=== PATIENT | female | born 1955 | race Caucasian/White ===

== ENCOUNTER 2022-02-18 07:16 | Emergency (ER) | payer MEDICARE, SELFPAY ==
--- NOTE | ~2022-02-18 | CT_ITS ---
EXAMINATION: CT ABDOMEN AND PELVIS WITHOUT CONTRAST CLINICAL INFORMATION: Left flank pain COMPARISON: CT abdomen pelvis without contrast 06/13/2013 TECHNIQUE: Multidetector volumetric imaging was performed from the superior aspect of the liver through the pubic symphysis. Sagittal and coronal reformatted images were obtained on the technologist's workstation. This CT examination was performed using dose optimization techniques as appropriate, variously including the following: *Automated exposure control *Adjustment of mA and/or kV according to patient size (this includes techniques or standardized protocols for targeted exams where dose is matched to indication/reason for exam; i.e. extremities or head) *Use of iterative reconstruction technique DLP: 298 i mGy-cm FINDINGS: LUNG BASES: The visualized lung bases are unremarkable. Small hiatal hernia. LIVER, GALLBLADDER, AND BILIARY TREE: The liver is enlarged in size, normal shape, contour and attenuation. No focal hepatic lesion or biliary ductal dilatation is present. The gallbladder is unremarkable with no evidence of radiopaque gallstones, gallbladder wall thickening, or obvious pericholecystic inflammatory changes. PANCREAS: Unremarkable. SPLEEN: Unremarkable. ADRENAL GLANDS: Unremarkable. KIDNEYS AND URETERS: The kidneys are normal in size, shape, and attenuation. There are bilateral radiopaque renal calculi. Largest radiopaque calculi mid pole right kidney measures 1 cm and and lower pole right kidney measures 1 cm. No focal caliectasis hydronephrosis seen. There is a 1.1 cm hypodensity in the upper pole cortex likely simple cysts. There are punctate 3 mm radiopaque calculi seen in the mid and lower pole left kidney without caliectasis or hydronephrosis. There are two 3 mm radiopaque calculi in right distal ureter without hydroureter. They are best visualized on axial image 53/3 BLADDER: Unremarkable. GASTROINTESTINAL TRACT: The small and large bowel are unremarkable. The appendix is unremarkable. ABDOMINAL WALL: No significant hernia is appreciated. LYMPH NODES: Normal. VASCULAR: There is atherosclerotic calcification of abdominal aorta without aneurysmal dilatation. PELVIC VISCERA: The uterus is anteverted and appears unremarkable. No adnexal mass or free fluid seen. OSSEOUS STRUCTURES: Unremarkable. CT/CT abdomen pelvis wo IV con IMPRESSION: Bilateral nephrolithiasis with the largest stones in mid and lower pole right kidney. Two small 3 mm radiopaque calculi right distal ureter, nonobstructive. Small hiatal hernia. Fleischner guidelines were followed.
[2022-02-18 07:29] VITALS: BP 175/98; PULSE 108; RESP 16; TEMP 36; O2SAT 97; BMI 20.5
--- NOTE | 2022-02-18 08:21 | ED.ABDPAIN ---
HPI - Abdominal Pain General Chief Complaint: Abdominal Pain Stated Complaint: kidney stone, Time Seen by Provider: 02/18/22 07:59 Source: patient and family Mode of arrival: ambulatory Limitations: no limitations History of Present Illness HPI narrative: 66-year-old postmenopausal female with a past medical history of prior kidney stones, historically managed at [facility], presents to the emergency department today with left flank pain and hematuria. She states she woke in the middle of the night with severe left back pain that radiated into her left abdomen and noted blood in her urine. She states the pain is constant and sharp, 6/10. She denies any recent illness or sick contacts. She endorses the feeling of her heart racing at this time. She states she has been able to take p.o. fluids without issue. She has had a history of kidney stones in the past, with last kidney stone in April requiring hospitalization and treatment for urosepsis per patient. She denies taking any medications at home for treatment of her pain. She denies any chest pain, shortness of breath, abdominal pain, diarrhea, constipation, fever, chills, nausea, or vomiting at this time. MD elicited complaint: flank pain Pertinent past history: kidney stones Onset (ago): hour(s) Pain Consistency: constant Location: L flank Severity: moderate Pain scale (0-10): 6 Quality: sharp Radiation: LLQ Migration to: no migration Exacerbating factors: nothing Relieving factors: nothing Associated symptoms: denies other symptoms Related Data Previous Rx's Medication Instructions Recorded cefuroxime axetil 500 mg tablet 500 mg PO BID 5 days #10 tabs 02/18/22 ondansetron 4 mg disintegrating 4 mg PO Q8H 3 days #9 tabs 02/18/22 tablet oxycodone 5 mg capsule 5 mg PO Q6H PRN pain 3 days #10 02/18/22 caps tamsulosin 0.4 mg capsule 0.4 mg PO DAILY 7 days #7 caps 02/18/22 Allergies Allergy/AdvReac Type Severity Reaction Status Date / Time promethazine [From Phenergan] Allergy Mild DEEP SLEEP Unverified 12/10/19 16:16 Review of Systems Review of Systems Yes all other systems are reviewed and are negative Constitutional: Reports no additional constitutional complaints, Denies chills, Denies fever(s), Denies headache(s) and Denies night sweats Eyes: Reports no additional eye complaints and Denies change in vision Reports system reviewed and no additional complaints, except as documented and Denies headache(s) Cardiovascular: Reports no additional cardiovascular complaints, Denies chest pain, Denies Epigastric Pain, Reports rapid heart rate, Denies lightheadedness, Reports palpitations and Denies dyspnea Respiratory: Reports no additional respiratory complaints, Denies pain on inspiration and Denies dyspnea Gastrointestinal: Reports no additional gastrointestinal complaints, Denies abdominal pain, Denies melena, Denies hematochezia, Denies constipation, Denies diarrhea, Denies nausea and Denies vomiting Genitourinary: Reports no additional female genitourinary complaints, Denies difficulty voiding, Reports flank pain and Reports other (hematuria) Musculoskeletal: Reports no additional musculoskeletal complaints and Denies back pain Skin/Breast: Reports system reviewed and no additional complaints, except as docu, Denies lesions, Denies rash and Denies sores Reports system reviewed and no additional complaints, except as documented, Denies behavioral changes and Denies headache(s) Psychiatric: Reports no additional psychiatric complaints and Denies behavioral changes Endocrine: Reports no additional endocrine complaints, Denies polyphagia, Denies polydipsia, Denies polyuria and Reports palpitations Hematologic/Lymphatic: Reports no additional hematologic/lymphatic complaints [facility] Past Medical History Attestation statement: The following information was validated with the patient. Source: old records reviewed and obtained from family Social History Social History Advance Directives: Yes Advance Directives Information Provided: Yes Advance Directives on File: No Physical Exam ED Vital Signs: Vital Signs - 24 hr 02/18/22 07:29 Temperature 96.8 F Pulse Rate 108 H Respiratory Rate 16 Blood Pressure 175/98 H Pulse Oximetry 97 Oxygen Delivery Method Room Air BMI result Body Mass Index 20.5 Const General: cooperative, alert and awake Nutritional Appearance: average body habitus Orientation/consciousness: patient oriented x3 Limitations: no limitations HENMT Head: Yes normal to inspection, Yes normocephalic and Yes atraumatic Ears: hearing grossly normal bilaterally and external ears normal General nose exam: Normal external nose present Face and sinus: Yes normal facial exam Mouth: Normal oral and palatal mucosa present Eyes General: appearance normal, both eyes and all related structures Alignment and Position: alignment normal Periorbital: periorbital findings normal Eyelids: Yes eyelids normal Conjunctivae: conjunctivae normal Sclerae: sclerae normal Pupils: Equal, round and reactive pupils present EOM: EOMs intact bilaterally Neck Neck: Yes normal visual inspection and Yes full ROM Chest Chest palpation & inspection: normal inspection of the chest Resp Effort & Inspection: normal respiratory effort and able to speak in complete sentences Auscultation: clear to auscultation bilaterally Cardio Rate: tachycardic Rhythm: regular rhythm Peripheral pulses: Peripheral pulses 2+ throughout GI Inspection: Yes normal to inspection and No distended Palpation (GI): Soft to palpation, not firm, Tenderness to palpation present (GI) (mid left quadrant), no guarding and not rigid Auscultation: normal bowel sounds General: Yes CVA tenderness on the left Back/Spine/Pelvis Back: CVA tenderness, No erythema, No ecchymosis and No Blount-Negrete sign present Cervical Spine: cervical ROM normal Thoracic/Lumbar Spine: thoraco-lumbar ROM normal Skin General skin exam: no rashes or lesions noted Neuro General: patient oriented x3, gait normal and moves all extremities Cranial nerves: Yes Equal, round and reactive pupils present and Yes Bilaterally intact EOM present Cognition (Neuro): normal cognition Gait exam (Neuro): Normal gait present Motor exam (neuro): 5/5 motor strength present throughout Sensory Exam: Normal double simultaneous stimulation for sensation Extrem General: Yes normal to inspection, Yes full ROM and Yes capillary refill normal Psych Appearance: grossly normal Mental Status: mental status grossly normal Speech and movement: Normal speech and movement present Affect: normal affect Attitude: cooperative Thought process: Normal thought process present Thought content: Normal thought content present Insight: Good insight present (Psych) Judgement: Good judgement present (Psych) Course Course Course Narrative: 0800: Physical exam consistent with left CVA tenderness. 0815: CT abdomen pelvis without IV contrast ordered. Lab work ordered: CBC, CMP, lipase, LFTs, UA. Plan to provide IV Toradol for pain and 500 mL NS for hydration. 0900: CT scan results showing bilateral nephrolithiasis with no hydronephrosis. 3 mm stone noted in mid/lower pole of left kidney, two 3 mm stones noted in right ureter. With no leukocytosis noted on blood work. Pending UA results. Results discussed with patient. Patient states she is concerned that she will not be able to pass the stones as she has not been able to pass large stones in the past. As patient shows no sign of active infection or hydronephrosis, plan would be to manage patient discomfort with IV analgesics, begin tamsulosin to allow the ureters to relax and pass stones and give IV fluids pending urinalysis results. 1100: Urinalysis positive for blood, increased WBC, leukocyte esterase. Results consistent with acute cystitis and cefuroxime 500 mg initiated in ED. Medications Administered Discontinued Medications Generic Name Dose Route Start Last Admin Trade Name Freq PRN Reason Stop Dose Admin Cefuroxime Axetil 500 mg 02/18/22 10:47 02/18/22 11:53 Cefuroxime Axetil 500 Mg Tablet PO 02/18/22 10:48 500 mg ONCE ONE Administration Hydromorphone HCl 0.5 mg 02/18/22 09:52 02/18/22 09:59 Hydromorphone Hcl 0.5 Mg/0.5 Ml Syringe IVPUSH 02/18/22 09:53 0.5 mg ONCE ONE Administration Protocol Sodium Chloride 250 mls @ 999 mls/hr 02/18/22 08:15 02/18/22 09:51 Ns IV 02/18/22 08:30 Not Given .Q16M RENE Sodium Chloride 1,000 mls @ 999 mls/hr 02/18/22 09:45 02/18/22 12:55 Ns IV 02/18/22 10:45 Infused .Q1H1M RENE Infusion Ketorolac Tromethamine 15 mg 02/18/22 08:15 02/18/22 09:05 Ketorolac Tromethamine 15 Mg/Ml Vial IVPUSH 02/18/22 08:16 15 mg ONCE ONE Administration Ondansetron HCl 4 mg 02/18/22 09:04 02/18/22 09:14 Ondansetron Hcl 4 Mg/2 Ml Vial IVPUSH 02/18/22 09:05 4 mg ONCE ONE Administration Oxycodone HCl 5 mg 02/18/22 11:09 02/18/22 11:53 Oxycodone Hcl Immed Release 5 Mg Tablet PO 02/18/22 11:10 5 mg ONCE ONE Administration Tamsulosin HCl 0.4 mg 02/18/22 09:35 02/18/22 09:59 Tamsulosin Hcl 0.4 Mg Capsule PO 02/18/22 09:36 0.4 mg ONCE ONE Administration MDM - Abdominal Pain MDM Narrative Medical decision making narrative: 66-year-old postmenopausal small female presenting to the emergency department with left flank pain and hematuria x several hours. Medicated with 15 mg IV Toradol with moderate affect and Zofran given for complaints of nausea. 1 L NS bolus given with. CT abdomen pelvis remarkable for bilateral nephrolithiasis with two nonobstructive 3 mm calculi noted in right distal ureter and one 3 mm calculi seen in the mid and lower pole of left kidney without hydronephrosis. Tamsulosin initiated. Blood work unremarkable. UA with WBC 6-10, 1+ leukocyte esterase, and hematuria consistent with acute cystitis. Cefuroxime 500 mg initiated in ED. low suspicion for pyelonephritis, hydronephrosis, cholecystitis, or pancreatitis based on diagnostics. Plan to discharge patient with cefuroxime b.i.d., Zofran p.r.n., oxycodone Q 6 p.r.n., and tamsulosin once daily. Extensive education provided regarding diagnostics, physical exam, plan for medication management, recommendation to follow up with Urology, and for discharge. Recommended to increase p.o. fluid intake at home and continue to monitor symptoms. Educated to return to emergency department with fever, chills, increased nausea, active vomiting, increased pain, increased hematuria, and any other symptoms that concern you. Recommended to follow-up with her urologist at [facility] tomorrow for further treatment and management and her PCP. Differential Diagnosis Differential diagnosis: Likely calculus of kidney (bilateral) Medical Records Attestation: I reviewed the patient's medical records. Lab Data Attestation: I reviewed the patient's lab results. Result diagrams: 02/18/22 09:01 02/18/22 09:01 Labs: Lab Results 02/18/22 02/18/22 02/18/22 Range/Units 09:01 09:01 09:01 WBC 8.3 (4.8-10.8) X10*3/uL RBC 4.97 (4.20-5.50) X10*6/uL Hgb 15.6 (12.0-16.0) g/dl Hct 47.1 H (37.0-47.0) % MCV 94.8 (80.0-98.0) fL MCH 31.4 (27.0-33.0) pg MCHC 33.1 (31.0-35.0) g/dl RDW 12.4 (11.0-16.0) % Plt Count 383 (160-400) X10*3/uL MPV 9.3 L (9.4-12.3) fL Immature Gran % (Auto) 0.2 (0.0-0.4) % Neut % (Auto) 70.9 (45-73) % Lymph % (Auto) 21.0 (20-40) % [place]ickman % (Auto) 6.5 (2-11) % Eos % (Auto) 0.8 (0-4) % Baso % (Auto) 0.6 (0-2) % Lymph # (Auto) 1.8 (1.2-4.9) X10*3/uL [place]ickman # (Auto) 0.5 (0.1-1.2) X10*3/uL Eos # (Auto) 0.1 (0.0-0.4) X10*3/uL Baso # (Auto) 0.1 (0.0-0.2) X10*3/uL Abs Immat Gran (auto) 0.02 (0.00-0.03) X10*3/uL Absolute Neuts (auto) 5.9 (2.0-8.3) x10*3/uL Absolute Nucleated RBC 0.000 (0.0-0.012) X10*3/uL Nucleated RBC % (auto) 0.0 (0.0-0.2) /100WBC Sodium 141 (135-145) mmol/L Potassium 4.3 (3.3-5.1) mmol/L Chloride 102 (96-108) mmol/L Carbon Dioxide 26 (22-29) mmol/L Anion Gap 17 (12-20) BUN 12 (9-16) mg/dL Creatinine 0.83 (0.5-1.4) mg/dL Estim Creat Clear Calc 54.4 Estimated GFR > 60 Random Glucose 217 H (60-115) mg/dL Calcium 10.1 (8.4-10.2) mg/dL Total Bilirubin 0.5 0.5 (0.0-1.0) mg/dL Direct Bilirubin 0.2 (0.0-0.5) mg/dL AST 19 18 (5-31) U/L ALT 16 16 (0-31) U/L Alkaline Phosphatase 69 68 (39-117) U/L Total Protein 8.1 H 7.8 (6.5-8.0) g/dL Albumin 4.6 4.6 (3.5-5.0) g/dL Lipase 12 (8-78) U/L Urine Color Urine Appearance Urine pH (5.0-9.0) Ur Specific [place] (1.005-1.025) Urine Protein (Neg-Trace) mg/dL Urine Glucose (UA) (Negative) mg/dL Urine Ketones (Negative) mg/dL Urine Blood (Negative) Urine Nitrite (Negative) Ur Leukocyte Esterase (Negative) Urine RBC (0-2) /HPF Urine WBC (0-5) /HPF Ur Squamous Epith Cells (0-2) /HPF Urine Bacteria (None Seen) Hyaline Casts (0-2) /LPF 02/18/22 Range/Units 10:04 WBC (4.8-10.8) X10*3/uL RBC (4.20-5.50) X10*6/uL Hgb (12.0-16.0) g/dl Hct (37.0-47.0) % MCV (80.0-98.0) fL MCH (27.0-33.0) pg MCHC (31.0-35.0) g/dl RDW (11.0-16.0) % Plt Count (160-400) X10*3/uL MPV (9.4-12.3) fL Immature Gran % (Auto) (0.0-0.4) % Neut % (Auto) (45-73) % Lymph % (Auto) (20-40) % Hickman % (Auto) (2-11) % Eos % (Auto) (0-4) % Baso % (Auto) (0-2) % Lymph # (Auto) (1.2-4.9) X10*3/uL Hickman # (Auto) (0.1-1.2) X10*3/uL Eos # (Auto) (0.0-0.4) X10*3/uL Baso # (Auto) (0.0-0.2) X10*3/uL Abs Immat Gran (auto) (0.00-0.03) X10*3/uL Absolute Neuts (auto) (2.0-8.3) x10*3/uL Absolute Nucleated RBC (0.0-0.012) X10*3/uL Nucleated RBC % (auto) (0.0-0.2) /100WBC Sodium (135-145) mmol/L Potassium (3.3-5.1) mmol/L Chloride (96-108) mmol/L Carbon Dioxide (22-29) mmol/L Anion Gap (12-20) BUN (9-16) mg/dL Creatinine (0.5-1.4) mg/dL Estim Creat Clear Calc Estimated GFR Random Glucose (60-115) mg/dL Calcium (8.4-10.2) mg/dL Total Bilirubin (0.0-1.0) mg/dL Direct Bilirubin (0.0-0.5) mg/dL AST (5-31) U/L ALT (0-31) U/L Alkaline Phosphatase (39-117) U/L Total Protein (6.5-8.0) g/dL Albumin (3.5-5.0) g/dL Lipase (8-78) U/L Urine Color Yellow Urine Appearance Clear Urine pH 6.0 (5.0-9.0) Ur Specific [place] 1.020 (1.005-1.025) Urine Protein 100 (2+) H (Neg-Trace) mg/dL Urine Glucose (UA) 500 H (Negative) mg/dL Urine Ketones 15 (Negative) mg/dL Urine Blood Large (3+) H (Negative) Urine Nitrite Negative (Negative) Ur Leukocyte Esterase Small (1+) H (Negative) Urine RBC >20 H (0-2) /HPF Urine WBC 6-10 H (0-5) /HPF Ur Squamous Epith Cells 0-2 (0-2) /HPF Urine Bacteria None Seen (None Seen) Hyaline Casts 0-2 (0-2) /LPF Imaging Data CT scan - abdomen: My impression: Bilateral nephrolithiasis with no signs of hydronephrosis Radiologist's impression: EXAMINATION: CT ABDOMEN AND PELVIS WITHOUT CONTRAST? CLINICAL INFORMATION: Left flank pain? COMPARISON: CT abdomen pelvis without contrast 06/13/2013 TECHNIQUE: Multidetector volumetric imaging was performed from the superior aspect of the liver through the pubic symphysis. Sagittal and coronal reformatted images were obtained on the technologist's workstation.? This CT examination was performed using dose optimization techniques as appropriate, variously including the following: *Automated exposure control *Adjustment of mA and/or kV according to patient size (this includes techniques or standardized protocols for targeted exams where dose is matched to indication/reason for exam; i.e. extremities or head) *Use of iterative reconstruction technique DLP: 298 i mGy-cm FINDINGS: LUNG BASES: The visualized lung bases are unremarkable. Small hiatal hernia. LIVER, GALLBLADDER, AND BILIARY TREE: The liver is enlarged in size, normal shape, contour and attenuation. No focal hepatic lesion or biliary ductal dilatation is present. The gallbladder is unremarkable with no evidence of radiopaque gallstones, gallbladder wall thickening, or obvious pericholecystic inflammatory changes.? PANCREAS: Unremarkable.? SPLEEN: Unremarkable.? ADRENAL GLANDS: Unremarkable.? KIDNEYS AND URETERS: The kidneys are normal in size, shape, and attenuation. There are bilateral radiopaque renal calculi. Largest radiopaque calculi mid pole right kidney measures 1 cm and and lower pole right kidney measures 1 cm. No focal caliectasis hydronephrosis seen. There is a 1.1 cm hypodensity in the upper pole cortex likely simple cysts. There are punctate 3 mm radiopaque calculi seen in the mid and lower pole left kidney without caliectasis or hydronephrosis. There are two 3 mm radiopaque calculi in right distal ureter without hydroureter. They are best visualized on axial image 53/3 BLADDER: Unremarkable.? GASTROINTESTINAL TRACT: The small and large bowel are unremarkable. The appendix is unremarkable.? ABDOMINAL WALL: No significant hernia is appreciated.? LYMPH NODES: Normal. VASCULAR: There is atherosclerotic calcification of abdominal aorta without aneurysmal dilatation. PELVIC VISCERA: The uterus is anteverted and appears unremarkable. No adnexal mass or free fluid seen.? OSSEOUS STRUCTURES: Unremarkable.? CT/CT abdomen pelvis wo IV con IMPRESSION: Bilateral nephrolithiasis with the largest stones in mid and lower pole right kidney. ? Two small 3 mm radiopaque calculi right distal ureter, nonobstructive. ? Small hiatal hernia. ? Fleischner guidelines were followed. Dictated By: Sánchez Antoine MD Signed By: <Electronically signed by Sánchez Antoine MD in OV> 02/18/22916 DD/ 4 TD/TT:? House Decorator: [facility] [place] Plan Discharge Clinical Impression: Calculus of kidney, Bilateral nephrolithiasis Patient Disposition: Home, Self-Care Instructions: Kidney Stones (ED), How to Strain Your Urine (ED) Additional Instructions: For prescriptions were given to you today. Three have been transmitted to your pharmacy. One is a paper copy to present to your pharmacy. You can take OTC tylenol and motin for additional pain control based on package dosing instructions. Please return to emergency department with fever, chills, increased nausea, active vomiting, increased pain, increased blood in your urine, and any other symptoms that concern you. Recommended to follow-up with your urologist at [facility] tomorrow for further treatment and management. Prescriptions: New cefuroxime axetil 500 mg tablet 500 mg PO BID 5 Days Qty: 10 0RF ondansetron 4 mg tablet,disintegrating 4 mg PO Q8H 3 Days Qty: 9 0RF tamsulosin 0.4 mg capsule 0.4 mg PO DAILY 7 Days Qty: 7 0RF oxycodone 5 mg capsule 5 mg PO Q6H PRN (Reason: pain) 3 Days Qty: 10 0RF Rx Instructions: Partial Fill upon patient request. Referrals: [facility] Family Medicine [Provider Group] [facility] [Provider Group] [facility] [Provider Group] Print Language: Pashto
[2022-02-18] MEDS: Ketorolac Tromethamine 15 MG/ML VIAL IVPUSH (09:05)
[2022-02-18 09:08] LABS: MANUAL DIFF FLAG NO
[2022-02-18 09:10] LABS: Basophils Absolute Auto 0.1 X10*3/uL (0.0-0.2); Basophils Percent Auto 0.6 % (0-2); Eosinophils Absolute Auto 0.1 X10*3/uL (0.0-0.4); Eosinophils Percent Auto 0.8 % (0-4); Hematocrit 47.1 % (37.0-47.0); Hemoglobin 15.6 g/dl (12.0-16.0); Imm Gran Abs Auto 0.02 X10*3/uL (0.00-0.03); Imm Gran Pct Auto 0.2 % (0.0-0.4); Lymphocytes Absolute Auto 1.8 X10*3/uL (1.2-4.9); Mean Corpuscular HGB Conc 33.1 g/dl (31.0-35.0); Mean Corpuscular Hemoglobin 31.4 pg (27.0-33.0); Mean Corpuscular Volume 94.8 fL (80.0-98.0); Mean Platelet Volume 9.3 fL (9.4-12.3); Monocytes Absolute Auto 0.5 X10*3/uL (0.1-1.2); Monocytes Percent Auto 6.5 % (2-11); Neutrophils Absolute Auto 5.9 x10*3/uL (2.0-8.3); Neutrophils Percent Auto 70.9 % (45-73); Platelet Count 383 X10*3/uL (160-400); Red Blood Count 4.97 X10*6/uL (4.20-5.50); Red Cell Distribution Width 12.4 % (11.0-16.0); White Blood Count 8.3 X10*3/uL (4.8-10.8)
[2022-02-18] MEDS: ondansetron HCL 4 MG/2 ML VIAL IVPUSH (09:14)
[2022-02-18 09:25] LABS: Alanine Aminotransferase 16 U/L (0-31); Albumin Level 4.6 g/dL (3.5-5.0); Alkaline Phosphatase 69 U/L (39-117); Anion Gap 17 (12-20); Aspartate Amino Transferase 19 U/L (5-31); Bilirubin Total 0.5 mg/dL (0.0-1.0); Blood Urea Nitrogen 12 mg/dL (9-16); Calcium 10.1 mg/dL (8.4-10.2); Carbon Dioxide 26 mmol/L (22-29); Chloride 102 mmol/L (96-108); Creatinine Clr Calc Pharmacy 54.4; Estimated Glomerular Filt Rate > 60; Glucose Random 217 mg/dL (60-115); Lipase 12 U/L (8-78); Potassium 4.3 mmol/L (3.3-5.1); Sodium 141 mmol/L (135-145); Total Protein 8.1 g/dL (6.5-8.0)
[2022-02-18 09:26] LABS: Alanine Aminotransferase 16 U/L (0-31); Albumin Level 4.6 g/dL (3.5-5.0); Alkaline Phosphatase 68 U/L (39-117); Aspartate Amino Transferase 18 U/L (5-31); Bilirubin Direct 0.2 mg/dL (0.0-0.5); Bilirubin Total 0.5 mg/dL (0.0-1.0); Total Protein 7.8 g/dL (6.5-8.0)
[2022-02-18] MEDS: 0.9 % Sodium Chloride 1,000 ML 999 ML IV (09:58)
[2022-02-18] MEDS: HYDROmorphone HCl 0.5 MG/0.5 ML SYRINGE IVPUSH (09:59)
[2022-02-18] MEDS: Tamsulosin HCL 0.4 MG CAPSULE PO (09:59)
[2022-02-18 10:10] LABS: Appearance Urine Clear; Color Urine Yellow; Glucose Urine UA 500 mg/dL (Negative); Leukocyte Esterase Urine Small (1+) (Negative); Nitrite Urine Negative (Negative); UMIC TRIGGER UACC YES; Urine Blood Large (3+) (Negative); Urine Ketones 15 mg/dL (Negative); Urine Protein 100 (2+) mg/dL (Neg-Trace)
[2022-02-18 10:15] LABS: Bacteria Urine None Seen (None Seen); Hyaline Casts Urine 0-2 /LPF (0-2); RBC Urine >20 /HPF (0-2); Squamous Epithelial Cell Urine 0-2 /HPF (0-2); UACC Culture Trigger YES
--- NOTE | 2022-02-18 10:30 | PC.NURSE ---
patient a/ox4 . jamalrla . heart rate regular at 80 beats per minute . breathing even and unlabored . skin pink warm and dry . abdomen soft not tender . positive bowel sounds .patient reports 10 out of 10 pain in left flank . has history of kidney stones . IV placed in right A.C . labs have been drawn and sent . patient medicated with toridal and fluids started . patient aware of plan of care .
[2022-02-18] MEDS: oxyCODONE HCl Immed Release 5 MG TABLET PO (11:53)
[2022-02-18 13:17] VITALS: BP 159/86; PULSE 75; RESP 18; TEMP 36.9; O2SAT 99
--- NOTE | 2022-02-18 13:22 | PC.NURSE ---
patient a/ox4 . VSS . went over discharge instructions as ordered by provider . patient to follow up with nephrology and primary care . patient to return if symptoms worsen .patient has no questions at this time .
== END 2022-02-18 13:24 | disposition home or self-care (01) ==
PROVIDERS: Nurse Practitioner Family; Emergency Provider Emergency Medicine
DX: N20.0 Calculus of kidney (principal); R10.9 Unspecified abdominal pain; Z79.899 Other long term (current) drug therapy
CPT/HCPCS: 36415; 74176; 80053; 80076; 81001; 82248; 83690; 85025; 87086; 96361; 96374; 96375; 99284; J1170; J1885; J2405

== ENCOUNTER 2022-10-02 16:27 | Inpatient (IN) | payer MEDICARE, SELFPAY ==
--- NOTE | ~2022-10-02 | CT_ITS ---
EXAMINATION: CT HEAD WITHOUT CONTRAST (STROKE PROTOCOL) CLINICAL INFORMATION: Stroke protocol. Vision loss and weakness on left side COMPARISON: None available. TECHNIQUE: Contiguous axial imaging was performed from the skull base to vertex without intravenous administration of contrast. This CT examination was performed using dose optimization techniques as appropriate, variously including the following: *Automated exposure control *Adjustment of mA and/or kV according to patient size (this includes techniques or standardized protocols for targeted exams where dose is matched to indication/reason for exam; i.e. extremities or head) *Use of iterative reconstruction technique DLP: 640 mGy-cm FINDINGS: There is no acute intra-axial, extra-axial bleed, masses or midline shift. There is no acute infarction in evolution. There is no edema. There is diffuse periventrical hypodensities in both cerebral hemispheres without mass effect. The borja to white matter difference is maintained normal. The lateral ventricles are symmetrical in size and configuration but slightly prominent. Bone windows reveal no calvarial abnormality. There is no scalp soft tissue abnormality. Mild mucoperiosteal thickening right maxillary sinus is noted. CT/CT head for stroke IMPRESSION: 1. No acute intracranial process seen. 2. Age-related cerebral volume loss with chronic small vessel ischemic changes in both cerebral hemispheres. This critical result was discussed with Dr. Victor M Freeman at 4.45 hours on 10/02/22. It was ascertained that the content and urgency of the report was understood at the time of direct communication.
--- NOTE | ~2022-10-02 | XR_ITS ---
EXAMINATION: XR CHEST CLINICAL INFORMATION: Cough COMPARISON: Chest x-ray on 04/09/2007 TECHNIQUE: Frontal view of the chest was obtained. FINDINGS: The cardiac silhouette is normal. There is mild diffuse bronchial wall thickening. There are no areas of consolidation. There are no pleural effusions or pneumothoraces. The bones and soft tissues are unremarkable for the patient's age. XR/XR chest 1V IMPRESSION: Bronchial wall thickening may be infectious and/or inflammatory in etiology.
--- NOTE | ~2022-10-02 | CT_ITS ---
EXAMINATION: CT ANGIOGRAM HEAD CT ANGIOGRAM NECK CLINICAL INFORMATION: Reason for Exam L sided weakness and visual changes COMPARISON: Same day noncontrast head CT TECHNIQUE: Initial noncontrast l tacker imaging of the head and neck was performed. Comparison is made with noncontrast head CT from earlier today. Test bolus sequences followed by intravenous administration 70 mL of Omnipaque 350. Helical imaging was performed in the axial plane from the aortic arch to the skull vertex. Delayed postcontrast imaging of the head was also performed. The data was processed at the industrial technologist's workstation for generation of MIP sequences. Angled MIPs and volume rendered reformatted images were also generated at an offline 3D workstation. Stenoses are assessed in accordance with NASCET criteria unless otherwise indicated. DLP: 1412.12 mGy-cm This CT examination was performed using dose optimization techniques as appropriate, variously including the following: *Automated exposure control. *Adjustment of mA and/or kV according to patient size (this includes techniques or standardized protocols for targeted exams where dose is matched to indication/reason for exam; i.e. extremities or head). *Use of iterative reconstruction technique. FINDINGS: CT Head: There is no evidence of acute intracranial hemorrhage or edematous territorial infarction. Scattered hypoattenuation in the periventricular and deep white matter are consistent with moderate microangiopathy. Blount-white matter differentiation is preserved. The ventricles are normal in size and configuration. No evidence for obstructive hydrocephalus. No abnormal mass effect or midline shift. No extra-axial fluid collections. No pathologic intra-axial enhancement or regional oligemia. No acute soft tissue or osseous abnormalities. Mild right maxillary sinus mucosal thickening. Right mastoid opacification. Degenerative changes of the right greater than left temporomandibular joints. CT Neck: The thyroid gland and remaining cervical soft tissues are within normal limits. No significant abnormalities of the cervical spine. CT Upper Chest: The visualized lung apices and upper mediastinum are within normal limits. Neck CTA: Aortic Arch: Normal contour and caliber. Classic 3 vessel branching pattern of the aortic arch. Great Vessel Origins: No significant stenosis of the branch origins. Right Common Carotid Artery: No focal stenosis or occlusion. Cervical Right Internal Carotid Artery: Normal opacification without focal stenosis or occlusion. Left Common Carotid Artery: No focal stenosis or occlusion. Cervical Left Internal Carotid Artery: Normal opacification without focal stenosis or occlusion. Cervical Right Vertebral Artery: No focal stenosis or occlusion. Cervical Left Vertebral Artery: No focal stenosis or occlusion. Brain CTA: Intracranial Internal Carotid Arteries: Calcific atherosclerotic disease of the intracranial internal carotid arteries without occlusion or flow-limiting stenosis. Right Anterior Cerebral Artery: Normal A1 segment. Normal opacification of the distal SALTY segments. Left Anterior Cerebral Artery: Normal A1 segment. Normal opacification of the distal SALTY segments. Anterior Communicating Artery: Normal. Right Middle Cerebral Artery: Normal M1 segment of the MCA without focal stenosis or occlusion. Normal arborization of the distal segments. Left Middle Cerebral Artery: Mild to moderate focal stenosis of the distal M1/proximal M2 segment. Normal arborization of the distal segments. Right Vertebral Artery: Normal V4 segment. Left Vertebral Artery: Normal V4 segment. Basilar Artery: Normal without focal stenosis or occlusion. Normal appearance of the proximal superior cerebellar arteries. Right Posterior Cerebral Artery: Normal P1 segment. Normal opacification of the distal SITE SUPERINTENDENT segments. Left Posterior Cerebral Artery: Normal P1 origin. Mild to moderate focal stenosis of the distal left P1 segment. Normal opacification of the distal SITE SUPERINTENDENT segments. Normal opacification of the superior sagittal, straight, transverse, and sigmoid sinuses. CT/CT angio head neck stroke IMPRESSION: No arterial high grade stenosis or large vessel occlusion in the head or neck. Above impression was communicated to Dr Lemons on 10/02/2022 5:02 PM
--- NOTE | ~2022-10-02 | MR_ITS ---
EXAMINATION: MR BRAIN WITHOUT CONTRAST CLINICAL INFORMATION: Evaluate for stroke. Vision loss and weakness on left side. COMPARISON: CT dated 10/02/2022. TECHNIQUE: Multiplanar, multisequence imaging of the brain was performed without contrast. Limited study with motion artifacts. FINDINGS: There is a small linear 2 mm focus of mildly bright signal on diffusion weighted imaging in the region of the right facial colliculus in the dorsal aspect of the upper frida. No mass effect or midline shift is seen. Moderate chronic white matter microangiopathic changes noted with diffuse parenchymal volume loss and ex vacuo dilatation of the ventricles. There is a chronic lacunar infarct in the left thalamus. No extra-axial fluid collections are seen. The cerebellum is normal. The gradient refocused acquisition is normal. The craniovertebral junction, marrow signal, and remaining midline structures are normal. The major intracranial flow voids at the level of the [place] are preserved. The dural venous sinus flow voids are maintained. Mild ethmoid and maxillary sinus mucosal thickening noted. There is a mild amount of fluid in the dependent left mastoid air cells. Significant right mastoid effusion noted. The nasopharyngeal soft tissues are unremarkable. MR/MR head/brain wo con IMPRESSION: Limited study with motion artifacts. Small focus of diffusion signal abnormality perceived in the right facial colliculus along the dorsal aspect of the upper frida which may represent an acute infarct or artifact; correlate with patient symptomatology. Generalized parenchymal volume loss and moderate chronic white matter microangiopathy. Bilateral mastoid effusions, more significant on the right side of indeterminate etiology.
--- NOTE | 2022-10-02 16:28 | ECG_ITS ---
Test Reason : weakness Blood Pressure : / mmHG Vent. Rate : 098 BPM Atrial Rate : 098 BPM P-R Int : 124 ms QRS Dur : 088 ms QT Int : 336 ms P-R-T Axes : 022 015 049 degrees QTc Int : 428 ms Normal sinus rhythm Nonspecific ST abnormality Abnormal ECG When compared with ECG of 28-FEB-2012 13:24, Vent. rate has increased BY 32 BPM Criteria for Septal infarct are no longer Present Referred By: Joe Singh Electronically Signed By:NICOLÁS YI MD
--- NOTE | 2022-10-02 16:32 | ED.NEUROSD ---
HPI - Neuro Symptoms/Deficit General Chief Complaint: Stroke Stated Complaint: ?Stroke Time Seen by Provider: 10/02/22 16:30 Source: patient and family Mode of arrival: ambulatory Limitations: no limitations History of Present Illness HPI Narrative: 66-year-old female with left-sided vision fixation with no darnell-neglect and weakness on left side she states she had a stroke 2 years ago there is no records of her being here before for stroke she was here for kidney stone in the past. Patient is very anxious she required us to remove her from the car then ambulated without assistance. Patient denies chest pain cough fever nausea vomiting diarrhea no trauma or falls. She states she was on her phone when symptoms started the states that she is on a foam 247 and has taken overdose when you using her cell phone too much. Patient states she is not always on her phone her symptoms are isolated just to her left eye which she states her left eye is blurry. She states she has never had this problem the past denies any fevers chills she did have a cold she also did take some Delsym and Tylenol for this cold. Onset (ago): minute(s) Related Data Previous Rx's Medication Instructions Recorded cefuroxime axetil 500 mg tablet 500 mg PO BID 5 days #10 tabs 02/18/22 ondansetron 4 mg disintegrating 4 mg PO Q8H 3 days #9 tabs 02/18/22 tablet oxycodone 5 mg capsule 5 mg PO Q6H PRN pain 3 days #10 02/18/22 caps tamsulosin 0.4 mg capsule 0.4 mg PO DAILY 7 days #7 caps 02/18/22 Allergies Allergy/AdvReac Type Severity Reaction Status Date / Time promethazine [From Phenergan] Allergy Mild DEEP SLEEP Unverified 12/10/19 16:16 Review of Systems Review of Systems: Review of systems: General: Patient denies any fever chills recent illness or falls Musculoskeletal: Denies back pain or body aches or other injuries HEENT: denies headache, runny nose, ear pain Respiratory: denies shortness of breath, cough Cardiovascular: no chest pain or palpitations : denies dysuria, frequency Abdomen: no nausea vomiting denies abdominal pain Extremities: no swelling, no pain Skin: no diaphoresis Yes all other systems are reviewed and are negative [facility] Social History Social History Advance Directives: No Advance Directives Information Provided: No Physical Exam Vital Signs: Vital Signs: Last Vital Signs Temp 99 F 10/02/22 16:51 Pulse 97 10/02/22 17:13 Resp 18 10/02/22 17:13 BP 155/96 H 10/02/22 17:13 Pulse Ox 97 10/02/22 17:13 O2 Del Method Room Air 10/02/22 17:13 BMI result Body Mass Index 20.6 Neurological exam: CN II- XII tested. Patient is alert and oriented to person place and time. Patient has no dysphagia or dysarthia, denies good vision in all four vision lord no nystagmus on exam, good strength to upper and lower extremities with normal reflexes to brachioradialis, wrist, patella and achilles. Negative romberg, good finger to nose and heel to stout. General: Well-appearing well-nourished in no signs of distress HEENT: Normocephalic atraumatic Neck: No signs of JVD, no masses no tenderness or lymphadenopathy Cardiovascular: Regular rate and rhythm Respiratory: Clear to auscultation bilaterally Abdomen: Soft nontender no masses Extremities: Normal pedal pulses no signs of edema Skin: Dry warm no rashes Back: No tenderness full ROM Medications Administered Discontinued Medications Generic Name Dose Route Start Last Admin Trade Name Freq PRN Reason Stop Dose Admin Iohexol 100 ml 10/02/22 16:47 10/02/22 16:47 Iohexol 350 Mg/Ml 100 Ml Infus..Btl IV 10/02/22 16:48 70 ml ONCE ONE Administration Medical Decision Making Medical Decision Making [facility] Narrative: Patient here with left-sided weakness and change in case to left side patient states she has history of strokes which was not seen here patient immediately sent for CTA gradients of patient replete stroke for x-ray and discuss possible MRI. Differential Diagnosis Differential Diagnoses: The differential diagnosis associated with the presentation includes CV anxiety electrolyte abnormality weakness or other neurological disorder Admission/Observation Consideration of admission/observation: Escalation of care including admission/observation considered Consult Healthcare Provider Management of the patient was discussed with: Hospitalist and Visual Specialist I spoke with Dr. Antoine about the non contrast CT head and CTA head and neck. I spoke with Dr. Wright about the admission as well. Lab Data MDM Lab Attestation statement: I reviewed the patient's lab results. UTI noted treated with rocephin. 10/02/22 16:37 10/02/22 16:37 Labs: Lab Results 10/02/22 10/02/22 10/02/22 Range/Units 16:37 16:37 16:37 WBC 6.3 (4.8-10.8) X10*3/uL RBC 4.61 (4.20-5.50) X10*6/uL Hgb 14.2 (12.0-16.0) g/dl Hct 43.2 (37.0-47.0) % MCV 93.7 (80.0-98.0) fL MCH 30.8 (27.0-33.0) pg MCHC 32.9 (31.0-35.0) g/dl RDW 12.8 (11.0-16.0) % Plt Count 289 (160-400) X10*3/uL MPV 9.4 (9.4-12.3) fL Immature Gran % (Auto) 0.2 (0.0-0.4) % Neut % (Auto) 47.2 (45-73) % Lymph % (Auto) 32.8 (20-40) % Braxton % (Auto) 17.1 H (2-11) % Eos % (Auto) 1.6 (0-4) % Baso % (Auto) 1.1 (0-2) % Lymph # (Auto) 2.1 (1.2-4.9) X10*3/uL [place] # (Auto) 1.1 (0.1-1.2) X10*3/uL Eos # (Auto) 0.1 (0.0-0.4) X10*3/uL Baso # (Auto) 0.1 (0.0-0.2) X10*3/uL Abs Immat Gran (auto) 0.01 (0.00-0.03) X10*3/uL Absolute Neuts (auto) 3.0 (2.0-8.3) x10*3/uL Absolute Nucleated RBC 0.000 (0.0-0.012) X10*3/uL Nucleated RBC % (auto) 0.0 (0.0-0.2) /100WBC PT 9.8 L (10.0-13.1) SEC Whole Blood PT (11.1-13.5) sec INR 0.9 (0.9-1.1) Whole Blood INR (0.9-1.1) APTT 28.4 (26.0-36.4) SEC Sodium 139 (135-145) mmol/L Potassium 3.9 (3.3-5.1) mmol/L Chloride 104 (96-108) mmol/L Carbon Dioxide 21 L (22-29) mmol/L Anion Gap 18 (12-20) BUN 19 H (9-16) mg/dL Creatinine 0.89 (0.5-1.4) mg/dL Estim Creat Clear Calc 50.7 Estimated GFR > 60 POC Glucose (60-115) mg/dL Random Glucose 275 H (60-115) mg/dL Calcium 9.8 (8.4-10.2) mg/dL Magnesium 1.6 (1.6-2.6) mg/dL Total Creatine Kinase 21 L (26-140) U/L Troponin I High Sens (<3.5-17.0) ng/L Urine Color Urine Appearance Urine pH (5.0-9.0) Ur Specific [place] (1.005-1.025) Urine Protein (Neg-Trace) mg/dL Urine Glucose (UA) (Negative) mg/dL Urine Ketones (Negative) mg/dL Urine Blood (Negative) Urine Nitrite (Negative) Ur Leukocyte Esterase (Negative) Urine RBC (0-2) /HPF Urine WBC (0-5) /HPF Ur Squamous Epith Cells (0-2) /HPF Urine Bacteria (None Seen) Hyaline Casts (0-2) /LPF 10/02/22 10/02/22 10/02/22 Range/Units 16:37 16:59 17:03 WBC (4.8-10.8) X10*3/uL RBC (4.20-5.50) X10*6/uL Hgb (12.0-16.0) g/dl Hct (37.0-47.0) % MCV (80.0-98.0) fL MCH (27.0-33.0) pg MCHC (31.0-35.0) g/dl RDW (11.0-16.0) % Plt Count (160-400) X10*3/uL MPV (9.4-12.3) fL Immature Gran % (Auto) (0.0-0.4) % Neut % (Auto) (45-73) % Lymph % (Auto) (20-40) % [place] % (Auto) (2-11) % Eos % (Auto) (0-4) % Baso % (Auto) (0-2) % Lymph # (Auto) (1.2-4.9) X10*3/uL [place] # (Auto) (0.1-1.2) X10*3/uL Eos # (Auto) (0.0-0.4) X10*3/uL Baso # (Auto) (0.0-0.2) X10*3/uL Abs Immat Gran (auto) (0.00-0.03) X10*3/uL Absolute Neuts (auto) (2.0-8.3) x10*3/uL Absolute Nucleated RBC (0.0-0.012) X10*3/uL Nucleated RBC % (auto) (0.0-0.2) /100WBC PT (10.0-13.1) SEC Whole Blood PT 12.3 (11.1-13.5) sec INR (0.9-1.1) Whole Blood INR 1.0 (0.9-1.1) APTT (26.0-36.4) SEC Sodium (135-145) mmol/L Potassium (3.3-5.1) mmol/L Chloride (96-108) mmol/L Carbon Dioxide (22-29) mmol/L Anion Gap (12-20) BUN (9-16) mg/dL Creatinine (0.5-1.4) mg/dL Estim Creat Clear Calc Estimated GFR POC Glucose 234 H (60-115) mg/dL Random Glucose (60-115) mg/dL Calcium (8.4-10.2) mg/dL Magnesium (1.6-2.6) mg/dL Total Creatine Kinase (26-140) U/L Troponin I High Sens 4.2 (<3.5-17.0) ng/L Urine Color Urine Appearance Urine pH (5.0-9.0) Ur Specific [place] (1.005-1.025) Urine Protein (Neg-Trace) mg/dL Urine Glucose (UA) (Negative) mg/dL Urine Ketones (Negative) mg/dL Urine Blood (Negative) Urine Nitrite (Negative) Ur Leukocyte Esterase (Negative) Urine RBC (0-2) /HPF Urine WBC (0-5) /HPF Ur Squamous Epith Cells (0-2) /HPF Urine Bacteria (None Seen) Hyaline Casts (0-2) /LPF 10/02/22 Range/Units 17:29 WBC (4.8-10.8) X10*3/uL RBC (4.20-5.50) X10*6/uL Hgb (12.0-16.0) g/dl Hct (37.0-47.0) % MCV (80.0-98.0) fL MCH (27.0-33.0) pg MCHC (31.0-35.0) g/dl RDW (11.0-16.0) % Plt Count (160-400) X10*3/uL MPV (9.4-12.3) fL Immature Gran % (Auto) (0.0-0.4) % Neut % (Auto) (45-73) % Lymph % (Auto) (20-40) % [place] % (Auto) (2-11) % Eos % (Auto) (0-4) % Baso % (Auto) (0-2) % Lymph # (Auto) (1.2-4.9) X10*3/uL [place] # (Auto) (0.1-1.2) X10*3/uL Eos # (Auto) (0.0-0.4) X10*3/uL Baso # (Auto) (0.0-0.2) X10*3/uL Abs Immat Gran (auto) (0.00-0.03) X10*3/uL Absolute Neuts (auto) (2.0-8.3) x10*3/uL Absolute Nucleated RBC (0.0-0.012) X10*3/uL Nucleated RBC % (auto) (0.0-0.2) /100WBC PT (10.0-13.1) SEC Whole Blood PT (11.1-13.5) sec INR (0.9-1.1) Whole Blood INR (0.9-1.1) APTT (26.0-36.4) SEC Sodium (135-145) mmol/L Potassium (3.3-5.1) mmol/L Chloride (96-108) mmol/L Carbon Dioxide (22-29) mmol/L Anion Gap (12-20) BUN (9-16) mg/dL Creatinine (0.5-1.4) mg/dL Estim Creat Clear Calc Estimated GFR POC Glucose (60-115) mg/dL Random Glucose (60-115) mg/dL Calcium (8.4-10.2) mg/dL Magnesium (1.6-2.6) mg/dL Total Creatine Kinase (26-140) U/L Troponin I High Sens (<3.5-17.0) ng/L Urine Color Yellow Urine Appearance Clear Urine pH 5.5 (5.0-9.0) Ur Specific [place] >= 1.030 H (1.005-1.025) Urine Protein 30 (1+) H (Neg-Trace) mg/dL Urine Glucose (UA) 500 H (Negative) mg/dL Urine Ketones Negative (Negative) mg/dL Urine Blood Negative (Negative) Urine Nitrite Positive H (Negative) Ur Leukocyte Esterase Small (1+) H (Negative) Urine RBC 0-2 (0-2) /HPF Urine WBC >50 H (0-5) /HPF Ur Squamous Epith Cells 0-2 (0-2) /HPF Urine Bacteria 4+ (None Seen) Hyaline Casts 0-2 (0-2) /LPF Independent Interpretation I performed an independent interpretation of an: EKG, Rhythm Strip, Plain X-Ray and CT Scan Radiology Impression Discussion of test interpretation with radiology: I have reviewed the radiologist's reading. Independent Historian Clinical information obtained from an independent historian. History obtained from or confirmed by: Spouse External Record Review External record reviewed: Inpatient record Core Measures AMI core measures followed: Yes NIH Stroke Scale Internal: Initial- Upon Arrival Time: 16:38 Level of Consciousness: Alert Level of Consciousness Questions: Answers both questions correctly Level of Consciousness Commands: Performs both tasks correctly Best Gaze: Normal Visual: No visual loss Facial Palsy: Normal Motor Arm (Right): No drift Motor Arm (Left): No drift Motor Leg (Right): No drift Motor Leg (Left): No drift Limb Ataxia: Absent Sensory: Normal Best Language: No aphasia Dysarthia: Normal Extinction and Inattention: No abnormality Score: 0 Critical Care Time Critical Care Time Critical Care Time: Yes Total Critical Care Time: 60 Attestation: CAme in for blurry vision sent to CT spoke with radiology and spoke with hospitalist and family multiple times. Discharge Plan Discharge Clinical Impression: Cerebrovascular accident, Change in vision, Acute UTI Patient Disposition: Admitted As Inpatient Prescriptions: No Action cefuroxime axetil 500 mg tablet 500 mg PO BID 5 Days Qty: 10 0RF ondansetron 4 mg tablet,disintegrating 4 mg PO Q8H 3 Days Qty: 9 0RF tamsulosin 0.4 mg capsule 0.4 mg PO DAILY 7 Days Qty: 7 0RF oxycodone 5 mg capsule 5 mg PO Q6H PRN (Reason: pain) 3 Days Qty: 10 0RF Rx Instructions: Partial Fill upon patient request.
[2022-10-02 16:43] LABS: Basophils Absolute Auto 0.1 X10*3/uL (0.0-0.2); Basophils Percent Auto 1.1 % (0-2); Eosinophils Absolute Auto 0.1 X10*3/uL (0.0-0.4); Eosinophils Percent Auto 1.6 % (0-4); Hematocrit 43.2 % (37.0-47.0); Hemoglobin 14.2 g/dl (12.0-16.0); Imm Gran Abs Auto 0.01 X10*3/uL (0.00-0.03); Imm Gran Pct Auto 0.2 % (0.0-0.4); Lymphocytes Absolute Auto 2.1 X10*3/uL (1.2-4.9); Lymphocytes Percent Auto 32.8 % (20-40); MANUAL DIFF FLAG NO; Mean Corpuscular HGB Conc 32.9 g/dl (31.0-35.0); Mean Corpuscular Hemoglobin 30.8 pg (27.0-33.0); Mean Corpuscular Volume 93.7 fL (80.0-98.0); Mean Platelet Volume 9.4 fL (9.4-12.3); Monocytes Absolute Auto 1.1 X10*3/uL (0.1-1.2); Monocytes Percent Auto 17.1 % (2-11); Neutrophils Percent Auto 47.2 % (45-73); Platelet Count 289 X10*3/uL (160-400); Red Blood Count 4.61 X10*6/uL (4.20-5.50); Red Cell Distribution Width 12.8 % (11.0-16.0); White Blood Count 6.3 X10*3/uL (4.8-10.8)
[2022-10-02] MEDS: iohexoL 350 MG/ML 100 ML INFUS..BTL IV (16:47)
[2022-10-02 16:50] LABS: INTERNATIONAL NORM RATIO 0.9 (0.9-1.1); Prothrombin Time 9.8 SEC (10.0-13.1)
[2022-10-02 16:51] VITALS: BP 169/94; PULSE 99; RESP 18; TEMP 37.2; O2SAT 97; BMI 20.6
[2022-10-02 16:52] LABS: Partial Thromboplastin Time 28.4 SEC (26.0-36.4)
[2022-10-02 17:00] LABS: Anion Gap 18 (12-20); Blood Urea Nitrogen 19 mg/dL (9-16); Calcium 9.8 mg/dL (8.4-10.2); Carbon Dioxide 21 mmol/L (22-29); Chloride 104 mmol/L (96-108); Creatinine Clr Calc Pharmacy 50.7; Estimated Glomerular Filt Rate > 60; Glucose Random 275 mg/dL (60-115); Magnesium 1.6 mg/dL (1.6-2.6); Potassium 3.9 mmol/L (3.3-5.1); Sodium 139 mmol/L (135-145)
[2022-10-02 17:08] LABS: Troponin-I High Sensitivity 4.2 ng/L (<3.5-17.0)
[2022-10-02 17:13] VITALS: BP 155/96; PULSE 97; RESP 18; O2SAT 97
[2022-10-02 17:13] LABS: Glucose, Whole Blood 234 mg/dL (60-115)
[2022-10-02 17:24] LABS: Stroke Lab Use COMPLETE
[2022-10-02 17:36] LABS: Prothrombin Time Whole Bld POC 12.3 sec (11.1-13.5)
[2022-10-02 17:44] LABS: Appearance Urine Clear; Color Urine Yellow; Glucose Urine UA 500 mg/dL (Negative); Leukocyte Esterase Urine Small (1+) (Negative); Nitrite Urine Positive (Negative); PH 5.5 (5.0-9.0); Specific Gravity - Urine >= 1.030 (1.005-1.025); UMIC TRIGGER UACC YES; Urine Blood Negative (Negative); Urine Ketones Negative (Negative); Urine Protein 30 (1+) mg/dL (Neg-Trace)
[2022-10-02 17:47] LABS: Bacteria Urine 4+ (None Seen); Hyaline Casts Urine 0-2 /LPF (0-2); RBC Urine 0-2 /HPF (0-2); Squamous Epithelial Cell Urine 0-2 /HPF (0-2); UACC Culture Trigger YES; WBC Urine >50 /HPF (0-5)
--- NOTE | 2022-10-02 18:45 | PHA.MEDREC ---
Pharmacy Consult ? Medication Reconciliation Pharmacy has completed the medication reconciliation. Spoke to patient to confirm meds.
[2022-10-02] MEDS: Aspirin 81 MG TAB.CHEW 324 MG PO (18:51)
--- NOTE | 2022-10-02 19:55 | ED.NEUROSD ---
HPI - Neuro Symptoms/Deficit General Chief Complaint: Stroke Stated Complaint: ?Stroke Time Seen by Provider: 10/02/22 16:30 Source: patient and family Mode of arrival: ambulatory Limitations: no limitations History of Present Illness HPI Narrative: not seen by me Related Data Home Medications Medication Instructions Recorded Confirmed acetaminophen 325 mg tablet 650 mg PO Q6H PRN Pain 10/02/22 10/02/22 (Tylenol) insulin NPH isoph U-100 human 100 10 unit subcut BID 10/02/22 10/02/22 unit/mL (3 mL) subcutaneous pen (Novolin N FlexPen) metformin 1,000 mg tablet 1,000 mg PO BID 10/02/22 10/02/22 Previous Rx's Medication Instructions Recorded aspirin 81 mg tablet,delayed 81 mg PO DAILY #30 tabs 10/05/22 release atorvastatin 40 mg tablet (Lipitor) 40 mg PO BEDTIME #30 tabs 10/05/22 cefuroxime axetil 250 mg tablet 250 mg PO BID #4 tabs 10/05/22 nicotine 21 mg/24 hr daily 21 mg transdermal DAILY #30 ea 10/05/22 transdermal patch Allergies Allergy/AdvReac Type Severity Reaction Status Date / Time promethazine [From Phenergan] Allergy Mild DEEP SLEEP Unverified 12/10/19 16:16 [facility] Social History Social History Household Members: Spouse Housing: House Do you presently have visiting nurse or other home services: No Patient Tobacco Use Status: Current everyday Tobacco user Tobacco use type: Cigarette Cigarettes Per Day: 8 service: No Physical Exam Vital Signs: Vital Signs: Last Vital Signs Temp 97.6 F 10/05/22 11:33 Pulse 79 10/05/22 11:33 Resp 20 10/05/22 11:33 BP 145/88 H 10/05/22 11:33 Pulse Ox 95 10/05/22 11:33 O2 Del Method Room Air 10/05/22 11:33 BMI result Body Mass Index 20.6 Medications Administered Discontinued Medications Generic Name Dose Route Start Last Admin Trade Name Freq PRN Reason Stop Dose Admin Acetaminophen 650 mg 10/02/22 20:05 10/03/22 10:26 Acetaminophen 325 Mg Tablet PO 650 mg Q6H PRN Administration Pain, Mild (Pain Scale 1-3) Aspirin 324 mg 10/02/22 18:09 10/02/22 18:51 Aspirin 81 Mg Tab.Chew PO 10/02/22 18:10 324 mg ONCE ONE Administration Aspirin 81 mg 10/02/22 20:10 10/05/22 08:05 Aspirin Enteric Coated 81 Mg Tablet.Dr PO 81 mg DAILY RENE Administration Atorvastatin Calcium 80 mg 10/02/22 21:00 10/04/22 20:31 Atorvastatin Calcium 80 Mg Tablet PO 80 mg BEDTIME RENE Administration Diphenhydramine HCl 25 mg 10/02/22 19:47 10/02/22 20:07 Diphenhydramine Hcl 50 Mg/Ml Vial IVPUSH 10/02/22 19:48 25 mg ONCE ONE Administration Enoxaparin Sodium 40 mg 10/04/22 16:30 10/04/22 16:23 Enoxaparin Sodium 40 Mg/0.4 Ml Syringe SUBCUT 40 mg Q24H RENE Administration Ceftriaxone Sodium 1 gm/ 50 mls @ 100 mls/hr 10/02/22 17:59 10/02/22 20:50 Sodium Chloride IV 10/02/22 18:28 Infused ONCE ONE Infusion Ceftriaxone Sodium 1 gm/ 50 mls @ 100 mls/hr 10/03/22 20:00 10/04/22 21:17 Sodium Chloride IV Infused Q24H RENE Infusion Azithromycin 500 mg/ Sodium 250 mls @ 125 mls/hr 10/03/22 01:30 10/03/22 05:32 Chloride IV 10/03/22 03:29 Infused ONCE ONE Infusion Azithromycin 500 mg/ Sodium 250 mls @ 125 mls/hr 10/03/22 22:00 10/04/22 00:38 Chloride IV Infused Q24H RENE Infusion Insulin Glargine 8 unit 10/03/22 21:00 10/05/22 08:07 Insulin Glargine,Hum.Rec.Anlog 100 Unit/Ml 10 Ml Vial SUBCUT 8 unit BID RENE Administration Insulin Human Lispro 0 unit 10/02/22 21:00 10/05/22 11:50 Insulin Lispro 100 Unit/Ml 3 Ml Vial SUBCUT 8 unit QIDACHS RENE Administration Protocol Iohexol 100 ml 10/02/22 16:47 10/02/22 16:47 Iohexol 350 Mg/Ml 100 Ml Infus..Btl IV 07/11/23 16:48 70 ml ONCE ONE Administration Ketorolac Tromethamine 15 mg 10/02/22 19:47 10/02/22 20:00 Ketorolac Tromethamine 15 Mg/Ml Vial IVPUSH 10/02/22 19:48 15 mg ONCE ONE Administration Ketorolac Tromethamine 15 mg 10/03/22 18:35 10/05/22 08:06 Ketorolac Tromethamine 15 Mg/Ml Vial IVPUSH 15 mg Q6H PRN Administration Pain, Severe (Pain Scale 7-10) Lorazepam 1 mg 10/02/22 19:47 10/02/22 20:02 Lorazepam 2 Mg/Ml Vial IVPUSH 10/02/22 19:48 1 mg ONCE ONE Administration Lorazepam 1 mg 10/03/22 13:31 10/03/22 13:37 Lorazepam 2 Mg/Ml Vial IVPUSH 10/03/22 13:32 1 mg ONCE ONE Administration Lorazepam 1 mg 10/03/22 18:35 10/04/22 20:31 Lorazepam 1 Mg Tablet PO 1 mg Q6H PRN Administration Anxiety Metoclopramide HCl 10 mg 10/02/22 19:47 10/02/22 20:09 Metoclopramide Hcl 10 Mg/2 Ml Vial IVPUSH 10/02/22 19:48 10 mg ONCE ONE Administration Morphine Sulfate 4 mg 10/03/22 04:00 10/03/22 04:09 Morphine Sulfate 4 Mg/Ml Cartridge IVPUSH 10/03/22 04:01 4 mg ONCE ONE Administration Protocol Morphine Sulfate 4 mg 10/03/22 21:18 10/03/22 21:40 Morphine Sulfate 4 Mg/Ml Cartridge IVPUSH 10/03/22 21:19 4 mg ONCE ONE Administration Protocol Nicotine 21 mg 10/03/22 16:00 10/05/22 08:06 Nicotine 21 Mg Patch.Td24 TRANSDERMA 21 mg DAILY RENE Administration Oxycodone HCl 5 mg 10/03/22 10:19 10/05/22 13:24 Oxycodone Hcl Immed Release 5 Mg Tablet PO 5 mg Q4H PRN Administration Pain, Severe (Pain Scale 7-10) Medical Decision Making Lab Data 10/03/22 06:21 10/03/22 06:21 Labs: Lab Results 07/11/23 07/11/23 07/11/23 Range/Units 16:37 16:59 17:03 WBC 6.3 (4.8-10.8) X10*3/uL RBC 4.61 (4.20-5.50) X10*6/uL Hgb 14.2 (12.0-16.0) g/dl Hct 43.2 (37.0-47.0) % MCV 93.7 (80.0-98.0) fL MCH 30.8 (27.0-33.0) pg MCHC 32.9 (31.0-35.0) g/dl RDW 12.8 (11.0-16.0) % Plt Count 289 (160-400) X10*3/uL MPV 9.4 (9.4-12.3) fL Immature Gran % (Auto) 0.2 (0.0-0.4) % Neut % (Auto) 47.2 (45-73) % Lymph % (Auto) 32.8 (20-40) % [place] % (Auto) 17.1 H (2-11) % Eos % (Auto) 1.6 (0-4) % Baso % (Auto) 1.1 (0-2) % Lymph # (Auto) 2.1 (1.2-4.9) X10*3/uL [place] # (Auto) 1.1 (0.1-1.2) X10*3/uL Eos # (Auto) 0.1 (0.0-0.4) X10*3/uL Baso # (Auto) 0.1 (0.0-0.2) X10*3/uL Abs Immat Gran (auto) 0.01 (0.00-0.03) X10*3/uL Absolute Neuts (auto) 3.0 (2.0-8.3) x10*3/uL Absolute Nucleated RBC 0.000 (0.0-0.012) X10*3/uL Nucleated RBC % (auto) 0.0 (0.0-0.2) /100WBC PT 9.8 L (10.0-13.1) SEC Whole Blood PT 12.3 (11.1-13.5) sec INR 0.9 (0.9-1.1) Whole Blood INR 1.0 (0.9-1.1) APTT 28.4 (26.0-36.4) SEC Sodium 139 (135-145) mmol/L Potassium 3.9 (3.3-5.1) mmol/L Chloride 104 (96-108) mmol/L Carbon Dioxide 21 L (22-29) mmol/L Anion Gap 18 (12-20) BUN 19 H (9-16) mg/dL Creatinine 0.89 (0.5-1.4) mg/dL Estim Creat Clear Calc 50.7 Estimated GFR > 60 POC Glucose 234 H (60-115) mg/dL Random Glucose 275 H (60-115) mg/dL Calcium 9.8 (8.4-10.2) mg/dL Magnesium 1.6 (1.6-2.6) mg/dL Total Creatine Kinase 21 L (26-140) U/L Troponin I High Sens 4.2 (<3.5-17.0) ng/L Urine Color Urine Appearance Urine pH (5.0-9.0) Ur Specific [place] (1.005-1.025) Urine Protein (Neg-Trace) mg/dL Urine Glucose (UA) (Negative) mg/dL Urine Ketones (Negative) mg/dL Urine Blood (Negative) Urine Nitrite (Negative) Ur Leukocyte Esterase (Negative) Urine RBC (0-2) /HPF Urine WBC (0-5) /HPF Ur Squamous Epith Cells (0-2) /HPF Urine Bacteria (None Seen) Hyaline Casts (0-2) /LPF 10/02/22 Range/Units 17:29 WBC (4.8-10.8) X10*3/uL RBC (4.20-5.50) X10*6/uL Hgb (12.0-16.0) g/dl Hct (37.0-47.0) % MCV (80.0-98.0) fL MCH (27.0-33.0) pg MCHC (31.0-35.0) g/dl RDW (11.0-16.0) % Plt Count (160-400) X10*3/uL MPV (9.4-12.3) fL Immature Gran % (Auto) (0.0-0.4) % Neut % (Auto) (45-73) % Lymph % (Auto) (20-40) % [place] % (Auto) (2-11) % Eos % (Auto) (0-4) % Baso % (Auto) (0-2) % Lymph # (Auto) (1.2-4.9) X10*3/uL [place] # (Auto) (0.1-1.2) X10*3/uL Eos # (Auto) (0.0-0.4) X10*3/uL Baso # (Auto) (0.0-0.2) X10*3/uL Abs Immat Gran (auto) (0.00-0.03) X10*3/uL Absolute Neuts (auto) (2.0-8.3) x10*3/uL Absolute Nucleated RBC (0.0-0.012) X10*3/uL Nucleated RBC % (auto) (0.0-0.2) /100WBC PT (10.0-13.1) SEC Whole Blood PT (11.1-13.5) sec INR (0.9-1.1) Whole Blood INR (0.9-1.1) APTT (26.0-36.4) SEC Sodium (135-145) mmol/L Potassium (3.3-5.1) mmol/L Chloride (96-108) mmol/L Carbon Dioxide (22-29) mmol/L Anion Gap (12-20) BUN (9-16) mg/dL Creatinine (0.5-1.4) mg/dL Estim Creat Clear Calc Estimated GFR POC Glucose (60-115) mg/dL Random Glucose (60-115) mg/dL Calcium (8.4-10.2) mg/dL Magnesium (1.6-2.6) mg/dL Total Creatine Kinase (26-140) U/L Troponin I High Sens (<3.5-17.0) ng/L Urine Color Yellow Urine Appearance Clear Urine pH 5.5 (5.0-9.0) Ur Specific [place] >= 1.030 H (1.005-1.025) Urine Protein 30 (1+) H (Neg-Trace) mg/dL Urine Glucose (UA) 500 H (Negative) mg/dL Urine Ketones Negative (Negative) mg/dL Urine Blood Negative (Negative) Urine Nitrite Positive H (Negative) Ur Leukocyte Esterase Small (1+) H (Negative) Urine RBC 0-2 (0-2) /HPF Urine WBC >50 H (0-5) /HPF Ur Squamous Epith Cells 0-2 (0-2) /HPF Urine Bacteria 4+ (None Seen) Hyaline Casts 0-2 (0-2) /LPF Discharge Plan Discharge Clinical Impression: Cerebrovascular accident, Change in vision, Acute UTI Patient Disposition: Admitted As Inpatient Interventions: Admission Worksheet (ED) Last Done: 10/03/22 01:41 Discharge Date/Time: 10/03/22 01:51
[2022-10-02] MEDS: Ketorolac Tromethamine 15 MG/ML VIAL IVPUSH (20:00)
[2022-10-02] MEDS: LORazepam 2 MG/ML VIAL 1 MG IVPUSH (20:02)
[2022-10-02] MEDS: diphenhydrAMINE HCL 50 MG/ML VIAL 25 MG IVPUSH (20:07)
[2022-10-02] MEDS: Metoclopramide HCl 10 MG/2 ML VIAL IVPUSH (20:09)
--- NOTE | 2022-10-02 20:09 | P.HPHOSP_ITS ---
History of Present Illness Date of Service: 10/02/22 Chief Complaint: Vision problems 66-year-old female past medical history of CVA with right-sided residual weakness, diabetes presents the hospital with complaints of vision issues. at bedside also help with history. Patient states that around 15:00 tod ay she started experiencing vision problems, her vision became blurry, very distracting, felt that her IV was deviating. Her noted that her left eye was deviating to the far left corner. Patient is very anxious and worried. And states that she recently had a cold that started on Saturday with runny nose, sneezing, cough, no sputum production, patient also felt feverish but did not check her temperature, has not had any chest pain, no abdominal pain, no increased weakness numbness or tingling. Has had increased urinary frequency, but denies any dysuria or urgency. all other ROS negative Vitals on arrival are slightly hypertensive but otherwise stable Labs otherwise unremarkable except for sugar of 275 and a UA that is positive for leukocyte Estrace and WBC as well as bacteria. Head CT and head and neck CT angiogram have negative results for any acute abnormality Review of Systems Review of Systems: Yes all other systems are reviewed and are negative [facility] Social History Advance Directives: No Advance Directives Information Provided: No Meds Allergies Allergy/AdvReac Type Severity Reaction Status Date / Time promethazine [From Phenergan] Allergy Mild DEEP SLEEP Unverified 12/10/19 16:16 Home Medications Medication Instructions Recorded Confirmed Last Taken Type acetaminophen 325 mg tablet 650 mg PO Q6H PRN Pain 10/02/22 10/02/22 Unknown History (Tylenol) insulin NPH isoph U-100 human 100 10 unit subcut BID 10/02/22 10/02/22 10/02/22 09:00 History unit/mL (3 mL) subcutaneous pen (Novolin N FlexPen) metformin 1,000 mg tablet 1,000 mg PO BID 10/02/22 10/02/22 10/02/22 09:00 Hi story Physical Exam Vital Signs and Narrative: Vital Signs: Last Vital Signs Temp 99 F 10/02/22 16:51 Pulse 97 10/02/22 17:13 Resp 18 10/02/22 17:13 BP 155/96 H 10/02/22 17:13 Pulse Ox 97 10/02/22 17:13 O2 Del Method Room Air 10/02/22 17:13 BMI result Body Mass Index 20.6 Const: General: cooperative and no acute distress Eyes: Other: Pupils symmetric, round and reactive to light. unable to assess accomodation as left eye deviates out when pt triues to focus on finger. when she focuses on me using left eye, right eye is down and out concerning for cranial nerve 3 lesion Visual Fernandez: abnormal by confrontation EOM: EOM abnormal Resp: Effort & Inspection: normal respiratory effort Auscultation: clear to auscultation bilaterally Cardio: Rate: regular rate Rhythm: regular rhythm GI: Palpation (GI): Soft to palpation Auscultation: normal bowel sounds Skin: General skin exam: no rashes or lesions noted Neuro: Other: Exotropia of both eyes , unable to conduct appropriate ey exam, as vision changes causing pt to be more anxious Right upper and lower strength 4/5,left 5/5 Cognition (Neuro): normal cognition Extrem: General: Yes normal to inspection and Yes no pedal edema Results Labs 10/02/22 16:37 10/02/22 16:37 Labs: Laboratory Results - last 24 hr 10/02/22 10/02/22 10/02/22 16:37 16:37 16:37 MCV 93.7 MCH 30.8 MCHC 32.9 RDW 12.8 Plt Count 289 MPV 9.4 Immature Gran % (Auto) 0.2 Neut % (Auto) 47.2 Lymph % (Auto) 32.8 [place] % (Auto) 17.1 H Eos % (Auto) 1.6 Baso % (Auto) 1.1 Lymph # (Auto) 2.1 [place] # (Auto) 1.1 Eos # (Auto) 0.1 Baso # (Auto) 0.1 Abs Immat Gran (auto) 0.01 Absolute Neuts (auto) 3.0 Absolute Nucleated RBC 0.000 Nucleated RBC % (auto) 0.0 PT 9.8 L Whole Blood PT INR 0.9 Whole Blood INR APTT 28.4 Anion Gap 18 Estim Creat Clear Calc 50.7 Estimated GFR > 60 POC Glucose Random Glucose 275 H Calcium 9.8 Magnesium 1.6 Total Creatine Kinase 21 L Troponin I High Sens Urine Color Urine Appearance Urine pH Ur Specific [place] Urine Protein Urine Glucose (UA) Urine Ketones Urine Blood Urine Nitrite Ur Leukocyte Esterase Urine RBC Urine WBC Ur Squamous Epith Cells Urine Bacteria Hyaline Casts 10/02/22 10/02/22 10/02/22 16:37 16:59 17:03 MCV MCH MCHC RDW Plt Count MPV Immature Gran % (Auto) Neut % (Auto) Lymph % (Auto) [place] % (Auto) Eos % (Auto) Baso % (Auto) Lymph # (Auto) [place] # (Auto) Eos # (Auto) Baso # (Auto) Abs Immat Gran (auto) Absolute Neuts (auto) Absolute Nucleated RBC Nucleated RBC % (auto) PT Whole Blood PT 12.3 INR Whole Blood INR 1.0 APTT Anion Gap Estim Creat Clear Calc Estimated GFR POC Glucose 234 H Random Glucose Calcium Magnesium Total Creatine Kinase Troponin I High Sens 4.2 Urine Color Urine Appearance Urine pH Ur Specific [place] Urine Protein Urine Glucose (UA) Urine Ketones Urine Blood Urine Nitrite Ur Leukocyte Esterase Urine RBC Urine WBC Ur Squamous Epith Cells Urine Bacteria Hyaline Casts 10/02/22 17:29 MCV MCH MCHC RDW Plt Count MPV Immature Gran % (Auto) Neut % (Auto) Lymph % (Auto) [place] % (Auto) Eos % (Auto) Baso % (Auto) Lymph # (Auto) [place] # (Auto) Eos # (Auto) Baso # (Auto) Abs Immat Gran (auto) Absolute Neuts (auto) Absolute Nucleated RBC Nucleated RBC % (auto) PT Whole Blood PT INR Whole Blood INR APTT Anion Gap Estim Creat Clear Calc Estimated GFR POC Glucose Random Glucose Calcium Magnesium Total Creatine Kinase Troponin I High Sens Urine Color Yellow Urine Appearance Clear Urine pH 5.5 Ur Specific [place] >= 1.030 H Urine Protein 30 (1+) H Urine Glucose (UA) 500 H Urine Ketones Negative Urine Blood Negative Urine Nitrite Positive H Ur Leukocyte Esterase Small (1+) H Urine RBC 0-2 Urine WBC >50 H Ur Squamous Epith Cells 0-2 Urine Bacteria 4+ Hyaline Casts 0-2 Imaging Radiologist's Impressions: Impressions Head CT 10/02/22 16:34 IMPRESSION: 1. No acute intracranial process seen. 2. Age-related cerebral volume loss with chronic small vessel ischemic changes in both cerebral hemispheres. This critical result was discussed with Dr. Victor M Freeman at 4.45 hours on 10/02/22. It was ascertained that the content and urgency of the report was understood at the time of direct communication. Head/Neck CTA 10/02/22 16:51 IMPRESSION: No arterial high grade stenosis or large vessel occlusion in the head or neck. Above impression was communicated to Dr Lemons on 10/02/2022 5:02 PM Assessment and Plan (1) Change in vision: Status: Acute (2) Acute UTI: Status: Acute Plan 66-year-old female past medical history of CVA, diabetes, nephrolithiasis pre sents the hospital with complaints of vision change # change in vision # Acute CVA - has evidence of CN3 lesion - will obtain MRI - ASA, statin, lipid battery - eye cover - neurology consulted # Acute UTI - symptomatic - will tx with IV abx - follow cultures # DM - LDSSI, hold metformin, continue home insulin DVT ppx: lovenox Given need for further evaluation and management of acute CVA pt will require min 2 night inpatient hospital stay for further management and monitoring Time Spent With Patient Time: Total time managing care of this patient today ____ minutes. Quality Stroke Does the patient have a stroke diagnosis?: No VTE Prior VTE?: No VTE Risk Level:: Medical - moderate - high VTE Device Contraindication: Treatment Not Indicated VTE Drug Contraindication: N/A - Med Ordered
[2022-10-02] MEDS: cefTRIAXone sodium 1 GM in 0.9 % Sodium Chloride 50 ML IV (20:20)
[2022-10-02 20:36] LABS: Lactic Acid 0.9 mmol/L (0.5-2.0)
[2022-10-02 21:32] VITALS: BP 140/67; RESP 16; O2SAT 95
[2022-10-02 22:15] LABS: Glucose, Whole Blood 227 mg/dL (60-115)
[2022-10-02 23:54] VITALS: BP 136/77; PULSE 83; RESP 18; TEMP 36.3; O2SAT 95
[2022-10-02 23:59] LABS: Glucose, Whole Blood 325 mg/dL (60-115)
[2022-10-02] MEDS: Insulin Lispro 100 UNIT/ML 3 ML VIAL SUBCUT (23:59)
[2022-10-03] VITALS (9 sets, daily range): BP systolic 137–174; BP diastolic 67–97; PULSE 77–104; RESP 16–20; TEMP 36.2–36.9; O2SAT 95–98
[2022-10-03 02:06] LABS: COVID-19 Test Negative (Negative); IDNOW Serial# 6674DD1D
[2022-10-03] MEDS: Azithromycin 500 MG in 0.9 % Sodium Chloride 250 ML 125 MG IV ×2 (02:49→21:31)
[2022-10-03] MEDS: Morphine Sulfate 4 MG/ML CARTRIDGE IVPUSH ×2 (04:09→21:40)
[2022-10-03 06:33] LABS: MANUAL DIFF FLAG NO
[2022-10-03 06:36] LABS: Basophils Absolute Auto 0.1 X10*3/uL (0.0-0.2); Basophils Percent Auto 0.9 % (0-2); Eosinophils Absolute Auto 0.1 X10*3/uL (0.0-0.4); Eosinophils Percent Auto 1.7 % (0-4); Hematocrit 43.1 % (37.0-47.0); Hemoglobin 14.1 g/dl (12.0-16.0); Imm Gran Abs Auto 0.03 X10*3/uL (0.00-0.03); Imm Gran Pct Auto 0.4 % (0.0-0.4); Lymphocytes Absolute Auto 2.6 X10*3/uL (1.2-4.9); Lymphocytes Percent Auto 32.7 % (20-40); Mean Corpuscular HGB Conc 32.7 g/dl (31.0-35.0); Mean Corpuscular Hemoglobin 31.1 pg (27.0-33.0); Mean Corpuscular Volume 95.1 fL (80.0-98.0); Mean Platelet Volume 9.6 fL (9.4-12.3); Monocytes Absolute Auto 1.1 X10*3/uL (0.1-1.2); Monocytes Percent Auto 13.5 % (2-11); Neutrophils Percent Auto 50.8 % (45-73); Platelet Count 253 X10*3/uL (160-400); Red Blood Count 4.53 X10*6/uL (4.20-5.50); Red Cell Distribution Width 12.8 % (11.0-16.0); White Blood Count 7.9 X10*3/uL (4.8-10.8)
[2022-10-03 06:56] LABS: Anion Gap 16 (12-20); Blood Urea Nitrogen 19 mg/dL (9-16); Calcium 9.1 mg/dL (8.4-10.2); Carbon Dioxide 23 mmol/L (22-29); Chloride 108 mmol/L (96-108); Creatinine Clr Calc Pharmacy 60.2; Estimated Glomerular Filt Rate > 60; Glucose Random 105 mg/dL (60-115); Potassium 4.1 mmol/L (3.3-5.1); Sodium 143 mmol/L (135-145)
[2022-10-03 06:57] LABS: Cholesterol 155 mg/dL; HDL Cholesterol 54 mg/dL; LDL Cholesterol Calculated 88 mg/dl; Triglycerides 66 mg/dL
--- NOTE | 2022-10-03 07:00 | CA_ITS ---
Transthoracic Echocardiogram Patient (Last, First, Middle): Diana Morrison, Gender: Female Date of : 1955 Age: 66 Procedure Date: 10/03/2022 Procedure Type: Transthoracic [place] [facility] [place]: 160.02 cm Weight: 52.62 kg BSA: 1.53 m2 Heart Rate: bpm BP: 133 / 76 mmHg [employer] Supervisor: BETZY Referring MD: Patrick Julien MD [employer] Sales Counter Manager: True Selby MD Symptoms: stroke Study Quality: Good ECG Rhythm: Sinus Conclusions: - 1. Low normal LV systolic function with LVEF of 50-55% with mild LVH with grade 1 diastolic dysfunction 2. Normal cardiac valvular Dopplers 3. Normal RV systolic pressure 4. No pericardial effusion Findings Left Ventricle Normal left ventricular cavity size. There is mildly increased left ventricular wall thickness. The left ventricular systolic function is low normal. The visually estimated ejection fraction is between 50-55%. Spectral Doppler is indicative of an impaired relaxation filling pattern. E/E prime ratio is <8, consistent with normal filling pressures. Right Ventricle Normal right ventricular cavity size and systolic function. Atria Both atria are normal in size. Interatrial shunt cannot be excluded. Aortic Valve Normal aortic valve structure and function. There is no aortic valve stenosis. There is no aortic valve regurgitation. Mitral Valve Normal mitral valve structure and function. There is trace mitral valve regurgitation. There is no mitral valve stenosis. Pulmonic Valve The pulmonic valve is likely normal. There is trace pulmonic valve regurgitation. Tricuspid Valve Normal tricuspid valve structure. There is trace tricuspid valve regurgitation. The right ventricular systolic pressure is normal. The right ventricular systolic pressure is 22 mmHg. Normal right atrial pressure. There is no evidence of pulmonary hypertension. Great Vessels All visible segments of the aorta are normal in size. The pulmonary artery was not well visualized. Venous The inferior vena cava is normal in size and collapses greater than 50% with inspiration. Pericardium/Pleural There is no evidence of pericardial effusion. Prior Study Comparison No prior study available for comparison. Measurements 2D Linear Measurements IVSd: 1.30 0.6-0.9/0.6-1.0 cm LVIDd: 3.80 3.9-5.3/4.2-5.9 cm LVIDd Index: 2.48 2.4-3.2/2.2-3.1 cm/m2 LVIDs: 2.60 2.0-3.6 cm LVPWd: 1.30 0.7-1.1 cm Ao Root: 3.30 2.1-3.5 cm LA Diam: 3.30 2.7-3.8/3.0-4.0 cm LAIDs Index: 2.16 1.5-2.3 cm/m2 LV Mass: 215.56 67-162/88-224 g LV Mass Index: 140.89 43-95/49-115 g/m2 LVOT Diam: 2.20 3.0+(-)1.3 cm 2D Systolic Function EF 4C: 55.70 >55% EF 2C: 51.50 >55% EF BiP: 51.50 >55% Mitral Valve MV Pk E: 0.66 MV PK A: 1.10 MV Decel Time: 158.00 E/A: 0.60 E'Lateral: 4.35 E'Medial: 3.70 E/E' Med: 17.70 E/E' Lat: 15.10 PHT: 46.00 MVA PHT: 4.78 Decel Blaine: 4.15 Aortic Valve AoV Pk Eron: 1.12 AoV Mn Eron: 0.75 AoV VTI: 0.27 AoV Pk Grad: 5.00 Aov Mn Grad: 3.00 TAD Cont.VTI: 2.52 LVOT LVOT Pk Eron: 0.78 LVOT Mn Eron: 0.57 LVOT VTI: 0.18 LVOT Pk Grad: 2.00 LVOT Mn Grad: 1.00 LVOT Diam: 2.20 LVOT Area: 3.80 Diastolic Function MV Pk E: 0.66 MV Pk A: 1.10 E/A: 0.60 E'Medial: 3.70 E/E' Med: 17.70 E' Laterial: 4.35 E/E' Lat: 15.10 Right Ventricle TAPSE (mm): 17.00 TVS' Eron: 11.00 Tricuspid Valve TR Pk Eron: 2.16 TR Pk Grad: 19.00 RA Press: 3.00 RVSP: 22.00 Great Vessels Aorta Ao Root-2D: 3.30 2.0-3.7 cm Ao Asc: 3.10 2.1-3.4 cm Pulmonary Valve PV Pk Eron: 0.78 Peak PV Grad: 2.00 Updated in Other Vendor System with Status of Final True Selby MD electronically signed on 10/04/2022 3:47:49 PM with status of Final
[2022-10-03 07:45] LABS: Glucose, Whole Blood 135 mg/dL (60-115)
--- NOTE | 2022-10-03 09:41 | MHC.CM.PN ---
IMM 10/03. Pt admitted with dx acute CVA. Pt lives at home with her , is independent/self-care, no services/DME. D/C plan pending further evaluation but may need STR vs home with VNA. Pts will transport. Pt states she has a HCP, does not have a copy, and declined to create a new one at this time. PCP: JEN Morales
--- NOTE | 2022-10-03 10:14 | P.CNNE_ITS ---
History of Present Illness Data of Consult Service Date: 10/03/22 Primary Care Provider: Unknown Physician HPI Reason for consult: Double vision 66 years old woman with uncontrolled hypertension and diabetes came to hospital after new onset of blurred vision, and double vision. there was no associated eye pain or headache except that this morning she was having mild ache on left side of head. There was no recent cold or flu-like illness or head trauma. There was no change in her speech or language or any numbness or paralysis. Review of Systems Review of Systems: No significant headache or cold or flu-like illness PMFSH Social History Social History Household Members: Spouse Housing: House Do you presently have visiting nurse or other home services: No Patient Tobacco Use Status: Current everyday Tobacco user Tobacco use type: Cigarette Cigarettes Per Day: 8 service: No Meds Allergies Allergy/AdvReac Type Severity Reaction Status Date / Time promethazine [From Phenergan] Allergy Mild DEEP SLEEP Unverified 12/10/19 16:16 Active Medications: Current Medications Acetaminophen (Acetaminophen 325 Mg Tablet) 650 mg PO Q6H PRN PRN Reason: Pain, Mild (Pain Scale 1-3) Aspirin (Aspirin Enteric Coated 81 Mg Tablet.) 81 mg PO DAILY [facility] Last Admin: 10/02/22 23:51 Dose: Not Given Atorvastatin Calcium (Atorvastatin Calcium 80 Mg Tablet) 80 mg PO BEDTIME [facility] Last Admin: 10/02/22 23:51 Dose: Not Given Dextrose (Dextrose 50 % 25 Gm/50 Ml Syringe) 25 gm IVPUSH Q15M PRN; Protocol PRN Reason: per Hypoglycemia Standing Ord. Docusate Sodium (Docusate Sodium 100 Mg Capsule) 100 mg PO DAILY PRN PRN Reason: Constipation Glucose (Glucose Gel 15 Gm Gel..Gram.) 15 gm PO Q15M PRN; Protocol PRN Reason: per Hypoglycemia Standing Ord. Ceftriaxone Sodium 1 gm/ (Sodium Chloride) 50 mls @ 100 mls/hr IV Q24H [facility] Azithromycin 500 mg/ Sodium (Chloride) 250 mls @ 125 mls/hr IV Q24H [facility] Insulin Human Lispro (Insulin Lispro 100 Unit/Ml 3 Ml Vial) 0 unit SUBCUT QIDACHS [facility]; Protocol Last Admin: 10/03/22 08:29 Dose: Not Given Ondansetron HCl (Ondansetron Hcl 4 Mg/2 Ml Vial) 4 mg IVPUSH Q8H PRN PRN Reason: Nausea and Vomiting Home Medications Medication Instructions Recorded Confirmed Last Taken Type acetaminophen 325 mg tablet 650 mg PO Q6H PRN Pain 10/02/22 10/02/22 Unknown History (Tylenol) insulin NPH isoph U-100 human 100 10 unit subcut BID 10/02/22 10/02/22 10/02/22 09:00 History unit/mL (3 mL) subcutaneous pen (Novolin N FlexPen) metformin 1,000 mg tablet 1,000 mg PO BID 10/02/22 10/02/22 10/02/22 09:00 History Physical Exam Vital Signs: Vital Signs: Last Vital Signs Temp 98.0 F 10/03/22 07:17 Pulse 86 10/03/22 07:17 Resp 20 10/03/22 07:17 BP 158/81 H 10/03/22 07:17 Pulse Ox 97 10/03/22 07:17 O2 Del Method Room Air 10/03/22 07:17 BMI result Body Mass Index 20.6 Neuro: Other: she is alert and awake with normal spontaneity of speech fluency comprehension and affect. She was in mild distress related to visual changes. Pupils were about 3 mm round reactive to light. Right eye was slightly deviated to the right and down. With left gaze deviation it was not crossing midline. There was mild left beating nystagmus with left gaze deviation seen and left eye. Face was symmetrical. Tongue was midline. There was no obvious focal arm or leg weakness. Deep tendon reflexes were absent. Plantars were flat. Speech was normal. Results Labs 10/03/22 06:21 10/03/22 06:21 Labs: Short CBC 10/02/22 10/03/22 Range/Units 16:37 06:21 WBC 6.3 7.9 (4.8-10.8) X10*3/uL Hgb 14.2 14.1 (12.0-16.0) g/dl Hct 43.2 43.1 (37.0-47.0) % Plt Count 289 253 (160-400) X10*3/uL BMP 10/02/22 10/03/22 16:37 06:21 Sodium 139 143 Potassium 3.9 4.1 Chloride 104 108 Carbon Dioxide 21 L 23 BUN 19 H 19 H Creatinine 0.89 0.75 Calcium 9.8 9.1 D Cardiac Enzymes 10/02/22 Range/Units 16:37 Total Creatine Kinase 21 L (26-140) U/L Urine 10/02/22 Range/Units 17:29 Urine Color Yellow Urine Appearance Clear Urine pH 5.5 (5.0-9.0) Ur Specific [place] >= 1.030 H (1.005-1.025) Urine Protein 30 (1+) H (Neg-Trace) mg/dL Urine Glucose (UA) 500 H (Negative) mg/dL Head CT revealed moderate chronic microvascular ischemic changes. CTA of brain and neck did not reveal any significant large vessel lesion. Assessment and Plan (1) Diplopia: Status: Acute 66 years old woman with new onset of diplopia and associated blurred vision and dizziness. 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 It could also be a brainstem infarct but lack of typical brainstem symptoms was suggesting cranial neuropathy. MRI brain without contrast can help to differentiate. In the meantime, I recommend patching 1 eye daily, alternating every day with each eye, to avoid double vision. Patient usually get better in weeks to few months time, Illness a different etiology is found. Neuromuscular disorder can be a consideration but overall history was not typical of that. Also her examination did not suggest cerebral aneurysm, And it was not found on CTA either Time Spent With Patient Time: Total time managing care of this patient today ____ minutes. Procedures Date of Service Date of Service: 10/03/22
--- NOTE | 2022-10-03 10:21 | P.PNIM_ITS ---
Subjective Subjective Date of Service: 10/03/22 Interval History: f/u CVA, blur and double vision persists Physical Exam Vital Signs: Vital Signs: Last Vital Signs Temp 98.0 F 10/03/22 07:17 Pulse 86 10/03/22 07:17 Resp 20 10/03/22 07:17 BP 158/81 H 10/03/22 07:17 Pulse Ox 97 10/03/22 07:17 O2 Del Method Room Air 10/03/22 07:17 BMI result Body Mass Index 20.6 Const: Other: General: AO X 3, no acute distress Resp: CTA bilateral CVS: S1,S2,RRR GI: +BS, NT, no distention Skin: No rash Neuro: motor grossly intact Psych: appropriate affect Objective Data Active Medications Acetaminophen (Acetaminophen 325 Mg Tablet) 650 mg PO Q6H PRN PRN Reason: Pain, Mild (Pain Scale 1-3) Aspirin (Aspirin Enteric Coated 81 Mg Tablet.) 81 mg PO DAILY [facility] Last Admin: 10/02/22 23:51 Dose: Not Given Documented By: OMAYRA Non-Admin Reason: Unable to do swallow screen Atorvastatin Calcium (Atorvastatin Calcium 80 Mg Tablet) 80 mg PO BEDTIME [facility] Last Admin: 10/02/22 23:51 Dose: Not Given Documented By: OMAYRA Non-Meka Reason: Unable to do swallow screen Dextrose (Dextrose 50 % 25 Gm/50 Ml Syringe) 25 gm IVPUSH Q15M PRN; Protocol PRN Reason: per Hypoglycemia Standing Ord. Docusate Sodium (Docusate Sodium 100 Mg Capsule) 100 mg PO DAILY PRN PRN Reason: Constipation Glucose (Glucose Gel 15 Gm Gel..Gram.) 15 gm PO Q15M PRN; Protocol PRN Reason: per Hypoglycemia Standing Ord. Ceftriaxone Sodium 1 gm/ (Sodium Chloride) 50 mls @ 100 mls/hr IV Q24H [facility] Azithromycin 500 mg/ Sodium (Chloride) 250 mls @ 125 mls/hr IV Q24H [facility] Insulin Human Lispro (Insulin Lispro 100 Unit/Ml 3 Ml Vial) 0 unit SUBCUT QIDACHS [facility]; Protocol Last Admin: 10/03/22 08:29 Dose: Not Given Documented By: CHERYL Non-Admin Reason: No Insulin Coverage Non-Formulary Medication (Insulin Nph Isoph U-100 Human [Novolin N Flexpen]) 10 unit SUBCUT BID [facility] Ondansetron HCl (Ondansetron Hcl 4 Mg/2 Ml Vial) 4 mg IVPUSH Q8H PRN PRN Reason: Nausea and Vomiting Oxycodone HCl (Oxycodone Hcl Immed Release 5 Mg Tablet) 5 mg PO Q4H PRN PRN Reason: Pain, Severe (Pain Scale 7-10) Labs 10/03/22 06:21 10/03/22 06:21 Labs: Laboratory Results - last 24 hr 10/02/22 10/02/22 10/02/22 16:37 16:37 16:37 MCV 93.7 MCH 30.8 MCHC 32.9 RDW 12.8 Plt Count 289 MPV 9.4 Immature Gran % (Auto) 0.2 Neut % (Auto) 47.2 Lymph % (Auto) 32.8 Martin % (Auto) 17.1 H Eos % (Auto) 1.6 Baso % (Auto) 1.1 Lymph # (Auto) 2.1 Martin # (Auto) 1.1 Eos # (Auto) 0.1 Baso # (Auto) 0.1 Abs Immat Gran (auto) 0.01 Absolute Neuts (auto) 3.0 Absolute Nucleated RBC 0.000 Nucleated RBC % (auto) 0.0 PT 9.8 L Whole Blood PT INR 0.9 Whole Blood INR APTT 28.4 Anion Gap 18 Estim Creat Clear Calc 50.7 Estimated GFR > 60 POC Glucose Random Glucose 275 H Lactic Acid Calcium 9.8 Magnesium 1.6 Total Creatine Kinase 21 L Troponin I High Sens Triglycerides Cholesterol LDL Cholesterol, Calc HDL Cholesterol Urine Color Urine Appearance Urine pH Ur Specific [place] Urine Protein Urine Glucose (UA) Urine Ketones Urine Blood Urine Nitrite Ur Leukocyte Esterase Urine RBC Urine WBC Ur Squamous Epith Cells Urine Bacteria Hyaline Casts COVID-19 ([facility]) COVID-19 Clin Com 10/02/22 10/02/22 10/02/22 16:37 16:59 17:03 MCV MCH MCHC RDW Plt Count MPV Immature Gran % (Auto) Neut % (Auto) Lymph % (Auto) Martin % (Auto) Eos % (Auto) Baso % (Auto) Lymph # (Auto) Martin # (Auto) Eos # (Auto) Baso # (Auto) Abs Immat Gran (auto) Absolute Neuts (auto) Absolute Nucleated RBC Nucleated RBC % (auto) PT Whole Blood PT 12.3 INR Whole Blood INR 1.0 APTT Anion Gap Estim Creat Clear Calc Estimated GFR POC Glucose 234 H Random Glucose Lactic Acid Calcium Magnesium Total Creatine Kinase Troponin I High Sens 4.2 Triglycerides Cholesterol LDL Cholesterol, Calc HDL Cholesterol Urine Color Urine Appearance Urine pH Ur Specific [place] Urine Protein Urine Glucose (UA) Urine Ketones Urine Blood Urine Nitrite Ur Leukocyte Esterase Urine RBC Urine WBC Ur Squamous Epith Cells Urine Bacteria Hyaline Casts COVID-19 ([facility]) COVID-19 Clin Com 10/02/22 10/02/22 10/02/22 17:29 20:15 22:12 MCV MCH MCHC RDW Plt Count MPV Immature Gran % (Auto) Neut % (Auto) Lymph % (Auto) Martin % (Auto) Eos % (Auto) Baso % (Auto) Lymph # (Auto) Martin # (Auto) Eos # (Auto) Baso # (Auto) Abs Immat Gran (auto) Absolute Neuts (auto) Absolute Nucleated RBC Nucleated RBC % (auto) PT Whole Blood PT INR Whole Blood INR APTT Anion Gap Estim Creat Clear Calc Estimated GFR POC Glucose 227 H Random Glucose Lactic Acid 0.9 Calcium Magnesium Total Creatine Kinase Troponin I High Sens Triglycerides Cholesterol LDL Cholesterol, Calc HDL Cholesterol Urine Color Yellow Urine Appearance Clear Urine pH 5.5 Ur Specific [place] >= 1.030 H Urine Protein 30 (1+) H Urine Glucose (UA) 500 H Urine Ketones Negative Urine Blood Negative Urine Nitrite Positive H Ur Leukocyte Esterase Small (1+) H Urine RBC 0-2 Urine WBC >50 H Ur Squamous Epith Cells 0-2 Urine Bacteria 4+ Hyaline Casts 0-2 COVID-19 ([facility]) COVID-19 Clin Com 10/02/22 10/03/22 10/03/22 23:48 01:43 06:21 MCV 95.1 MCH 31.1 MCHC 32.7 RDW 12.8 Plt Count 253 MPV 9.6 Immature Gran % (Auto) 0.4 Neut % (Auto) 50.8 Lymph % (Auto) 32.7 Martin % (Auto) 13.5 H Eos % (Auto) 1.7 Baso % (Auto) 0.9 Lymph # (Auto) 2.6 Martin # (Auto) 1.1 Eos # (Auto) 0.1 Baso # (Auto) 0.1 Abs Immat Gran (auto) 0.03 Absolute Neuts (auto) 4.0 Absolute Nucleated RBC 0.000 Nucleated RBC % (auto) 0.0 PT Whole Blood PT INR Whole Blood INR APTT Anion Gap Estim Creat Clear Calc Estimated GFR POC Glucose 325 H Random Glucose Lactic Acid Calcium Magnesium Total Creatine Kinase Troponin I High Sens Triglycerides Cholesterol LDL Cholesterol, Calc HDL Cholesterol Urine Color Urine Appearance Urine pH Ur Specific [place] Urine Protein Urine Glucose (UA) Urine Ketones Urine Blood Urine Nitrite Ur Leukocyte Esterase Urine RBC Urine WBC Ur Squamous Epith Cells Urine Bacteria Hyaline Casts COVID-19 ([facility]) Negative COVID-19 Clin Com See Note 10/03/22 10/03/22 10/03/22 06:21 06:21 07:20 MCV MCH MCHC RDW Plt Count MPV Immature Gran % (Auto) Neut % (Auto) Lymph % (Auto) Martin % (Auto) Eos % (Auto) Baso % (Auto) Lymph # (Auto) Martin # (Auto) Eos # (Auto) Baso # (Auto) Abs Immat Gran (auto) Absolute Neuts (auto) Absolute Nucleated RBC Nucleated RBC % (auto) PT Whole Blood PT INR Whole Blood INR APTT Anion Gap 16 Estim Creat Clear Calc 60.2 Estimated GFR > 60 POC Glucose 135 H Random Glucose 105 Lactic Acid Calcium 9.1 D Magnesium Total Creatine Kinase Troponin I High Sens Triglycerides 66 Cholesterol 155 LDL Cholesterol, Calc 88 HDL Cholesterol 54 Urine Color Urine Appearance Urine pH Ur Specific [place] Urine Protein Urine Glucose (UA) Urine Ketones Urine Blood Urine Nitrite Ur Leukocyte Esterase Urine RBC Urine WBC Ur Squamous Epith Cells Urine Bacteria Hyaline Casts COVID-19 ([facility]) COVID-19 Clin Com Assessment and Plan (1) Diplopia: Status: Acute (2) Acute CVA (cerebrovascular accident): Status: Acute Plan 66-year-old female past medical history of CVA, diabetes, nephrolithiasis presents the hospital with complaints of vision change # change in vision, double vision. CTH and CTA negative. MRI is pending. -Medical management with ASA, Lipitor, BP control, get echo, Neuro seeing. PT/T # Acute UTI--Ceftriaxone 10/02 # DM - LDSSI, hold metformin, continue home insulin DVT ppx: lovenox Need for inpt: acute CVA, work up Time Spent With Patient Time: Total time managing care of this patient today ____ minutes. Quality Stroke Does the patient have a stroke diagnosis?: No VTE Prior VTE?: No VTE Risk Level:: Medical - moderate - high VTE Device Contraindication: Treatment Not Indicated VTE Drug Contraindication: N/A - Med Ordered
[2022-10-03] MEDS: Aspirin Enteric Coated 81 MG TABLET.DR PO (10:23)
[2022-10-03] MEDS: Acetaminophen 325 MG TABLET 650 MG PO (10:26)
[2022-10-03] MEDS: oxyCODONE HCl Immed Release 5 MG TABLET PO ×2 (10:27→19:34)
[2022-10-03 11:38] LABS: Glucose, Whole Blood 257 mg/dL (60-115)
[2022-10-03] MEDS: Insulin Lispro 100 UNIT/ML 3 ML VIAL SUBCUT ×3 (11:54→21:39)
[2022-10-03] MEDS: LORazepam 2 MG/ML VIAL 1 MG IVPUSH (13:37)
[2022-10-03 14:22] LABS: Amphetamine Screen Urine Not Detected (Not Detect); Barbiturates, Urine Not Detected (Not Detect); Benzodiazepines Screen Urine Not Detected (Not Detect); Cannabinoid Screen Urine Not Detected (Not Detect); Cocaine Screen Urine Not Detected (Not Detect); Fentanyl, urine Not Detected (Not Detect); Opiate Screen Urine POSITIVE (Not Detect); Phencyclidine Screen Urine Not Detected (Not Detect)
[2022-10-03] MEDS: Nicotine 21 MG PATCH.TD24 TRANSDERMA (15:55)
[2022-10-03 16:28] LABS: Glucose, Whole Blood 221 mg/dL (60-115)
[2022-10-03] MEDS: cefTRIAXone sodium 1 GM in 0.9 % Sodium Chloride 50 ML IV (19:48)
[2022-10-03 20:54] LABS: Glucose, Whole Blood 221 mg/dL (60-115)
[2022-10-03] MEDS: Insulin Glargine,Hum.rec.anlog 100 UNIT/ML 10 ML VIAL 8 UNIT SUBCUT (21:38)
[2022-10-03] MEDS: Atorvastatin Calcium 80 MG TABLET PO (21:39)
[2022-10-04] VITALS (7 sets, daily range): BP systolic 138–172; BP diastolic 73–85; PULSE 81–100; RESP 14–20; TEMP 35.3–37.2; O2SAT 93–96
[2022-10-04] MEDS: LORazepam 1 MG TABLET PO ×2 (00:44→20:31)
--- NOTE | 2022-10-04 00:50 | PC.NURSE ---
Assumed care at 19:00. Patient alert and oriented, neuros show right eye deviates to right, cannot pull right eye medially past midline, disconguate gaze, blurred vision bilateral eyes allows for visualising at 6 ft distance of numbers of fingers, reports disequilibrium with ambulation, high falls risk, 1 assist with ambulation, telesitter. Patient with complaints of pain to mid upper and mid back, 10/01, reports she does not want to try oxycodone, torradol, or other pain medication, and only morphine will help, after some discussion, agreed to try oxycodone with no effect, still 10/01, discussed with pillo FAUST, and new order for morphine 4 mg, daytime attending replied later with no morphine indicated, attending updated. Patient also with left shoulder and left upper arm pain she says is chronic and has been going on 6 months since moving. Also shows she has an area on her right lower quadrant she has been self-administering insulin to repeatedly, appears like a possible hernia, discussed with oncoming nurse, and will relay to daytime team.
[2022-10-04 07:56] LABS: Glucose, Whole Blood 198 mg/dL (60-115)
[2022-10-04] MEDS: oxyCODONE HCl Immed Release 5 MG TABLET PO ×3 (08:27→20:31)
[2022-10-04] MEDS: Ketorolac Tromethamine 15 MG/ML VIAL IVPUSH ×2 (08:27→16:22)
[2022-10-04] MEDS: Nicotine 21 MG PATCH.TD24 TRANSDERMA (08:27)
[2022-10-04] MEDS: Insulin Lispro 100 UNIT/ML 3 ML VIAL SUBCUT ×4 (08:28→20:32)
[2022-10-04] MEDS: Insulin Glargine,Hum.rec.anlog 100 UNIT/ML 10 ML VIAL 8 UNIT SUBCUT ×2 (08:28→20:32)
[2022-10-04] MEDS: Aspirin Enteric Coated 81 MG TABLET.DR PO (08:29)
--- NOTE | 2022-10-04 11:03 | P.CDIM_ITS ---
PROVIDER RESPONSE TEXT: To clarify, the appropriate diagnosis supported by the clinical indicators: Diabetes mellitus Type 2 with hyperglycemia QUERY TEXT: PHYSICIAN'S DOCUMENTATION REQUEST Date of Query: 10/03/2022 11:29 AM EDT Patient Name: Diana Morrison Admit Date: 10/03/2022 Dear Patrick Julien, A review of the medical record indicates additional documentation may be needed. Please review below and update the documentation accordingly. Clinical Indicators: LABS: POC glucose 325 H Insulin Please clarify the following regarding the Complications of Diabetes Mellitus (DM): Diabetes mellitus Type 2 with hyperglycemia Other Other (explain)Clinically unable to determine (explain)Thank you, Anayeli Serrato, CCS, CDIS Use of terms such as suspected, likely, concern for, or probable (associated with a specific diagnosi s that is being evaluated, monitored, or treated as if it exists) are acceptable and can be coded in the inpatient se tting, when documented at the time of discharge. Please use your independent medical judgment in providing your response. THIS QUERY IS PART OF THE PERMANENT MEDICAL RECORD
[2022-10-04 11:08] LABS: Glucose, Whole Blood 242 mg/dL (60-115)
[2022-10-04 15:08] LABS: Glucose, Whole Blood 198 mg/dL (60-115)
--- NOTE | 2022-10-04 16:05 | MHC.CM.PN ---
EMR reviewed and per MD rounds, pt is not medically cleared for D/C and is awaiting neuro follow up. PT/OT are recommending acute rehab, referrals placed, pts first choice is [facility] who has offered a bed. CM will continue to follow for D/C.
--- NOTE | 2022-10-04 16:09 | P.PNIM_ITS ---
Subjective Subjective Date of Service: 10/04/22 Interval History: Complaining of persistent double vision with both eyes open even with 1 eye patch feels object some moving but denies dizziness, feels gait is wobbly due to impaired vision, participating in physical therapy. Denies fever chills, no nausea, no vomiting, no abdominal pain, no shortness of breath, no cough, no chest pain, no other acute pain. Review of Systems All other system reviewed and negative. Physical Exam Vital Signs: Vital Signs: Last Vital Signs Temp 98.6 F 10/04/22 15:49 Pulse 95 10/04/22 15:49 Resp 19 10/04/22 15:49 BP 172/81 H 10/04/22 15:49 Pulse Ox 95 10/04/22 15:49 O2 Del Method Room Air 10/04/22 15:49 BMI result Body Mass Index 20.6 Const: Other: General: AO X 3, no acute distress Right eye deviated to right and down, not crossing midline with left gaze deviation, mild left nystagmus with left gaze deviation Resp:? CTA bilateral CVS: S1,S2,RRR GI: +BS, NT, no distention Skin: No rash Neuro:? motor grossly intact, symmetrical face speech clear Psych: appropriate affect Objective Data Active Medications Acetaminophen (Acetaminophen 325 Mg Tablet) 650 mg PO Q6H PRN PRN Reason: Pain, Mild (Pain Scale 1-3) Last Admin: 10/03/22 10:26 Dose: 650 mg Documented By: AKI Aspirin (Aspirin Enteric Coated 81 Mg Tablet.) 81 mg PO DAILY [facility] Last Admin: 10/04/22 08:29 Dose: 81 mg Documented By: JUAN Atorvastatin Calcium (Atorvastatin Calcium 80 Mg Tablet) 80 mg PO BEDTIME [facility] Last Admin: 10/03/22 21:39 Dose: 80 mg Documented By: JAYDA Dextrose (Dextrose 50 % 25 Gm/50 Ml Syringe) 25 gm IVPUSH Q15M PRN; Protocol PRN Reason: per Hypoglycemia Standing Ord. Docusate Sodium (Docusate Sodium 100 Mg Capsule) 100 mg PO DAILY PRN PRN Reason: Constipation Glucose (Glucose Gel 15 Gm Gel..Gram.) 15 gm PO Q15M PRN; Protocol PRN Reason: per Hypoglycemia Standing Ord. Ceftriaxone Sodium 1 gm/ (Sodium Chloride) 50 mls @ 100 mls/hr IV Q24H [facility] Last Infusion: 10/03/22 21:29 Dose: 0 mls/hr Documented By: JAYDA Azithromycin 500 mg/ Sodium (Chloride) 250 mls @ 125 mls/hr IV Q24H [facility] Last Infusion: 10/04/22 00:38 Dose: 0 mls/hr Documented By: NICHOLAS Insulin Glargine (Insulin Glargine,Hum.Rec.Anlog 100 Unit/Ml 10 Ml Vial) 8 unit SUBCUT BID [facility] Last Admin: 10/04/22 08:28 Dose: 8 unit Documented By: JUAN Insulin Human Lispro (Insulin Lispro 100 Unit/Ml 3 Ml Vial) 0 unit SUBCUT QIDACHS [facility]; Protocol Last Admin: 10/04/22 11:59 Dose: 4 unit Documented By: JUAN Ketorolac Tromethamine (Ketorolac Tromethamine 15 Mg/Ml Vial) 15 mg IVPUSH Q6H PRN PRN Reason: Pain, Severe (Pain Scale 7-10) Last Admin: 10/04/22 08:27 Dose: 15 mg Documented By: JUAN Lorazepam (Lorazepam 1 Mg Tablet) 1 mg PO Q6H PRN PRN Reason: Anxiety Last Admin: 10/04/22 00:44 Dose: 1 mg Documented By: NICHOLAS Nicotine (Nicotine 21 Mg Patch.Td24) 21 mg TRANSDERMA DAILY [facility] Last Admin: 10/04/22 08:27 Dose: 21 mg Documented By: JUAN Ondansetron HCl (Ondansetron Hcl 4 Mg/2 Ml Vial) 4 mg IVPUSH Q8H PRN PRN Reason: Nausea and Vomiting Oxycodone HCl (Oxycodone Hcl Immed Release 5 Mg Tablet) 5 mg PO Q4H PRN PRN Reason: Pain, Severe (Pain Scale 7-10) Last Admin: 10/04/22 08:27 Dose: 5 mg Documented By: JUAN Labs 10/03/22 06:21 10/03/22 06:21 Labs: Laboratory Results - last 24 hr 10/03/22 10/03/22 10/04/22 16:21 20:45 07:36 POC Glucose 221 H 221 H 198 H 10/04/22 10/04/22 10:54 14:59 POC Glucose 242 H 198 H Microbiology Microbiology Results: Microbiology 10/02/22 17:52 Urine Culture - Final Urine clean catch - Urine borja top Escherichia coli 10/02/22 20:15 Blood Culture - Preliminary Blood - Venous No growth after 24 hours. 10/02/22 20:15 Blood Culture - Preliminary Blood - Venous No growth after 24 hours. Assessment and Plan (1) Diplopia: Status: Acute (2) Acute CVA (cerebrovascular accident): Status: Acute Plan 66-year-old female past medical history of CVA, diabetes, nephrolithiasis presents the hospital with complaints of vision change # double vision. MRI is pending. Case discussed with Dr. Merida likely patient has 3rd nerve palsy with question acute infarction, MRI brain showed small focus of due diffusion signal abnormality right colliculus along upper frida, Neuro recommend to patch 1 eye alternating with other eyes daily. continue Medical management with ASA, Lipitor, good blood sugar and BP contr ol, Seen by PT they recommend acute rehab, continue OT. # Acute UTI--Ceftriaxone 10/02, urine culture grew E coli sensitive to ceftriaxone, DC IV azithromycin. # DM - continue Lantus and insulin sliding scale,hold metformin, # tobacco use disorder continue nicotine patch DVT ppx: lovenox Need for inpt: acute CVA, need rehab Time Spent With Patient Time: Total time managing care of this patient today ____ minutes. Quality Stroke Does the patient have a stroke diagnosis?: No VTE Prior VTE?: No VTE Risk Level:: Medical - moderate - high VTE Device Contraindication: Treatment Not Indicated VTE Drug Contraindication: N/A - Med Ordered
[2022-10-04] MEDS: Enoxaparin Sodium 40 MG/0.4 ML SYRINGE SUBCUT (16:23)
[2022-10-04 20:21] LABS: Glucose, Whole Blood 265 mg/dL (60-115)
[2022-10-04] MEDS: cefTRIAXone sodium 1 GM in 0.9 % Sodium Chloride 50 ML IV (20:31)
[2022-10-04] MEDS: Atorvastatin Calcium 80 MG TABLET PO (20:31)
[2022-10-05 04:00] VITALS: BP 136/71; PULSE 76; RESP 16; TEMP 36.5; O2SAT 96
[2022-10-05 07:52] VITALS: BP 138/82; PULSE 88; RESP 20; TEMP 36.3; O2SAT 98
[2022-10-05 07:56] LABS: Glucose, Whole Blood 203 mg/dL (60-115)
[2022-10-05] MEDS: oxyCODONE HCl Immed Release 5 MG TABLET PO ×2 (08:05→13:24)
[2022-10-05] MEDS: Aspirin Enteric Coated 81 MG TABLET.DR PO (08:05)
[2022-10-05] MEDS: Insulin Lispro 100 UNIT/ML 3 ML VIAL SUBCUT ×2 (08:06→11:50)
[2022-10-05] MEDS: Nicotine 21 MG PATCH.TD24 TRANSDERMA (08:06)
[2022-10-05] MEDS: Ketorolac Tromethamine 15 MG/ML VIAL IVPUSH (08:06)
[2022-10-05] MEDS: Insulin Glargine,Hum.rec.anlog 100 UNIT/ML 10 ML VIAL 8 UNIT SUBCUT (08:07)
[2022-10-05 08:53] VITALS: BP 138/82; PULSE 88; O2SAT 98
--- NOTE | 2022-10-05 11:09 | PM.DS ---
DS: Providers Provider Date of Service: 10/05/22 Date of admission: 10/02/22 20:05 Primary care physician: Unknown Physician Consults: 10/02/22 20:05 Consult to Neurology Routine Consulting Provider: [facility] Reason for consultation: Acute CVA Has provider been notified: Yes DS: Diagnosis Discharge Diagnosis (1) Diplopia: Status: Acute (2) Acute CVA (cerebrovascular accident): Status: Acute DS: Summary Hospital Course Hospital Course: Hospital course: Date of Service: 10/02/22 Chief Complaint: Vision problems 66-year-old female past medical history of CVA with right-sided residual weakness, diabetes presents the hospital with complaints of vision issues.? at bedside also help with history.? Patient states that around 15:00 today she started experiencing vision problems, her vision became blurry, very distracting, felt that her IV was deviating.? Her noted that her left eye was deviating to the far left corner.? Patient is very anxious and worried.? And states that she recently had a cold that started on Saturday with runny nose, sneezing, cough, no sputum production, patient also felt feverish but did not check her temperature, has not had any chest pain, no abdominal pain, no increased weakness numbness or tingling.? Has had increased urinary frequency, but denies any dysuria or urgency. all other ROS negative Vitals on arrival are slightly hypertensive but otherwise stable. Labs otherwise unremarkable except for sugar of 275 and a UA that is positive for leukocyte Estrace and WBC as well as bacteria.? Head CT and head and neck CT angiogram have negative results for any acute abnormality. Hospital course: 66-year-old female past medical history of CVA, diabetes, nephrolithiasis presents the hospital with complaints of vision change # Double vision. Persistent symptoms of double vision, no other neurological deficit, MRI brain showed small focus of diffusion signal abnormality right colliculus along dorsal aspect of upper frida, patient seen by Dr. Merida from Neurology he feels likely patient has 3rd nerve palsy vs acute infarction, Neuro recommend to patch 1? eye alternating with other eyes alyce, continue Medical management with ASA, Lipitor, good blood sugar control, ?? Seen by PT they recommend acute rehab, continue OT. # Acute UTI--urine culture grew E coli patient treated with IV ceftriaxone and now being discharged for 2 more days of by mouth Ceftin. # DM elevated blood sugars recommend to continue metformin and insulin # tobacco use disorder continue nicotine patch, counseling done Time Spent with Patient Time attestation: Total time managing care of this patient today ____ minutes. Discharge coordination time: Greater than 30 minutes Quality: Safe Use of Opioids Does Pt have an Active Cancer Diagnosis on the Problem List?: No Quality: Stroke Does the patient have a stroke diagnosis?: Yes Reason for No Anti-thrombotic at DC: Not indicated Reason for No Anticoagulant at DC: Not indicated Reason Not Initiating IV-Tpa: Not indicated Reason for No Anti-thrombotic by Day Two: N/A - Med Ordered Reason for No Statin at DC: N/A - Med Ordered Physical Exam Vital Signs: Vital Signs: Last Vital Signs Temp 97.4 F 10/05/22 07:52 Pulse 88 10/05/22 08:53 Resp 20 10/05/22 07:52 BP 138/82 10/05/22 08:53 Pulse Ox 98 10/05/22 08:53 O2 Del Method Room Air 10/05/22 07:52 BMI result Body Mass Index 20.6 Const: Other: General: Awake alert x3, no acute distress Right eye deviated to right and down, not crossing midline with left gaze deviation, mild left nystagmus with left gaze deviation. Resp:? CTA bilateral CVS: S1,S2,RRR GI: Abdomen soft nontender bowel sounds audible. Skin: No rash Neuro:? motor grossly intact, speech clear Psych: appropriate affect DS: Data Data Completed and Pending Labs on day of discharge: Laboratory Results - last 24 hr 10/04/22 10/04/22 10/05/22 14:59 20:17 07:51 POC Glucose 198 H 265 H 203 H Preliminary micro results at discharge 10/02/22 20:15 Blood Culture - Preliminary Blood - Venous No growth after 48 hours. 10/02/22 20:15 Blood Culture - Preliminary Blood - Venous No growth after 48 hours. Discharge Plan Discharge Anticipated Discharge Date/Time: 10/05/22 10:59 Patient Disposition: Xfer Inpatient Rehab Fac Discharge Diagnosis: Diplopia Acute CVA UTI Referrals: Physician,Unknown J [Primary Care Provider] - 1 Week Discharge Medications: New aspirin 81 mg Tablet,Delayed Release (Dr/Ec) 81 mg PO DAILY Qty: 30 0RF nicotine 21 mg/24 hr Patch 24 Hour 21 mg transdermal DAILY Qty: 30 0RF atorvastatin [Lipitor] 40 mg tablet 40 mg PO BEDTIME Qty: 30 0RF cefuroxime axetil 250 mg tablet 250 mg PO BID Qty: 4 0RF Continued metformin 1,000 mg tablet 1,000 mg PO BID Novolin N FlexPen 100 unit/mL (3 mL) insulin pen 10 unit subcut BID acetaminophen [Tylenol] 325 mg Tablet 650 mg PO Q6H PRN (Reason: Pain) Discharge Orders: Discharge Order (Routine); Ordered 10/05/22 Ordered By: Yanet Erickson Diet: Diabetic diet Activity on Discharge: As tolerated Stand Alone Forms: Patient Portal Discharge page Care Plan Goals: Persistent diplopia likely due to acute CVA versus right partial 3rd nerve palsy, recommend to patch 1 eye /alternate patching each eye , Health Concerns: Diabetes, follow blood sugars closely recommend good blood sugar control Plan of Treatment: Outpatient follow-up with primary care physician Assessment: As above
[2022-10-05 11:27] LABS: Glucose, Whole Blood 336 mg/dL (60-115)
[2022-10-05 11:33] VITALS: BP 145/88; PULSE 79; RESP 20; TEMP 36.4; O2SAT 95
--- NOTE | 2022-10-05 11:33 | MHC.CM.PN ---
Pt is medically cleared for D/C to [facility] for acute rehab. Transportation set up for 1pm via [facility]/Chris.
--- NOTE | 2022-10-17 14:33 | MHC.STROKE ---
LATE ENTRY FOR 10/03/22 PATIENT AMBULATORY INDEPENDENTLY PER ACTIVITY DOCUMENTATION, VTE PROPHYLAXIS EXCLUDED DUE TO CURRENT AMBULATORY STATUS.
== END 2022-10-05 14:12 | DRG 64 ==
LOC: HO.ED 19:00 → HO.EDOVER 20:15 → HO.IMC 10-03 01:26
PROVIDERS: Internal Medicine; Physician Assistant; Admitting Provider Internal Medicine; Emergency Provider Student in an Organized Health Care Education/Training Program; PCP Family Medicine; Visit Provider Hospitalist
DX: I63.9 Cerebral infarction, unspecified (principal); J18.9 Pneumonia, unspecified organism; I69.351 Hemiplegia and hemiparesis following cerebral infarction affecting right dominant side; N39.0 Urinary tract infection, site not specified; G58.8 Other specified mononeuropathies; F17.210 Nicotine dependence, cigarettes, uncomplicated; E11.65 Type 2 diabetes mellitus with hyperglycemia; H53.2 Diplopia; R29.700 NIHSS score 0; B96.20 Unspecified Escherichia coli [E. coli] as the cause of diseases classified elsewhere; Z20.822 Contact with and (suspected) exposure to COVID-19; Z71.6 Tobacco abuse counseling; Z79.4 Long term (current) use of insulin; Z79.84 Long term (current) use of oral hypoglycemic drugs; Z79.899 Other long term (current) drug therapy
CPT/HCPCS: 36415; 70450; 70496; 70498; 70551; 71045; 80048; 80061; 80307; 81001; 82550; 82947; 83605; 83735; 84484; 85025; 85610; 85730; 87040; 87086; 87088; 87186; 87635; 93005; 93306; 97110; 97116; 97162; 97166; 97530; 97535; 99285; J0456; J0696; J1200; J1650; J1885; J2060; J2270; J2765; Q9957; Q9967

== ENCOUNTER → 2022-10-02 16:28 | Outpatient (BNV) | payer MEDICARE, SELFPAY | PROVIDERS: Admitting Provider Internal Medicine; Emergency Provider Student in an Organized Health Care Education/Training Program; Visit Provider Internal Medicine Cardiovascular Disease | DX: I63.9 Cerebral infarction, unspecified (principal) | CPT/HCPCS: 93010 ==

== ENCOUNTER 2022-10-02 20:05 | Outpatient (BNV) | payer MEDICARE, SELFPAY | END 2022-10-03 07:00 | PROVIDERS: Admitting Provider Internal Medicine; Emergency Provider Student in an Organized Health Care Education/Training Program; Visit Provider Internal Medicine Cardiovascular Disease | DX: I63.9 Cerebral infarction, unspecified (principal) | CPT/HCPCS: 93306 ==

== ENCOUNTER → 2022-10-02 20:05 | Outpatient (BNV) | payer MEDICARE, SELFPAY | PROVIDERS: Admitting Provider Internal Medicine; Emergency Provider Student in an Organized Health Care Education/Training Program; Visit Provider Internal Medicine | DX: H53.2 Diplopia (principal); I63.9 Cerebral infarction, unspecified | CPT/HCPCS: 99223; 99232; 99239 ==

== ENCOUNTER 2022-11-19 09:06 | Outpatient (REF) | payer MEDICARE, SELFPAY ==
--- NOTE | ~2022-11-19 | XR_ITS ---
EXAMINATION: XR SHOULDER, LEFT CLINICAL INFORMATION: Left shoulder pain COMPARISON: None available. TECHNIQUE: Three views of the left shoulder. FINDINGS: Glenohumeral alignment preserved. Small hypertrophic change at the inferior medial aspect of the humeral head. No abnormal soft tissue calcifications identified adjacent to the humeral head. Moderate osteoarthritis acromioclavicular joint. XR/XR shoulder LT min 2V IMPRESSION: Moderate osteoarthritis acromioclavicular joint.
== END 2022-11-19 09:07 | disposition home or self-care (01) ==
LOC: HO.XRAY 09:06
PROVIDERS: PCP Family Medicine; Visit Provider Family Medicine
DX: M25.512 Pain in left shoulder (principal); G89.29 Other chronic pain
CPT/HCPCS: 36415; 73030; 85652; 86140

== ENCOUNTER 2022-11-19 12:07 | Outpatient (REF) | payer MEDICARE, SELFPAY ==
[2022-11-19 13:46] LABS: Erythrocyte Sedimentation Rate 7 MM/HR (0-20)
[2022-11-19 13:50] LABS: C Reactive Protein < 0.10 mg/dL (< or = 0.50)
== END 2022-11-19 12:08 | disposition home or self-care (01) ==
LOC: HO.LAB 12:07
PROVIDERS: Visit Provider Psychiatry & Neurology Neurology
DX: Z13.89 Encounter for screening for other disorder (principal)
CPT/HCPCS: 36415; 85652; 86140

== ENCOUNTER 2024-10-29 09:31 | Emergency (ER) | payer MEDICARE, SELFPAY ==
--- NOTE | ~2024-10-29 | CT_ITS ---
EXAMINATION: CT HEAD WITHOUT CONTRAST CLINICAL INFORMATION: lightheadedness, dizziness COMPARISON: October 02, 2022. TECHNIQUE: Contiguous axial imaging was performed from the skull base to vertex without intravenous administration of contrast. This CT examination was performed using dose optimization techniques as appropriate, variously including the following: *Automated exposure control *Adjustment of mA and/or kV according to patient size (this includes techniques or standardized protocols for targeted exams where dose is matched to indication/reason for exam; i.e. extremities or head) *Use of iterative reconstruction technique DLP: 608 mGy-cm FINDINGS: No acute intracranial hemorrhage, mass effect, midline shift, hydrocephalus or herniation. Bilateral multifocal patchy and confluent deep periventricular white matter hypodensities involving centrum semiovale and garza radiata. Old lacunar infarcts, anteriorly impinging the right internal capsule, right mid frida and basal ganglia. Blount-white matter differentiation is normal. Posterior cranial fossa contents demonstrated no acute hemorrhage or gross mass effect. Normal position of the cerebellar tonsils. Sellar/suprasellar region demonstrated no gross masses. No acute cortical disruption in the bony calvarium or the skull base. Calcified plaques in the cavernous supraclinoid segments both ICAs. Mucosal thickening, maxillary sinuses. Fluid density/low density involving the right tympanic cavity and right mastoid air cells/mastoid antrum. Left tympanic cavity and left mastoid cells are aerated and well pneumatized. CT/CT head/brain wo IV con IMPRESSION: No acute intracranial hemorrhage. 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 Inflammatory changes versus effusion, right petrous bone. Electronically signed by: Silvio Smith MD 10/29/2024 11:38 AM EDT
[2024-10-29 09:34] VITALS: BP 167/75; PULSE 85; RESP 18; TEMP 36.9; O2SAT 97; BMI 20.7
--- NOTE | 2024-10-29 09:43 | PC.NURSE ---
KARTHIKEYAN NASH, SPOKE TO THIS RN STATING HAS BEEN DRINKING, TAKING OXYCODONE, PROZAC, VISTARIL WITH IT. HE FEELS SHE NEEDS HELP
[2024-10-29 09:55] LABS: MANUAL DIFF FLAG NO
[2024-10-29 09:57] LABS: Hematocrit 46.4 % (37.0-47.0); Hemoglobin 15.9 g/dl (12.0-16.0); Imm Gran Abs Auto 0.01 X10*3/uL (0.00-0.03); Imm Gran Pct Auto 0.1 % (0.0-0.4); Lymphocytes Absolute Auto 2.8 X10*3/uL (1.2-4.9); Mean Corpuscular HGB Conc 34.3 g/dl (31.0-35.0); Mean Corpuscular Hemoglobin 32.5 pg (27.0-33.0); Mean Corpuscular Volume 94.9 fL (80.0-98.0); NRBC Abs Auto 0.000 X10*3/uL (0.0-0.012); NRBC Pct Auto 0.0 /100WBC (0.0-0.2); Platelet Count 289 X10*3/uL (160-400); Red Blood Count 4.89 X10*6/uL (4.20-5.50); White Blood Count 6.7 X10*3/uL (4.8-10.8)
[2024-10-29 10:29] LABS: Alanine Aminotransferase 18 U/L (0-31); Albumin Level 4.3 g/dL (3.5-5.0); Alkaline Phosphatase 78 U/L (39-117); Anion Gap 14 (12-20); Aspartate Amino Transferase 24 U/L (5-31); Blood Urea Nitrogen 13 mg/dL (9-16); Calcium 9.1 mg/dL (8.4-10.2); Carbon Dioxide 28 mmol/L (22-29); Chloride 105 mmol/L (96-108); Creatinine Clr Calc Pharmacy 56.3; Estimated Glomerular Filt Rate > 60; Potassium 4.3 mmol/L (3.3-5.1); Sodium 143 mmol/L (135-145); Total Protein 7.3 g/dL (6.5-8.0)
--- OUTSIDE RECORDS SUMMARY | 2024-10-29 10:30 | XMS_ITS | Encounter Summary ---
Author Organization [facility] Address [address] [place] [address] [place] [phone] Phone Care Team Providers Care Camera Maker Name Role Phone Eliezer Ndiaye MD Unavailable [phone] Cecily Jean MD Primary Care Provider [phone] Lory Morales Primary Care Provider [phone] Encounter Details Date Type Department Care Team (Late st Contact Info) Description 05/20/2021 [facility] [place] Admitting Dept - Virtual Department [address] [place] [address] Social History Tobacco Use Types Packs/Day Years Used Date Smoking Tobacco: Every Day Cigarettes 0.5 45 Smokeless Tobacco: Never Alcohol Use Standard Drinks/Week Comments Yes 2 (1 standard drink = 0.6 oz pur e alcohol) nightly Comments No Sex and Gender Information Value Date Recorded Sex Assigned at Female 01/19/2019 8:11 PM EDT Legal Sex Female 9:55 PM EDT Gender Identity Female 01/19/2019 8:11 PM EDT Sexual Orientation Straight 01/19/2019 8: 11 PM EDT documented as of this encounter Plan of Treatment Not on file documented as of this encounter Visit Diagnoses Not on filedocumented in this encounter Care Teams Camera Maker Relationship Specialty Start Date End Date Cecily Jean MD [address] [place] [address] [email or web address] PCP - General Internal Medicine 09/20/20 04/19/22 Lory Morales PA [address] [place] [address]. [place] [address] [email or web address] PCP - General Physician Lye Boiler 04/20/22 Eliezer Ndiaye MD [email or web address] Urology 12/09/19 documented as of this encounter Additional Source Comments The information contained in this document represents components of the legal health record. It is not the complete legal health record.[facility]
--- OUTSIDE RECORDS SUMMARY | 2024-10-29 10:31 | XMS_ITS | Encounter Summary ---
Author Organization [employer] Address [address] [facility] [address] [place] [address] Care Team Providers Care Coater Slate Name Role Phone Lory Morales PA-C Primary Care Provider Unav ailable Joycelyn Vuong Unavailable Unavailable Inactive/Transferred Primary Care Provider Unava ilable Reason for Visit * Reason Comments Med Refill Encounter Details Date Type Department Care Team (Late st Contact Info) Description 12/14/2022 Refill [facility] [address] [place] [address] Steph Puente FNP [address] [place] [address] Social History Tobacco Use Types Packs/Day Years Used Date Smoking Tobacco: Former Cigarettes Smokeless Tobacco: Never Alcohol Use Standard Drinks/Week Comments Not Currently 0 (1 standard drink = 0.6 oz pur e alcohol) Comments Unknown Sex and Gender Information Value Date Recorded Sex Assigned at Female 10/17/2022 2:23 PM EDT Legal Sex Female 8:38 PM EDT Gender Identity Female 10/17/2022 2:23 PM EDT Sexual Orientation Choose not to disclose 2022 2:23 PM EDT documented as of this encounter Miscellaneous Notes * Telephone Encounter - Ely Haley - 12/14/2022 9:15 AM EDT RX sent on 12/05/22 documented in this encounter Plan of Treatment Upcoming Encounters Date Type Department Care Team (Late st Contact Info) Description 11/19/2024 10:00 AM EDT Office Visit [address] [address] Jevon Gooden MD [address] [place] [address] 11/24/2024 9:40 AM EDT Office Visit [facility] DENTAL [address] [place] [address] ElmersadieFiona 12/04/2024 11:40 AM EDT Office Visit [facility] MEDICAL [address] [place] [address] Steph Puente FNP [address] [place] [address] documented as of this encounter Visit Diagnoses Not on filedocumented in this encounter Care Teams Coater Slate Relationship Specialty Start Date End Date Lory Morales PA-C PCP - General Family Medicine 07/03/22 10/20/24 Inactive/Transferred PCP - General 10/21/24 10/21/24 Joycelyn Vuong Health Navigator 06/19/24 documented as of this encounter
--- OUTSIDE RECORDS SUMMARY | 2024-10-29 10:31 | XMS_ITS | Clinical Summary ---
Author Organization [facility], Address [address] [facility] [address] [place] [address] Phone Care Team Providers Care Bakery Chef Name Role Phone Kalyani Serrano Primary Care Provider + Social History Tobacco Use Types Packs/Day Years Used Date Smoking Tobacco: Never Assessed Comments Unknown Sex and Gender Information Value Date Recorded Sex Assigned at Not on file Legal Sex Female 1:59 PM EDT Gender Identity Not on file Sexual Orientation Not on file Plan of Treatment Health Maintenance Due Date Last Done Comments Breast Cancer Screening 1955 Colorectal Cancer Screening: Annual FOBT 11/05/2003 Colorectal Cancer Screening: Colonoscopy 11/05/2003 Colorectal Cancer Screening: Sigmoidoscopy 11/05/2003 Pneumococcal Vaccine: 50+ Ye ars (1 of 1 - PCV) 2004 Influenza Vaccine (#1) 2024 Hepatitis B Vaccine Aged Out No longe r eligible based on patient's age to complete this topic Insurance Medicare Care Teams Bakery Chef Relationship Specialty Start Date End Date Kalyani Serrano ANP [address] [place] [id number] PCP - General Nurse Practitioner 06/08/21
--- OUTSIDE RECORDS SUMMARY | 2024-10-29 10:31 | XMS_ITS | Patient Health Record ---
Author Organization [facility] [place] [facility] Address [address] [place] [address] Care Team Providers Care Mailing Machine Assistant Name Role Phone Oziel Ye Unavailable [phone] Reason For Referral No Information Plan Of Treatment No Information
--- OUTSIDE RECORDS SUMMARY | 2024-10-29 10:31 | XMS_ITS | Clinical Summary ---
Author Organization [facility] Address [address] [place] [address] Care Team Providers Care Taker Off Drying Kiln Name Role Phone Unavailable Primary Care Provider Unavailabl e Social History Tobacco Use Types Packs/Day Years Used Date Smoking Tobacco: Never Assessed Comments Unknown Sex and Gender Information Value Date Recorded Sex Assigned at Not on file Legal Sex Female 2:06 PM EDT Gender Identity Not on file Sexual Orientation Not on file Plan of Treatment Health Maintenance Due Date Last Done Comments Breast Cancer Screening 1955 DTaP,Tdap,and Td Vaccines (1 - Tdap) 1973 Pneumococcal Vaccine: 50+ Ye ars (1 of 1 - PCV) 2004 Zoster Vaccines (1 of 2) 2004 Colorectal Cancer Screening: Colonoscopy 02/20/2022 Falls Risk Assessment 02/20/2022 Hepatitis C Screening 02/20/2022 Osteoporosis Screening (Bone Density Screening) 02/20/2022 Social Influencers of Health Screening 02/20/2022 COVID-19 Vaccine (1 - 2023-2 5 season) 2023 Depression Screening 03/25/2024 Influenza Vaccine (#1) 2024 RSV Immunization Adult Patie nts (1 - 1-dose 75+ series) 2029 HIB Vaccines Aged Out No longer eligi ble based on patient's age to complete this topic HPV Vaccines Aged Out No longer eligi ble based on patient's age to complete this topic Hepatitis A Vaccines Aged Out No long er eligible based on patient's age to complete this topic Hepatitis B Vaccines Aged Out No long er eligible based on patient's age to complete this topic IPV Vaccines Aged Out No longer eligi ble based on patient's age to complete this topic MMR Vaccines Aged Out No longer eligi ble based on patient's age to complete this topic Meningococcal ACWY Vaccine Aged Out N o longer eligible based on patient's age to complete this topic Meningococcal B Vaccine Aged Out No l onger eligible based on patient's age to complete this topic RSV Immunization Patients Un [place] 20 months Aged Out No longer eligible b ased on patient's age to complete this topic Varicella Vaccines Aged Out No longer eligible based on patient's age to complete this topic
--- NOTE | 2024-10-29 10:41 | ED.GENADULT ---
HPI - General Adult General Chief complaint: General Medical Stated complaint: lightheaded tired hx strokes Time Seen by Provider: 10/29/24 10:41 Source: patient Limitations: no limitations History of Present Illness ED Provider: Shira Salazar PA-C HPI narrative: The patient is a 68-year-old female with a history of diabetes, stroke, and dental extraction on 09/01/2024, presenting to the ED with complaints of lightheadedness and right ear fullness that began approximately three weeks ago, a few days after having multiple teeth removed. She reports that the lightheadedness has progressively worsened, and is now constant, though she cannot identify any specific aggravating or relieving factors. She also endorses fatigue and reports a 5-pound unintentional weight loss since the symptoms began. She feels like she is eating less overall due to her dental procedure. She also complains of right ear fullness. She denies hearing or vision changes. She endorses a slight cough but she denies chest pain, palpitations, or shortness of breath. Her reports concern for possible withdrawal symptoms, stating that she has been mixing Fioricet, oxycodone, and alcohol, and has not had access to these substances recently. Onset (ago): week(s) (3) Pain Consistency: constant Relieving factors: none Exacerbating factors: none Related Data Home Medications ?Medication ?Instructions ?Recorded ?Confirmed acetaminophen 325 mg tablet 650 mg PO Q6H PRN Pain 10/02/22 10/02/22 (Tylenol) insulin NPH isoph U-100 human 100 10 unit subcut BID 10/02/22 10/02/22 unit/mL (3 mL) subcutaneous pen (Novolin N FlexPen) metformin 1,000 mg tablet 1,000 mg PO BID 10/02/22 10/02/22 Previous Rx's ?Medication ?Instructions ?Recorded aspirin 81 mg tablet,delayed 81 mg PO DAILY #30 tabs 10/05/22 release atorvastatin 40 mg tablet (Lipitor) 40 mg PO BEDTIME #30 tabs 10/05/22 cefuroxime axetil 250 mg tablet 250 mg PO BID #4 tabs 10/05/22 nicotine 21 mg/24 hr daily 21 mg transdermal DAILY #30 ea 10/05/22 transdermal patch doxycycline hyclate 100 mg tablet 100 mg PO BID 7 days #14 tabs 10/29/24 Allergies Allergy/AdvReac Type Severity Reaction Status Date / Time promethazine (From Phenergan) Allergy Mild DEEP SLEEP Unverified 10/29/24 09:35 Review of Systems Constitutional: Constitutional: Reports no additional constitutional complaints, Denies chills, Denies fever(s), Reports lethargy, Denies night sweats and Reports weight loss (5 pound) Eyes: Eyes: Reports no additional eye complaints, Denies blurry vision, Denies change in vision, Denies diplopia, Denies eye discharge, Denies loss of vision and Denies eye pain ENT: Reports Normal hearing present Comments: right ear fullness Cardiovascular: Cardiovascular: Reports no additional cardiovascular complaints, Denies chest pain, Reports lightheadedness, Denies Loss of Consciousness and Denies dyspnea Respiratory: Respiratory: Reports no additional respiratory complaints and Denies dyspnea Gastrointestinal: Gastrointestinal: Reports no additional gastrointestinal complaints, Denies abdominal pain, Denies melena, Denies hematochezia, Denies change in bowel habits and Denies change in stool character Genitourinary: Genitourinary: Denies hematuria, Denies urinary frequency, Denies dysuria, Denies urinary incontinence, Denies urinary hesitancy and Denies urinary urgency Musculoskeletal: Musculoskeletal: Reports no additional musculoskeletal complaints, Denies numbness and Denies tingling Neurologic: Reports Normal hearing present, Denies loss of vision, Denies numbness and Denies tingling Psychiatric: Psychiatric: Reports no additional psychiatric complaints Endocrine: Endocrine: Reports no additional endocrine complaints Hematologic/Lymphatic: Hematologic/Lymphatic: Reports no additional hematologic/lymphatic complaints Allergic/Immunologic: Allergic/Immunologic: Reports no additional allergic/immunologic complaints [facility] Social History Social History Household Members: Spouse Housing: House Do you presently have visiting nurse or other home services: No Alcohol intake: current Alcohol intake frequency: a few times a week Patient Tobacco Use Status: Current everyday Tobacco user Tobacco use type: Cigarette Cigarettes Per Day: 8 Smoked in Last 30 Days: Yes Use of substances other than those prescribed or required for medical reasons: No Advance Directives: No Advance Directives Information Provided: Yes service: No Physical Exam ED Vital Signs: Vital Signs - 24 hr 10/29/24 09:34 Temperature 98.4 F Pulse Rate 85 Respiratory Rate 18 Blood Pressure 167/75 H Pulse Oximetry 97 Oxygen Delivery Method Room Air BMI result Body Mass Index 20.7 Neuro Cranial nerves: Yes Normal hearing present Medications Administered Discontinued Medications Generic Name Dose Route Start Last Admin Trade Name Leonardo PRN Reason Stop Dose Admin Sodium Chloride 1,000 mls @ 999 mls/hr 10/29/24 10:45 10/29/24 12:06 Ns IV 10/29/24 11:45 999 mls/hr .Q1H1M RENE Administration Medical Decision Making Medical Decision Making [facility] Narrative: Patient is a 68 year old assigned female at with a history of diabetes, stroke, and dental extraction on 09/01/2024, presenting to the ED with complaints of lightheadedness and right ear fullness. Patient's physical exam was unremarkable. Patient's blood work was unremarkable. Patient's head CT showed evidence of sinusitis and her previously known strokes. I explained my physical exam findings as well as all test results to the patient and the patient's . I answered all questions asked by the patient and the patient's . I had an extensive conversation with the patient and her about the patient's alcohol use and her purchasing/using oxycodone from a neighbor. Patient stated that she did not want any help with these issues and proceeded to tell her to shut the fuck up I discussed the process of a section 35 with the patient's and explained that if he felt so inclined to do so - he could go to the court house and petition them to place one for the patient to get treatment for her alcohol and drug issues. I stressed the importance of the patient taking her medication as directed (either prescribed or as the over the counter packaging recommends). I stressed the importance of the patient following up with her primary care provider. I stressed the importance of the patient returning to the emergency department immediately if her symptoms were to worsen or if she were to develop any dizziness, shortness of breath, difficulty breathing, chest pain, blurry vision, loss of vision, nausea, vomiting, abdominal pain, fever, chills, back pain, or any other complaints. Patient verbalized agreement and understanding with this treatment plan and discharge. Differential Diagnosis Differential Diagnoses: The differential diagnosis associated with the presentation includes Sinusitis Alcohol use Lightheadedness Admission/Observation Consideration of admission/observation: Escalation of care including admission/observation considered Patient would have been admitted to the hospital had her work up had any findings where hospital admission was appropriate and her clinical presentation warranted hospital admission. Lab Data [facility] Lab Attestation statement: I reviewed the patient's lab results. My interpretation of these results are in the [facility] Rationale portion of this note. 10/29/24 09:49 10/29/24 09:49 Labs: Lab Results 10/29/24 10/29/24 10/29/24 Range/Units 09:49 09:49 09:49 WBC 6.7 (4.8-10.8) X10*3/uL RBC 4.89 (4.20-5.50) X10*6/uL Hgb 15.9 (12.0-16.0) g/dl Hct 46.4 (37.0-47.0) % MCV 94.9 (80.0-98.0) fL MCH 32.5 (27.0-33.0) pg MCHC 34.3 (31.0-35.0) g/dl RDW 12.1 (11.0-16.0) % Plt Count 289 (160-400) X10*3/uL MPV 9.1 L (9.4-12.3) fL Immature Gran % (Auto) 0.1 (0.0-0.4) % Neut % (Auto) 49.2 (45-73) % Lymph % (Auto) 42.1 H (20-40) % [place] % (Auto) 7.2 (2-11) % Eos % (Auto) 1.0 (0-4) % Baso % (Auto) 0.4 (0-2) % Lymph # (Auto) 2.8 (1.2-4.9) X10*3/uL [place] # (Auto) 0.5 (0.1-1.2) X10*3/uL Eos # (Auto) 0.1 (0.0-0.4) X10*3/uL Baso # (Auto) 0.0 (0.0-0.2) X10*3/uL Abs Immat Gran (auto) 0.01 (0.00-0.03) X10*3/uL Absolute Neuts (auto) 3.3 (2.0-8.3) x10*3/uL Absolute Nucleated RBC 0.000 (0.0-0.012) X10*3/uL Nucleated RBC % (auto) 0.0 (0.0-0.2) /100WBC Sodium Cancelled 143 Potassium Cancelled 4.3 Chloride Cancelled Carbon Dioxide Anion Gap BUN Creatinine Estim Creat Clear Calc Estimated GFR Random Glucose Calcium Total Bilirubin Direct Bilirubin AST ALT Alkaline Phosphatase Total Protein Albumin Urine Opiates Screen (Not Detect) Ur Buprenorphine Scrn (Not Detect) ng/mL Ur Oxycodone Screen (Not Detect) ng/mL Urine Methadone Screen (Not Detect) ng/mL Urine Fentanyl Screen (Not Detect) Ur Barbiturates Screen (Not Detect) Ur Phencyclidine Scrn (Not Detect) Ur Amphetamines Screen (Not Detect) U Benzodiazepines Scrn (Not Detect) Urine Cocaine Screen (Not Detect) U Marijuana (THC) Screen (Not Detect) Ethyl Alcohol mg/dL 10/29/24 10/29/24 10/29/24 Range/Units 09:49 09:49 09:49 WBC (4.8-10.8) X10*3/uL RBC (4.20-5.50) X10*6/uL Hgb (12.0-16.0) g/dl Hct (37.0-47.0) % MCV (80.0-98.0) fL MCH (27.0-33.0) pg MCHC (31.0-35.0) g/dl RDW (11.0-16.0) % Plt Count (160-400) X10*3/uL MPV (9.4-12.3) fL Immature Gran % (Auto) (0.0-0.4) % Neut % (Auto) (45-73) % Lymph % (Auto) (20-40) % [place] % (Auto) (2-11) % Eos % (Auto) (0-4) % Baso % (Auto) (0-2) % Lymph # (Auto) (1.2-4.9) X10*3/uL [place] # (Auto) (0.1-1.2) X10*3/uL Eos # (Auto) (0.0-0.4) X10*3/uL Baso # (Auto) (0.0-0.2) X10*3/uL Abs Immat Gran (auto) (0.00-0.03) X10*3/uL Absolute Neuts (auto) (2.0-8.3) x10*3/uL Absolute Nucleated RBC (0.0-0.012) X10*3/uL Nucleated RBC % (auto) (0.0-0.2) /100WBC Sodium Potassium Chloride 105 Carbon Dioxide Cancelled 28 Anion Gap Cancelled 14 BUN Cancelled Creatinine Estim Creat Clear Calc Estimated GFR Random Glucose Calcium Total Bilirubin Direct Bilirubin AST ALT Alkaline Phosphatase Total Protein Albumin Urine Opiates Screen (Not Detect) Ur Buprenorphine Scrn (Not Detect) ng/mL Ur Oxycodone Screen (Not Detect) ng/mL Urine Methadone Screen (Not Detect) ng/mL Urine Fentanyl Screen (Not Detect) Ur Barbiturates Screen (Not Detect) Ur Phencyclidine Scrn (Not Detect) Ur Amphetamines Screen (Not Detect) U Benzodiazepines Scrn (Not Detect) Urine Cocaine Screen (Not Detect) U Marijuana (THC) Screen (Not Detect) Ethyl Alcohol mg/dL 10/29/24 10/29/24 10/29/24 Range/Units 09:49 09:49 09:49 WBC (4.8-10.8) X10*3/uL RBC (4.20-5.50) X10*6/uL Hgb (12.0-16.0) g/dl Hct (37.0-47.0) % MCV (80.0-98.0) fL MCH (27.0-33.0) pg MCHC (31.0-35.0) g/dl RDW (11.0-16.0) % Plt Count (160-400) X10*3/uL MPV (9.4-12.3) fL Immature Gran % (Auto) (0.0-0.4) % Neut % (Auto) (45-73) % Lymph % (Auto) (20-40) % [place] % (Auto) (2-11) % Eos % (Auto) (0-4) % Baso % (Auto) (0-2) % Lymph # (Auto) (1.2-4.9) X10*3/uL [place] # (Auto) (0.1-1.2) X10*3/uL Eos # (Auto) (0.0-0.4) X10*3/uL Baso # (Auto) (0.0-0.2) X10*3/uL Abs Immat Gran (auto) (0.00-0.03) X10*3/uL Absolute Neuts (auto) (2.0-8.3) x10*3/uL Absolute Nucleated RBC (0.0-0.012) X10*3/uL Nucleated RBC % (auto) (0.0-0.2) /100WBC Sodium Potassium Chloride Carbon Dioxide Anion Gap BUN 13 Creatinine Cancelled 0.78 Estim Creat Clear Calc Cancelled 56.3 Estimated GFR Cancelled Random Glucose Calcium Total Bilirubin Direct Bilirubin AST ALT Alkaline Phosphatase Total Protein Albumin Urine Opiates Screen (Not Detect) Ur Buprenorphine Scrn (Not Detect) ng/mL Ur Oxycodone Screen (Not Detect) ng/mL Urine Methadone Screen (Not Detect) ng/mL Urine Fentanyl Screen (Not Detect) Ur Barbiturates Screen (Not Detect) Ur Phencyclidine Scrn (Not Detect) Ur Amphetamines Screen (Not Detect) U Benzodiazepines Scrn (Not Detect) Urine Cocaine Screen (Not Detect) U Marijuana (THC) Screen (Not Detect) Ethyl Alcohol mg/dL 10/29/24 10/29/24 10/29/24 Range/Units 09:49 09:49 09:49 WBC (4.8-10.8) X10*3/uL RBC (4.20-5.50) X10*6/uL Hgb (12.0-16.0) g/dl Hct (37.0-47.0) % MCV (80.0-98.0) fL MCH (27.0-33.0) pg MCHC (31.0-35.0) g/dl RDW (11.0-16.0) % Plt Count (160-400) X10*3/uL MPV (9.4-12.3) fL Immature Gran % (Auto) (0.0-0.4) % Neut % (Auto) (45-73) % Lymph % (Auto) (20-40) % [place] % (Auto) (2-11) % Eos % (Auto) (0-4) % Baso % (Auto) (0-2) % Lymph # (Auto) (1.2-4.9) X10*3/uL [place] # (Auto) (0.1-1.2) X10*3/uL Eos # (Auto) (0.0-0.4) X10*3/uL Baso # (Auto) (0.0-0.2) X10*3/uL Abs Immat Gran (auto) (0.00-0.03) X10*3/uL Absolute Neuts (auto) (2.0-8.3) x10*3/uL Absolute Nucleated RBC (0.0-0.012) X10*3/uL Nucleated RBC % (auto) (0.0-0.2) /100WBC Sodium Potassium Chloride Carbon Dioxide Anion Gap BUN Creatinine Estim Creat Clear Calc Estimated GFR > 60 Random Glucose Cancelled 158 H Calcium Cancelled 9.1 Total Bilirubin Cancelled Direct Bilirubin AST ALT Alkaline Phosphatase Total Protein Albumin Urine Opiates Screen (Not Detect) Ur Buprenorphine Scrn (Not Detect) ng/mL Ur Oxycodone Screen (Not Detect) ng/mL Urine Methadone Screen (Not Detect) ng/mL Urine Fentanyl Screen (Not Detect) Ur Barbiturates Screen (Not Detect) Ur Phencyclidine Scrn (Not Detect) Ur Amphetamines Screen (Not Detect) U Benzodiazepines Scrn (Not Detect) Urine Cocaine Screen (Not Detect) U Marijuana (THC) Screen (Not Detect) Ethyl Alcohol mg/dL 10/29/24 10/29/24 10/29/24 Range/Units 09:49 09:49 09:49 WBC (4.8-10.8) X10*3/uL RBC (4.20-5.50) X10*6/uL Hgb (12.0-16.0) g/dl Hct (37.0-47.0) % MCV (80.0-98.0) fL MCH (27.0-33.0) pg MCHC (31.0-35.0) g/dl RDW (11.0-16.0) % Plt Count (160-400) X10*3/uL MPV (9.4-12.3) fL Immature Gran % (Auto) (0.0-0.4) % Neut % (Auto) (45-73) % Lymph % (Auto) (20-40) % [place] % (Auto) (2-11) % Eos % (Auto) (0-4) % Baso % (Auto) (0-2) % Lymph # (Auto) (1.2-4.9) X10*3/uL [place] # (Auto) (0.1-1.2) X10*3/uL Eos # (Auto) (0.0-0.4) X10*3/uL Baso # (Auto) (0.0-0.2) X10*3/uL Abs Immat Gran (auto) (0.00-0.03) X10*3/uL Absolute Neuts (auto) (2.0-8.3) x10*3/uL Absolute Nucleated RBC (0.0-0.012) X10*3/uL Nucleated RBC % (auto) (0.0-0.2) /100WBC Sodium Potassium Chloride Carbon Dioxide Anion Gap BUN Creatinine Estim Creat Clear Calc Estimated GFR Random Glucose Calcium Total Bilirubin 0.3 Direct Bilirubin Cancelled 0.1 AST Cancelled 24 ALT Cancelled Alkaline Phosphatase Total Protein Albumin Urine Opiates Screen (Not Detect) Ur Buprenorphine Scrn (Not Detect) ng/mL Ur Oxycodone Screen (Not Detect) ng/mL Urine Methadone Screen (Not Detect) ng/mL Urine Fentanyl Screen (Not Detect) Ur Barbiturates Screen (Not Detect) Ur Phencyclidine Scrn (Not Detect) Ur Amphetamines Screen (Not Detect) U Benzodiazepines Scrn (Not Detect) Urine Cocaine Screen (Not Detect) U Marijuana (THC) Screen (Not Detect) Ethyl Alcohol mg/dL 10/29/24 10/29/24 10/29/24 Range/Units 09:49 09:49 09:49 WBC (4.8-10.8) X10*3/uL RBC (4.20-5.50) X10*6/uL Hgb (12.0-16.0) g/dl Hct (37.0-47.0) % MCV (80.0-98.0) fL MCH (27.0-33.0) pg MCHC (31.0-35.0) g/dl RDW (11.0-16.0) % Plt Count (160-400) X10*3/uL MPV (9.4-12.3) fL Immature Gran % (Auto) (0.0-0.4) % Neut % (Auto) (45-73) % Lymph % (Auto) (20-40) % [place] % (Auto) (2-11) % Eos % (Auto) (0-4) % Baso % (Auto) (0-2) % Lymph # (Auto) (1.2-4.9) X10*3/uL [place] # (Auto) (0.1-1.2) X10*3/uL Eos # (Auto) (0.0-0.4) X10*3/uL Baso # (Auto) (0.0-0.2) X10*3/uL Abs Immat Gran (auto) (0.00-0.03) X10*3/uL Absolute Neuts (auto) (2.0-8.3) x10*3/uL Absolute Nucleated RBC (0.0-0.012) X10*3/uL Nucleated RBC % (auto) (0.0-0.2) /100WBC Sodium Potassium Chloride Carbon Dioxide Anion Gap BUN Creatinine Estim Creat Clear Calc Estimated GFR Random Glucose Calcium Total Bilirubin Direct Bilirubin AST ALT 18 Alkaline Phosphatase Cancelled 78 Total Protein Cancelled 7.3 Albumin Cancelled Urine Opiates Screen (Not Detect) Ur Buprenorphine Scrn (Not Detect) ng/mL Ur Oxycodone Screen (Not Detect) ng/mL Urine Methadone Screen (Not Detect) ng/mL Urine Fentanyl Screen (Not Detect) Ur Barbiturates Screen (Not Detect) Ur Phencyclidine Scrn (Not Detect) Ur Amphetamines Screen (Not Detect) U Benzodiazepines Scrn (Not Detect) Urine Cocaine Screen (Not Detect) U Marijuana (THC) Screen (Not Detect) Ethyl Alcohol mg/dL 10/29/24 10/29/24 Range/Units 09:49 11:45 WBC (4.8-10.8) X10*3/uL RBC (4.20-5.50) X10*6/uL Hgb (12.0-16.0) g/dl Hct (37.0-47.0) % MCV (80.0-98.0) fL MCH (27.0-33.0) pg MCHC (31.0-35.0) g/dl RDW (11.0-16.0) % Plt Count (160-400) X10*3/uL MPV (9.4-12.3) fL Immature Gran % (Auto) (0.0-0.4) % Neut % (Auto) (45-73) % Lymph % (Auto) (20-40) % [place] % (Auto) (2-11) % Eos % (Auto) (0-4) % Baso % (Auto) (0-2) % Lymph # (Auto) (1.2-4.9) X10*3/uL [place] # (Auto) (0.1-1.2) X10*3/uL Eos # (Auto) (0.0-0.4) X10*3/uL Baso # (Auto) (0.0-0.2) X10*3/uL Abs Immat Gran (auto) (0.00-0.03) X10*3/uL Absolute Neuts (auto) (2.0-8.3) x10*3/uL Absolute Nucleated RBC (0.0-0.012) X10*3/uL Nucleated RBC % (auto) (0.0-0.2) /100WBC Sodium Potassium Chloride Carbon Dioxide Anion Gap BUN Creatinine Estim Creat Clear Calc Estimated GFR Random Glucose Calcium Total Bilirubin Direct Bilirubin AST ALT Alkaline Phosphatase Total Protein Albumin 4.3 Urine Opiates Screen Not Detected (Not Detect) Ur Buprenorphine Scrn Not Detected (Not Detect) ng/mL Ur Oxycodone Screen Not Detected (Not Detect) ng/mL Urine Methadone Screen Not Detected (Not Detect) ng/mL Urine Fentanyl Screen Not Detected (Not Detect) Ur Barbiturates Screen Not Detected (Not Detect) Ur Phencyclidine Scrn Not Detected (Not Detect) Ur Amphetamines Screen Not Detected (Not Detect) U Benzodiazepines Scrn Not Detected (Not Detect) Urine Cocaine Screen Not Detected (Not Detect) U Marijuana (THC) Screen Not Detected (Not Detect) Ethyl Alcohol < 10 < 10 mg/dL Independent Interpretation I performed an independent interpretation of an: CT Scan Interpretation: My interpretation is in agreement with the radiologist's impression of this imaging study. Report Number: [id number]: Total DLP = 608.00 mGy-cm EXAMINATION: CT HEAD WITHOUT CONTRAST CLINICAL INFORMATION: lightheadedness, dizziness COMPARISON: October 02, 2022. TECHNIQUE: Contiguous axial imaging was performed from the skull base to vertex without intravenous administration of contrast. This CT examination was performed using dose optimization techniques as appropriate, variously including the following: *Automated exposure control *Adjustment of mA and/or kV according to patient size (this includes techniques or standardized protocols for targeted exams where dose is matched to indication/reason for exam; i.e. extremities or head) *Use of iterative reconstruction technique DLP: 608 mGy-cm FINDINGS: No acute intracranial hemorrhage, mass effect, midline shift, hydrocephalus or herniation. Bilateral multifocal patchy and confluent deep periventricular white matter hypodensities involving centrum semiovale and garza radiata. Old lacunar infarcts, anteriorly impinging the right internal capsule, right mid frida and basal ganglia. Blount-white matter differentiation is normal. Posterior cranial fossa contents demonstrated no acute hemorrhage or gross mass effect. Normal position of the cerebellar tonsils. Sellar/suprasellar region demonstrated no gross masses. No acute cortical disruption in the bony calvarium or the skull base. Calcified plaques in the cavernous supraclinoid segments both ICAs. Mucosal thickening, maxillary sinuses. Fluid density/low density involving the right tympanic cavity and right mastoid air cells/mastoid antrum. Left tympanic cavity and left mastoid cells are aerated and well pneumatized. CT/CT head/brain wo IV con IMPRESSION: No acute intracranial hemorrhage. 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 Inflammatory changes versus effusion, right petrous bone. Electronically signed by: Silvio Smith MD 10/29/2024 11:38 AM EDT Dictated By: Silvio Person MD Signed By: Electronically signed by Silvio Lopez MD 10/29/24 1138 Radiology Impression Discussion of test interpretation with radiology: I have reviewed the radiologist's reading. Independent Historian Clinical information obtained from an independent historian. History obtained from or confirmed by: Spouse (patient's provided additional history and confirmed the history provided by the patient. ) Prescription Management I considered prescription management with: Antibiotic (patient prescribed an antibiotic for sinusitis) Discharge Plan Discharge Clinical Impression: Sinusitis, Light-headedness, Alcohol use Patient Disposition: Home, Self-Care Instructions: Sinusitis (ED), Lightheadedness (ED), Alcohol Use Disorder (ED) Additional Instructions: Your CT scan of the head showed evidence of your already known / old strokes as well as mucousal thickening of the maxillary sinuses with inflammation. This is consistent with sinusitis / sinus infection which can cause your lightheaded/dizziness and your head / facial tightness. Your labs were normal / unremarkable today. Take your antibiotic as prescribed. While you were on this medication - you must avoid direct sunlight for risk of severe rash / reaction. Please consider alcohol cessation. Your family loves you and is clearly concerned about this. IF you are prescribed other medications and/or you are taking over the counter medications - it is very important you continue to do so as prescribed / directed unless told otherwise. Follow up with your primary care provider. Return to the emergency department immediately if your symptoms worsen or if you develop any numbness, tingling, dizziness, shortness of breath, difficulty breathing, chest pain, blurry vision, loss of vision, nausea, vomiting, abdominal pain, fever, chills, back pain, or any other complaints. Please see the information below about our Patient Portal. If you are not yet enrolled in the [facility] Patient Portal, you will receive an enrollment email invitation following your visit to any [facility] [place] setting. You may also self-enroll in the Patient Portal by visiting our website: [email or web address] The following information is required to access the Patient Portal: - Your [facility] Medical Record Number - Your personal home email address (must match what is in your electronic medical record, Registration staff can assist with this) - Name - Date of Capabilities of the Patient Portal: - Message some providers - View upcoming appointments - Access your health summary, medical history, and visit history - View current conditions and allergies - View procedure and lab results - View your medications, including guidelines, side effects, and precautions - Complete pre-appointment questionnaires requested by your provider - Ready summary reports of your office visits and procedures To access the Patient Portal Mobile Olivia, follow these directions: - Search [employer] in the Olivia Store or Google Play Store - Download the Olivia - Search for [facility] - Enter your login/password Prescriptions: New doxycycline hyclate 100 mg tablet 100 mg PO BID 7 Days Qty: 14 0RF No Action metformin 1,000 mg tablet 1,000 mg PO BID Novolin N FlexPen 100 unit/mL (3 mL) insulin pen 10 unit subcut BID acetaminophen [Tylenol] 325 mg Tablet 650 mg PO Q6H PRN (Reason: Pain) aspirin 81 mg Tablet,Delayed Release (Dr/Ec) 81 mg PO DAILY Qty: 30 0RF nicotine 21 mg/24 hr Patch 24 Hour 21 mg transdermal DAILY Qty: 30 0RF atorvastatin [Lipitor] 40 mg tablet 40 mg PO BEDTIME Qty: 30 0RF cefuroxime axetil 250 mg tablet 250 mg PO BID Qty: 4 0RF Referrals: Ana Hawkins PA [Primary Care Provider, Hospitalist] Print Language: [place]
[2024-10-29 12:07] LABS: Cannabinoid Screen Urine Not Detected (Not Detect)
--- NOTE | 2024-10-29 12:20 | PC.NURSE ---
Bed found empty with pt's self-removed IV, NSS bolus running out over the bed and floor. Unknown amount of NSS infused. came back to bedside and informed RN and PA that pt eloped and went to the parking lot. given discharge instructions and paperwork, and advised to come back to the emergency room for any concerns or worsening symptoms.
== END 2024-10-29 12:00 | disposition home or self-care (01) ==
PROVIDERS: Physician Assistant Medical; Emergency Provider Emergency Medicine; PCP Physician Assistant
DX: R42 Dizziness and giddiness (principal); J32.9 Chronic sinusitis, unspecified; F10.10 Alcohol abuse, uncomplicated; Z86.73 Personal history of transient ischemic attack (TIA), and cerebral infarction without residual deficits; Z79.899 Other long term (current) drug therapy
CPT/HCPCS: 36415; 70450; 80048; 80076; 80307; 85025; 99283; 99284

== ENCOUNTER → 2024-10-29 10:42 | Outpatient (BNV) | payer MEDICARE, SELFPAY | PROVIDERS: Emergency Provider Emergency Medicine; PCP Physician Assistant; Visit Provider Radiology Diagnostic Radiology | DX: I67.82 Cerebral ischemia (principal) | CPT/HCPCS: 70450 ==

== ENCOUNTER 2024-11-13 12:51 | Emergency (ER) | payer MEDICARE, SELFPAY ==
[2024-11-13] VITALS (7 sets, daily range): BP systolic 115–177; BP diastolic 70–86; PULSE 69–80; RESP 14–16; TEMP 36.5–36.9; O2SAT 97–100; BMI 22.2
--- NOTE | ~2024-11-13 | XR_ITS ---
EXAMINATION: XR PELVIS CLINICAL INFORMATION: TTP left hip and femur COMPARISON: Correlated to CT abdomen pelvis dated February 18, 2022 TECHNIQUE: AP view of the pelvis. FINDINGS: Degenerative changes in the symphysis screws in the inferior sacroiliac joints. Degenerative changes in the coxofemoral joints. No acute fracture. No lytic or blastic lesions XR/XR pelvis 1-2V IMPRESSION: No acute fracture. Electronically signed by: Slivio Smith MD 11/13/2024 01:55 PM EDT
--- NOTE | ~2024-11-13 | XR_ITS ---
EXAMINATION: XR FEMUR, LEFT CLINICAL INFORMATION: pain COMPARISON: None available. TECHNIQUE: AP and lateral views of the left femur were obtained. FINDINGS: No acute cortical disruption. No lytic or blastic lesions. No metallic or radiopaque foreign body. No subcutaneous emphysema. XR/XR femur LT 2V IMPRESSION: No acute fracture Electronically signed by: Silvio Smith MD 11/13/2024 01:56 PM EDT
--- NOTE | ~2024-11-13 | CT_ITS ---
EXAMINATION: CT HEAD WITHOUT CONTRAST CLINICAL INFORMATION: AMS at home COMPARISON: October 29, 2024 TECHNIQUE: Contiguous axial imaging was performed from the skull base to vertex without intravenous administration of contrast. This CT examination was performed using dose optimization techniques as appropriate, variously including the following: *Automated exposure control *Adjustment of mA and/or kV according to patient size (this includes techniques or standardized protocols for targeted exams where dose is matched to indication/reason for exam; i.e. extremities or head) *Use of iterative reconstruction technique DLP: 601 mGy-cm FINDINGS: No acute fracture in the bony calvarium or the skull base No acute intracranial hemorrhage. No pneumocephalus. Extensive white matter disease likely related to small vessel occlusive focal old lacunar infarcts in the basal ganglia and brainstem. Blount-white matter differentiation is normal. Calcified plaques in the V4 segments of the vertebral arteries and the cavernous supraclinoid segments both ICAs. Probably fluid density abnormality without coalescence involving the right mastoid air cells and the right tympanic cavity. Old traumatic deformities in the nasal bones. CT/CT Head for ICH IMPRESSION: No acute fracture or acute intracranial hemorrhage. Stable brain. Electronically signed by: Silvio Smith MD 11/13/2024 02:14 PM EDT
--- NOTE | 2024-11-13 12:59 | ED.WEAKNESS ---
HPI - Weakness General Chief complaint: Altered Mental Status Stated complaint: HYPOGLYCEMIA, AMS, POC 54, D10 BEING GIVEN PER EMS Time Seen by Provider: 11/13/24 12:59 Source: patient, family, EMS, RN notes reviewed and old records reviewed Mode of arrival: EMS Limitations: altered mental status and other (baseline here, AMS at home) History of Present Illness ED Provider: Janice Johnson PA-C HPI Narrative: 69 y/o F with hx of DM on insulin, CVA ( 1.5 years ago), EtOH abuse, and opioid dependene, BIBA presenting for AMS at home. Patient is not able to share with me the events that then bring her into the emergency department stated that her found her at home the last thing she remembers is the EMS bringing her here. Patient does admit to alcohol use affecting her memory of the events and only is reporting left-sided hip pain can not recall when it started bothering her but that is the only thing she is able to report. Spoke to her on the phone who shares the history of finding her at home lying in bed after drinking and noted that her eyes were dilated and she was nonresponsive to his commands of trying to arouse her from bed. She was not unconscious her eyes were open but typically when he tries to arouse her from her drinking ?Og? she yells at him for which she did not do which he found strange. He then decided to call EMS. He shares an extensive history of patient overusing her Fioricet and hydroxyzine along with alcohol which sedate her. He has concerns about her being prescribed this medication from her primary care provider. He admits to noting that she does a lot of binge drinking and when she does this she does not eat food for a few days. In regards to [place] 35 UA on her patient states that he does not feel he has a did not him to do this to her but does have concerns about her continued use along with if he does do this to her she would be physically violent with him for which she never has been but he is afraid for this. He has not noticed her to have any falls. Patient is denying any shortness of breath or chest pain she has no headache backache or neck pain either. Reports that she just feels cold but otherwise no urinary symptoms. Admits to recent alcohol use. Denies any other concerns. Patient received bolus of D10 prior to arrival. Unknown POC from them. Related Data Home Medications ?Medication ?Instructions ?Recorded ?Confirmed insulin NPH isoph U-100 human 100 10 unit subcut BID 10/02/22 11/14/24 unit/mL (3 mL) subcutaneous pen (Novolin N FlexPen) metformin 1,000 mg tablet 1,000 mg PO BID 10/02/22 11/14/24 melatonin 10 mg disintegrating 10 mg PO BEDTIME PRN Sleep 11/14/24 11/14/24 tablet multivitamin 1 tab PO DAILY 11/14/24 11/14/24 Allergies Allergy/AdvReac Type Severity Reaction Status Date / Time promethazine (From Phenergan) Allergy Mild DEEP SLEEP Verified 11/16/24 00:06 Review of Systems Review of Systems: Yes all other systems are reviewed and are negative [facility] Past Medical History Attestation statement: The following information was validated with the patient. Source: old records reviewed, obtained from family and nursing notes reviewed Medical History Alcohol abuse Edentulous CVA (cerebral vascular accident) Bilateral nephrolithiasis Hiatal hernia Alcohol dependence Tobacco dependence Social History Social History Household Members: Unknown / Unable to assess Housing: Unknown / Unable to assess Do you presently have visiting nurse or other home services: No Alcohol intake: current Alcohol intake frequency: 0-2 drinks per day Alcohol type: wine Patient Tobacco Use Status: Tobacco use Unknown Tobacco use type: Cigarette Cigarettes Per Day: 8 Use of substances other than those prescribed or required for medical reasons: No Advance Directives: No Advance Directives Information Provided: Yes Do you have a plan to hurt others: No Plan service: No Physical Exam Vital Signs: Vital Signs: Last Vital Signs Temp 98.5 F 11/13/24 18:36 Pulse 77 11/13/24 18:36 Resp 15 11/13/24 18:36 BP 160/74 H 11/13/24 18:36 Pulse Ox 98 11/13/24 18:36 O2 Del Method Room Air 11/13/24 18:36 BMI result Body Mass Index 22.2 Const: General: cooperative, comfortable, no acute distress and other (underweight with chills noted) Orientation/consciousness: patient oriented x3 HEENT: Head: Yes normal to inspection, Yes No palpable skull fracture present and Yes normocephalic Ears: hearing grossly normal bilaterally, external ears normal, TM's normal bilaterally and TM abnormal General nose exam: Normal external nose present Face and sinus: Yes normal facial exam Mouth: Normal oral and palatal mucosa present, lip normal, tongue normal (dry tongue, but moist mucous membranes, teeth surgically absent), oropharynx normal and moist mucous membranes Throat: Yes posterior oropharynx normal Eyes: General: appearance normal, both eyes and all related structures Alignment and Position: alignment normal Periorbital: periorbital findings normal Eyelids: Yes eyelids normal Conjunctivae: conjunctivae normal Sclerae: sclerae normal Corneas: corneas normal Pupils: Equal, round and reactive pupils present EOM: EOMs intact bilaterally Neck: Neck: Yes normal visual inspection, Yes full ROM, Yes no lymphadenopathy, Yes no meningeal signs, Yes trachea midline and Yes supple Carotids: normal carotid upstroke Lymphatic: no lymphadenopathy noted Chest: Chest palpation & inspection: normal inspection of the chest and normal palpation of entire chest wall Resp: Effort & Inspection: normal respiratory effort and able to speak in complete sentences Auscultation: clear to auscultation bilaterally Percussion: percussion normal Cardio: Jugular venous distension: no JVD Palpation: normal PMI Rate: regular rate Rhythm: regular rhythm Peripheral pulses: Peripheral pulses 2+ throughout GI: Inspection: Yes normal to inspection Auscultation: normal bowel sounds Rectal Exam - Female: normal sphincter tone : General: Yes no CVA tenderness Back/Spine/Pelvis: Back: no CVA tenderness Cervical Spine: normal cervical lordosis Thoracic/Lumbar Spine: thoracic and lumbar spine normal to inspection Pelvis: no pain with anterior-posterior compression Skin: Other: TTP left hip and left mid anterior femur, no pain with pelvic compression, no midline tenderness, step-offs, or deformities. General skin exam: no rashes or lesions noted Rashes: no rashes Trauma: no lacerations or abrasions Wounds: no wounds Neuro: General: patient oriented x3 and no meningeal signs Cranial nerves: Yes CN's II-XII intact bilaterally and Yes Equal, round and reactive pupils present Cognition (Neuro): normal cognition Course Reevaluation(s) Reevaluation #1: Jacquiline Yang, PA-C if accept care of the patient on sign-out pending care team eval. The patient has a history of alcohol use disorder, she is also diabetic. She was found to be hypoglycemic today. The patient is stable, clinically sober, she is declining care team eval, detox or recovery team. She is adamant about being discharged home. We have no grounds to keep her against her well. We will discharge now. Time: 18:29 Medications Administered Discontinued Medications Generic Name Dose Route Start Last Admin Trade Name Leonardo PRN Reason Stop Dose Admin Dextrose 25 gm 11/13/24 15:19 11/13/24 15:21 Dextrose 50 % 25 Gm/50 Ml Syringe IVPUSH 11/13/24 15:20 25 gm ONCE ONE Administration Dextrose 1,000 mls @ 250 mls/hr 11/13/24 15:51 11/13/24 16:11 D10 IV 11/13/24 19:50 Infused .Q4H ONE Infusion Medical Decision Making Medical Decision Making MDM Narrative: 69 y/o F here today BIBA for AMS found intoxicated in bed with empty bottles around from . EMS noted hypoglycemia and she was given D10. Upon arrival to ED, POC glucose obtained: 157, EKG ordered: no arrhthymia. Patient noted to be hypertensive at 177/84 but no headache otherwise saturating 99% on room air afebrile and non tachycardic respirations normal with no acute signs of respiratory distress. She is denying infectious symptoms she is A&O x4 GCS of 15. Given report of AMS via at home we will obtain a head CT along with some basic labs. Secondary trauma exam with no clinically significant findings except for a mildly tender left-sided hip with no obvious deformity but as she does have some pain with resisted hip flexion we will obtain imaging. Abdomen is soft and nontender lungs are clear. As she was found lying in bed only no indication to perform full trauma scans. Spoke extensively with the on phone which he will arrive later however concerns for patient being suitable to take care of herself at home. Potential case management consult to be placed if she is medically cleared. CMP revealed glucose of 38; repeated at bedside 20; D50 amp ordered, will follow with poc check in 15 mins, will consider d10 infusion if needed. Patient seen at bedside AOx4. Labs without sig luekocytosis or left shift. No electrolyte imbalance. NO metabolic acidosis. EtOH < 10, not likely intoxicated at home per husbands observation; likely hypoglycemic. Need UA. Head CT without fx or ICH. Pelvic xray and femur without bony pathology. Hypoglycemia likely due to impaired gluconeogenesis secondary to chronic alcohol use. Consulted with my attending physician Dr. Jaramillo in regards to starting d5 infusion to stabilize glucose. He recommend d50 250cc bolus. Will also admin food for long acting carbs. Will trend POC q15 mins for stabilization. 1617: POC glucose 207, will recheck again in 15 minutes. 1700: POC glucose 279 Patient's glucose has now been stabilized she is eating food which will be longer-acting for her. From a medical standpoint she has been cleared. I discussed with her in great depth about the harms of alcohol drinking puts impairment on glucose laron as well as her importance of not skipping meals. Patient reports that she has been up and moving 2 months ago and does not feel safe to go home due to her marital issues but does not feel her is of harm to her. She denies any SI HI or AVH. She does not feel her drinking is a problem but would consider going to potential rehab facility. Care team consult placed for alcohol dependence. At this time case will be signed out to the evening provider Patti Ynag PA-C pending crisis team evaluation. Based on the recommendations would also consider soft admit for hypoglycemia and dizziness. Differential Diagnosis Differential Diagnoses: The differential diagnosis associated with the presentation includes hypoglycemia EtOH intoxication/ withdrawal metabolic dysfunction ICH Admission/Observation Consideration of admission/observation: Escalation of care including admission/observation considered Consult Healthcare Provider Management of the patient was discussed with: Casino Assistant Manager care team eval Lab Data [facility] Lab Attestation statement: I reviewed the patient's lab results. 11/13/24 14:44 11/13/24 14:44 Labs: Lab Results 11/13/24 11/13/24 11/13/24 Range/Units 13:10 14:44 15:16 WBC 11.3 H (4.8-10.8) X10*3/uL RBC 4.93 (4.20-5.50) X10*6/uL Hgb 16.1 H (12.0-16.0) g/dl Hct 47.0 (37.0-47.0) % MCV 95.3 (80.0-98.0) fL MCH 32.7 (27.0-33.0) pg MCHC 34.3 (31.0-35.0) g/dl RDW 12.7 (11.0-16.0) % Plt Count 246 (160-400) X10*3/uL MPV 9.3 L (9.4-12.3) fL Immature Gran % (Auto) 0.4 (0.0-0.4) % Neut % (Auto) 79.0 H (45-73) % Lymph % (Auto) 15.3 L (20-40) % [place] % (Auto) 5.1 (2-11) % Eos % (Auto) 0.0 (0-4) % Baso % (Auto) 0.2 (0-2) % Lymph # (Auto) 1.7 (1.2-4.9) X10*3/uL [place] # (Auto) 0.6 (0.1-1.2) X10*3/uL Eos # (Auto) 0.0 (0.0-0.4) X10*3/uL Baso # (Auto) 0.0 (0.0-0.2) X10*3/uL Abs Immat Gran (auto) 0.04 H (0.00-0.03) X10*3/uL Absolute Neuts (auto) 8.9 H (2.0-8.3) x10*3/uL Absolute Nucleated RBC 0.000 (0.0-0.012) X10*3/uL Nucleated RBC % (auto) 0.0 (0.0-0.2) /100WBC Sodium 142 (135-145) mmol/L Potassium 4.1 (3.3-5.1) mmol/L Chloride 108 (96-108) mmol/L Carbon Dioxide 24 (22-29) mmol/L Anion Gap 14 (12-20) BUN 21 H (9-16) mg/dL Creatinine 0.67 (0.5-1.4) mg/dL Estim Creat Clear Calc 64.6 Estimated GFR > 60 POC Glucose 157 H 19 L* (60-115) mg/dL Random Glucose 38 L* (60-115) mg/dL Calcium 9.2 (8.4-10.2) mg/dL Magnesium 1.7 (1.6-2.6) mg/dL Total Bilirubin 0.3 (0.0-1.0) mg/dL AST 31 (5-31) U/L ALT 20 (0-31) U/L Alkaline Phosphatase 77 (39-117) U/L Total Creatine Kinase 33 (26-140) U/L Total Protein 6.7 (6.5-8.0) g/dL Albumin 4.0 (3.5-5.0) g/dL Lipase 6 L (8-78) U/L Beta-Hydroxybutyrate 0.13 (0.02-0.27) mmol/L Urine Color Urine Appearance Urine pH (5.0-9.0) Ur Specific Notus (1.005-1.025) Urine Protein (Neg-Trace) mg/dL Urine Glucose (UA) (Negative) mg/dL Urine Ketones (Negative) mg/dL Urine Blood (Negative) Urine Nitrite (Negative) Ur Leukocyte Esterase (Negative) Urine RBC (0-2) /HPF Urine WBC (0-5) /HPF Ur Squamous Epith Cells (0-2) /HPF Urine Bacteria (None Seen) Hyaline Casts (0-2) /LPF Granular Casts Urine Opiates Screen (Not Detect) Ur Buprenorphine Scrn (Not Detect) ng/mL Ur Oxycodone Screen (Not Detect) ng/mL Urine Methadone Screen (Not Detect) ng/mL Urine Fentanyl Screen (Not Detect) Ur Barbiturates Screen (Not Detect) Ur Phencyclidine Scrn (Not Detect) Ur Amphetamines Screen (Not Detect) U Benzodiazepines Scrn (Not Detect) Urine Cocaine Screen (Not Detect) U Marijuana (THC) Screen (Not Detect) Ethyl Alcohol < 10 mg/dL 11/13/24 11/13/24 11/13/24 Range/Units 15:18 15:32 15:45 WBC (4.8-10.8) X10*3/uL RBC (4.20-5.50) X10*6/uL Hgb (12.0-16.0) g/dl Hct (37.0-47.0) % MCV (80.0-98.0) fL MCH (27.0-33.0) pg MCHC (31.0-35.0) g/dl RDW (11.0-16.0) % Plt Count (160-400) X10*3/uL MPV (9.4-12.3) fL Immature Gran % (Auto) (0.0-0.4) % Neut % (Auto) (45-73) % Lymph % (Auto) (20-40) % [place] % (Auto) (2-11) % Eos % (Auto) (0-4) % Baso % (Auto) (0-2) % Lymph # (Auto) (1.2-4.9) X10*3/uL [place] # (Auto) (0.1-1.2) X10*3/uL Eos # (Auto) (0.0-0.4) X10*3/uL Baso # (Auto) (0.0-0.2) X10*3/uL Abs Immat Gran (auto) (0.00-0.03) X10*3/uL Absolute Neuts (auto) (2.0-8.3) x10*3/uL Absolute Nucleated RBC (0.0-0.012) X10*3/uL Nucleated RBC % (auto) (0.0-0.2) /100WBC Sodium (135-145) mmol/L Potassium (3.3-5.1) mmol/L Chloride (96-108) mmol/L Carbon Dioxide (22-29) mmol/L Anion Gap (12-20) BUN (9-16) mg/dL Creatinine (0.5-1.4) mg/dL Estim Creat Clear Calc Estimated GFR POC Glucose 20 L* 211 H 162 H (60-115) mg/dL Random Glucose (60-115) mg/dL Calcium (8.4-10.2) mg/dL Magnesium (1.6-2.6) mg/dL Total Bilirubin (0.0-1.0) mg/dL AST (5-31) U/L ALT (0-31) U/L Alkaline Phosphatase (39-117) U/L Total Creatine Kinase (26-140) U/L Total Protein (6.5-8.0) g/dL Albumin (3.5-5.0) g/dL Lipase (8-78) U/L Beta-Hydroxybutyrate (0.02-0.27) mmol/L Urine Color Urine Appearance Urine pH (5.0-9.0) Ur Specific Notus (1.005-1.025) Urine Protein (Neg-Trace) mg/dL Urine Glucose (UA) (Negative) mg/dL Urine Ketones (Negative) mg/dL Urine Blood (Negative) Urine Nitrite (Negative) Ur Leukocyte Esterase (Negative) Urine RBC (0-2) /HPF Urine WBC (0-5) /HPF Ur Squamous Epith Cells (0-2) /HPF Urine Bacteria (None Seen) Hyaline Casts (0-2) /LPF Granular Casts Urine Opiates Screen (Not Detect) Ur Buprenorphine Scrn (Not Detect) ng/mL Ur Oxycodone Screen (Not Detect) ng/mL Urine Methadone Screen (Not Detect) ng/mL Urine Fentanyl Screen (Not Detect) Ur Barbiturates Screen (Not Detect) Ur Phencyclidine Scrn (Not Detect) Ur Amphetamines Screen (Not Detect) U Benzodiazepines Scrn (Not Detect) Urine Cocaine Screen (Not Detect) U Marijuana (THC) Screen (Not Detect) Ethyl Alcohol mg/dL 11/13/24 11/13/24 11/13/24 Range/Units 16:00 16:16 16:30 WBC (4.8-10.8) X10*3/uL RBC (4.20-5.50) X10*6/uL Hgb (12.0-16.0) g/dl Hct (37.0-47.0) % MCV (80.0-98.0) fL MCH (27.0-33.0) pg MCHC (31.0-35.0) g/dl RDW (11.0-16.0) % Plt Count (160-400) X10*3/uL MPV (9.4-12.3) fL Immature Gran % (Auto) (0.0-0.4) % Neut % (Auto) (45-73) % Lymph % (Auto) (20-40) % [place] % (Auto) (2-11) % Eos % (Auto) (0-4) % Baso % (Auto) (0-2) % Lymph # (Auto) (1.2-4.9) X10*3/uL [place] # (Auto) (0.1-1.2) X10*3/uL Eos # (Auto) (0.0-0.4) X10*3/uL Baso # (Auto) (0.0-0.2) X10*3/uL Abs Immat Gran (auto) (0.00-0.03) X10*3/uL Absolute Neuts (auto) (2.0-8.3) x10*3/uL Absolute Nucleated RBC (0.0-0.012) X10*3/uL Nucleated RBC % (auto) (0.0-0.2) /100WBC Sodium (135-145) mmol/L Potassium (3.3-5.1) mmol/L Chloride (96-108) mmol/L Carbon Dioxide (22-29) mmol/L Anion Gap (12-20) BUN (9-16) mg/dL Creatinine (0.5-1.4) mg/dL Estim Creat Clear Calc Estimated GFR POC Glucose 171 H 207 H 216 H (60-115) mg/dL Random Glucose (60-115) mg/dL Calcium (8.4-10.2) mg/dL Magnesium (1.6-2.6) mg/dL Total Bilirubin (0.0-1.0) mg/dL AST (5-31) U/L ALT (0-31) U/L Alkaline Phosphatase (39-117) U/L Total Creatine Kinase (26-140) U/L Total Protein (6.5-8.0) g/dL Albumin (3.5-5.0) g/dL Lipase (8-78) U/L Beta-Hydroxybutyrate (0.02-0.27) mmol/L Urine Color Urine Appearance Urine pH (5.0-9.0) Ur Specific Notus (1.005-1.025) Urine Protein (Neg-Trace) mg/dL Urine Glucose (UA) (Negative) mg/dL Urine Ketones (Negative) mg/dL Urine Blood (Negative) Urine Nitrite (Negative) Ur Leukocyte Esterase (Negative) Urine RBC (0-2) /HPF Urine WBC (0-5) /HPF Ur Squamous Epith Cells (0-2) /HPF Urine Bacteria (None Seen) Hyaline Casts (0-2) /LPF Granular Casts Urine Opiates Screen (Not Detect) Ur Buprenorphine Scrn (Not Detect) ng/mL Ur Oxycodone Screen (Not Detect) ng/mL Urine Methadone Screen (Not Detect) ng/mL Urine Fentanyl Screen (Not Detect) Ur Barbiturates Screen (Not Detect) Ur Phencyclidine Scrn (Not Detect) Ur Amphetamines Screen (Not Detect) U Benzodiazepines Scrn (Not Detect) Urine Cocaine Screen (Not Detect) U Marijuana (THC) Screen (Not Detect) Ethyl Alcohol mg/dL 11/13/24 11/13/24 11/13/24 Range/Units 16:44 16:55 17:16 WBC (4.8-10.8) X10*3/uL RBC (4.20-5.50) X10*6/uL Hgb (12.0-16.0) g/dl Hct (37.0-47.0) % MCV (80.0-98.0) fL MCH (27.0-33.0) pg MCHC (31.0-35.0) g/dl RDW (11.0-16.0) % Plt Count (160-400) X10*3/uL MPV (9.4-12.3) fL Immature Gran % (Auto) (0.0-0.4) % Neut % (Auto) (45-73) % Lymph % (Auto) (20-40) % [place] % (Auto) (2-11) % Eos % (Auto) (0-4) % Baso % (Auto) (0-2) % Lymph # (Auto) (1.2-4.9) X10*3/uL [place] # (Auto) (0.1-1.2) X10*3/uL Eos # (Auto) (0.0-0.4) X10*3/uL Baso # (Auto) (0.0-0.2) X10*3/uL Abs Immat Gran (auto) (0.00-0.03) X10*3/uL Absolute Neuts (auto) (2.0-8.3) x10*3/uL Absolute Nucleated RBC (0.0-0.012) X10*3/uL Nucleated RBC % (auto) (0.0-0.2) /100WBC Sodium (135-145) mmol/L Potassium (3.3-5.1) mmol/L Chloride (96-108) mmol/L Carbon Dioxide (22-29) mmol/L Anion Gap (12-20) BUN (9-16) mg/dL Creatinine (0.5-1.4) mg/dL Estim Creat Clear Calc Estimated GFR POC Glucose 243 H 279 H 269 H (60-115) mg/dL Random Glucose (60-115) mg/dL Calcium (8.4-10.2) mg/dL Magnesium (1.6-2.6) mg/dL Total Bilirubin (0.0-1.0) mg/dL AST (5-31) U/L ALT (0-31) U/L Alkaline Phosphatase (39-117) U/L Total Creatine Kinase (26-140) U/L Total Protein (6.5-8.0) g/dL Albumin (3.5-5.0) g/dL Lipase (8-78) U/L Beta-Hydroxybutyrate (0.02-0.27) mmol/L Urine Color Urine Appearance Urine pH (5.0-9.0) Ur Specific Notus (1.005-1.025) Urine Protein (Neg-Trace) mg/dL Urine Glucose (UA) (Negative) mg/dL Urine Ketones (Negative) mg/dL Urine Blood (Negative) Urine Nitrite (Negative) Ur Leukocyte Esterase (Negative) Urine RBC (0-2) /HPF Urine WBC (0-5) /HPF Ur Squamous Epith Cells (0-2) /HPF Urine Bacteria (None Seen) Hyaline Casts (0-2) /LPF Granular Casts Urine Opiates Screen (Not Detect) Ur Buprenorphine Scrn (Not Detect) ng/mL Ur Oxycodone Screen (Not Detect) ng/mL Urine Methadone Screen (Not Detect) ng/mL Urine Fentanyl Screen (Not Detect) Ur Barbiturates Screen (Not Detect) Ur Phencyclidine Scrn (Not Detect) Ur Amphetamines Screen (Not Detect) U Benzodiazepines Scrn (Not Detect) Urine Cocaine Screen (Not Detect) U Marijuana (THC) Screen (Not Detect) Ethyl Alcohol mg/dL 11/13/24 11/13/24 Range/Units 17:46 17:55 WBC (4.8-10.8) X10*3/uL RBC (4.20-5.50) X10*6/uL Hgb (12.0-16.0) g/dl Hct (37.0-47.0) % MCV (80.0-98.0) fL MCH (27.0-33.0) pg MCHC (31.0-35.0) g/dl RDW (11.0-16.0) % Plt Count (160-400) X10*3/uL MPV (9.4-12.3) fL Immature Gran % (Auto) (0.0-0.4) % Neut % (Auto) (45-73) % Lymph % (Auto) (20-40) % [place] % (Auto) (2-11) % Eos % (Auto) (0-4) % Baso % (Auto) (0-2) % Lymph # (Auto) (1.2-4.9) X10*3/uL [place] # (Auto) (0.1-1.2) X10*3/uL Eos # (Auto) (0.0-0.4) X10*3/uL Baso # (Auto) (0.0-0.2) X10*3/uL Abs Immat Gran (auto) (0.00-0.03) X10*3/uL Absolute Neuts (auto) (2.0-8.3) x10*3/uL Absolute Nucleated RBC (0.0-0.012) X10*3/uL Nucleated RBC % (auto) (0.0-0.2) /100WBC Sodium (135-145) mmol/L Potassium (3.3-5.1) mmol/L Chloride (96-108) mmol/L Carbon Dioxide (22-29) mmol/L Anion Gap (12-20) BUN (9-16) mg/dL Creatinine (0.5-1.4) mg/dL Estim Creat Clear Calc Estimated GFR POC Glucose (60-115) mg/dL Random Glucose (60-115) mg/dL Calcium (8.4-10.2) mg/dL Magnesium (1.6-2.6) mg/dL Total Bilirubin (0.0-1.0) mg/dL AST (5-31) U/L ALT (0-31) U/L Alkaline Phosphatase (39-117) U/L Total Creatine Kinase (26-140) U/L Total Protein (6.5-8.0) g/dL Albumin (3.5-5.0) g/dL Lipase (8-78) U/L Beta-Hydroxybutyrate (0.02-0.27) mmol/L Urine Color Yellow Urine Appearance Clear Urine pH 5.5 (5.0-9.0) Ur Specific Notus 1.025 (1.005-1.025) Urine Protein 100 (2+) H (Neg-Trace) mg/dL Urine Glucose (UA) >=1000 H (Negative) mg/dL Urine Ketones Trace (Negative) mg/dL Urine Blood Negative (Negative) Urine Nitrite Negative (Negative) Ur Leukocyte Esterase Negative (Negative) Urine RBC 0-2 (0-2) /HPF Urine WBC 0-5 (0-5) /HPF Ur Squamous Epith Cells 6-10 (0-2) /HPF Urine Bacteria Trace (None Seen) Hyaline Casts 11-20 (0-2) /LPF Granular Casts Present Urine Opiates Screen Not Detected (Not Detect) Ur Buprenorphine Scrn Not Detected (Not Detect) ng/mL Ur Oxycodone Screen Not Detected (Not Detect) ng/mL Urine Methadone Screen Not Detected (Not Detect) ng/mL Urine Fentanyl Screen Not Detected (Not Detect) Ur Barbiturates Screen Not Detected (Not Detect) Ur Phencyclidine Scrn Not Detected (Not Detect) Ur Amphetamines Screen Not Detected (Not Detect) U Benzodiazepines Scrn Not Detected (Not Detect) Urine Cocaine Screen Not Detected (Not Detect) U Marijuana (THC) Screen Not Detected (Not Detect) Ethyl Alcohol mg/dL Independent Interpretation I performed an independent interpretation of an: EKG and CT Scan Interpretation: No overt evidence of STEMI. No evidence of Brugada's sign, delta wave, epsilon wave, significantly prolonged QTc, or malignant arrhythmia; 68 bpm. Radiology Impression Discussion of test interpretation with radiology: I have reviewed the radiologist's reading. Independent Historian Clinical information obtained from an independent historian. History obtained from or confirmed by: Spouse External Record Review External record reviewed: Inpatient record Chronic Conditions Patient?s care impacted by: Diabetes and Other (alcohol dependence) Social Determinants Patient?s care significantly limited by Social Determinants of Health including: Alcoholism and drug addiction in family Critical Care Time Critical Care Time Critical Care Time: Yes Total Critical Care Time: 45 Attestation: This patient required critical care. Due to the fact that the patient required a significant amount of one on one physician ? patient contact time, ordering and review of studies, arranging urgent treatment with development of a management plan, evaluation of patient?s response to treatment with frequent reassessments, and discussions with other providers this patient required critical care time in excess of 30 minutes. Critical care time was indicated due to the inherent instability and/or potential for instability in this patient. The critical care time that is allocated to this patient is above and beyond any time spent on any other billable procedures performed on this patient. Discharge Plan Discharge Clinical Impression: Hypoglycemia, Alcohol dependence Patient Disposition: Home, Self-Care Instructions: Hypoglycemia in a Person with Diabetes (ED), Abuse of Alcohol (ED) Additional Instructions: You can return at any time if you choose to seek help your alcohol use disorder. Prescriptions: No Action multivitamin Tablet 1 tab PO DAILY melatonin 10 mg Tablet,Disintegrating 10 mg PO BEDTIME PRN (Reason: Sleep) metformin 1,000 mg tablet 1,000 mg PO BID Novolin N FlexPen 100 unit/mL (3 mL) insulin pen 10 unit subcut BID Interventions: ED Discharge Assessment Last Done: 11/13/24 18:36 Discharge Date/Time: 11/13/24 18:37 Print Language: Japanese
[2024-11-13 13:14] LABS: Glucose, Whole Blood 157 mg/dL (60-115)
--- NOTE | 2024-11-13 13:16 | PC.NURSE ---
PT A&O X4 at this time- does not recal evets of today. Pt unaware how or if she fell. Provider i to eval and pt is tender mid lower back, left hip and left thigh. VSS Pain 09/01 provider aware
--- NOTE | 2024-11-13 13:17 | PC.NURSE ---
Pt on full monitor in NSR No ectopy POC stable a this time.
--- NOTE | 2024-11-13 13:18 | ECG_ITS ---
Test Reason : AMS Blood Pressure : */* mmHG Vent. Rate : 68 BPM Atrial Rate : 68 BPM P-R Int : 128 ms QRS Dur : 90 ms QT Int : 422 ms P-R-T Axes : 58 51 47 degrees QTcB Int : 448 ms Normal sinus rhythm Normal ECG When compared with ECG of 02-Oct-2022 17:13, No significant change was found Referred By: Janice Johnson Electronically Signed By: NICOLÁS YI MD
--- OUTSIDE RECORDS SUMMARY | 2024-11-13 13:26 | XMS_ITS | Encounter Summary ---
Author Organization [employer] Address [address] [place] [address] Care Team Providers Care Sales Professional Bilingual Name Role Phone Lory Morales PA-C Primary Care Provider Unav ailable Joycelyn Vuong Unavailable Unavailable Inactive/Transferred Primary Care Provider Unava ilable Reason for Visit * Reason Comments Med Refill Encounter Details Date Type Department Care Team (Late st Contact Info) Description 12/14/2022 Refill [facility] MEDICAL [address] [place] [address] Steph Puente FNP [address] [place], [place] [id number] Social History Tobacco Use Types Packs/Day Years [...] Care Team (Late st Contact Info) Description 11/24/2024 9:20 AM EDT Office Visit [facility] DENTAL [address] [place] [address] Fiona Tavarez 12/04/2024 11:40 AM EDT Office Visit [facility] MEDICAL [address] [place] [address] Steph Puente FNP [address] [place] [address] documented as of this encounter Visit Diagnoses Not on filedocumented in this encounter Care Teams Sales Professional Bilingual Relationship Specialty Start Date End Date Lory Morales PA-C PCP - General Family Medicine 07/03/22 10/20/24 Inactive/Transferred PCP - General 10/21/24 10/21/24 Joycelyn Vuong [facility] Navigator 06/19/24 documented as of this encounter
--- OUTSIDE RECORDS SUMMARY | 2024-11-13 13:26 | XMS_ITS | Encounter Summary ---
Author Organization [facility] Address [address] [place] [address] [place] [phone] Phone Care Team Providers Care Human Machine Interface Engineer Name Role Phone Eliezer Ndiaye MD Unavailable Cecily Jean MD Primary Care Provider [phone] Lory Morales Primary Care Provider [phone] Encounter Details Date Type Department Care Team (Late st Contact Info) Description 05/20/2021 Procedure Pass OR Admitting Dept - Virtual Department [address] [place] [address] Social History Tobacco Use Types Packs/Day Years [...] on filedocumented in this encounter Care Teams Human Machine Interface Engineer Relationship Specialty Start Date End Date Cecily Jean MD [address] [place] [address] [email or web address] PCP - General Internal Medicine 09/20/20 04/19/22 Lory Morales PA [address] [place] [address]. [place] [address] [email or web address] PCP - General Physician Contract Clerk Automobile 04/20/22 Eliezer Ndiaye MD [email or web address] Urology 12/09/19 documented as of this encounter Additional Source Comments The information contained in this document represents components of the legal health record. It is not the complete legal health record.[facility]
--- OUTSIDE RECORDS SUMMARY | 2024-11-13 13:26 | XMS_ITS | Clinical Summary ---
Author Organization [facility] it[facility] Address [address] [place] [address] Care Team Providers Care Cargo Tank Mechanic Name Role Phone Unavailable Primary Care Provider [...]
--- OUTSIDE RECORDS SUMMARY | 2024-11-13 13:27 | XMS_ITS | Patient Health Record ---
Author Organization [facility] Address [address] [place] [address] Care Team Providers Care Manager Career Name Role Phone Oziel Ye Unavailable [phone] Reason For Referral No Information Plan Of Treatment No Information
--- OUTSIDE RECORDS SUMMARY | 2024-11-13 13:27 | XMS_ITS | Clinical Summary ---
Author Organization [facility], Address [address] [place] [address] Phone Care Team Providers Care Software Verification Engineer Name Role Phone Kalyani Serrano Primary Care [...] complete this topic Insurance Medicare Care Teams Software Verification Engineer Relationship Specialty Start Date End Date Kalyani Serrano ANP [address] [place] [id number] PCP - General Nurse Practitioner 06/08/21
[2024-11-13 14:47] LABS: MANUAL DIFF FLAG NO
[2024-11-13 14:49] LABS: Hematocrit 47.0 % (37.0-47.0); Hemoglobin 16.1 g/dl (12.0-16.0); Imm Gran Abs Auto 0.04 X10*3/uL (0.00-0.03); Imm Gran Pct Auto 0.4 % (0.0-0.4); Lymphocytes Absolute Auto 1.7 X10*3/uL (1.2-4.9); Mean Corpuscular HGB Conc 34.3 g/dl (31.0-35.0); Mean Corpuscular Hemoglobin 32.7 pg (27.0-33.0); Mean Corpuscular Volume 95.3 fL (80.0-98.0); NRBC Abs Auto 0.000 X10*3/uL (0.0-0.012); NRBC Pct Auto 0.0 /100WBC (0.0-0.2); Platelet Count 246 X10*3/uL (160-400); Red Blood Count 4.93 X10*6/uL (4.20-5.50); White Blood Count 11.3 X10*3/uL (4.8-10.8)
--- NOTE | 2024-11-13 14:57 | MHC.EDTECH ---
Addendum entered by Chioma Cottrell 11/13/24 15:01: Asked by primary RN to draw labs. Labs drawn and sent by this tech. Lab draw was delayed as primary bedside tech was unable to successfully stick the patient. Original Note: Labs drawn and sent by this tech. Lab draw was delayed as primary bedside tech was unable to successfully stick the patient.
--- NOTE | 2024-11-13 15:07 | PC.NURSE ---
Assumed care of this patient at 1500, patient labs had not been drawn, t/w asked EDT to assist primary tech and draw labs. Patient resting quietly on stretcher at this time.
[2024-11-13 15:18] LABS: Alanine Aminotransferase 20 U/L (0-31); Albumin Level 4.0 g/dL (3.5-5.0); Alkaline Phosphatase 77 U/L (39-117); Anion Gap 14 (12-20); Aspartate Amino Transferase 31 U/L (5-31); Blood Urea Nitrogen 21 mg/dL (9-16); Calcium 9.2 mg/dL (8.4-10.2); Carbon Dioxide 24 mmol/L (22-29); Chloride 108 mmol/L (96-108); Creatinine Clr Calc Pharmacy 64.6; Estimated Glomerular Filt Rate > 60; Lipase 6 U/L (8-78); Magnesium 1.7 mg/dL (1.6-2.6); Potassium 4.1 mmol/L (3.3-5.1); Sodium 142 mmol/L (135-145); Total Protein 6.7 g/dL (6.5-8.0)
[2024-11-13 15:20] LABS: Glucose, Whole Blood 20 mg/dL (60-115)
[2024-11-13 15:21] LABS: Glucose, Whole Blood 19 mg/dL (60-115)
[2024-11-13 15:42] LABS: Glucose, Whole Blood 211 mg/dL (60-115)
[2024-11-13 15:49] LABS: Glucose, Whole Blood 162 mg/dL (60-115)
[2024-11-13] MEDS: Dextrose 10 % 1,000 ML 250 ML IV (15:59)
--- NOTE | 2024-11-13 16:02 | PC.NURSE ---
Confirmed w/ ordering provider - patient to get 250 ccs of D10, provider confirmed. D10 250 ccs running now.
[2024-11-13 16:03] LABS: Glucose, Whole Blood 171 mg/dL (60-115)
[2024-11-13 16:22] LABS: Glucose, Whole Blood 207 mg/dL (60-115)
[2024-11-13 16:34] LABS: Glucose, Whole Blood 216 mg/dL (60-115)
[2024-11-13 16:48] LABS: Glucose, Whole Blood 243 mg/dL (60-115)
[2024-11-13 16:59] LABS: Glucose, Whole Blood 279 mg/dL (60-115)
[2024-11-13 17:19] LABS: Glucose, Whole Blood 269 mg/dL (60-115)
--- NOTE | 2024-11-13 18:09 | PC.NURSE ---
Med rec completed from patient input. Provider Janice made aware via [employer].
[2024-11-13 18:14] LABS: Appearance Urine Clear; Glucose Urine UA >=1000 mg/dL (Negative); PH 5.5 (5.0-9.0); Specific Gravity - Urine 1.025 (1.005-1.025); UMIC TRIGGER UACC YES
[2024-11-13 18:15] LABS: Cannabinoid Screen Urine Not Detected (Not Detect)
--- NOTE | 2024-11-13 18:33 | PC.NURSE ---
Patient attempted to elope from ED, demanding to leave. Patient states all she wants to do is go outside and have a cigarette and then go home. Nicotine patch, new socks, food, CM/Crisis all refused. Patient informed she can return at any time. Patient verbalized understanding. Patient observed to walk out of dept w/ a steady gait.
== END 2024-11-13 18:37 | disposition home or self-care (01) ==
PROVIDERS: Emergency Medicine; Physician Assistant Medical; Emergency Provider Student in an Organized Health Care Education/Training Program; PCP Physician Assistant
DX: E11.649 Type 2 diabetes mellitus with hypoglycemia without coma (principal); F10.20 Alcohol dependence, uncomplicated; Y90.0 Blood alcohol level of less than 20 mg/100 ml; M25.552 Pain in left hip; R51.9 Headache, unspecified; R10.2 Pelvic and perineal pain; R41.82 Altered mental status, unspecified; M79.605 Pain in left leg; Z79.899 Other long term (current) drug therapy; Z51.81 Encounter for therapeutic drug level monitoring; Z79.4 Long term (current) use of insulin
CPT/HCPCS: 36415; 70450; 72170; 73552; 80053; 80307; 81001; 82010; 82550; 82947; 83690; 83735; 85025; 93005; 96374; 96376; 99285

== ENCOUNTER → 2024-11-13 13:17 | Outpatient (BNV) | payer MEDICARE, SELFPAY | PROVIDERS: Emergency Provider Emergency Medicine; PCP Physician Assistant; Visit Provider Radiology Diagnostic Radiology | DX: R41.82 Altered mental status, unspecified (principal); M79.652 Pain in left thigh; M25.552 Pain in left hip | CPT/HCPCS: 70450; 72170; 73552 ==

== ENCOUNTER → 2024-11-13 13:18 | Outpatient (BNV) | payer MEDICARE, SELFPAY | PROVIDERS: Emergency Provider Student in an Organized Health Care Education/Training Program; PCP Physician Assistant; Visit Provider Internal Medicine Cardiovascular Disease | DX: R41.82 Altered mental status, unspecified (principal) | CPT/HCPCS: 93010 ==

== ENCOUNTER 2024-11-13 21:04 | Inpatient (IN) | payer MEDICARE, SELFPAY ==
[2024-11-13 21:17] VITALS: BP 136/80; BP 147/82; PULSE 77; PULSE 81; RESP 16; TEMP 37; O2SAT 97; O2SAT 98; BMI 21.7
[2024-11-13 21:20] LABS: Glucose, Whole Blood 58 mg/dL (60-115)
[2024-11-13 21:21] VITALS: BP 136/80; PULSE 81; RESP 16; TEMP 37; O2SAT 97
--- NOTE | 2024-11-13 21:37 | ED.GENADULT ---
HPI - General Adult General Chief complaint: ETOH/Substance Use Stated complaint: Found outside walking barefoot/?ETOH Time Seen by Provider: 11/13/24 21:31 Source: patient Limitations: no limitations History of Present Illness ED Provider: Patti Yang PA-C HPI narrative: 69-year-old female with a history of DM on insulin, CVA ( 1.5 years ago), EtOH abuse, and opioid dependene, BIBA presents with the hypoglycemia. Patient was just discharged from the emergency room, she had presented earlier today with altered mental status. She was found to be hypoglycemic. She was here for several hours, her sugars appeared stable. The family is very concerned that she requires detox. 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 She was discharged. The patient returns, she was found walking home, a family member called EMS to bring her back to the emergency room. The patient is still declines detox, however she was found to be hypoglycemic, POC 58. Related Data Home Medications ?Medication ?Instructions ?Recorded ?Confirmed acetaminophen 325 mg tablet 650 mg PO Q6H PRN Pain 10/02/22 11/13/24 (Tylenol) insulin NPH isoph U-100 human 100 10 unit subcut BID 10/02/22 11/13/24 unit/mL (3 mL) subcutaneous pen (Novolin N FlexPen) metformin 1,000 mg tablet 1,000 mg PO BID 10/02/22 11/13/24 Previous Rx's ?Medication ?Instructions ?Recorded nicotine 21 mg/24 hr daily 21 mg transdermal DAILY #30 ea 10/05/22 transdermal patch Allergies Allergy/AdvReac Type Severity Reaction Status Date / Time promethazine (From Phenergan) Allergy Mild DEEP SLEEP Verified 11/13/24 21:21 Review of Systems Review of Systems: Yes all other systems are reviewed and are negative Constitutional: Constitutional: Denies fatigue, Denies fever(s) and Denies headache(s) ENT: Denies dizziness and Denies headache(s) Cardiovascular: Cardiovascular: Denies chest pain and Denies dyspnea Respiratory: Respiratory: Denies dyspnea Gastrointestinal: Gastrointestinal: Denies nausea and Denies vomiting Neurologic: Denies dizziness and Denies headache(s) Endocrine: Endocrine: Denies fatigue PMF Past Medical History Attestation statement: The following information was validated with the patient. Social History Social History Household Members: Spouse Housing: House Do you presently have visiting nurse or other home services: No Alcohol intake: current Alcohol intake frequency: 3 or more drinks per day Alcohol type: wine Patient Tobacco Use Status: Current everyday Tobacco user Tobacco use type: Cigarette Cigarettes Per Day: 8 Smoked in Last 30 Days: Yes Use of substances other than those prescribed or required for medical reasons: No Advance Directives: No Advance Directives Information Provided: Yes service: No Physical Exam ED Vital Signs: Vital Signs - 24 hr 11/13/24 21:17 11/13/24 21:21 Temperature 98.6 F 98.6 F Pulse Rate 81 81 Respiratory Rate 16 16 Blood Pressure 136/80 136/80 Pulse Oximetry 97 97 Oxygen Delivery Method Room Air Room Air BMI result Body Mass Index 21.7 Const Other: Alert Orientation/consciousness: patient oriented x3 Resp Effort & Inspection: normal respiratory effort Cardio Other: Normal peripheral perfusion Skin Other: Warm dry no rash Neuro General: patient oriented x3, gait normal, no focal motor deficits and CN's II-XI intact bilaterally Psych Other: Cooperative Medications Administered Generic Name Dose Route Start Last Admin Trade Name Freq PRN Reason Stop Dose Admin Dextrose/Lactated Ringer's 1,000 mls @ 125 mls/hr 11/13/24 22:15 11/13/24 22:20 D5lr IVCONT 125 mls/hr .Q8H RENE Administration Discontinued Medications Generic Name Dose Route Start Last Admin Trade Name Freq PRN Reason Stop Dose Admin Dextrose 25 gm 11/13/24 21:49 11/13/24 21:53 Dextrose 50 % 25 Gm/50 Ml Syringe IVPUSH 11/13/24 21:50 25 gm ONCE ONE Administration Medical Decision Making Medical Decision Making MDM Narrative: 69-year-old female with a history of DM on insulin, CVA ( 1.5 years ago), EtOH abuse, and opioid dependene, BIBA presents with the hypoglycemia. Patient was just discharged from the emergency room, she had presented earlier today with altered mental status. She was found to be hypoglycemic. She was here for several hours, her sugars appeared stable. The family is very concerned that she requires detox. 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 She was discharged. The patient returns, she was found walking home, a family member called EMS to bring her back to the emergency room. The patient is still declines detox, however she was found to be hypoglycemic, POC 58. Problem: Alcohol abuse, insulin-dependent diabetes History: Per patient I have considered the following differential diagnoses: Insulin reaction , AKA Plan: Patient returned she was just discharged after having a full assessment, she remains hypoglycemic. We will be giving a bolus of 25 g dextrose, followed by D5 LR drip, she will be admitted. We will place a CIWA scale. Labs: Point of care 58 Differential Diagnosis Differential Diagnoses: The differential diagnosis associated with the presentation includes see [facility] Admission/Observation Consideration of admission/observation: Escalation of care including admission/observation considered Consult Healthcare Provider Management of the patient was discussed with: Hospitalist Lab Data [facility] Lab Attestation statement: I reviewed the patient's lab results. Labs: Lab Results 11/13/24 11/13/24 Range/Units 21:17 21:46 POC Glucose 58 L* 86 (60-115) mg/dL Critical Care Time Critical Care Time Critical Care Time: Yes Total Critical Care Time: 35 Attestation: I Patti Yang PA-C have personally performed 35 minutes of critical care time not including lines and procedures; hypoglycemia, alcohol abuse/withdrawal, IV D5 LR Discharge Plan Discharge Clinical Impression: Hypoglycemia, Alcohol abuse Patient Disposition: Admitted As Inpatient Print Language: Greek
--- NOTE | 2024-11-13 21:46 | PC.NURSE ---
pt POC 86
[2024-11-13 21:50] LABS: Glucose, Whole Blood 86 mg/dL (60-115)
--- NOTE | 2024-11-13 21:56 | PC.NURSE ---
pt medicated per MAR.
[2024-11-13] MEDS: Dextrose 5 % and Lactated Ring 1,000 ML 125 ML IVCONT (22:20)
--- NOTE | 2024-11-13 22:25 | PC.NURSE ---
pt medicated per MAR.
[2024-11-13 23:05] LABS: Glucose, Whole Blood 156 mg/dL (60-115)
--- NOTE | 2024-11-13 23:30 | P.HPHOSP_ITS ---
History of Present Illness Date of Service: 11/13/24 Attending physician on admission: Erika Arias Chief Complaint: low blood sugar Patient is a 69-year-old female with past medical history alcohol use disorder with binge drinking, insulin-dependent diabetes, CVA (lacunar infacrts 1.5 yrs ago), edentulous with dental extractions August 2024, UTI, bilateral nephrolithiasis last episode 2021, tobacco dependence returned to the emergency department today brought in by ambulance per family requesting patient needs detox. At this time patient was found to be hypoglycemic. Treatment was initiated in the ED. Patient had been seen initially earlier around 13:00 in the ED because patient was found by her unresponsive. Patient has no memory of this. Patient was reported to be having issues with excessive use of her Fioricet, hydroxyzine and alcohol and is usually arousable but today patient was not. Patient's blood sugar was also low during this time and lowest reading was 19 mg/dL. This may have contributed to patient's unresponsiveness. Per patient's spouse when patient is binge drinking, patient usually does not eat for sometimes days at a time. Patient did not require intervention to include naloxone, CPR or respiratory support. With this initial visit, family was requesting detox and care planning was notified. Patient refused adamantly for any intervention and requested discharge immediately. The emergency room provider did discuss a section 35 with patient's spouse and spouse's response was he feared that if he did this patient will become violent and even though this has not happened in the past he is concerned for this overall (PER ED NOTE). Patient's blood sugar was monitored closely during this 1st visit and finally blood sugars stay above 200 and because patient had capacity, patient was discharged. It is not clear how patient was discharged the 1st time but patient was found walking home and a family member decided to call 911 again because she was acting altered. Patient's blood sugar was 58 mg/dL on pt's second arrival. During the 2nd visit patient is still refusing detox. Patient is admitting that she is often times depressed and no longer feels depressed after she starts drinking alcohol. Patient denies any suicide ideations or homicidal ideations but feels things are difficult at home in her marriage. Her used to be an alcoholic and stopped drinking and now she feels she is pressured everyday from her to abstain from alcohol. Patient is currently on a D5 infusion and blood sugars are now running over 150. Patient currently alert and orientated x3, continues to have no memory of earlier events from 1st visit to the ED and is cooperative with care. Patient did have a head CT, femur x-ray and pelvic x-ray because it was uncertain if patient actually had a fall and all diagnostics are negative for acute findings. Review of Systems Review of Systems: Patient denies any chest pain, shortness of breath at rest or with exertion, abdominal pain, nausea or vomiting, constipation or diarrhea. Patient is feeling depressed and feels less depressed when she starts to drink alcohol. Patient states her home life has become more stressed and difficult because her has been used to drink and no longer drinks. Patient does not believe she has a problem with alcohol. Patient states she is not ready for smoking cessation at this time as well. Patient also states that her appetite decreases greatly when she drinks alcohol and may like we have not eaten anything for at least 2 days. Yes all other systems are reviewed and are negative [facility] Medical History Alcohol abuse Edentulous CVA (cerebral vascular accident) Bilateral nephrolithiasis Hiatal hernia Alcohol dependence Tobacco dependence Cognitive capacity: Alert and orientated x3 Functional capacity: independent ambulation Patient : No Social History Household Members: Spouse Housing: House Do you presently have visiting nurse or other home services: No Alcohol intake: current Alcohol intake frequency: 3 or more drinks per day Alcohol type: wine Patient Tobacco Use Status: Current everyday Tobacco user Tobacco use type: Cigarette Cigarettes Per Day: 8 Smoked in Last 30 Days: Yes Use of substances other than those prescribed or required for medical reasons: No Advance Directives: No Advance Directives Information Provided: Yes Nutrition Risks: Dental problems Patient : No service: No Ebola Risk: Travel/Contact With Anyone From Affected Area/s: No Has Patient Experienced Ebola Symptoms: No Meds Allergies Allergy/AdvReac Type Severity Reaction Status Date / Time promethazine (From Phenergan) Allergy Mild DEEP SLEEP Verified 11/13/24 21:21 Active Medications: Current Medications Acetaminophen (Acetaminophen 325 Mg Tablet) 650 mg PO Q6H PRN PRN Reason: Pain, Mild 1-3,fever,headache Calcium Carbonate (Calcium Carbonate 750 Mg Tab.Chew) 750 mg PO Q4H PRN PRN Reason: Heartburn Dextrose (Dextrose 50 % 25 Gm/50 Ml Syringe) 25 gm IVPUSH Q15M PRN; Protocol PRN Reason: per Hypoglycemia Standing Ord. Enoxaparin Sodium (Enoxaparin Sodium 40 Mg/0.4 Ml Syringe) 40 mg SUBCUT Q24H [facility] Folic Acid (Folic Acid 1 Mg Tablet) 1 mg PO DAILY [facility] Glucose (Glucose Gel 15 Gm Gel..Gram.) 15 gm PO Q15M PRN; Protocol PRN Reason: per Hypoglycemia Standing Ord. Dextrose/Lactated Ringer's (D5lr) 1,000 mls @ 125 mls/hr IVCONT .Q8H [facility] Last Admin: 11/13/24 22:20 Dose: 125 mls/hr Magnesium Hydroxide (Milk Of Magnesia 30 Ml Oral.Susp) 30 ml PO DAILY PRN PRN Reason: Constipation Melatonin (Melatonin 3 Mg Tablet) 6 mg PO BEDTIME PRN PRN Reason: Insomnia Melatonin (Melatonin 3 Mg Tablet) 6 mg PO BEDTIME PRN PRN Reason: Insomnia Nicotine (Nicotine 21 Mg Patch.Td24) 21 mg TRANSDERMA DAILY [facility] Ondansetron HCl (Ondansetron Hcl 4 Mg/2 Ml Vial) 4 mg IVPUSH Q8H PRN PRN Reason: Nausea and Vomiting Pharmacy Consult (Consult Rx Etoh Phenob Im/Po) 1 each MISCELLANE ONCE PRN; Protocol PRN Reason: Consult order Pharmacy Consult (Consult Rx Etoh Phenob Im/Po) 1 each MISCELLANE ONCE PRN; Protocol PRN Reason: Consult order Polyethylene Glycol (Polyethylene Glycol 3350 17 Gm Powd.Pack) 17 gm PO DAILY PRN PRN Reason: Constipation Senna (Sennosides 8.6 Mg Tablet) 17.2 mg PO BEDTIME [facility] Sodium Chloride (0.9 % Sodium Chloride Flush 3 Ml Syringe) 3 ml IVFLUSH QSHIFT [facility] Thiamine HCl (Thiamine Hcl 100 Mg Tablet) 100 mg PO DAILY [facility] Home Medications ?Medication ?Instructions ?Recorded ?Confirmed ?Last Taken ?Type acetaminophen 325 mg tablet 650 mg PO Q6H PRN Pain 02/1411/13/24 Unknown History (Tylenol) insulin NPH isoph U-100 human 100 10 unit subcut BID 0 10/02/22 11/13/24 11/12/24 History unit/mL (3 mL) subcutaneous pen (Novolin N FlexPen) metformin 1,000 mg tablet 1,000 mg PO BID 10/02/2211/12/24 History Physical Exam Vital Signs and Narrative: Vital Signs: Last Vital Signs Temp 98.6 F 11/13/24 21:21 Pulse 81 11/13/24 21:21 Resp 16 11/13/24 21:21 BP 136/80 11/13/24 21:21 Pulse Ox 97 11/13/24 21:21 O2 Del Method Room Air 11/13/24 21:21 BMI result Body Mass Index 21.7 Alert and orientated X3, able to provide minimal history, can follow commands Neuro: CN II-X11 intact, no deficits, visual acuity intact EYES: PERRLA, EOM intact, sclerae nonicteric ENT: hearing intact, no issues with swallowing, uvula midline, lips moist, nares patent no epistaxis Cardiac: S1 S2 RRR, no murmur, no JVD, no edema in Lower ext Pulmonary: lungs clear to auscultation B Abdominal: BS active in all 4 quadrants, no guarding, tenderness, rebounding MSK: strength 5/5 upper and lower extremities : no CVA tenderness no bladder distension Extremities: no edema in lower extremities, PT and DP pulses palpable +2 Psych: mood stable, judgement and insight fair Skin: No rashes or lesions noted Results Labs Labs: Laboratory Results - last 24 hr 11/13/24 11/13/24 11/13/24 21:17 21:46 23:01 POC Glucose 58 L* 86 156 H Imaging Radiologist's Impressions: Head CT Negative for acute findings Femur x-ray and pelvic x-ray Negative for acute fractures Assessment and Plan (1) Alcohol abuse: Status: Acute (2) Hypoglycemia: Status: Inactive Plan Patient is a 69-year-old female with past medical history alcohol use disorder with binge drinking, insulin-dependent diabetes, CVA (lacunar infacrts 1.5 yrs ago), edentulous with dental extractions August 2024, UTI, bilateral nephrolithiasis last episode 2021, tobacco dependence returned to the emergency department today brought in by ambulance per family requesting patient needs detox. At this time patient was found to be hypoglycemic. Treatment was initiated in the ED. patient was seen earlier in the ED during the 1st visit for altered mental status/unresponsiveness secondary to alcohol use combined with Fioricet and hydroxyzine. Patient was also noted to be hypoglycemic during that time. Patient refused intervention/ detox with case management and demanded to be discharged. Blood glucose levels stabilized. Once discharged patient was found to still be altered as she was walking home and family called 911 again. Patient found to have a blood sugar of 58 mg/dL but no alcohol use in the interim. Per patient's spouse patient has a known history of not eating for days while using alcohol excessively. Patient's alcohol of choice is wine. Hypoglycemia/ IDDM Patient currently on a D5 infusion and blood sugars are now staying above 150 Blood glucose checks are now q.2 hours Diabetic diet has been ordered No sliding scale or insulin ordered at this time A1c pending Beta hydroxybutyrate was 0.13 [employer] consulted - BMI is stable but family concerned about poor appetite especially when using alcohol thus leading to hypoglycemia Alcohol abuse Patient is started on phenobarbital protocol Patient has no seizures associated with withdrawal in the past Thiamine and folic acid ordered CIWA ordered Addictions consulted Psychiatry counseled as well due to undiagnosed depression, NO SI, HI currently - patient states her depression goes away when she starts drinking Tobacco dependence Nicotine patch ordered Patient counseled on the benefits of smoking cessation Patient has no evidence of hypoxia or oxygen needs Zena plata p.r.n. DVT prophylaxis: Lovenox Med rec pending Full Code status Quality Stroke Does the patient have a stroke diagnosis?: No Reason for No Anti-thrombotic by Day Two: N/A - Med Ordered VTE Prior VTE?: No VTE Risk Level:: Medical - moderate - high VTE Device Contraindication: N/A - Device Ordered VTE Drug Contraindication: N/A - Med Ordered
[2024-11-14] MEDS: PHENobarbitaL sodium 130 MG/ML IM ONCE 210 MG IM (00:18)
[2024-11-14 00:20] VITALS: BP 136/67; PULSE 78; RESP 16; TEMP 37; O2SAT 97
--- NOTE | 2024-11-14 00:24 | PC.NURSE ---
pt medicated per MAR
[2024-11-14 01:00] LABS: Glucose, Whole Blood 130 mg/dL (60-115)
--- NOTE | 2024-11-14 01:08 | PC.NURSE ---
verbal report given to overflow DEE Juan.
[2024-11-14] MEDS: PHENobarbitaL sodium 130 MG/ML VIAL IM Q3Hx2 157 MG IM (03:01)
[2024-11-14 03:05] LABS: Glucose, Whole Blood 42 mg/dL (60-115)
--- NOTE | 2024-11-14 03:06 | PC.NURSE ---
pt medicated per MAR, POC 42, admitting provider advised. new orders Q15 POC checks.
--- NOTE | 2024-11-14 03:15 | PC.NURSE ---
advised randall nulato sup of need for d10 in 1000mg for pt. awaititng fluids.
[2024-11-14] MEDS: Dextrose 10 % 1,000 ML 75 ML IVCONT (03:23)
[2024-11-14 03:30] LABS: Glucose, Whole Blood 196 mg/dL (60-115)
--- NOTE | 2024-11-14 04:00 | PC.NURSE ---
pt disconnected from her D10 that was running and placed it on the stool in the room, fluids were reconnected, admitting provider at bedside. provider spent over ten minutes enplaning treatment plan to pt. 1:1 sitter placed in pt room with pt.
[2024-11-14 04:04] LABS: Glucose, Whole Blood 82 mg/dL (60-115)
--- NOTE | 2024-11-14 04:12 | PM.EVENT ---
Event Note Date of Service: 11/14/24 Event Note: Pt exhibiting withdrawal symptoms, more agiatated even after correcting low blood sugars which continue and pt started on D10 infusion at 75 mls per hour. Valium 10 mg IV X1 provided. BP 140 systolic, One to one ordered for continuos monitoring as pt got out of bed,pulled IV out and stated she was going home. Pt is able to drink juice and eat pudding. BG checks are Q15 mins until 2 are above 120. Reviewed POC with nursing staff. Time Spent With Patient Time: Total time managing care of this patient today ____ minutes.
[2024-11-14 04:15] VITALS: BP 155/76; PULSE 71; RESP 19; TEMP 36.2; O2SAT 98
[2024-11-14 04:25] VITALS: BP 142/62
[2024-11-14 04:27] LABS: Glucose, Whole Blood 96 mg/dL (60-115)
[2024-11-14] MEDS: diazePAM 10 MG/2 ML CARTRIDGE 5 MG IVPUSH (04:37)
--- NOTE | 2024-11-14 04:50 | PC.NURSE ---
IV removed from R AC, new 20 placed in R wrist. Pt medicated per MAY. 1:1 sitter with pt
[2024-11-14 05:48] LABS: Glucose, Whole Blood 120 mg/dL (60-115)
[2024-11-14 05:48] LABS: Glucose, Whole Blood 132 mg/dL (60-115)
[2024-11-14 05:52] LABS: MANUAL DIFF FLAG NO
[2024-11-14 05:53] LABS: Hematocrit 42.1 % (37.0-47.0); Hemoglobin 14.5 g/dl (12.0-16.0); Imm Gran Abs Auto 0.02 X10*3/uL (0.00-0.03); Imm Gran Pct Auto 0.2 % (0.0-0.4); Lymphocytes Absolute Auto 3.0 X10*3/uL (1.2-4.9); Mean Corpuscular HGB Conc 34.4 g/dl (31.0-35.0); Mean Corpuscular Hemoglobin 32.6 pg (27.0-33.0); Mean Corpuscular Volume 94.6 fL (80.0-98.0); NRBC Abs Auto 0.000 X10*3/uL (0.0-0.012); NRBC Pct Auto 0.0 /100WBC (0.0-0.2); Platelet Count 232 X10*3/uL (160-400); Red Blood Count 4.45 X10*6/uL (4.20-5.50); White Blood Count 8.5 X10*3/uL (4.8-10.8)
[2024-11-14 06:05] VITALS: BP 139/72; PULSE 75; RESP 14; TEMP 36.8; O2SAT 97
[2024-11-14 06:09] LABS: Glucose, Whole Blood 104 mg/dL (60-115)
[2024-11-14 06:11] LABS: Anion Gap 15 (12-20); Blood Urea Nitrogen 18 mg/dL (9-16); Calcium 8.8 mg/dL (8.4-10.2); Carbon Dioxide 23 mmol/L (22-29); Chloride 107 mmol/L (96-108); Creatinine Clr Calc Pharmacy 52.8; Estimated Glomerular Filt Rate > 60; Potassium 3.6 mmol/L (3.3-5.1); Sodium 141 mmol/L (135-145)
--- NOTE | 2024-11-14 06:30 | PC.NURSE ---
pt refusing phenobarbital dose at 6 am, Dr Arias advised. Dr Arias states we hold this dose. POC being changed to Q2.
[2024-11-14 07:22] LABS: Hemoglobin A1C 186.4633 umol/L; Total Hemoglobin (HGBA1C) 3803.4203 umol/L
[2024-11-14 08:27] LABS: Glucose, Whole Blood 125 mg/dL (60-115)
--- NOTE | 2024-11-14 08:32 | PHA.MEDREC ---
Pharmacy Consult ? Medication Reconciliation Pharmacy has completed the medication reconciliation. Patient unarousable at bedside, called patient's Mahsa ([phone]) who read off prescription bottles. Noted that patient is nonadherent.
[2024-11-14 08:58] VITALS: BMI 23.7
[2024-11-14] MEDS: Nicotine 21 MG PATCH.TD24 TRANSDERMA (09:13)
--- NOTE | 2024-11-14 09:18 | MHC.CM.PN ---
Addendum entered by Evelin Das 11/14/24 09:24: IMM was left at bedside. Original Note: CM attempted to meet with Patient at bedside; RN was in room and said that Patient does not want to answer questions and wants to sleep (S/S of ETOH Withdrawal/documented to be agitated). Patient may benefit from a Recovery Tea Consult to assist with disposition. CM has initiated and will follow for dc planning. PCP/PA is Ana Hawkins. Patient appears to live with her and she may require assist with transport @ dc.
[2024-11-14 10:18] LABS: Glucose, Whole Blood 113 mg/dL (60-115)
--- NOTE | 2024-11-14 11:12 | MHC.RECOVRN ---
Attempted to meet with pt in 479 following consult placed to Addiction Medicine for alcohol use Intention was to discuss alcohol use and recovery/support options. On approach pt wa standing in room, getting dressed. Tw statted she would come back later, however pt invitied TW into room. Pt stated she is leaving this hell hole . She reports she does not need to be here and will be walking home. When asked if she has someone she can call she states, yes, but I don't want to . Pt was offered resources regarding recovery and support relating to alcohol use. Pt declines intervention, ELIDA, or appt for tx related to AUD at this time.? TW left room and shortly after pt exited room with no shoes on and asked another staff for directions to leave. Pt self-directed discharge. TW notified primary RN.
--- NOTE | 2024-11-14 11:48 | MHC.CM.PN ---
Patient left AMA.
--- NOTE | 2024-11-14 16:16 | PM.EVENT ---
Event Note Date of Service: 11/14/24 Event Note: Psychiatric Consult was ordered. Attempted to meet with pt this afternoon, however, was informed by team she had discharged against medical advice. Time Spent With Patient Time: Total time managing care of this patient today ____ minutes.
== END 2024-11-14 10:45 | disposition left against medical advice (07) | DRG 638 ==
LOC: HO.ED 22:16 → HO.EDOVER 22:41 → HO.IMC 11-14 07:14
PROVIDERS: Nurse Practitioner Family; Admitting Provider Student in an Organized Health Care Education/Training Program; Emergency Provider Emergency Medicine; PCP Physician Assistant; Visit Provider Hospitalist
DX: E11.649 Type 2 diabetes mellitus with hypoglycemia without coma (principal); F11.20 Opioid dependence, uncomplicated; F17.210 Nicotine dependence, cigarettes, uncomplicated; Z71.6 Tobacco abuse counseling; F10.10 Alcohol abuse, uncomplicated; Z79.4 Long term (current) use of insulin; Z79.84 Long term (current) use of oral hypoglycemic drugs; Z79.899 Other long term (current) drug therapy
CPT/HCPCS: 36415; 80048; 82947; 83036; 85025; 99285; 99499; J1650; J2560; J3360

== ENCOUNTER → 2024-11-13 22:13 | Outpatient (BNV) | payer MEDICARE, SELFPAY | PROVIDERS: Admitting Provider Student in an Organized Health Care Education/Training Program; Emergency Provider Emergency Medicine; PCP Physician Assistant; Visit Provider Nurse Practitioner Family | DX: F10.10 Alcohol abuse, uncomplicated (principal); E16.2 Hypoglycemia, unspecified | CPT/HCPCS: 99223 ==

== ENCOUNTER 2024-11-15 23:56 | Emergency (ER) | payer MEDICARE, SELFPAY ==
[2024-11-15 23:58] VITALS: BP 156/89; PULSE 109; RESP 16; TEMP 36.6; O2SAT 98; BMI 20.8
[2024-11-16] VITALS (7 sets, daily range): BP systolic 133–153; BP diastolic 63–84; PULSE 77–91; RESP 14–19; TEMP 36.4–36.6; O2SAT 93–98
--- NOTE | 2024-11-16 | PC.NURSE ---
during triage patient denied SI, then stated not right now. when asked patient questions during universal suicide risk assessment, pt states yes to #1 and no to other two question. pt also mentioned her is giving her a hard time over everything. pt state she is safe at home and stated my doesn't hurt me. nurse discharge made aware of this and pt was taken to triage tech room to obtain labs then plan for telephone exchange operator.
--- NOTE | 2024-11-16 00:09 | ECG_ITS ---
Test Reason : TACHY Blood Pressure : */* mmHG Vent. Rate : 97 BPM Atrial Rate : 97 BPM P-R Int : 136 ms QRS Dur : 86 ms QT Int : 352 ms P-R-T Axes : 61 29 59 degrees QTcB Int : 447 ms Normal sinus rhythm Possible Left atrial enlargement Septal infarct , age undetermined Abnormal ECG When compared with ECG of 13-Nov-2024 13:20, No significant changes seen Referred By: Generic ED Physician Electronically Signed By: ESTEBAN EVANS
[2024-11-16 00:39] LABS: MANUAL DIFF FLAG NO
[2024-11-16 00:42] LABS: Hematocrit 41.8 % (37.0-47.0); Hemoglobin 14.3 g/dl (12.0-16.0); Imm Gran Abs Auto 0.03 X10*3/uL (0.00-0.03); Imm Gran Pct Auto 0.3 % (0.0-0.4); Lymphocytes Absolute Auto 3.1 X10*3/uL (1.2-4.9); Mean Corpuscular HGB Conc 34.2 g/dl (31.0-35.0); Mean Corpuscular Hemoglobin 32.4 pg (27.0-33.0); Mean Corpuscular Volume 94.8 fL (80.0-98.0); NRBC Abs Auto 0.000 X10*3/uL (0.0-0.012); NRBC Pct Auto 0.0 /100WBC (0.0-0.2); Platelet Count 230 X10*3/uL (160-400); Red Blood Count 4.41 X10*6/uL (4.20-5.50); White Blood Count 9.4 X10*3/uL (4.8-10.8)
[2024-11-16 00:55] LABS: Alanine Aminotransferase 22 U/L (0-31); Albumin Level 3.8 g/dL (3.5-5.0); Alkaline Phosphatase 81 U/L (39-117); Anion Gap 15 (12-20); Aspartate Amino Transferase 50 U/L (5-31); Blood Urea Nitrogen 19 mg/dL (9-16); Calcium 8.7 mg/dL (8.4-10.2); Carbon Dioxide 23 mmol/L (22-29); Chloride 107 mmol/L (96-108); Creatinine Clr Calc Pharmacy 45.1; Estimated Glomerular Filt Rate 57; Lipase 18 U/L (8-78); Magnesium 1.6 mg/dL (1.6-2.6); Potassium 3.7 mmol/L (3.3-5.1); Sodium 141 mmol/L (135-145); Total Protein 6.6 g/dL (6.5-8.0)
[2024-11-16 01:04] LABS: Glucose, Whole Blood 182 mg/dL (60-115)
[2024-11-16 01:53] LABS: Glucose, Whole Blood 184 mg/dL (60-115)
[2024-11-16] MEDS: PHENobarbitaL sodium 130 MG/ML IM ONCE 210 MG IM (02:37)
--- NOTE | 2024-11-16 03:07 | ED.GENADULT ---
HPI - General Adult General Chief complaint: ETOH/Substance Use Stated complaint: low blood sugar Time Seen by Provider: 11/16/24 01:08 Source: patient Limitations: no limitations History of Present Illness ED Provider: Patti Yang PA-C HPI narrative: 69-year-old female with a history of DM on insulin, CVA ( 1.5 years ago), EtOH abuse, and opioid dependence, who presents with concern for hypoglycemia. Patient states she just walked 5 miles from home, she has not been checking her blood sugar today, she also has not taken her insulin today. In addition, patient admits to drinking ?3 small bottles of wine?, and that she drinks on a daily basis. She states she continues to drink ?because of everything? . When asked if she is suicidal, she denies and states ?I need help?. Related Data Home Medications ?Medication ?Instructions ?Recorded ?Confirmed insulin NPH isoph U-100 human 100 10 unit subcut BID 10/02/22 11/14/24 unit/mL (3 mL) subcutaneous pen (Novolin N FlexPen) metformin 1,000 mg tablet 1,000 mg PO BID 10/02/22 11/14/24 melatonin 10 mg disintegrating 10 mg PO BEDTIME PRN Sleep 11/14/24 11/14/24 tablet multivitamin 1 tab PO DAILY 11/14/24 11/14/24 Allergies Allergy/AdvReac Type Severity Reaction Status Date / Time promethazine (From Phenergan) Allergy Mild DEEP SLEEP Verified 11/16/24 00:06 Review of Systems Review of Systems: Yes all other systems are reviewed and are negative Constitutional: Constitutional: Denies fatigue and Denies fever(s) Cardiovascular: Cardiovascular: Denies chest pain and Reports dyspnea Respiratory: Respiratory: Denies cough and Reports dyspnea Gastrointestinal: Gastrointestinal: Denies abdominal pain, Denies nausea and Denies vomiting Endocrine: Endocrine: Denies fatigue PMFSH Past Medical History Attestation statement: The following information was validated with the patient. Medical History Alcohol abuse Edentulous CVA (cerebral vascular accident) Bilateral nephrolithiasis Hiatal hernia Alcohol dependence Tobacco dependence Social History Social History Household Members: Unknown / Unable to assess Housing: Unknown / Unable to assess Do you presently have visiting nurse or other home services: No Alcohol intake: current Alcohol intake frequency: 0-2 drinks per day Alcohol type: wine Patient Tobacco Use Status: Tobacco use Unknown Tobacco use type: Cigarette Cigarettes Per Day: 8 Use of substances other than those prescribed or required for medical reasons: No Advance Directives: No Advance Directives Information Provided: Yes Do you have a plan to hurt others: No Plan service: No Physical Exam ED Vital Signs: Vital Signs - 24 hr 11/16/24 05:21 11/16/24 07:08 11/16/24 07:35 Temperature 97.5 F Pulse Rate 80 77 77 Respiratory Rate 19 17 16 Blood Pressure 140/74 H 133/63 140/77 H Pulse Oximetry 97 95 93 Oxygen Delivery Method Room Air Room Air Room Air 11/16/24 09:35 Temperature 98 F Pulse Rate 77 Respiratory Rate 16 Blood Pressure 137/75 Pulse Oximetry 96 Oxygen Delivery Method Room Air BMI result Body Mass Index 20.8 Const Other: Alert Orientation/consciousness: patient oriented x3 Resp Effort & Inspection: normal respiratory effort Cardio Other: Normal peripheral perfusion Skin Other: Warm dry no rash Neuro General: patient oriented x3, gait normal, no focal motor deficits and CN's II-XI intact bilaterally Psych Other: Cooperative for now Course Reevaluation(s) Reevaluation #1: Time: 03:25 Date: 11/16/24 Provider: JEN Parker Patient in physician observation for psychiatric evaluation.? No acute events reported overnight. No current complaints. VS stable.? Patient is in bed search status/pending CARE team evaluation. Will continue to monitor. Reevaluation #2: DR. Couch' note ; 11/16/2024, 09:30. Patient is AAO x3, no SI, no HI, no hallucination, at the bedside who requesting the patient to be sectioned and admission, patient do not meet criteria for admission or section 12. Recovery team input is appreciated. Patient was advised to file a petition for section [address]. Time: 09:28 Medications Administered Discontinued Medications Generic Name Dose Route Start Last Admin Trade Name Freq PRN Reason Stop Dose Admin Phenobarbital Sodium 210 mg 11/16/24 02:00 11/16/24 02:37 Phenobarbital Sodium 130 Mg/Ml Im Once IM 11/16/24 02:01 210 mg ONCE ONE Administration Phenobarbital Sodium 157 mg 11/16/24 05:00 11/16/24 08:06 Phenobarbital Sodium 130 Mg/Ml Vial Im Q3hx2 IM 11/16/24 08:01 Not Given Q3H [facility] Medical Decision Making Medical Decision Making MDM Narrative: 69-year-old female with a history of DM on insulin, CVA ( 1.5 years ago), EtOH abuse, and opioid dependence, who presents with concern for hypoglycemia. Patient states she just walked 5 miles from home, she has not been checking her blood sugar today, she also has not taken her insulin today. In addition, patient admits to drinking ?3 small bottles of wine?, and that she drinks on a daily basis. She states she continues to drink ?because of everything? . When asked if she is suicidal, she denies and states ?I need help?. Problem: Diabetes and alcohol abuse History: Per patient I have considered the following differential diagnoses: Hypoglycemia, alcohol intoxication, AKA, SI, HI, decompensated psychiatric illness Plan: The patient was recently seen in the emergency room and admitted to the hospital for hypoglycemia. She abruptly left her hospital admission on November 14, pulling out her IV and leaving. At that time she was beginning to exhibit withdrawal symptoms. Tonight, her blood sugars are stable, we will screen basic labs, serum ethanol and drug screen, I will refer her to the care team. Unclear whether she is truly suicidal, or if she wants detox. Placing a CIWA scale. I have independently reviewed the following tests: Labs: No leukocytosis, not anemic, no electrolyte abnormality, blood sugar 182, ethanol 28, drug screen pending Her ethanol was essentially negative, we will start phenobarb protocol Lab Data 11/16/24 00:32 11/16/24 00:32 Labs: Lab Results 11/16/24 11/16/24 11/16/24 Range/Units 00:04 00:32 00:57 WBC 9.4 (4.8-10.8) X10*3/uL RBC 4.41 (4.20-5.50) X10*6/uL Hgb 14.3 (12.0-16.0) g/dl Hct 41.8 (37.0-47.0) % MCV 94.8 (80.0-98.0) fL MCH 32.4 (27.0-33.0) pg MCHC 34.2 (31.0-35.0) g/dl RDW 12.6 (11.0-16.0) % Plt Count 230 (160-400) X10*3/uL MPV 9.3 L (9.4-12.3) fL Immature Gran % (Auto) 0.3 (0.0-0.4) % Neut % (Auto) 56.0 (45-73) % Lymph % (Auto) 32.6 (20-40) % [place] % (Auto) 8.8 (2-11) % Eos % (Auto) 1.9 (0-4) % Baso % (Auto) 0.4 (0-2) % Lymph # (Auto) 3.1 (1.2-4.9) X10*3/uL [place] # (Auto) 0.8 (0.1-1.2) X10*3/uL Eos # (Auto) 0.2 (0.0-0.4) X10*3/uL Baso # (Auto) 0.0 (0.0-0.2) X10*3/uL Abs Immat Gran (auto) 0.03 (0.00-0.03) X10*3/uL Absolute Neuts (auto) 5.3 (2.0-8.3) x10*3/uL Absolute Nucleated RBC 0.000 (0.0-0.012) X10*3/uL Nucleated RBC % (auto) 0.0 (0.0-0.2) /100WBC Sodium 141 (135-145) mmol/L Potassium 3.7 (3.3-5.1) mmol/L Chloride 107 (96-108) mmol/L Carbon Dioxide 23 (22-29) mmol/L Anion Gap 15 (12-20) BUN 19 H (9-16) mg/dL Creatinine 0.96 (0.5-1.4) mg/dL Estim Creat Clear Calc 45.1 Estimated GFR 57 POC Glucose 184 H 182 H (60-115) mg/dL Random Glucose 191 H (60-115) mg/dL Calcium 8.7 (8.4-10.2) mg/dL Magnesium 1.6 (1.6-2.6) mg/dL Total Bilirubin 0.3 (0.0-1.0) mg/dL AST 50 H (5-31) U/L ALT 22 (0-31) U/L Alkaline Phosphatase 81 (39-117) U/L Total Protein 6.6 (6.5-8.0) g/dL Albumin 3.8 (3.5-5.0) g/dL Lipase 18 (8-78) U/L Urine Color Urine Appearance Urine pH (5.0-9.0) Ur Specific [place] (1.005-1.025) Urine Protein (Neg-Trace) mg/dL Urine Glucose (UA) (Negative) mg/dL Urine Ketones (Negative) mg/dL Urine Blood (Negative) Urine Nitrite (Negative) Ur Leukocyte Esterase (Negative) Urine RBC (0-2) /HPF Urine WBC (0-5) /HPF Ur Squamous Epith Cells (0-2) /HPF Calcium Oxalate Crystal Urine Bacteria (None Seen) Hyaline Casts (0-2) /LPF Urine Opiates Screen (Not Detect) Ur Buprenorphine Scrn (Not Detect) ng/mL Ur Oxycodone Screen (Not Detect) ng/mL Urine Methadone Screen (Not Detect) ng/mL Urine Fentanyl Screen (Not Detect) Ur Barbiturates Screen (Not Detect) Ur Phencyclidine Scrn (Not Detect) Ur Amphetamines Screen (Not Detect) U Benzodiazepines Scrn (Not Detect) Urine Cocaine Screen (Not Detect) U Marijuana (THC) Screen (Not Detect) Ethyl Alcohol 28 mg/dL 11/16/24 11/16/24 11/16/24 Range/Units 03:29 05:23 07:33 WBC (4.8-10.8) X10*3/uL RBC (4.20-5.50) X10*6/uL Hgb (12.0-16.0) g/dl Hct (37.0-47.0) % MCV (80.0-98.0) fL MCH (27.0-33.0) pg MCHC (31.0-35.0) g/dl RDW (11.0-16.0) % Plt Count (160-400) X10*3/uL MPV (9.4-12.3) fL Immature Gran % (Auto) (0.0-0.4) % Neut % (Auto) (45-73) % Lymph % (Auto) (20-40) % [place] % (Auto) (2-11) % Eos % (Auto) (0-4) % Baso % (Auto) (0-2) % Lymph # (Auto) (1.2-4.9) X10*3/uL [place] # (Auto) (0.1-1.2) X10*3/uL Eos # (Auto) (0.0-0.4) X10*3/uL Baso # (Auto) (0.0-0.2) X10*3/uL Abs Immat Gran (auto) (0.00-0.03) X10*3/uL Absolute Neuts (auto) (2.0-8.3) x10*3/uL Absolute Nucleated RBC (0.0-0.012) X10*3/uL Nucleated RBC % (auto) (0.0-0.2) /100WBC Sodium (135-145) mmol/L Potassium (3.3-5.1) mmol/L Chloride (96-108) mmol/L Carbon Dioxide (22-29) mmol/L Anion Gap (12-20) BUN (9-16) mg/dL Creatinine (0.5-1.4) mg/dL Estim Creat Clear Calc Estimated GFR POC Glucose 189 H 169 H 162 H (60-115) mg/dL Random Glucose (60-115) mg/dL Calcium (8.4-10.2) mg/dL Magnesium (1.6-2.6) mg/dL Total Bilirubin (0.0-1.0) mg/dL AST (5-31) U/L ALT (0-31) U/L Alkaline Phosphatase (39-117) U/L Total Protein (6.5-8.0) g/dL Albumin (3.5-5.0) g/dL Lipase (8-78) U/L Urine Color Urine Appearance Urine pH (5.0-9.0) Ur Specific [place] (1.005-1.025) Urine Protein (Neg-Trace) mg/dL Urine Glucose (UA) (Negative) mg/dL Urine Ketones (Negative) mg/dL Urine Blood (Negative) Urine Nitrite (Negative) Ur Leukocyte Esterase (Negative) Urine RBC (0-2) /HPF Urine WBC (0-5) /HPF Ur Squamous Epith Cells (0-2) /HPF Calcium Oxalate Crystal Urine Bacteria (None Seen) Hyaline Casts (0-2) /LPF Urine Opiates Screen (Not Detect) Ur Buprenorphine Scrn (Not Detect) ng/mL Ur Oxycodone Screen (Not Detect) ng/mL Urine Methadone Screen (Not Detect) ng/mL Urine Fentanyl Screen (Not Detect) Ur Barbiturates Screen (Not Detect) Ur Phencyclidine Scrn (Not Detect) Ur Amphetamines Screen (Not Detect) U Benzodiazepines Scrn (Not Detect) Urine Cocaine Screen (Not Detect) U Marijuana (THC) Screen (Not Detect) Ethyl Alcohol mg/dL 11/16/ Range/Units 08:08 WBC (4.8-10.8) X10*3/uL RBC (4.20-5.50) X10*6/uL Hgb (12.0-16.0) g/dl Hct (37.0-47.0) % MCV (80.0-98.0) fL MCH (27.0-33.0) pg MCHC (31.0-35.0) g/dl RDW (11.0-16.0) % Plt Count (160-400) X10*3/uL MPV (9.4-12.3) fL Immature Gran % (Auto) (0.0-0.4) % Neut % (Auto) (45-73) % Lymph % (Auto) (20-40) % [place] % (Auto) (2-11) % Eos % (Auto) (0-4) % Baso % (Auto) (0-2) % Lymph # (Auto) (1.2-4.9) X10*3/uL [place] # (Auto) (0.1-1.2) X10*3/uL Eos # (Auto) (0.0-0.4) X10*3/uL Baso # (Auto) (0.0-0.2) X10*3/uL Abs Immat Gran (auto) (0.00-0.03) X10*3/uL Absolute Neuts (auto) (2.0-8.3) x10*3/uL Absolute Nucleated RBC (0.0-0.012) X10*3/uL Nucleated RBC % (auto) (0.0-0.2) /100WBC Sodium (135-145) mmol/L Potassium (3.3-5.1) mmol/L Chloride (96-108) mmol/L Carbon Dioxide (22-29) mmol/L Anion Gap (12-20) BUN (9-16) mg/dL Creatinine (0.5-1.4) mg/dL Estim Creat Clear Calc Estimated GFR POC Glucose (60-115) mg/dL Random Glucose (60-115) mg/dL Calcium (8.4-10.2) mg/dL Magnesium (1.6-2.6) mg/dL Total Bilirubin (0.0-1.0) mg/dL AST (5-31) U/L ALT (0-31) U/L Alkaline Phosphatase (39-117) U/L Total Protein (6.5-8.0) g/dL Albumin (3.5-5.0) g/dL Lipase (8-78) U/L Urine Color Yellow Urine Appearance Turbid Urine pH 6.0 (5.0-9.0) Ur Specific [place] 1.020 (1.005-1.025) Urine Protein 30 (1+) H (Neg-Trace) mg/dL Urine Glucose (UA) 500 H (Negative) mg/dL Urine Ketones Trace (Negative) mg/dL Urine Blood Moderate (2+) H (Negative) Urine Nitrite Negative (Negative) Ur Leukocyte Esterase Small (1+) H (Negative) Urine RBC 6-10 H (0-2) /HPF Urine WBC 0-5 (0-5) /HPF Ur Squamous Epith Cells 3-5 (0-2) /HPF Calcium Oxalate Crystal Present Urine Bacteria Trace (None Seen) Hyaline Casts 0-2 (0-2) /LPF Urine Opiates Screen Not Detected (Not Detect) Ur Buprenorphine Scrn Not Detected (Not Detect) ng/mL Ur Oxycodone Screen Not Detected (Not Detect) ng/mL Urine Methadone Screen Not Detected (Not Detect) ng/mL Urine Fentanyl Screen Not Detected (Not Detect) Ur Barbiturates Screen POSITIVE H (Not Detect) Ur Phencyclidine Scrn Not Detected (Not Detect) Ur Amphetamines Screen Not Detected (Not Detect) U Benzodiazepines Scrn POSITIVE H (Not Detect) Urine Cocaine Screen Not Detected (Not Detect) U Marijuana (THC) Screen Not Detected (Not Detect) Ethyl Alcohol mg/dL Discharge Plan Discharge Clinical Impression: Alcohol use disorder Patient Disposition: Home, Self-Care Instructions: Abuse of Alcohol (ED) Prescriptions: No Action multivitamin Tablet 1 tab PO DAILY melatonin 10 mg Tablet,Disintegrating 10 mg PO BEDTIME PRN (Reason: Sleep) metformin 1,000 mg tablet 1,000 mg PO BID Novolin N FlexPen 100 unit/mL (3 mL) insulin pen 10 unit subcut BID Interventions: ED Discharge Assessment Last Done: 11/16/24 09:35 Discharge Date/Time: 11/16/24 10:52 Print Language: [place]
[2024-11-16 03:33] LABS: Glucose, Whole Blood 189 mg/dL (60-115)
[2024-11-16] MEDS: PHENobarbitaL sodium 130 MG/ML VIAL IM Q3Hx2 157 MG IM (04:57)
[2024-11-16 05:27] LABS: Glucose, Whole Blood 169 mg/dL (60-115)
[2024-11-16 07:37] LABS: Glucose, Whole Blood 162 mg/dL (60-115)
--- NOTE | 2024-11-16 08:04 | MHC.CARE ---
Pt is declining all services for ETOH and will be cleared by the CARE/Recovery team.
--- NOTE | 2024-11-16 08:12 | PC.NURSE ---
Pt ambulated to bathroom. UA collected. CIWA score 1. Pt refused IM phenobarb. States she doesn't feel like she needs it. VSS. NAD. Pt spoke with Care Team and does not want detox/rehab at this time. notified.
[2024-11-16 08:30] LABS: Appearance Urine Turbid; Glucose Urine UA 500 mg/dL (Negative); PH 6.0 (5.0-9.0); Specific Gravity - Urine 1.020 (1.005-1.025); UMIC TRIGGER UACC YES
[2024-11-16 08:43] LABS: Cannabinoid Screen Urine Not Detected (Not Detect)
[2024-11-16 09:14] LABS: UACC Culture Trigger YES
--- NOTE | 2024-11-16 09:20 | PC.NURSE ---
Pt's at bedside and spoke with Care Team. Pt does not want to utilize resources offered by Care Team. notified.
--- NOTE | 2024-11-16 09:41 | PC.NURSE ---
Pt is up for discharge. She is refusing to leave at this time. States you gave me too many meds and I need to sleep . notified. Ok to hold discharge temporarily
== END 2024-11-16 10:52 | disposition home or self-care (01) ==
PROVIDERS: Emergency Provider Emergency Medicine; PCP Physician Assistant
DX: F10.129 Alcohol abuse with intoxication, unspecified (principal); Y90.1 Blood alcohol level of 20-39 mg/100 ml; R45.851 Suicidal ideations; R00.0 Tachycardia, unspecified; E11.649 Type 2 diabetes mellitus with hypoglycemia without coma; Z79.4 Long term (current) use of insulin; Z79.899 Other long term (current) drug therapy; Z51.81 Encounter for therapeutic drug level monitoring
CPT/HCPCS: 36415; 80053; 80307; 81001; 82947; 83690; 83735; 85025; 87086; 93005; 96372; 99285; J2560; S9485

== ENCOUNTER → 2024-11-16 00:09 | Outpatient (BNV) | payer MEDICARE, SELFPAY | PROVIDERS: Emergency Provider Emergency Medicine; PCP Physician Assistant; Visit Provider Internal Medicine | DX: R94.31 Abnormal electrocardiogram [ECG] [EKG] (principal); R00.0 Tachycardia, unspecified | CPT/HCPCS: 93010 ==

== ENCOUNTER 2025-01-22 08:06 | Outpatient (AMB) | payer MEDICARE, SELFPAY ==
--- NOTE | 2025-01-22 07:27 | A.OFFPC_ITS ---
Vital Signs 01/22/25 08:10 Height 5 ft 3.78 in Weight 52.617 kg BMI 20.0 BP 138/80 Blood Pressure Location Lt brachial Position Sitting Respiration 18 Pulse 120 H Pulse Source Pulse Oximeter Temp 98.3 F Temp Source Temporal Artery Scan Pulse Oximetry (%) 94 Oxygen Delivery Method Room Air Intake Visit Reasons: S/P d/c 01/[address] [facility] Compressor Operator Required: No Accompanied by: Spouse Allergies promethazine (From Phenergan) Allergy (Mild, Verified 01/22/25 07:27) DEEP SLEEP Medication List - Last Reconciled 01/22/25 by JEN Pérez folic acid 1 mg PO DAILY insulin NPH isoph U-100 human (Novolin N FlexPen) 10 units subcut BID melatonin 10 mg PO BID metformin 1,000 mg PO BID multivitamin 1 tab PO DAILY thiamine HCl (vitamin B1) 100 mg PO DAILY Tobacco use date assessed: 01/22/25 Last assessed Fall Risk: 01/22/25 Dental Screening Dental Screen Date: 01/22/25 HPI HPI Comments History of Present Illness Details 69-year-old female with history of alcoh ol use disorder with binge drinking, po lysubstance abuse, insulin-dependent type 2 diabetes, CVA, nephrolithiasis, tobacco dependence presenting to the office today for hospital discharge/rehab follow-up. She was admitted to [facility] on 10/24/2024 by her family requesting detox. She was found to be hypoglycemic which improved with glucose and D5. She had been found by her unresponsive though she has no memory of this. She also has history of excessive use of Fioricet and hydroxyzine accompanied by alcohol but day of arrival, she was not arousable. Lowest glucose reading was 19. Mild patient was intoxicated, the ED provider recommended a section 35 as she was adamantly opposed to detox. She was admitted on phenobarbital per protocol and monitored on CIWA. Unfortunately, the patient pulled her IV out and stated she was going home. Given she was alert and oriented, she left against medical advice. Family ultimately did obtain section 35 and patient was admitted to the [facility] in [place] and was discharged on 01/19 2 home. She states that in the past, she also used inhaled drugs such as cocaine and heroin. States that since her discharge, she has not consumed any alcohol or use any illicit substances. She is considering Suboxone and Vivitrol though has not sought out any addiction recovery centers. She is also not attended any support groups but states she is interested in AA. She states prior to admission to recovery Center, she had been drinking about 2-3 glasses of wine but more recently, had increased her intake. Today she states that she has occasionally depressed but overall feels well. She does report daytime fatigue. No SI/HI. Type 2 diabetes-6.6%. On 10 units of Novolin twice daily as well as metformin 1000 mg twice daily. History of CVA-not on aspirin or statin Tobacco dependence-continue smoking about 8 cigarettes per day. Concerns: None Health maintenance: Due for mammogram Due for DEXA scan Due for colonoscopy ROS: see hpi EXAM: Constitutional - Awake and Alert, No apparent distress Eyes - PERRL Cardiovascular - S1S2, RRR, No edema Respiratory - Normal lung expansion, Normal respiratory effort, No respiratory distress, CTA bilaterally Extremities - no calf tenderness bilaterally, no swelling Skin - Warm/Dry Neurological - Alert & oriented x3 Psychological - Appropriate affect [facility] Medical History (Updated 01/22/25 @ 12:16 by JEN Pérez) Alcohol dependence Type 2 diabetes mellitus Alcohol abuse Edentulous CVA (cerebral vascular accident) Bilateral nephrolithiasis Hiatal hernia Tobacco dependence Social History Household Members: Unknown / Unable to assess Housing: Unknown / Unable to assess Do you presently have visiting nurse or other home services: No Alcohol intake: current Alcohol intake frequency: 0-2 drinks per day Alcohol type: wine Patient Tobacco Use Status: Tobacco use Unknown Tobacco use type: Cigarette Cigarettes Per Day: 8 service: No Questionnaire Thrive Questionnaire Date Thrive assessed: 11/14/24 Physical exam (Primary Care) Vital Signs: Last Vital Signs Temp 98.3 F 01/22/25 08:10 Pulse 120 H 01/22/25 08:10 Resp 18 01/22/25 08:10 BP 138/80 01/22/25 08:10 Pulse Ox 94 01/22/25 08:10 Oxygen Delivery Method Room Air 01/22/25 08:10 BMI result Body Mass Index 20.0 Tobacco/Smoking Status: Tobacco use Status Tobacco use date assessed 01/22/25 01/22/25 07:28 Patient Tobacco Use Status Tobacco use Unknown 01/22/25 07:28 Tobacco use type Cigarette 01/22/25 07:28 Thrive Assessment: Date of Thrive Assessment Date Thrive assessed 11/14/24 01/22/25 07:28 Coding Level of Care Code New Pt Level 4 (60204) Complex EM visit Add On G2211 Diagnoses Polysubstance abuse F19.10 Type 2 diabetes mellitus E11.9 Alcohol dependence F10.288 Substance use status: other alcohol-induced disorder Tobacco dependence F17.200 Hospital discharge follow-up Z09 Assessment & Plan Assessment & Plan (1) Polysubstance abuse: Code(s): F19.10 - Other psychoactive substance abuse, uncomplicated Category: Medical Plan: Desires sobriety. Advised to present to the [facility] following visit. Commended on sobriety thus far. Encouraged patient to attend support groups. (2) Type 2 diabetes mellitus: Code(s): E11.9 - Type 2 diabetes mellitus without complications Category: Medical Plan: Previously controlled. A1c ordered. Continue current therapies. Annual eye and foot exams. (3) Alcohol dependence: Code(s): F10.20 - Alcohol dependence, uncomplicated Category: Medical Qualifiers: Substance use status: other alcohol-induced disorder Qualified Code(s): F10.288 - Alcohol dependence with other alcohol-induced disorder Plan: Commended for abstinence thus far. Encouraged patient to present to support groups. Advised to present to the [facility] following this visit. Initiated thiamine and folic acid (4) Tobacco dependence: Code(s): F17.200 - Nicotine dependence, unspecified, uncomplicated Category: Medical Plan: Counseled on cessation. Not interested in replacement therapy (5) Hospital discharge follow-up: Code(s): Z09 - Encounter for follow-up examination after completed treatment for conditions other than malignant neoplasm Category: Medical Plan: Reviewed labs, imaging, H&P and discharge summary. Plan as above Plan Follow-up in the office in 1 month. Orders: Orders Lipid Panel Today F10.10 - Alcohol abuse, uncomplicated, F19.10 - Other psychoactive substance abuse, uncomplicated Basic Metabolic Panel Today F10.10 - Alcohol abuse, uncomplicated, F19.10 - Other psychoactive substance abuse, uncomplicated Hemoglobin A1c Today F10.10 - Alcohol abuse, uncomplicated, F19.10 - Other psychoactive substance abuse, uncomplicated Medications: New folic acid 1 mg PO DAILY 90 tabs 1RF thiamine HCl (vitamin B1) 100 mg PO DAILY 90 tabs 1RF
[2025-01-22 08:10] VITALS: BP 138/80; PULSE 120; RESP 18; TEMP 36.8; O2SAT 94
--- OUTSIDE RECORDS SUMMARY | 2025-01-22 08:10 | XMS_ITS | Encounter Summary ---
Author Organization [facility] Address [address] [facility] [address] [facility] [address] [facility] [address] [place] [address] Phone Care Team Providers Care Slitter Creaser Slotter Helper Name Role Phone Eliezer Ndiaye MD Unavailable [phone] Cecily Jean MD Primary Care Provider [phone] Lory Morales Primary Care Provider [phone] Encounter Details Date Type Department Care Team (Late st Contact Info) Description 06/06/2021 Procedure Pass OR Admitting Dept - Virtual Department [address] [place] [address] Social History Tobacco Use Types Packs/Day Years [...] PM EDT documented as of this encounter Functional Status * Calculated C-SSRS Risk Score (Lifetime/Recent) Answer Date of Assessment Author No Risk Indicated 06/08/2021 4:34 PM EDT Effie Wayne CNP * [place] Suicide Severity Rating Scale (Screener/Recent Self-Report) Question Answer Date of Assessment Author 1. Wish to be (Past 1 Month) No 06/08/2021 4:34 PM EDT Tone Kandyratna Mckeony, MACHINE TACK PULLER 2. Non-Specific Active Suicidal Thoughts (Past 1 Month) No 06/08/2021 4:34 PM EDT Canon Kandyratna Mckeony, MACHINE TACK PULLER 6. Suicidal Behavior (Lifetime) No 06/08/2021 4:34 PM EDT CentenaryKandy mcginnisratna Iglesias ffy, MACHINE TACK PULLER documented as of this encounter Plan of Treatment Not on file documented as of this encounter Visit Diagnoses Not on filedocumented in this encounter Care Teams Slitter Creaser Slotter Helper Relationship Specialty Start Date End Date Cecily Jean MD [address] [place] [address] [email or web address] PCP - General Internal Medicine 09/20/20 04/19/22 Lory Morales PA [address] [place] [address]. [place] [address] [email or web address] PCP - General Physician Clinical Trial Coordinator 04/20/22 Eliezer Nidaye MD [email or web address] Urology 12/09/19 documented as of this encounter Additional Source Comments The information contained in this document represents components of the legal health record. It is not the complete legal health record.[facility]
--- OUTSIDE RECORDS SUMMARY | 2025-01-22 08:10 | XMS_ITS | Encounter Summary ---
Author Organization [facility] Address [address] [facility] [address] [place] [address] Phone Care Team Providers Care Tieing Machine Operator Name Role Phone Abrahan Angelo DIRECTOR OF RECRUITING Primary Care Provide r Eliezer Ndiaye MD Unavailable [phone] Aurora Trevino DIRECTOR OF RECRUITING Primary Care Provider [phone] Amanda Kelly MD Primary Care Provider Kalyani Serrano CNP Primary Care Provider + Cecily Jean MD Primary Care Provider Lory Morales Primary Care Provider [phone] Encounter Details Date Type Department Care Team (Late st Contact Info) Description 11/11/2019 Procedure Pass OR Admitting Dept - Virtual Department [address] [place] [address] Social History Tobacco Use Types Packs/Day Years Used Date Smoking Tobacco: Every Day Cigarettes 0.5 45 Smokeless Tobacco: Never Alcohol Use Standard Drinks/Week Comments Yes 2 (1 standard drink = 0.6 oz pur e alcohol) socially Comments No Sex and Gender Information Value Date Recorded Sex Assigned at Female 01/19/2019 8:11 PM EDT Legal Sex Female 9:55 PM EDT Gender Identity Female 01/19/2019 8:11 PM EDT Sexual Orientation Straight 01/19/2019 8: 11 PM EDT documented as of this encounter Plan of Treatment Not on file documented as of this encounter Visit Diagnoses Not on filedocumented in this encounter Additional Health Concerns Infection Onset Date Last Indicated Resolved Time CoV-Risk 11/20/2019 11/20/2019 11/21/2019 9:43 AM EDT CoV-Risk 05/20/2020 05/20/2020 05/30/2020 1:23 AM EST documented as of this encounter Care Teams Tieing Machine Operator Relationship Specialty Start Date End Date Abrahan Angelo NP PCP - General 03/05/19 12/08/19 Aurora Trevino NP [address] [place] [address] [email or web address] PCP - General Family Medicine 12/09/19 03/23/20 Amanda Kelly MD [address] [place] [address] [email or web address] PCP - General Family Medicine 03/24/20 05/18/20 Kalyani Serrano CNP [address] [place] [address] [email or web address] PCP - General Family Medicine 05/19/20 09/19/20 Cecily Jean MD [address] [place] [address] [email or web address] PCP - General Internal Medicine 09/20/20 04/19/22 Lory Morales PA [address] [facility] [place] [address] [email or web address] PCP - General Physician Green Belt 04/20/22 Eliezer Ndiaye MD [email or web address] Urology 12/09/19 documented as of this encounter Additional Source Comments The information contained in this document represents components of the legal health record. It is not the complete legal health record.[facility]
--- OUTSIDE RECORDS SUMMARY | 2025-01-22 08:10 | XMS_ITS | Encounter Summary ---
Author Organization [facility] Address [address] [facility] [address] [place] [address] Phone Care Team Providers Care Parent Educator Name Role Phone Eliezer Ndiaye MD Unavailable Cecily Jean MD Primary Care Provider Lory Morales Primary Care Provider [phone] Encounter Details Date Type Department Care Team (Late st Contact Info) Description 05/19/2021 Procedure Pass [facility], Ct Scan - [address] [address] Social History Tobacco Use Types Packs/Day Years [...] Date of Assessment Author No Risk Indicated 05/19/2021 4:01 AM Dennis Armenta, RN * [place] Suicide Severity Rating Scale (Screener/Recent Self-Report) Question Answer Date of Assessment Author 1. Wish to be (Past 1 Month) No 022 4:01 AM Dennis Armenta RN 2. Non-Specific Active Suici harrison Thoughts (Past 1 Month) No 05/19/2021 4:01 AM Jose Armenta RN 6. Suicidal Behavior (Lifetime) No 4:01 AM Dennis Armenta RN documented as of this encounter Plan of Treatment Not on file documented as of this encounter Visit Diagnoses Not on filedocumented in this encounter Care Teams Parent Educator Relationship Specialty Start Date End Date Cecily Jean MD [address] [place] [address] [email or web address] PCP - General Internal Medicine 09/20/20 04/19/22 Lory Morales PA [address] [place] [address]. [place] [address] [email or web address] PCP - General Physician Timekeeper 04/20/22 Eliezer Ndiaye MD [email or web address] Urology 12/09/19 documented as of this encounter Additional Source Comments The information contained in this document represents components of the legal health record. It is not the complete legal health record.[facility]
--- OUTSIDE RECORDS SUMMARY | 2025-01-22 08:10 | XMS_ITS | Encounter Summary ---
Author Organization [employer] Address [address] [facility] [address] [place] [address] Care Team Providers Care Diamond Mounter Name Role Phone Lroy Morales PA-C Primary Care Provider Unav ailable Joycelyn Vuong Unavailable Unavailable Inactive/Transferred Primary Care Provider Unava ilable Reason for Visit * Reason Comments Med Refill Encounter Details Date Type Department Care Team (Late st Contact Info) Description 12/14/2022 Refill [facility] [address] [place] [address] Steph Puente FNP [address] [place], [place] [id number] Social History Tobacco Use Types Packs/Day Years [...] documented in this encounter Plan of Treatment Not on file documented as of this encounter Visit Diagnoses Not on filedocumented in this encounter Care Teams Diamond Mounter Relationship Specialty Start Date End Date Lory Morales PA-C PCP - General Family Medicine 07/03/22 10/20/24 Inactive/Transferred PCP - General 10/21/24 10/21/24 Joycelyn Vuong Health Navigator 06/19/24 documented as of this encounter
--- OUTSIDE RECORDS SUMMARY | 2025-01-22 08:10 | XMS_ITS | Encounter Summary ---
Author Organization [facility] Address [address] [facility] [address] [place] [address] Phone Care Team Providers Care Craft Worker Name Role Phone Abrahan Angelo ENGINEERING LEADER Primary Care Provide r Eliezer Ndiaye MD Unavailable [phone] Aurora Trevino ENGINEERING LEADER Primary Care Provider [phone] Amanda Kelly MD Primary Care Provider Kalyani Serrano CNP Primary Care Provider + Cecily Jean MD Primary Care Provider [phone] Lory Morales Primary Care Provider [phone] Encounter Details Date Type Department Care Team (Late st Contact Info) Description 11/24/2019 Procedure Pass OR Admitting Dept - Virtual Department [address] [place] [address] Social History Tobacco Use Types Packs/Day Years [...] Onset Date Last Indicated Resolved Time CoV-Risk 05/20/2020 05/20/2020 05/30/2020 1:23 AM EST documented as of this encounter Care Teams Craft Worker Relationship Specialty Start Date End Date Abrahan Angelo NP PCP - General 03/05/19 12/08/19 Aurora Trevino NP [address] [place] [address] [email or web address] PCP - General Family Medicine 12/09/19 03/23/20 Amanda Kelly MD [address] [place] [address] [email or web address] PCP - General Family Medicine 03/24/20 05/18/20 Kalyani Serrano CNP [address] [place] [address] [email or web address] PCP - General Family Medicine 05/19/20 09/19/20 Cecily Jean MD [address] [place] [address] [email or web address] PCP - General Internal Medicine 09/20/20 04/19/22 Lory Morales PA [address] [place] [address] [email or web address] PCP - General Physician Aerial Planting And Cultivation Manager 04/20/22 Eliezer Ndiaye MD [email or web address] Urology 12/09/19 documented as of this encounter Additional Source Comments The information contained in this document represents components of the legal health record. It is not the complete legal health record.[facility]
--- OUTSIDE RECORDS SUMMARY | 2025-01-22 08:10 | XMS_ITS | Encounter Summary ---
Author Organization [facility] Address [address] [facility] [address] [place] [address] Phone Care Team Providers Care Brick Burner Name Role Phone Abrahan Angelo CHILD DEVELOPMENT INSTRUCTOR Primary Care Provide r Eliezer Ndiaye MD Unavailable [phone] Aurora Trevino CHILD DEVELOPMENT INSTRUCTOR Primary Care Provider [phone] Amanda Klely MD Primary Care Provider [phone] Kalyani Serrano CNP Primary Care Provider + Cecily Jean MD Primary Care Provider [phone] Lory Morales Primary Care Provider [phone] Encounter Details Date Type Department Care Team (Late st Contact Info) Description 11/20/2019 Procedure Pass [facility], Ct Scan - [facility] [address] [place] [address] Social History Tobacco Use Types Packs/Day Years [...] documented as of this encounter Care Teams Brick Burner Relationship Specialty Start Date End Date Abrahan Angelo NP PCP - General 03/05/19 12/08/19 Aurora Trevino NP [address] [place] [address] [email or web address] PCP - General Family Medicine 12/09/19 03/23/20 Amanda Kelly MD [address] [place] [id number] [email or web address] PCP - General Family Medicine 03/24/20 05/18/20 Kalyani Serrano CNP [address] [place] [address] [email or web address] [email or web address] PCP - General Family Medicine 05/19/20 09/19/20 Cecily Jean MD [address] [place] [address] [email or web address] PCP - General Internal Medicine 09/20/20 04/19/22 Lory Morales PA [address] [facility] [place] [address] [email or web address] PCP - General Physician Charger Tester 04/20/22 Eliezer Ndiaye MD [email or web address] Urology 12/09/19 documented as of this encounter Additional Source Comments The information contained in this document represents components of the legal health record. It is not the complete legal health record.[facility]
--- OUTSIDE RECORDS SUMMARY | 2025-01-22 08:10 | XMS_ITS | Encounter Summary ---
Author Organization [facility] Address [address] [facility] [address] [place] [address] Phone Care Team Providers Care Carbonizer Name Role Phone Eliezer Ndiaye MD Unavailable [phone] Cecily Jean MD Primary Care Provider [phone] Lory Morales Primary Care Provider [phone] Encounter Details Date Type Department Care Team (Late st Contact Info) Description 05/30/2021 Procedure Pass OR Admitting Dept - Virtual Department [address] [place] [address] Social History Tobacco Use Types Packs/Day Years [...] Date of Assessment Author No Risk Indicated 05/30/2021 1:00 AM Daphney Salmon RN * [place] Suicide Severity Rating Scale (Screener/Recent Self-Report) Question Answer Date of Assessment Author 1. Wish to be (Past 1 Month) No 05/30/2021 1:00 AM Lacey Salmon RN 2. Non-Specific Active Suici harrison Thoughts (Past 1 Month) No 05/30/2021 1:00 AM Thanh Salmon RN 6. Suicidal Behavior (Lifetime) No 1:00 AM Daphney Salmon RN documented as of this encounter Plan of Treatment Not on file documented as of this encounter Visit Diagnoses Not on filedocumented in this encounter Care Teams Carbonizer Relationship Specialty Start Date End Date Cecily Jean MD [address] [place] [address] [email or web address] PCP - General Internal Medicine 09/20/20 04/19/22 Lory Morales PA [address] [place] [address]. [place] [address] [email or web address] PCP - General Physician Java Jsf Developer 04/20/22 Eliezer Ndiaye MD [email or web address] Urology 12/09/19 documented as of this encounter Additional Source Comments The information contained in this document represents components of the legal health record. It is not the complete legal health record.[facility]
--- OUTSIDE RECORDS SUMMARY | 2025-01-22 08:10 | XMS_ITS | Encounter Summary ---
Author Organization [facility] Address [address] [place] [address] [place] [address] Phone Care Team Providers Care Transfer And Line Up Worker Name Role Phone Eliezer Ndiaye MD Unavailable [phone] Cecily Jean MD Primary Care Provider [phone] Lory Morales Primary Care Provider [phone] Encounter Details Date Type Department Care Team (Late st Contact Info) Description 05/20/2021 Procedure Pass OR Admitting Dept - Virtual Department [address] [place] [address] Social History Tobacco Use Types Packs/Day Years [...] on filedocumented in this encounter Care Teams Transfer And Line Up Worker Relationship Specialty Start Date End Date Cecily Jean MD [address] [place] [address] [email or web address] PCP - General Internal Medicine 09/20/20 04/19/22 Lory Morales PA [address] [place] [address]. [place] [address] [email or web address] PCP - General Physician Academic Guidance Specialist 04/20/22 Eliezer Ndiaye MD [email or web address] Urology 12/09/19 documented as of this encounter Additional Source Comments The information contained in this document represents components of the legal health record. It is not the complete legal health record.[facility]
--- OUTSIDE RECORDS SUMMARY | 2025-01-22 08:10 | XMS_ITS | Encounter Summary ---
Author Organization [facility] Address [address] [place] [address] [place] [address] Phone Care Team Providers Care Search Coordinator Name Role Phone Eliezer Ndiaye MD Unavailable [phone] Cecily Jean MD Primary Care Provider [phone] Lory Morales Primary Care Provider [phone] Encounter Details Date Type Department Care Team (Late st Contact Info) Description 05/22/2021 Procedure Pass OR Admitting Dept - Virtual Department [address] [place] [address] Social History Tobacco Use Types Packs/Day Years [...] on filedocumented in this encounter Care Teams Search Coordinator Relationship Specialty Start Date End Date Cecily Jean MD [address] [place] [address] [email or web address] PCP - General Internal Medicine 09/20/20 04/19/22 Lory Morales PA [address] [place] [address]. [place] [address] [email or web address] PCP - General Physician Delivery Aide 04/20/22 Eliezer Ndiaye MD [email or web address] Urology 12/09/19 documented as of this encounter Additional Source Comments The information contained in this document represents components of the legal health record. It is not the complete legal health record.[facility]
--- OUTSIDE RECORDS SUMMARY | 2025-01-22 08:11 | XMS_ITS | Encounter Summary ---
Author Organization [facility] Address [address] [place] [address] Phone Care Team Providers Care Caseworker Name Role Phone Kalyani Serrano CNP Primary Care Provider + Amanda Kelly MD Primary Care Provider [phone] Abrahan Angelo ELECTRICAL PANEL BUILDER Primary Care Provide r Eliezer Ndiaye MD Unavailable [phone] Aurora Trevino ELECTRICAL PANEL BUILDER Primary Care Provider [phone] Amanda Kelly MD Primary Care Provider Kalyani Serrano CNP Primary Care Provider + Cecily Jean MD Primary Care Provider Lory Morales Primary Care Provider [phone] Encounter Details Date Type Department Care Team (Late st Contact Info) Description 01/24/2019 Procedure Pass OR Admitting Dept - Virtual Department 30 [place], [place] [id number] Social History Tobacco Use Types Packs/Day Years [...] documented as of this encounter Care Teams Caseworker Relationship Specialty Start Date End Date Kalyani Serrano CNP [address] [place] [address] [email or web address] PCP - General 01/10/17 03/02/19 Amanda Kelly MD [address] [place] [address] PCP - General Family Medicine 03/03/19 03/04/19 Abrahan Angelo, JOEY [address] [place] [address] PCP - General 03/05/19 12/08/19 Aurora Trevino, JOEY [address] [place] [address] [email or web address] PCP - General Family Medicine 12/09/19 03/23/20 Amanda Kelly MD [address] [address] PCP - General Family Medicine 03/24/20 05/18/20 Kalyani Serrano CNP [address] [place] [address] [email or web address] PCP - General Family Medicine 05/19/20 09/19/20 Cecily Jean MD 73 [place] [address] [email or web address] PCP - General Internal Medicine 09/20/20 04/19/22 Lory Morales PA 73 [facility] [place] [address] [email or web address] PCP - General Physician Global Compensation Director 04/20/22 Eliezer Ndiaye MD [address] [place] [address] [email or web address] Urology 12/09/19 documented as of this encounter Additional Source Comments The information contained in this document represents components of the legal health record. It is not the complete legal health record.[facility]
--- OUTSIDE RECORDS SUMMARY | 2025-01-22 08:11 | XMS_ITS | Encounter Summary ---
Author Organization [facility] Address [address] [place] [address] [place] [address] Phone Care Team Providers Care Radioactivity Technician Name Role Phone Kalyani Serrano CNP Primary Care Provider + Amanda Kelly MD Primary Care Provider [phone] Abrahan Angelo CONTRACT PROJECT MANAGER Primary Care Provide r Eliezer Ndiaye MD Unavailable [phone] Aurora Trevino CONTRACT PROJECT MANAGER Primary Care Provider [phone] Amanda Kelly MD Primary Care Provider Kalyani Serrano CNP Primary Care Provider + Cecily Jean MD Primary Care Provider Lory Morales Primary Care Provider Encounter Details Date Type Department Care Team (Latest Contact Info) Description 02/05/2019 Transcribe Orders Virtual Department 30 [place] [address] Placido Groves MD [facility], [address] [place], [place] [phone] [email or web address] Calculus of ureter (Primary Dx) Social History Tobacco Use Types Packs/Day Years [...] documented as of this encounter Visit Diagnoses Diagnosis Calculus of ureter- Primary documented in this encounter Additional Health Concerns Infection Onset Date Last Indicated Resolved Time CoV-Risk 11/20/2019 11/20/2019 11/21/2019 9:43 AM EDT CoV-Risk 05/20/2020 05/20/2020 05/30/2020 1:23 AM EST documented as of this encounter Care Teams Radioactivity Technician Relationship Specialty Start Date End Date Kalyani Serrano CNP [address] [place] [address] [email or web address] PCP - General 01/10/17 03/02/19 Amanda Kelly MD [address] [place] [address] [email or web address] PCP - General Family Medicine 03/03/19 03/04/19 Abrahan Angelo NP [address] [place] [address] PCP - General 03/05/19 12/08/19 Aurora Trevino NP [address] [place] [address] [email or web address] PCP - General Family Medicine 12/09/19 03/23/20 Amanda Kelly MD [address] [address] PCP - General Family Medicine 03/24/20 05/18/20 Kalyani Serrano CNP [address] [place] [address] [email or web address] PCP - General Family Medicine 05/19/20 09/19/20 Cecily Jean MD [address] [place] [address] [email or web address] PCP - General Internal Medicine 09/20/20 04/19/22 Lory Morales PA [address] [place] [address]. [place] [address] [email or web address] PCP - General Physician Secure Software Assessor 04/20/22 Eliezer Ndiaye MD [address] [address] [email or web address] Urology 12/09/19 documented as of this encounter Additional Source Comments The information contained in this document represents components of the legal health record. It is not the complete legal health record.[facility]
--- OUTSIDE RECORDS SUMMARY | 2025-01-22 08:11 | XMS_ITS | Encounter Summary ---
Author Organization [facility] Address [address] [place] [address] [address] [place] [address] Phone Care Team Providers Care Bottling Line Attendant Name Role Phone Kalyani Serrano CNP Primary Care Provider + Amanda Kelly MD Primary Care Provider [phone] Abrahan Angelo RUGBY LEAGUE FOOTBALLER Primary Care Provide r Eliezer Ndiaye MD Unavailable [phone] Aurora Trevino RUGBY LEAGUE FOOTBALLER Primary Care Provider [phone] Amanda Kelly MD Primary Care Provider Kalyani Serrano CNP Primary Care Provider + Cecily Jean MD Primary Care Provider [phone] Lory Morales Primary Care Provider Encounter Details Date Type Department Care Team (Latest Contact Info) Description 01/20/2019 Transcribe Orders [facility] Specimen Processing 30 [place] [address] Placido Groves MD [address] [facility], [address] [place], [place] [id number] [email or web address] Kidney stone (Primary Dx) Social History Tobacco Use Types [...] on file documented as of this encounter Results * Stone analysis (01/20/2019 3:00 PM EDT) Kidney Stone Analysis Test component not applicable or not reported. [facility] [address] SOURCE Not provided [facility]/PATH [address] Interpretation SEE NOTE [facility] [address] Comment: (NOTE) 90% Calcium oxalate monohydrate 10% Calcium oxalate dihydrate Other (Ureter, Bilateral) 01/20/2019 3:00 PM EDT 01/20/2019 4:19 PM EDT us Placido Groves MD BODY FLUIDS AND STOOLS ORDERAB LES Final Result [facility] [address] [place] [address] documented in this encounter Visit Diagnoses Diagnosis Kidney stone- Primary Calculus of kidney documented in this encounter Additional Health Concerns Infection Onset Date Last Indicated Resolved Time CoV-Risk 11/20/2019 11/20/2019 11/21/2019 9:43 AM EDT CoV-Risk 05/20/2020 05/20/2020 05/30/2020 1:23 AM EST documented as of this encounter Care Teams Bottling Line Attendant Relationship Specialty Start Date End Date Kalyani Serrano CNP [address] [place] [address] [email or web address] PCP - General 01/10/17 03/02/19 Amanda Kelly MD [address] [place] [address] [email or web address] PCP - General Family Medicine 03/03/19 03/04/19 Abrahan Angelo NP [address] [place] [address] PCP - General 03/05/19 12/08/19 Aurora Trevino NP 73 [place] [address] [email or web address] PCP - General Family Medicine 12/09/19 03/23/20 Amanda Kelly MD [address] [place] [address] [email or web address] PCP - General Family Medicine 03/24/20 05/18/20 Kalyani Serrano CNP [address] [place] [address] [email or web address] PCP - General Family Medicine 05/19/20 09/19/20 Cecily Jean MD [address] [place] [address] [email or web address] PCP - General Internal Medicine 09/20/20 04/19/22 Lory Morales PA 73 [place] [address] [email or web address] PCP - General Physician Panelbeater 04/20/22 Eliezer Ndiaye MD [address] [place] [address] Urology 12/09/19 documented as of this encounter Additional Source Comments The information contained in this document represents components of the legal health record. It is not the complete legal health record.[facility]
--- OUTSIDE RECORDS SUMMARY | 2025-01-22 08:11 | XMS_ITS | Encounter Summary ---
Author Organization [employer] [employer] Address [address] [facility] 7t [place] [address] Care Team Providers Care Tool Turret Lathe Set Up Operator Name Role Phone Joycelyn Vuong Unavailable Unavailable Reason for Visit * Reason Comments Med Refill Encounter Details Date Type Department Care Team (Late st Contact Info) Description 01/17/2025 Refill [facility] MEDICAL 73 [place] [address] [facility] 70 [place] [address] Type 2 diabetes mellitus with hyperglycemia (HCC) Social History Tobacco Use Types Packs/Day Years Used Date Smoking Tobacco: Every Day Cigarettes Smokeless Tobacco: Never Alcohol Use Standard Drinks/Week Comments Yes 0 (1 standard drink = 0.6 oz pur e alcohol) Glass of wine here and there Depression Answer Date Recorded Patient Health Questionnaire-9 Score 13 07/16/2023 Patient Health Questionnaire-9 Score 13 07/16/2023 Last PHQ-9: Questionnaire Data Not on file 0 07/16/2023 Housing Stability Answer Date Recorded What is your housing situation today? I have phoebe liang 08/14/[address] you li ve. Do you have problems with any of the following? None of the above 08/14/2024 Food Insecurity Answer Date Recorded Within the past 12 months, y ou worried that your food would run out before you got money to buy more: Never True 08/14/2024 Within the past 12 months,th e food you bought just didn't last and you didn't have enough money to get more: Never True Transportation Answer Date Recorded In the past 12 months, has l ack of transportation kept you from medical appts, meetings, work or from getting things needed for daily living? No 08/14/2024 Utilities Answer Date Recorded In the past 12 months, has t he electric, gas, oil or water company threatened to shut off services in your home? No 08/14/2024 Depression Answer Date Recorded Patient Health Questionnaire-2 Score 0 08/14/2024 Internet Access Answer Date Recorded Internet Access Q1 Yes 08/14/2024 Internet Access Q2 Not on file 08/14/2024 Comments Unknown Sex and Gender Information Value Date Recorded Sex Assigned at Female 10/17/2022 2:23 PM EDT Legal Sex Female 8:38 PM EDT Gender Identity Female 10/17/2022 2:23 PM EDT Sexual Orientation Choose not to disclose 2022 2:23 PM EDT documented as of this encounter Plan of Treatment Not on file documented as of this encounter Visit Diagnoses Diagnosis Type 2 diabetes mellitus with hyperglycemia (HCC) documented in this encounter Additional Health Concerns Assessment Noted Time PHQ-9 Depression Total Score: 13 024 10:58 AM EDT documented as of this encounter Care Teams Tool Turret Lathe Set Up Operator Relationship Specialty Start Date End Date Joycelyn Vuong Health Navigator 06/19/24 documented as of this encounter
--- OUTSIDE RECORDS SUMMARY | 2025-01-22 08:11 | XMS_ITS | Encounter Summary ---
Author Organization [facility] Address [address] [facility] [address] [place] [address] Phone Care Team Providers Care Hand Cigar Maker Name Role Phone Eliezer Ndiaye MD Unavailable [phone] Cecily Jean MD Primary Care Provider [phone] Lory Morales Primary Care Provider [phone] Encounter Details Date Type Department Care Team (Late st Contact Info) Description 06/08/2021 Procedure Pass [facility], Ct Scan - [address] [address] Social History Tobacco Use Types Packs/Day Years [...] 4:34 PM EDT Effie Wayne CNP * Raymond Suicide Severity Rating Scale (Screener/Recent Self-Report) Question Answer Date of Assessment Author 1. Wish to be (Past 1 Month) No 06/08/2021 4:34 PM EDT Effie Wayne Harris ffy, HELPDESK ANALYST 2. Non-Specific Active Suicidal Thoughts (Past 1 Month) No 06/08/2021 4:34 PM EDT Tone Kandyratna Iglesias ffy, HELPDESK ANALYST 6. Suicidal Behavior (Lifetime) No 06/08/2021 4:34 PM EDT Effie Wayne Harris ffy, HELPDESK ANALYST documented as of this encounter Plan of Treatment Not on file documented as of this encounter Visit Diagnoses Not on filedocumented in this encounter Care Teams Hand Cigar Maker Relationship Specialty Start Date End Date Cecily Jean MD [address] [place] [address] [email or web address] PCP - General Internal Medicine 09/20/20 04/19/22 Lory Morales PA [address] [place] [address]. [place] [address] [email or web address] PCP - General Physician Set Up Mechanic Coating Machines 04/20/22 Eliezer Ndiaye MD [email or web address] Urology 12/09/19 documented as of this encounter Additional Source Comments The information contained in this document represents components of the legal health record. It is not the complete legal health record.[facility]
--- OUTSIDE RECORDS SUMMARY | 2025-01-22 08:11 | XMS_ITS | Encounter Summary ---
Author Organization [facility] Address [address] [place] [address] [place] [address] Phone Care Team Providers Care Fuel Cell Battery Technician Name Role Phone Kalyani Serrano CNP Primary Care Provider + Amanda Kelly MD Primary Care Provider Abrahan Angelo ARCHITECTURAL JOB CAPTAIN Primary Care Provide r Eliezer Ndiaye MD Unavailable [phone] Aurora Trevino ARCHITECTURAL JOB CAPTAIN Primary Care Provider [phone] Amanda Kelly MD Primary Care Provider Kalyani Serrano CNP Primary Care Provider + Cecily Jean MD Primary Care Provider [phone] Lory Morales Primary Care Provider [phone] Encounter Details Date Type Department Care Team (Late st Contact Info) Description 11/14/2017 Ancillary Orders Virtual Department 30 [place] [address] Eliezer Ndiaye MD [facility], [address] [place], [place] [id number] [email or web address] Calculus of ureter Social History Tobacco Use Types Packs/Day Years Used Date Smoking Tobacco: Every Day Cigarettes 0.5 45 Smokeless Tobacco: Never Alcohol Use Standard Drinks/Week Comments Yes 2 (1 standard drink = 0.6 oz pur e alcohol) socially Comments Unknown Sex and Gender Information Value Date Recorded Sex Assigned at Female 01/19/2019 8:11 PM EDT Legal Sex Female 9:55 PM EDT Gender Identity Female 01/19/2019 8:11 PM EDT Sexual Orientation Straight 01/19/2019 8: 11 PM EDT documented as of this encounter Plan of Treatment Not on file documented as of this encounter Visit Diagnoses Diagnosis Calculus of ureter documented in this encounter Additional Health Concerns Infection Onset Date Last Indicated Resolved Time CoV-Risk 11/20/2019 11/20/2019 11/21/2019 9:43 AM EDT CoV-Risk 05/20/2020 05/20/2020 05/30/2020 1:23 AM EST documented as of this encounter Care Teams Fuel Cell Battery Technician Relationship Specialty Start Date End Date Kalyani Serrano CNP [address] [place] [address] [email or web address] PCP - General 01/10/17 03/02/19 Amanda Kelly MD [address] [place] [address] [email or web address] PCP - General Family Medicine 03/03/19 03/04/19 Abrahan Angelo NP [address] [place] [address] PCP - General 03/05/19 12/08/19 Aurora Trevino NP [address] [place] [address] [email or web address] PCP - General Family Medicine 12/09/19 03/23/20 Amanda Kelly MD 15 [facility] [address] [place] [address] PCP - General Family Medicine 03/24/20 05/18/20 Kalyani Serrano CNP [address] [place] [address] [email or web address] PCP - General Family Medicine 05/19/20 09/19/20 Cecily Jean MD [address] [place] [address] [email or web address] PCP - General Internal Medicine 09/20/20 04/19/22 Lory Morales PA [address] [place] [address]. [place] [address] [email or web address] PCP - General Physician Compounding Pharmacy Technician 04/20/22 Eliezer Ndiaye MD [address] [place] [address] [address] [place] [address] [email or web address] Urology 12/09/19 documented as of this encounter Additional Source Comments The information contained in this document represents components of the legal health record. It is not the complete legal health record.[facility]
--- OUTSIDE RECORDS SUMMARY | 2025-01-22 08:11 | XMS_ITS | Encounter Summary ---
Author Organization [facility] Address [address] [facility] [address] [place] [address] Phone Care Team Providers Care Services Advisor Name Role Phone Eliezer Ndiaye MD Unavailable [phone] Kalyani Serrano CNP Primary Care Provider + Cecily Jean MD Primary Care Provider [phone] Lory Morales Primary Care Provider [phone] Encounter Details Date Type Department Care Team (Late st Contact Info) Description 09/16/2020 Procedure Pass [facility] 30 [place] [address] Social History Tobacco Use Types Packs/Day Years [...] on filedocumented in this encounter Care Teams Services Advisor Relationship Specialty Start Date End Date Kalyani Serrano CNP [address] [place] [address] [email or web address] PCP - General Family Medicine 05/19/20 09/19/20 Cecily Jean MD [address] [place] [address] [email or web address] PCP - General Internal Medicine 09/20/20 04/19/22 Lory oMrales PA [address] [place] [address]. [place] [address] [email or web address] PCP - General Physician Erp Developer 04/20/22 Eliezer Ndiaye MD [email or web address] Urology 12/09/19 documented as of this encounter Additional Source Comments The information contained in this document represents components of the legal health record. It is not the complete legal health record.[facility]
--- OUTSIDE RECORDS SUMMARY | 2025-01-22 08:11 | XMS_ITS | Patient Health Record ---
Author Organization [facility] Address [address] [place] [address] Care Team Providers Care Protection Mgr Name Role Phone Oziel Ye Unavailable [phone] Reason For Referral No Information Plan Of Treatment No Information
--- OUTSIDE RECORDS SUMMARY | 2025-01-22 08:11 | XMS_ITS | Encounter Summary ---
Author Organization [facility] Address [address] [facility] [address] [place] [address] Phone Care Team Providers Care Retail Department Supervisor Name Role Phone Eliezer Ndiaye MD Unavailable [phone] Kalyani Serrano CNP Primary Care Provider + Cecily Jean MD Primary Care Provider Lory Morales Primary Care Provider [phone] Encounter Details Date Type Department Care Team (Late st Contact Info) Description 09/16/2020 Procedure Pass Non-Invasive Cardiology 30 [place] [address] Social History Tobacco Use Types Packs/Day Years [...] on filedocumented in this encounter Care Teams Retail Department Supervisor Relationship Specialty Start Date End Date Kalyani Serrano CNP [address] [place] [address] [email or web address] PCP - General Family Medicine 05/19/20 09/19/20 Cecily Jean MD [address] [place] [address] [email or web address] PCP - General Internal Medicine 09/20/20 04/19/22 Lory Morales PA [address] [place] [address]. [place] [address] [email or web address] PCP - General Physician Director Of Teacher Education 04/20/22 Eliezer Ndiaye MD [email or web address] Urology 12/09/19 documented as of this encounter Additional Source Comments The information contained in this document represents components of the legal health record. It is not the complete legal health record.[facility]
--- OUTSIDE RECORDS SUMMARY | 2025-01-22 08:11 | XMS_ITS | Encounter Summary ---
Author Organization [facility] Address [address] [facility] [address] [place] [address] Phone Care Team Providers Care Physical Therapist Aide Name Role Phone Abrahan Angelo DOCK LOADER Primary Care Provide r Eliezer Ndiaye MD Unavailable [phone] Aurora Trevino DOCK LOADER Primary Care Provider [phone] Amanda Kelly MD Primary Care Provider Kalyani Serrano CNP Primary Care Provider + Cecily Jean MD Primary Care Provider [phone] Lory Morales Primary Care Provider [phone] Encounter Details Date Type Department Care Team (Late st Contact Info) Description 11/09/2019 Procedure Pass [facility], Ct Scan - [facility] 30 [place] [address] Social History Tobacco Use Types Packs/Day Years [...] documented as of this encounter Care Teams Physical Therapist Aide Relationship Specialty Start Date End Date Abrahan Angelo NP PCP - General 03/05/19 12/08/19 Aurora Trevino NP 73 [place] [address] [email or web address] PCP - General Family Medicine 12/09/19 03/23/20 Amanda Kelly MD [address] [place] [address] [email or web address] PCP - General Family Medicine 03/24/20 05/18/20 Kalyani Serrano CNP [address] [place] [address] [email or web address] PCP - General Family Medicine 05/19/20 09/19/20 Cecily Jean MD 73 [place] [address] [email or web address] PCP - General Internal Medicine 09/20/20 04/19/22 Lory Morales PA [address] [place] [address] [email or web address] PCP - General Physician Aquatic Centre Manager 04/20/22 Eliezer Ndiaye MD [email or web address] Urology 12/09/19 documented as of this encounter Additional Source Comments The information contained in this document represents components of the legal health record. It is not the complete legal health record.[facility]
--- OUTSIDE RECORDS SUMMARY | 2025-01-22 08:11 | XMS_ITS | Encounter Summary ---
Author Organization [facility] Address [address] [place] [address] Phone Care Team Providers Care Dermatology Specialist Name Role Phone Kalyani Serrano CNP Primary Care Provider + Amanda Kelly MD Primary Care Provider [phone] Abrahan Angelo HVAC OPERATIONS TECHNICIAN Primary Care Provide r Eliezer Ndiaye MD Unavailable [phone] Aurora Trevino HVAC OPERATIONS TECHNICIAN Primary Care Provider [phone] Amanda Kelly MD Primary Care Provider Kalyani Serrano CNP Primary Care Provider + Cecily Jean MD Primary Care Provider [phone] Lory Morales Primary Care Provider [phone] Encounter Details Date Type Department Care Team (Late st Contact Info) Description 01/20/2019 Procedure Pass [place] Admitting Dept - Virtual Department 30 [place], [place] [id number] Social History Tobacco Use Types Packs/Day Years [...] documented as of this encounter Care Teams Dermatology Specialist Relationship Specialty Start Date End Date Kalyani Serrano CNP [address] [place] [address] [email or web address] PCP - General 01/10/17 03/02/19 Amanda Kelly MD [address] [place] [address] PCP - General Family Medicine 03/03/19 03/04/19 Abrahan Angelo, JOEY [address] [place] [address] PCP - General 03/05/19 12/08/19 Aurora Trevino, JOEY [address] [place] [address] [email or web address] PCP - General Family Medicine 12/09/19 03/23/20 Amanda Kelly MD [address] [address] PCP - General Family Medicine 03/24/20 05/18/20 Kalyani Serrano CNP [address] [place] [address] [email or web address] PCP - General Family Medicine 05/19/20 09/19/20 Cecily Jean MD [address] [place] [address] [email or web address] PCP - General Internal Medicine 09/20/20 04/19/22 Lory Morales PA [address] [place] [address] [email or web address] PCP - General Physician Orchestra Leader 04/20/22 Eliezer Ndiaye MD [address] [place] [address] [email or web address] Urology 12/09/19 documented as of this encounter Additional Source Comments The information contained in this document represents components of the legal health record. It is not the complete legal health record.[facility]
--- OUTSIDE RECORDS SUMMARY | 2025-01-22 08:11 | XMS_ITS | Encounter Summary ---
Author Organization [facility] Address [address] [place] [address] [address] [place] [address] Phone Care Team Providers Care Slip Cover Seamstress Name Role Phone Kalyani Serrano CNP Primary Care Provider + Amanda Kelly MD Primary Care Provider Abrahan Angelo ENTREPRENEURSHIP PROGRAM DIRECTOR Primary Care Provide r Eliezer Ndiaye MD Unavailable [phone] Aurora Trevino ENTREPRENEURSHIP PROGRAM DIRECTOR Primary Care Provider [phone] Amanda Kelly MD Primary Care Provider Kalyani Serrano CNP Primary Care Provider + Cecily Jean MD Primary Care Provider [phone] Lory Morales Primary Care Provider [phone] Encounter Details Date Type Department Care Team (Late st Contact Info) Description 01/23/2019 Ancillary Orders [facility], X-Ray - [facility] [address] [place] [address] Placido Groves MD [address] [facility], [address] [place], [place] [id number] [email or web address] Unspecified renal colic; Calculus of ureter Social History Tobacco Use [...] documented as of this encounter Results * XR ABDOMEN 1 VIEW (01/23/2019 3:32 PM EDT) Anatomical Region Laterality Modality Abdomen Radiographic Joycelyn ging 01/23/2019 3:34 PM EDT Addenda Addendum by Eugene Farrar MD on 02/23/2019 11:02 AM EST COMPARISON: CT abdomen and pelvis December >>> <<<2018. FINDINGS: A supine film of the abdomen is obtained. The previously present double J stent which presumably was in the left renal pelvis and the urinary bladder has now retracted down into the bladder. No upper urinary tract calculi are delineated. I cannot confirm a ureteral calculus currently either. IMPRESSION: Previously placed double-J urinary tract catheter has retracted down to be completely within the urinary bladder. No urinary tract calculus disease >>> IS <<< definitively confirmed. S/S: X-ray kub. Follow-up left ureteral calculus, double-J stent placement. POS - [id number] Edited by: Janet Lim on 02/09/2019 6:28 PM Impressions 01/23/2019 3:37 PM EDT Previously placed double-J urinary tract catheter has retracted down to be completely within the urinary bladder. No urinary tract calculus disease isn't definitively confirmed. S/S: xray kub. Follow-up left ureteral calculus, double-J stent placement POS - [id number] Narrative 01/23/2019 3:37 PM EDT COMPARISON: CT abdomen and pelvis January 11, 2019 FINDINGS: A supine film the abdomen is obtained. The previously present double J stent which presumably was in the left renal pelvis and the urinary bladder has now retracted down into the bladder. No upper urinary tract calculi are delineated. I cannot confirm a ureteral calculus currently either. Procedure Note Eugene Farrar MD - 01/23/2019 COMPARISON: CT abdomen and pelvis January 11, 2019 FINDINGS: A supine film the abdomen is obtained. The previously present double Jstent which presumably was in the left renal pelvis and the urinarybladder has now retracted down into the bladder. No upper urinary tract calculi are delineated. I cannot confirm a ureteralcalculus currently either. IMPRESSION: Previously placed double-J urinary tract catheter has retracted down to becompletely within the urinary bladder. No urinary tract calculus disease isn't definitively confirmed. S/S: xray kub. Follow-up left ureteral calculus, double-J stentplacement POS - [id number] Placido Groves MD IMG XR ABDOMEN Edited Result - Final documented in this encounter Visit Diagnoses Diagnosis Unspecified renal colic Calculus of ureter Unspecified renal colic Calculus of ureter documented in this encounter Additional Health Concerns Infection Onset Date Last Indicated Resolved Time CoV-Risk 11/20/2019 11/20/2019 11/21/2019 9:43 AM EDT CoV-Risk 05/20/2020 05/20/2020 05/30/2020 1:23 AM EST documented as of this encounter Care Teams Slip Cover Seamstress Relationship Specialty Start Date End Date Kalyani Serrano CNP [address] [place] [address] [email or web address] PCP - General 01/10/17 03/02/19 Amanda Kelly MD [address] [place] [address] PCP - General Family Medicine 03/03/19 03/04/19 Abrahan Angelo, JOEY [address] [place] [address] PCP - General 03/05/19 12/08/19 Aurora Trevino NP [address] [place] [address] [email or web address] PCP - General Family Medicine 12/09/19 03/23/20 Amanda Kelly MD [address] [place] [address] PCP - General Family Medicine 03/24/20 05/18/20 Kalyani Serrano CNP [address] [place] [address] [email or web address] PCP - General Family Medicine 05/19/20 09/19/20 Cecily Jean MD [address] [place] [address] [email or web address] PCP - General Internal Medicine 09/20/20 04/19/22 Lory Morales PA [address] [place] [address] [email or web address] PCP - General Physician Band Splicer 04/20/22 Eliezer Ndiaye MD [address] [place] [address] [email or web address] Urology 12/09/19 documented as of this encounter Additional Source Comments The information contained in this document represents components of the legal health record. It is not the complete legal health record.[facility]
--- OUTSIDE RECORDS SUMMARY | 2025-01-22 08:12 | XMS_ITS | Encounter Summary ---
Author Organization [facility] Address [address] [facility] [place] [address] Phone Care Team Providers Care Lamp Developer Name Role Phone Eliezer Ndiaye MD Unavailable [phone] Kalyani Serrano CNP Primary Care Provider + Cecily Jean MD Primary Care Provider [phone] Lory Morales Primary Care Provider [phone] Encounter Details Date Type Department Care Team (Late st Contact Info) Description 09/14/2020 Procedure Pass [facility], [address] [address] Social History Tobacco Use Types Packs/Day Years [...] Date of Assessment Author No Risk Indicated 09/14/2020 10:26 AM EDT Rohini Roblero RN * [place] Suicide Severity Rating Scale (Screener/Recent Self-Report) Question Answer Date of Assessment Author 1. Wish to be (Past 1 Month) No 021 10:26 AM EDRohini Ambriz, DEE 2. Non-Specific Active Suici harrison Thoughts (Past 1 Month) No 09/14/2020 10:26 AM ELVIET Terri Roblero RN 6. Suicidal Behavior (Lifetime) No 10:26 AM EDT Rohini Roblero, DEE documented as of this encounter Plan of Treatment Not on file documented as of this encounter Visit Diagnoses Not on filedocumented in this encounter Care Teams Lamp Developer Relationship Specialty Start Date End Date Kalyani Serrano CNP [address] [place] [address] [email or web address] PCP - General Family Medicine 05/19/20 09/19/20 Cecily Jean MD [address] [place] [address] [email or web address] PCP - General Internal Medicine 09/20/20 04/19/22 Lory Morales PA [address] [place] [address]. [place] [address] [email or web address] PCP - General Physician Salt Maker 04/20/22 Eliezer Ndiaye MD Urology 12/09/19 documented as of this encounter Additional Source Comments The information contained in this document represents components of the legal health record. It is not the complete legal health record.[facility]
--- OUTSIDE RECORDS SUMMARY | 2025-01-22 08:12 | XMS_ITS | Encounter Summary ---
Author Organization [facility] Address [address] [place] [address] Phone Care Team Providers Care Biofuels Engineering Manager Name Role Phone Kalyani Serrano CNP Primary Care Provider + Amanda Kelly MD Primary Care Provider Abrahan Angelo DRAGLINE MECHANIC Primary Care Provide r Eliezer Ndiaye MD Unavailable [phone] Aurora Trevino DRAGLINE MECHANIC Primary Care Provider [phone] Amanda Kelly MD Primary Care Provider Kalyani Serrano CNP Primary Care Provider + Cecily Jean MD Primary Care Provider Lory Morales Primary Care Provider Encounter Details Date Type Department Care Team (Late st Contact Info) Description 10/30/2017 Procedure Pass [place] Admitting Dept - Virtual Department 30 [place], [place] [id number] Social History Tobacco Use Types Packs/Day Years [...] documented as of this encounter Care Teams Biofuels Engineering Manager Relationship Specialty Start Date End Date Kalyani Serrano CNP [address] [place] [address] maria [email or web address] PCP - General 01/10/17 03/02/19 Amanda Kelly MD [address] [place] [address] PCP - General Family Medicine 03/03/19 03/04/19 Abrahan Angelo, JOEY [address] [place] [address] PCP - General 03/05/19 12/08/19 Aurora Trevino, JOEY [address] [place] [address] [email or web address] PCP - General Family Medicine 12/09/19 03/23/20 Amanda Kelly MD [address] [address] PCP - General Family Medicine 03/24/20 05/18/20 Kalyani Serrano CNP [address] [place] [address] [email or web address] PCP - General Family Medicine 05/19/20 09/19/20 Cecily Jean MD 73 [place] [address] [email or web address] PCP - General Internal Medicine 09/20/20 04/19/22 Lory Morales PA [address] [facility] [place] [address] [email or web address] PCP - General Physician Director Integrated 04/20/22 Eliezer Ndiaye MD [address] [place] [address] [email or web address] Urology 12/09/19 documented as of this encounter Additional Source Comments The information contained in this document represents components of the legal health record. It is not the complete legal health record.[facility]
--- OUTSIDE RECORDS SUMMARY | 2025-01-22 08:12 | XMS_ITS | Encounter Summary ---
Author Organization [facility] Address [address] [facility] [address] [place] [address] Phone Care Team Providers Care Department Specialist Name Role Phone Eliezer Ndiaye MD Unavailable [phone] Kalyani Serrano CNP Primary Care Provider + Cecily Jean MD Primary Care Provider [phone] Lory Morales Primary Care Provider Encounter Details Date Type Department Care Team (Late st Contact Info) Description 09/14/2020 Procedure Pass [facility], Ct Scan - [address] [address] Social History Tobacco Use Types Packs/Day Years [...] 10:26 AM EDT Rohini Roblero RN * [place] Suicide Severity Rating Scale (Screener/Recent Self-Report) Question Answer Date of Assessment Author 1. Wish to be (Past 1 Month) No 021 10:26 AM EDT Rohini Roblero, DEE 2. Non-Specific Active Suici harrison Thoughts (Past 1 Month) No 09/14/2020 10:26 AM ELVIET Terri Roblero RN 6. Suicidal Behavior (Lifetime) No 10:26 AM EDT Rohini Roblero, DEE documented as of this encounter Plan of Treatment Not on file documented as of this encounter Visit Diagnoses Not on filedocumented in this encounter Care Teams Department Specialist Relationship Specialty Start Date End Date Kalyani Serrano CNP [address] [place] [address] [email or web address] PCP - General Family Medicine 05/19/20 09/19/20 Cecily Jean MD [address] [place] [address] [email or web address] PCP - General Internal Medicine 09/20/20 04/19/22 Lory Morales PA [address] [place] [address]. [place] [address] [email or web address] PCP - General Physician Cloth Reeler 04/20/22 Eliezer Ndiaye MD Urology 12/09/19 documented as of this encounter Additional Source Comments The information contained in this document represents components of the legal health record. It is not the complete legal health record.[facility]
--- OUTSIDE RECORDS SUMMARY | 2025-01-22 08:12 | XMS_ITS | Encounter Summary ---
Author Organization [facility] Address [address] [place] [address] [place] [address] Phone Care Team Providers Care Bell Tier Name Role Phone Kalyani Serrano CNP Primary Care Provider + Amanda Kelly MD Primary Care Provider Abrahan Angelo LINTER TENDER Primary Care Provide r Eliezer Ndiaye MD Unavailable [phone] Aurora Trevino LINTER TENDER Primary Care Provider [phone] Amanda Kelly MD Primary Care Provider Kalyani Serrano CNP Primary Care Provider + Cecily Jean MD Primary Care Provider Lory Morales Primary Care Provider Encounter Details Date Type Department Care Team (Latest Contact Info) Description 10/30/2017 Transcribe Orders [facility] Specimen Processing 30 [place] [address] Eliezer Ndiaye MD [facility], [address] [place], [place] [address] [email or web address] Left ureteral stone (Primary Dx) Social History Tobacco Use [...] of this encounter Results * Stone analysis (10/30/2017 9:08 AM EDT) SOURCE Left Kidney RENEE BOJORQUEZ T LAB MED/PATH SUPERIOR KRUSE 1ST CONSTITUENT 100% Calcium oxalate dihydrate [facility] IRLANDA MOREJON/PATH SUPERIOR KRUSE Comment: (NOTE) ADDITIONAL INFORMATION This test was developed and its performance characteristics determined by [facility] in a manner consistent with CLIA requirements. This test has not been cleared or approved by the U.S. Food and Drug Administration. 2ND CONSTITUENT Test component not applicable or not reported. RENEE BOJORQUEZT IRLANDA MOREJON/MELVA MONTALVO DR 3RD CONSTITUENT Test component not applicable or not reported. [facility] LAB JEAN-PIERRE/MELVA SHANE, MAJOR Test component not applicable or not reported. [facility] IRLANDA MOREJON/MELVA SHANE, MINOR Test component not applicable or not reported. [facility] IRLANDA MOREJON/MELVA ROBLEDO, MAJOR Test component not applicable or not reported. [facility] LAB MED/PATH SUPERIOR DR ROBLEDO, MINOR Test component not applicable or not reported. [facility] LAB MED/PATH SUPERIOR KRUSE COMMENT Test component not applicable or not reported. [facility] JEAN-PIERRE/PATH SUPERIOR KRUSE Other (Left Kidney) 10/30/2017 9:08 AM EDT 10/30/2017 11:03 AM EDT us Eliezer Ndiaye MD BODY FLUIDS AND STOOLS ORDERABL ES Final Result [facility] LAB MED/PATH SUPERIOR KRUSE [address] [place] [address] documented in this encounter Visit Diagnoses Diagnosis Left ureteral stone- Primary documented in this encounter Additional Health Concerns Infection Onset Date Last Indicated Resolved Time CoV-Risk 11/20/2019 11/20/2019 11/21/2019 9:43 AM EDT CoV-Risk 05/20/2020 05/20/2020 05/30/2020 1:23 AM EST documented as of this encounter Care Teams Bell Tier Relationship Specialty Start Date End Date Kalyani Serrano CNP [address] [place] [address] [email or web address] PCP - General 01/10/17 03/02/19 Amanda Kelly MD [address] [address] [email or web address] PCP - General Family Medicine 03/03/19 03/04/19 Abrahan Angelo, JOEY [address] [address] PCP - General 03/05/19 12/08/19 Aurora Trevino, JOEY [address] [place] [address] [email or web address] PCP - General Family Medicine 12/09/19 03/23/20 Amanda Kelly MD [address] [address] PCP - General Family Medicine 03/24/20 05/18/20 Kalyani Serrano CNP [address] [place] [address] [email or web address] PCP - General Family Medicine 05/19/20 09/19/20 Cecily Jean MD 73 [place] [address] [email or web address] PCP - General Internal Medicine 09/20/20 04/19/22 Lory Morales PA [address] [facility] [place] [address] [email or web address] PCP - General Physician Shotblast Operator 04/20/22 Eliezer Ndiaye MD [address] [place] [address] [email or web address] Urology 12/09/19 documented as of this encounter Additional Source Comments The information contained in this document represents components of the legal health record. It is not the complete legal health record.[facility]
--- OUTSIDE RECORDS SUMMARY | 2025-01-22 08:12 | XMS_ITS | Encounter Summary ---
Author Organization [facility] Address [address] [facility] [address] [place] [address] Phone Care Team Providers Care Supervisory Forester Name Role Phone Eliezer Ndiaye MD Unavailable [phone] Kalyani Serrano CNP Primary Care Provider + Cecily Jean MD Primary Care Provider [phone] Lory Morales Primary Care Provider [phone] Encounter Details Date Type Department Care Team (Late st Contact Info) Description 09/14/2020 Procedure Pass [facility], [address] [address] Social History Tobacco Use Types Packs/Day Years [...] 10:26 AM EDT Rohini Roblero RN * [place] Suicide Severity Rating Scale (Screener/Recent Self-Report) Question [...] on filedocumented in this encounter Care Teams Supervisory Forester Relationship Specialty Start Date End Date Kalyani Serrano CNP [address] [place] [address] [email or web address] [email or web address] PCP - General Family Medicine 05/19/20 09/19/20 Cecily Jean MD [address] [place] [address] [email or web address] PCP - General Internal Medicine 09/20/20 04/19/22 Lory Morales PA [address] [place] [address]. [place] [address] [email or web address] PCP - General Physician Patient Observation Assistant 04/20/22 Eliezer Ndiaye MD Urology 12/09/19 documented as of this encounter Additional Source Comments The information contained in this document represents components of the legal health record. It is not the complete legal health record.[facility]
--- OUTSIDE RECORDS SUMMARY | 2025-01-22 08:12 | XMS_ITS | Encounter Summary ---
Author Organization [facility] Address [address] [facility] [address] [place] [address] Phone Care Team Providers Care Instructional Technology Coordinator Name Role Phone Eliezer Ndiaye MD Unavailable [phone] Kalyani Serrano CNP Primary Care Provider + Cecily Jean MD Primary Care Provider [phone] Lory Morales Primary Care Provider [phone] Encounter Details Date Type Department Care Team (Late st Contact Info) Description 09/14/2020 Procedure Pass [facility] Echo Lab [address] [place] [address] Social History Tobacco Use Types Packs/Day Years [...] 10:26 AM EDT Rohini Roblero RN * [place] Suicide Severity Rating Scale (Screener/Recent Self-Report) Question Answer Date of Assessment Author 1. Wish to be (Past 1 Month) No 021 10:26 AM Rohini Vance, DEE 2. Non-Specific Active Suici harrison Thoughts (Past 1 Month) No 09/14/2020 10:26 AM Terri Vance RN 6. Suicidal Behavior (Lifetime) No 10:26 AM Rohini Vance, RN documented as of this encounter Plan of Treatment Not on file documented as of this encounter Visit Diagnoses Not on filedocumented in this encounter Care Teams Instructional Technology Coordinator Relationship Specialty Start Date End Date Kalyani Serrano CNP [address] [place] [address] [email or web address] PCP - General Family Medicine 05/19/20 09/19/20 Cecily Jean MD [address] [place] [address] [email or web address] PCP - General Internal Medicine 09/20/20 04/19/22 Lory Morales PA [address] [place] [address]. [place] [address] [email or web address] PCP - General Physician Manager Project Management 04/20/22 Eliezer Ndiaye MD [email or web address] Urology 12/09/19 documented as of this encounter Additional Source Comments The information contained in this document represents components of the legal health record. It is not the complete legal health record.[facility]
--- OUTSIDE RECORDS SUMMARY | 2025-01-22 08:12 | XMS_ITS | Encounter Summary ---
Author Organization [facility] Address [address] [place] [address] Phone Care Team Providers Care Electric Motor Control Assembler Name Role Phone Eliezer Ndiaye MD Unavailable [phone] Amanda Kelly MD Primary Care Provider Kalyani Serrano CNP Primary Care Provider + Cecily Jean MD Primary Care Provider [phone] Lory Morales Primary Care Provider [phone] Encounter Details Date Type Department Care Team (Late st Contact Info) Description 05/16/[address] [facility], Ct Scan - [address] [address] Social History Tobacco Use Types Packs/Day Years [...] Date of Assessment Author No Risk Indicated 05/16/2020 8:14 PM Win Thurston, DEE * Lyman Suicide Severity Rating Scale (Screener/Recent Self-Report) Question Answer Date of Assessment Author 1. Wish to be (Past 1 Month) No 021 8:14 PM EST Win Harmon RN 2. Non-Specific Active Suici harrison Thoughts (Past 1 Month) No 05/16/2020 8:14 PM EST Aniket Harmon RN 6. Suicidal Behavior (Lifetime) No 8:14 PM EST Win Harmon RN documented as of this encounter Plan of Treatment Not on file documented as of this encounter Visit Diagnoses Not on filedocumented in this encounter Additional Health Concerns Infection Onset Date Last Indicated Resolved Time CoV-Risk 05/20/2020 05/20/2020 05/30/2020 1:23 AM EST documented as of this encounter Care Teams Electric Motor Control Assembler Relationship Specialty Start Date End Date Amanda Kelly MD [address] [place] [phone] [email or web address] PCP - General Family Medicine 03/24/20 05/18/20 Kalyani Serrano CNP [address] [place] [address] [email or web address] PCP - General Family Medicine 05/19/20 09/19/20 Cecily Jean MD [address] [place] [address] [email or web address] PCP - General Internal Medicine 09/20/20 04/19/22 Lory Morales PA [address] [facility] [place] [address] [email or web address] PCP - General Physician Rabbit Fancier 04/20/22 Eliezer Ndiaye MD [email or web address] Urology 12/09/19 documented as of this encounter Additional Source Comments The information contained in this document represents components of the legal health record. It is not the complete legal health record.[facility]
--- OUTSIDE RECORDS SUMMARY | 2025-01-22 08:12 | XMS_ITS | Encounter Summary ---
Author Organization [employer] Address [address] [place] [address] Care Team Providers Care Sales Consultant Insurance Name Role Phone Lory Morales PA-C Primary Care Provider Joycelyn Sprague Unavailable Unavailable Inactive/Transferred Primary Care Provider Unava [email or web address] Encounter Details Date Type Department Care Team (Late st Contact Info) Description 10/20/2024 Orders Only [facility] [address] [place], [place] [id number] Pcp, Roshan Unassigned Social History Tobacco Use Types Packs/Day Years [...] on file documented as of this encounter Procedures Procedure Name Priority Date/Time Associated Diagnosis Comments ECG 12-LEAD Routine 10/08/2024 6:09 PM EDT BASIC METABOLIC PANEL Routine 10/08/2024 6:08 PM EDT documented in this encounter Results * ECG 12 lead (10/08/2024 6:09 PM EDT) us Islas Unassigned Pcp ECG ORDERABLES Final Re sult * Basic Metabolic Panel (10/08/2024 6:08 PM EDT) Blood Venous blood specimen / Unknown us Islas Unassigned Pcp LAB BLOOD ORDERABLES Fin al Result documented in this encounter Visit Diagnoses Not on filedocumented in this encounter Additional Health Concerns Assessment Noted Time PHQ-9 Depression Total Score: 13 024 10:58 AM EDT documented as of this encounter Care Teams Sales Consultant Insurance Relationship Specialty Start Date End Date Lory Morales PA-C PCP - General Family Medicine 07/03/22 10/20/24 Inactive/Transferred PCP - General 10/21/24 10/21/24 Joycelyn [facility] Health Navigator 06/19/24 documented as of this encounter
--- OUTSIDE RECORDS SUMMARY | 2025-01-22 08:12 | XMS_ITS | Encounter Summary ---
Author Organization [facility] Address [address] [place] [phone] Phone Care Team Providers Care Washer Engineer Name Role Phone Eliezer Ndiaye MD Unavailable [phone] Kalyani Serrano CNP Primary Care Provider + Cecily Jean MD Primary Care Provider [phone] Lory Morales Primary Care Provider [phone] Encounter Details Date Type Department Care Team (Latest Contact Info) Description 06/30/2020 Transcribe Orders Virtual Department [address] [place] [address] Placido Groves MD [address] [place] [address], [address] [address] [email or web address] Calculus of kidney (Primary Dx) Social History Tobacco Use Types [...] this encounter Visit Diagnoses Diagnosis Calculus of kidney- Primary documented in this encounter Care Teams Washer Engineer Relationship Specialty Start Date End Date Kalyani Serrano CNP [address] [place] [address] [email or web address] PCP - General Family Medicine 05/19/20 09/19/20 Cecily Jean MD [address] [place] [address] [email or web address] PCP - General Internal Medicine 09/20/20 04/19/22 Lory Morales PA [address] [facility] [address] [email or web address] PCP - General Physician Manager Crisis 04/20/22 Eliezer Ndiaye MD [email or web address] Urology 12/09/19 documented as of this encounter Additional Source Comments The information contained in this document represents components of the legal health record. It is not the complete legal health record.[facility]
--- OUTSIDE RECORDS SUMMARY | 2025-01-22 08:12 | XMS_ITS | Encounter Summary ---
Author Organization [facility] Address [address] [facility] [address] [place] [phone] Phone Care Team Providers Care Purchasing Manager Name Role Phone Kalyani Serrano CNP Primary Care Provider + Amanda Kelly MD Primary Care Provider Abrahan Angelo SCHOOL LEADER Primary Care Provide r Eliezer Ndiaye MD Unavailable [phone] Aurora Trevino SCHOOL LEADER Primary Care Provider [phone] Amanda Kelly MD Primary Care Provider Kalyani Serrano CNP Primary Care Provider + Cecily Jean MD Primary Care Provider [phone] Lory Morales Primary Care Provider [phone] Encounter Details Date Type Department Care Team (Late st Contact Info) Description 10/12/2017 Procedure Pass [facility], Ct Scan - [facility] [address] [place] [address] Social History Tobacco Use Types Packs/Day Years [...] documented as of this encounter Care Teams Purchasing Manager Relationship Specialty Start Date End Date Kalyani Serrano CNP [address] [place] [address] [email or web address] PCP - General 01/10/17 03/02/19 Amanda Kelly MD [address] [place] [address] PCP - General Family Medicine 03/03/19 03/04/19 Abrahan Angelo, JOEY [address] [place] [address] PCP - General 03/05/19 12/08/19 Aurora Trevino, JOEY [address] [place] [address] [email or web address] PCP - General Family Medicine 12/09/19 03/23/20 Amanda Kelly MD [address] [address] PCP - General Family Medicine 03/24/20 05/18/20 Kalyani Serrano CNP [address] [place] [address] [email or web address] PCP - General Family Medicine 05/19/20 09/19/20 Cecily Jean MD [address] [place] [address] [email or web address] PCP - General Internal Medicine 09/20/20 04/19/22 Lory Morales PA [address] [place] [address] [email or web address] PCP - General Physician Inside Outside Sales Representative 04/20/22 Eliezer Ndiaye MD [address] [place] [address] [email or web address] Urology 12/09/19 documented as of this encounter Additional Source Comments The information contained in this document represents components of the legal health record. It is not the complete legal health record.[facility]
--- OUTSIDE RECORDS SUMMARY | 2025-01-22 08:12 | XMS_ITS | Encounter Summary ---
Author Organization [facility] Address [address] [place] [address] [place] [address] Phone Care Team Providers Care Ecommerce Merchandising Manager Name Role Phone Kalyani Serrano CNP Primary Care Provider + Amanda Kelly MD Primary Care Provider [phone] Abrahan Angelo DELIVERY PERSON Primary Care Provide r Eliezer Ndiaye MD Unavailable [phone] Aurora Trevino DELIVERY PERSON Primary Care Provider [phone] Amanda eKlly MD Primary Care Provider Kalyani Serrano CNP Primary Care Provider + Cecily Jean MD Primary Care Provider Lory Morales Primary Care Provider [phone] Encounter Details Date Type Department Care Team (Late st Contact Info) Description 03/23/2017 Ancillary Orders [facility], X-Ray - [address] [address] Kalyani Serrano CNP [address] [place] [address] [email or web address] Cough Social History Tobacco Use Types Packs/Day Years [...] as of this encounter Results * XR CHEST PA AND LATERAL 2 VIEWS (03/23/2017 10:50 AM EST) Anatomical Region Laterality Modality Chest Radiographic Joycelyn ging 03/23/2017 11:5 4 AM EST Impressions 03/23/2017 11:57 AM EST Mild hyperinflation suggestive of COPD, but no evidence of acute cardiopulmonary disease. POS - [id number] Narrative 03/23/2017 11:57 AM EST HISTORY: Cough and fatigue. COMPARISON: Chest x-rays 05/28/2016 and 04/15/2011. FINDINGS: PA and lateral views of the chest obtained. Mild bilateral hyperinflation similar to previous exams. No evidence of focal infiltrates, pleural effusions or pulmonary edema. No pneumothorax. Great vessel and cardiomediastinal contours are stable. Heart size remains normal. No other significant changes. Procedure Note Tavares Presley MD - 03/23/2017 HISTORY: Cough and fatigue. COMPARISON: Chest x-rays 05/28/2016 and 04/15/2011. FINDINGS: PA and lateral views of the chest obtained. Mild bilateral hyperinflation similar to previous exams. No evidence offocal infiltrates, pleural effusions or pulmonary edema. No pneumothorax.Great vessel and cardiomediastinal contours are stable. Heart sizeremains normal. No other significant changes. IMPRESSION: Mild hyperinflation suggestive of COPD, but no evidence of acutecardiopulmonary disease. POS - [id number] Kalyani Serrano SCRAP IRON CUTTER IMG XR CHEST Final Re sult documented in this encounter Visit Diagnoses Diagnosis Cough Cough documented in this encounter Additional Health Concerns Infection Onset Date Last Indicated Resolved Time CoV-Risk 11/20/2019 11/20/2019 11/21/2019 9:43 AM EDT CoV-Risk 05/20/2020 05/20/2020 05/30/2020 1:23 AM EST documented as of this encounter Care Teams Ecommerce Merchandising Manager Relationship Specialty Start Date End Date Kalyani Serrano CNP [address] [place] [address] [email or web address] PCP - General 01/10/17 03/02/19 Amanda Kelly MD [address] [facility] [address] [place] [address] [email or web address] PCP - General Family Medicine 03/03/19 03/04/19 Abrahan Angelo, JOEY [address] [facility] [address] [place] [address] PCP - General 03/05/19 12/08/19 Aurora Trevino, JOEY [address] [place] [address] [email or web address] PCP - General Family Medicine 12/09/19 03/23/20 Amanda Kelly MD [address] [address] [email or web address] PCP - General Family Medicine 03/24/20 05/18/20 Kalyani Serrano CNP [address] [place] [address] [email or web address] PCP - General Family Medicine 05/19/20 09/19/20 Cecily Jean MD [address] [place] [address] [email or web address] PCP - General Internal Medicine 09/20/20 04/19/22 Lory Morales PA [address] [place] [address]. [place] [address] [email or web address] PCP - General Physician Reimbursement Counselor 04/20/22 Eliezer Ndiaye MD [address] [place] [address] [email or web address] Urology 12/09/19 documented as of this encounter Additional Source Comments The information contained in this document represents components of the legal health record. It is not the complete legal health record.[facility]
--- OUTSIDE RECORDS SUMMARY | 2025-01-22 08:12 | XMS_ITS | Encounter Summary ---
Author Organization [facility] Address [address] [place] [address] Phone Care Team Providers Care Aesthetics Instructor Name Role Phone Kalyani Serrano CNP Primary Care Provider + Amanda Kelly MD Primary Care Provider [phone] Abrahan Angelo SHEARER SCREEN MEASURER AND TRIMMER Primary Care Provide r Eliezer Ndiaye MD Unavailable [phone] Aurora Trevino SHEARER SCREEN MEASURER AND TRIMMER Primary Care Provider [phone] Amanda Kelly MD Primary Care Provider Kalyani Serrano CNP Primary Care Provider + Cecily Jean MD Primary Care Provider [phone] Lory Morales Primary Care Provider Encounter Details Date Type Department Care Team (Late st Contact Info) Description 10/12/2017 Procedure Pass [place] Admitting Dept - Virtual Department [address] [place], [place] [phone] Social History Tobacco Use Types Packs/Day Years [...] documented as of this encounter Care Teams Aesthetics Instructor Relationship Specialty Start Date End Date Kalyani Serrano CNP [address] [place] [address] [email or web address] PCP - General 01/10/17 03/02/19 Amanda Kelly MD [address] [place] [address] PCP - General Family Medicine 03/03/19 03/04/19 Abrahan Angelo, JOEY [address] [place] [address] PCP - General 03/05/19 12/08/19 Aurora Trevino, JOEY [address] [place] [address] [email or web address] PCP - General Family Medicine 12/09/19 03/23/20 Amanda Kelly MD [address] [address] PCP - General Family Medicine 03/24/20 05/18/20 Kalyani Serrano CNP [address] [place] [address] [email or web address] PCP - General Family Medicine 05/19/20 09/19/20 Cecily Jean MD [address] [place] [address] [email or web address] PCP - General Internal Medicine 09/20/20 04/19/22 Lory Morales PA [address] [facility] [address] [email or web address] PCP - General Physician Mink Slicer 04/20/22 Eliezer Ndiaye MD [address] [place] [address] [email or web address] Urology 12/09/19 documented as of this encounter Additional Source Comments The information contained in this document represents components of the legal health record. It is not the complete legal health record.[facility]
--- OUTSIDE RECORDS SUMMARY | 2025-01-22 08:12 | XMS_ITS | Clinical Summary ---
Author Organization [facility] Address [address] [place] [address] Phone Care Team Providers Care Credit Risk Manager Name Role Phone Eliezer Ndiaye MD Unavailable [phone] Lory Morales Primary Care Provider [phone] Allergies Active Allergy Reactions Criticality Noted Date Comments Lorazepam Hallucinations High 11/14/2019 When in hospital snd combined with pain meds Medications metFORMIN (GLUCOPHAGE) 1000 MG tabletIndicatio ns:type 2 diabetes mellitus Take 1,000 mg by mouth 2 (two) times a day with meals. Indications: type 2 diabetes mellitus Active insulin NPH (HUMULIN N,NOVOLIN N) 100 unit/mL injection vial Inject 10 Units under the skin daily before breakfast. Active insulin NPH (HUMULIN N,NOVOLIN N) 100 unit/mL injection vial Inject 10 Units under the skin nightly at bedtime. Active acetaminophen (TYLENOL) 325 mg tablet Take 2 tablets (650 mg total) by mouth every 6 (six) hours as needed for mild pain or fever. 0 2 Active simvastatin (ZOCOR) 40 MG tablet Take 40 mg by mouth nightly at bedtime. Active nicotine (NICODERM CQ) 14 mg/[address] 1 patch onto the skin daily. Apply to a clean, dry, hairless site on the upper arm or hip. 14 patch 1 2 Active Additional Information Patient not taking.Reported on 05/22/2022 traMADoL (ULTRAM) 50 mg tablet Take 1 tablet (50 mg total) by mouth every 6 (six) hours as needed for pain (specific location in comments) (severe pain). 6 tablet 3 Active Additional Information Patient not taking.Reported on 06/29/2022 oxyCODONE 5 MG immediate release tablet Take 1 tablet (5 mg total) by mouth every 6 (six) hours as needed. Partial fill ok 10 tablet 3 Active phenazopyridine (PYRIDIUM) 100 MG tablet Take 1 tablet (100 mg total) by mouth 3 (three) times a day as needed for pain (specific location in comments). 10 tablet 3 Active Active Problems Problem Noted Date Diagnosed Date History of UTI 05/29/2022 Disorder due to ureteral stent 03/01/2022 UTI (urinary tract infection) 02/28/2022 Assessment & Plan (03/02/2022 7:18 PM EST): Presented with urinary symptoms, positive UA, urine culture growing E. coli -Today she is afebrile, no leukocytosis, normal lactate -Has been started on IV Rocephin, narrow based on susceptibilities Pyelonephritis 06/08/2021 Assessment & Plan (06/11/2021 3:08 PM EDT): Patient has a complicated urological history with multiple episodes of obstructive nephrolithiasis requiring stents with and without UTIs and urosepsis in 2018. Pyelonephritis on CT. No obstructing stone seen no hydronephrosis. 06/09 changed to ampicillin -- urine culture from urologist office Enterococcus faecalis resistant to ciprofloxacin Levaquin tetracycline vancomycin, sensitive to nitrofurantoin penicillin ampicillin. Urology saw patient due to complex history Have been using morphine and oxycodone for pain. Switch to oxycodone alone today No longer febrile looks improved appetite improved white count normal today Discussed discharge today, she feels concerned about going today if stable agrees with discharge tomorrow Switch to amoxicillin Renal colic on left side 05/30/2021 Left ureteral stone 05/30/2021 Intractable pain 05/29/2021 Assessment & Plan (05/30/2021 11:46 AM EST): Intractable flank pain due to ureteral stent. She states that this has been a problem in the past. -Continue Detrol as an antispasmodic -Morphine as needed. Or oxycodone -Notify Dr. Groves of the patient's location and the urology team will see the patient later today -KUB unremarkable in terms of stent placement -Case discussed with Dr. Groves and the patient will have a stone retrieval this evening in the OR, patient is medically optimized for surgery. Hydronephrosis of left kidney 05/22/2021 Right renal stone 05/19/2021 Assessment & Plan (03/02/2022 7:26 PM EST): -Patient has had frequent nephrolithiasis with her latest episode beginning on 02/18 at which point she was seen at [facility] where she was started on Flomax and antibiotics and based on a reassuring CT that showed no hydronephrosis and only two 3 mm stones in the right ureter she was discharged home. She returned to [facility] on 02/20 with worsening flank pain and was again found to have reassuring labs and repeat CT scan with no signs of sepsis. She was put on the schedule urology for 02/23 for stent placement, and is scheduled on 03/06 for removal. Advance diet Continue ceftriaxone Will have further follow up outpatient as previously scheduled Pain control remains an issue, no worsening of pain to prompt new imaging at this time, exam is benign. Continue IVF, schedule tylenol, lidocaine patch, toradol x 1, schedule tramadol (home med), and reduce dose of IV narcotic - anticipate improvement in pain tomorrow and dc home Assessment & Plan (05/23/2021 12:26 PM EST): She is still having significant left-sided flank pain and is taking IV pain medicine. We discussed the need to transition to oral pain medicines if she can be discharged. She is agreeable to trying oxycodone today but would like as needed morphine as needed. Recurrent nephrolithiasis, last episode 1 year ago. Presented to the emergency room with several hours of left-sided flank pain and CT evidence of a 5 mm left ureteral stone with moderate left hydronephrosis. Underwent left ureteral stenting 05/20. Stone was not removed. Follow-up KUB 05/21 shows stent is migrated into the bladder Returned to the OR 05/22 for cystoscopy, stent retrieval and replacement. Urology is recommending empiric antibiotics x7 days. She is tolerating ceftriaxone. -Urine culture remains negative -Oxycodone and morphine as needed -Outpatient follow-up with urology regarding next steps including lithotripsy in the next week and a half. History of stroke 09/15/2020 Assessment & Plan (06/08/2021 8:13 PM EDT): Continue aspirin and pravastatin. Assessment & Plan (05/30/2021 9:26 AM EST): Continue aspirin and statin. Was previously on rosuvastatin. Home medication list during previous admission stated atorvastatin. She claims a history of myalgias with atorvastatin. -Resume Crestor Assessment & Plan (05/23/2021 12:27 PM EST): She was started on dual antiplatelet therapy in August 2020 following a stroke. The plan had been for dual antiplatelet therapy for 21 days followed by long-term aspirin and statin therapy. She is having hematuria, Dr. Groves would like her to be off of Plavix prior to follow-up stent removal and lithotripsy. Previous admission notes reviewed including discharge summary and neurology notes. -At this point it is safe to discontinue the Plavix and continue her on aspirin 81 mg and statin therapy. -Lipid panel shows LDL 37 on 40 mg of atorvastatin. She thinks it makes her tired. Reasonable to accommodate her request to decrease the dose to 20 mg daily. Should have repeat lipid panel in 6 weeks. 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 The day prior she was watching her grandchild and bending over and picking them up. Yesterday she had some low back pain into the hip. She also had some weakness of her lower extremities MRI lumbar spine obtained revealing mild degenerative disease of the lumbar spine. No severe spinal or foraminal stenosis. Neurologically intact. Tenderness to palpation over the lumbar paraspinous musculature signifying a muscle strain -Oxycodone as needed -PT/OT TIA (transient ischemic attack) 09/14/2020 Elevated blood pressure reading 05/17/2020 Assessment & Plan (09/15/2020 11:33 AM EDT): Permissive hypertension will allow SBP up to 200 -We will allow for permissive hypertension for 1 week -We will add hydralazine 25 mg p.o. every 6 hours as needed for systolic blood pressure of greater than 200 -Patient may need a blood pressure medication at follow-up with PCP Assessment & Plan (05/17/2020 7:30 AM EST): No treatment for now, prob due to acute illness, follow Left ureteral stone 01/20/2019 Type 2 diabetes mellitus with diabetic neuropath y Assessment & Plan (02/28/2022 8:05 PM EST): -Patient with significant hyperglycemia of 325 in the ED, continue home dose of NPH 10 units twice daily -Monitor point of care, cover with insulin sliding scale as needed -Follow-up hemoglobin A1c Assessment & Plan (06/11/2021 3:09 PM EDT): Patient with glucose 460 at presentation Provided with IV fluid. Lantus started. Consistent carb diet ordered. Usual Metformin held Switch back to her usual NPH when she discharges Assessment & Plan (05/30/2021 9:27 AM EST): basal bolus insulin. Assessment & Plan (05/23/2021 12:29 PM EST): AM sugar quite elevated this morning. She says that at home she has been titrating up her p.m. NPH from 4 to 6 units. We discussed that this is appropriate management if her sugars are elevated. I suspect her elevated sugars yesterday and this morning were secondary to decreased doses of her NPH due to n.p.o. -Hold Metformin -before meals and at bedtime Accu-Cheks -Continue on NPH 8 units in the morning 6 units with dinner, -Titrate if sugars remain elevated over the next 24 hours -Lispro sliding scale prandial -Regular, consistent carbohydrate diet Assessment & Plan (09/15/2020 11:31 AM EDT): Patient is on Lantus 12 units and metformin at home. -We will hold her Metformin in the event that she needs further imaging -Continue Lantus 12 units subcu nightly -Add Humalog sliding scale and 5 units with meals -A1c greater than 9 will need improved control as an outpatient Assessment & Plan (05/17/2020 2:19 PM EST): Usual Lantus ordered but higher dose. Titrate if needed Usual gabapentin ordered. Assessment & Plan (02/19/2020 1:59 PM EST): Hold metformin, Continue lantus 6 units sc nightly Continue humalog ss with meals POCs with meals Diabetic diet Assessment & Plan (12/09/2019 4:05 PM EDT): - cont glargine, add insulin sliding scale and prandial insulin - had recent hba1c 6.9 - cont gabapentin (home med) for neuropathy Assessment & Plan (11/21/2019 12:04 PM EDT): Excellent glycemic control Assessment & Plan (11/14/2019 8:37 AM EDT): Good glycemic control -Continue nightly Lantus Assessment & Plan (01/24/2019 2:32 PM EDT): Initially diabetes medicine held due to n.p.o. Restart Lantus tonight now the procedure done able to take diet again Assessment & Plan (01/20/2019 1:56 AM EDT): Hold metformin, SSI and home lantus to resume tomorrow night postoperatively. Assessment & Plan (10/14/2017 6:01 PM EDT): Continue Lantus and ISS Hold metformin Tobacco dependence Assessment & Plan (02/28/2022 8:00 PM EST): -Smoking cessation advised, nicotine patch ordered Assessment & Plan (06/08/2021 8:09 PM EDT): Continue nicotine patch 14 mg Assessment & Plan (05/30/2021 9:27 AM EST): Continue nicotine replacement. Assessment & Plan (05/19/2021 3:30 PM EST): Nicotine patch 14 mg daily Assessment & Plan (09/15/2020 11:32 AM EDT): Patient states that she smokes about 8 cigarettes/day. -Start nicotine patch -Cessation discussed Assessment & Plan (05/17/2020 2:17 PM EST): nicotine replacement therapy ordered. Assessment & Plan (02/18/2020 12:03 PM EST): Encouraged cessation, pt aware of benefits Continue patch and gum while here Assessment & Plan (12/09/2019 4:05 PM EDT): Encourage cessation, nicotine replacement Assessment & Plan (11/20/2019 5:50 PM EDT): Nicotine patch 14 mg will be ordered. Nicotine gum as needed. Assessment & Plan (01/23/2019 9:10 PM EDT): Has requested nicotine patch. Ordered. Assessment & Plan (10/13/2017 12:17 PM EDT): Counseled on smoking cessation. Cont nicotine 14 mg patch. Resolved Problems Problem Noted Date Diagnosed Date Resolved Date Sepsis without acute organ dysfunction 06/08/2021 06/11/2021 Assessment & Plan (06/09/2021 2:38 PM EDT): Sepsis due to acute pyelonephritis Hypomagnesemia 06/08/2021 06/09/2021 Assessment & Plan (06/08/2021 8:50 PM EDT): Low at 1.4. Replace via 2 g by the ED. -Repeat mag in the morning Acute CVA (cerebrovascular accident) 09/15/2020 05/29/2021 Ureteral calculus, left 12/09/201904/26 Assessment & Plan (12/09/2019 4:09 PM EDT): - obstructing left ureteral stones - supportive care with IVF, IV dilaudid (continuous pulse ox because is requiring significant doses), IV antiemetics - holding antibiotic but low threshold to add coverage if there is fever (has very mild leukocytosis will trend) - urology plans for procedure tomorrow, NPO after midnight Ureteral stone 11/21/2019 05/17/2020 Septicemia due to undetermined organism 11/20/2019 11/21/2019 Assessment & Plan (11/20/2019 5:50 PM EDT): I suspect secondary to genitourinary source, in the setting of chronic left obstructing ureteral stone. No respiratory symptoms and SARS-CoV-2 RNA negative. No skin findings. Criteria for sepsis includes temp 100.9 (at urology office), tachycardia, and leukocytosis. She remains hemodynamically stable with reassuring lactic acid level. Continue IV Rocephin and IV fluid hydration as outlined below. Follow-up urine culture and blood cultures. Follow CBC with differential, electrolytes, and renal function. UTI (urinary tract infection) 11/20/2019 11/21/2019 Assessment & Plan (11/21/2019 12:05 PM EDT): No evidence of infection. There is been no fever. May be she had a drug fever, or any inaccurate temperature reading. Tachycardia has resolved and I suspect it was due to anxiety and/or pain. No further antibiotics Postoperative or surgical co mplication, initial encounter 01/23/2019 05/17/2020 Assessment & Plan (01/24/2019 2:33 PM EDT): Abdominal pain secondary to dislodgement of ureteral stent. Patient will go to the OR today for stent replacement. Continue antibiotics Dilaudid ordered for pain Renal calculi 01/20/2019 05/17/2020 Assessment & Plan (01/20/2019 1:45 AM EDT): With obstruction and hx of prior infected calculi Ceftriaxone, Uro in the AM, NPO until then. Morphine for pain Hypoxemia 10/17/2017 10/18/2017 Assessment & Plan (10/17/2017 5:01 PM EDT): - still with oxygen requirement - would anticipate weans off oxygen prior to d/c - does have smoking hx, schedule duonebs - hold off on further diuretics, consider CXR on 10/18 if still requiring oxygen - f/u lower extrem ultrasounds though does not have LE pain/swelling to suggest DVT Fluid overload 10/16/2017 10/18/2017 Assessment & Plan (10/17/2017 4:59 PM EDT): CXR on 10/14 showed b/l effusions - improved with lasix - hold off on further lasix now does not appear much fluid on exam Citrobacter infection 10/15/20172017 Bacteremia 10/14/2017 10/18/2017 Assessment & Plan (10/17/2017 4:58 PM EDT): Initial blood cx positive for citrobacter, same organisms as in the urine pansensitive Repeat blood cx neg Severe sepsis 10/12/2017 10/18/2017 Assessment & Plan (10/17/2017 4:58 PM EDT): Patient had severe sepsis on admission, now resolved Secondary to pyelonephritis and a ureteral stone with hydronephrosis and bacteremia Renal US done 10/15, negative for abscess ID following - on 10/17 Dr. Ferrell recommended check bilateral lower extremity duplex studies - plan for levafloxacin thru 10/22 (10 day course) Immunizations Immunization Administration Dates Next Due Influenza High-Dose Quadriva lent Preservative Free IM 05/19/2021(Deferred: Patient Refused) Pneumococcal conjugate PCV13 11/10/2019(Deferred : Patient Refused) Family History Medical History Relation Comments Nephrolithiasis Brother Lung cancer Father Diabetes mellitus Mother Pancreatic cancer Mother Relation Status Comments Brother Father (Age 62) Mother (Age 86) Social History Tobacco Use Types Packs/Day Years Used Date Smoking Tobacco: Every Day Cigarettes 0.5 45 Smokeless Tobacco: Never Tobacco Cessation:Ready to Q uit: Not Asked; Counseling Given: Not Answered Alcohol Use Standard Drinks/Week Comments Yes 3 (1 standard drink = 0.6 oz pur e alcohol) Education Answer Date Recorded Are you interested in more education? Not on nikko e 07/19/2022 Are you concerned about learning? Not on file 07/19/2022 No 07/19/2022 No 07/19/2022 Digital Access Answer Date Recorded No 08/17/2022 No 08/17/2022 Reliable internet access at home? Not on file 08/17/2022 Device with a working camera? Not on file Intimate Partner Violence Answer Date R ecorded Are you denied basic needs s uch as food, clothing, or medical care? No 10/08/2024 In the past 12 months have y ou been in a relationship with a person who hurts, threatens, or tries to control you? No 10/08/2024 Are you denied basic needs s uch as food, clothing, or medical care? No 10/08/2024 In the past 12 months have y ou been in a relationship with a person who hurts, threatens, or tries to control you? No 10/08/2024 Comments No Sex and Gender Information Value Date Recorded Sex Assigned at Female 01/19/2019 8:11 PM EDT Legal Sex Female 9:55 PM EDT Gender Identity Female 01/19/2019 8:11 PM EDT Sexual Orientation Straight 01/19/2019 8: 11 PM EDT Last Filed Vital Signs Vital Sign Reading Time Taken Comments Blood Pressure 145/75 10/08/2024 1:00 PM EDT Pulse 80 10/08/2024 1:00 PM EDT Temperature 37.1 C (98.7 F) 10/08/2024 1:00 PM EDT Respiratory Rate 18 10/08/2024 9:32 AM EDT Oxygen Saturation 97% 10/08/2024 9:32 AM EDT Inhaled Oxygen Concentration 28% 10/17/2017 8 :23 PM EDT Weight 53.1 kg (117 lb) 10/08/2024 9:32 AM EDT Height 160 cm (5' 3 ) 10/08/2024 9:32 AM EDT Body Mass Index 20.73 10/08/2024 9:32 AM EDT Plan of Treatment Health Maintenance Due Date Last Done Comments BLOOD PRESSURE 1954 DEPRESSION SCREENING 1966 SMOKING Hx and SMOKELESS TOBACCO SCREENING 11/05/1967 HEPATITIS C SCREENING 1972 PNEUMOCOCCAL VACCINES (50+ years) (1 of 2 - PCV) 1973 MAMMOGRAM 1994 COLOGUARD 11/05/1999 COLONOSCOPY 11/05/1999 COLORECTAL CANCER SCREENING 11/05/1999 FIT TEST 11/05/1999 FOBT 11/05/1999 SIGMOIDOSCOPY 11/05/1999 VIRTUAL COLONOSCOPY 11/05/1999 LUNG CANCER SCREENING (LDCT Only) 2004 RSV VACCINE (1 - Risk 50-74 years 1-dose series) 2004 ZOSTER VACCINES (1 of 2) 2004 DIABETIC EYE EXAM 10/10/2019 URINE MICROALBUMIN/CREATININE RATIO 10/10/2019 OSTEOPOROSIS SCREENING INITIAL (ONE-TIME) 11/05/2019 Adult Td,Tdap Booster 09/29/2023 09/28/2013 INFLUENZA VACCINE (#1) 2024 COVID-19 VACCINE ( - season) 2024 HEMOGLOBIN A1C 02/14/2025 08/14/2024, 12/0 10/2021, 09/15/2020, Additional history exists CREATININE LEVEL 10/08/2025 10/08/2024, , 06/29/2022, Additional history exists HEPATITIS A VACCINES Aged Out No long er eligible based on patient's age to complete this topic HIB VACCINES Aged Out No longer eligi ble based on patient's age to complete this topic MENINGOCOCCAL VACCINES (ACWY) Aged Out No longer eligible based on patient's age to complete this topic MENINGOCOCCAL VACCINES (B) Aged Out N o longer eligible based on patient's age to complete this topic Medical Devices Implanted Type Area Salesperson Used Cars Device Identifier Shelf Expiration Date Model / Serial / Lot Stent Variable 6fr 22-30 - [id number] Implanted:Qty: 1 on 10/12/2017 by Placido Groves MD at [facility] Left: Ureter [employer] 06/12/2020 [id number] 60 / / [id number] Stent Variable 4.8 22-30cm - [id number] Implanted:Qty: 1 on 10/30/2017 by Eliezer Ndiaye MD at [facility] [employer] 05/15/2020 [id number] 50 / / [id number] Stent Ureteral 6fr 22 To 30cm Stretch Coated Chelsey - [id number] Implanted:Qty: 1 on 01/20/2019 by Placido Groves MD at [facility] Left: Ureter [employer] 10/13/2021 [id number] 60 / [id number] 60 / [id number] Stent Ureteral 6fr 22 To 30cm Stretch Coated Chelsey - [id number] Implanted:Qty: 1 on 01/24/2019 by Daniel Guzman MD at [facility] [employer] 09/11/2021 [id number] 60 / / [id number] Stent Ureteral 6fr 22 To 30cm Stretch Coated Chelsey - [id number] Implanted:Qty: 1 on 11/11/2019 by Placido Groves MD at [facility] [employer] 06/01/2022 [id number] 60 / / [id number] Stent Ureteral 6fr 22 To 30cm Stretch Coated Cehlsey - [id number] Implanted:Qty: 1 on 11/24/2019 by Eliezer Ndiaye MD at [facility] Left: Ureter [employer] 05/28/2022 [id number] 60 / / [id number] Stent Ureteral 6fr 22 To 30cm Stretch Coated Chelsey - [id number] Implanted:Qty: 1 on 12/10/2019 by Daniel Guzman MD at [facility] Left: Ureter [employer] 05/28/2022 [id number] 60 / / [id number] Stent Ureteral 7frx22 To 30cm Double Pigtail Suture Stretch Vl Positioner - [id number] Implanted:Qty: 1 on 02/19/2020 by Daniel Guzman MD at [facility] Left: Ureter [employer] 01/26/2021 [id number] 70 / / [id number] Stent Ureteral 6fr 22 To 30cm Stretch Coated Chelsey - [id number] Implanted:Qty: 1 on 05/17/2020 by Placido Groves MD at [facility] Left: Ureter [employer] 01/03/2023 [id number] 60 / / [id number] Stent Ureteral 6fr 22 To 30cm Stretch Coated Chelsey - [id number] Implanted:Qty: 1 on 05/20/2021 by Liseth Dennis MD at [facility] Left: Ureter [employer] 09/23/2023 [id number] 60 / / [id number] Stent Ureteral 6fr 22 To 30cm Stretch Coated Chelsey - [id number] Implanted:Qty: 1 on 05/22/2021 by Placido Groves MD at [facility] [employer] 11/28/2023 [id number] 60 / / [id number] Stent Ureteral 6fr 22 To 30cm Stretch Coated Chelsey - [id number] Implanted:Qty: 1 on 05/30/2021 by Placido Groves MD at [facility] Left: Ureter [employer] 09/23/2023 [id number] 60 / / [id number] Stent Ureteral 6fr 22 To 30cm Stretch Coated Chelsey - [id number] Implanted:Qty: 1 on 02/23/2022 by Daniel Guzman MD at [facility] Right: Ureter [employer] [id number] 12/05/2024 [id number] 60 / / [id number] Stent Ureteral 6fr 22 To 30cm Stretch Coated Chelsey - [id number] Implanted:Qty: 1 on 05/29/2022 by Placido Groves MD at [facility] Right: Ureter [employer] 12/26/2024 [id number] 60 / / [id number] Procedures Procedure Name Priority Date/Time Associated Diagnosis Comments BASIC METABOLIC PANEL STAT 10/08/2024 9:54 AM EDT HEMOGLOBIN A1C Routine 03/01/2022 6:30 AM EST from Last 3 Months or Most Recently Relevant to Health Maintenance Results * (ABNORMAL) Basic metabolic panel (10/08/2024 9:54 AM EDT) SODIUM 136 133 - 146 mmol/L [facility] CHLORIDE 101 96 - 108 mmol/L [facility] POTASSIUM 4.3 3.3 - 5.1 mmol/L [facility] CO2 23 21 - 35 mmol/L [facility] BUN 18 6 - 19 mg/dL [facility] CREATININE 0.80 0.5 - 1.5 mg/dL [facility] GLUCOSE 245(H) 70 - 99 mg/dL [facility] CALCIUM 9.8 8.4 - 10.3 mg/dL [facility] EGFR 80 >59 mL/min/1.7 3m2 [facility] Comment:Estimated glomerular filtration rate calculated using the CKD-EPI refit equation. ANION GAP 16 10 - 20 mmol/L [facility] Blood 10/08/2024 9:54 AM EDT 10/08/2024 9:59 AM EDT us Keith Garcia MD LAB BLOOD ORDERABL ES Final Result Performing Organization Address [facility]/ZIP Co de Phone Number [address] [address] * (ABNORMAL) Hemoglobin A1c (03/01/2022 6:30 AM EST) HEMOGLOBIN A1C 7.9(H) 4.3 - 5.8 % [facility] Blood 03/01/2022 6:30 AM EST 03/01/2022 7:18 AM EST us Jolie Crabtree DO LAB BLOOD ORDERABLES Final Re sult [address] [address] from Last 3 Months or Most Recently Relevant to Health Maintenance Insurance MEDICARE PART A & B MEDICARE PART A & B MEDICARE PART A & B MEDICARE PART A & B MEDICARE PART A & B MEDICARE PART A & B MEDICARE PART A & B MEDICARE PART A & B MEDICARE PART A & B Advance Directives For more information, please contact: [phone] (9AM - 5PM [facility], Saturday-Saturday) Documents on File Type Date Recorded Patient Screwdown Operator Expl anation Healthcare Proxy 09/19/2020 2:57 PM Healthcare Proxy 09/15/2020 1:57 PM health care proxy * Full Code (Latest Code Status on File) Date Activated Date Inactivated Comments 02/28/2022 7:52 PM Question Answer Comments Code Status Confirmed With: Patient * Full Code Date Activated Date Inactivated Comments 06/08/2021 10:34 PM 02/28/2022 7:52 PM Question Answer Comments Code Status Confirmed With: Patient Code Status Communicated To: Inpatient Attending * Full Code Date Activated Date Inactivated Comments 05/30/2021 1:01 AM 06/08/2021 10:34 PM Question Answer Comments Code Status Confirmed With: Patient * Full Code Date Activated Date Inactivated Comments 09/14/2020 3:14 PM 05/30/2021 1:01 AM Question Answer Comments Code Status Confirmed With: Patient * Full Code Date Activated Date Inactivated Comments 05/17/2020 1:36 AM 09/14/2020 3:14 PM Question Answer Comments Code Status Confirmed With: Patient Healthcare Agents on File Name Relationship Healthcare Agent Relationshi p Communication Mahsa Morrison Spouse .Primary Health Care Agent (Proxy form on file) Care Teams Credit Risk Manager Relationship Specialty Start Date End Date Lory Morales PA [address] [place] [id number] [email or web address] PCP - General Physician Steel Rod Buster 04/20/22 Eliezer Ndiaye MD Urology 12/09/19 Additional Source Comments The information contained in this document represents components of the legal health record. It is not the complete legal health record.[facility]
--- OUTSIDE RECORDS SUMMARY | 2025-01-22 08:12 | XMS_ITS | Encounter Summary ---
Author Organization [facility] Address [address] [place] [address] Phone Care Team Providers Care Customer Service Representative Teacher Name Role Phone Eliezer Ndiaye MD Unavailable [phone] Kalyani Serrano CNP Primary Care Provider + Cecily Jean MD Primary Care Provider [phone] Lory Morales Primary Care Provider [phone] Encounter Details Date Type Department Care Team (Late st Contact Info) Description 09/14/2020 Procedure Pass [facility], Ct Scan - [address] [address] Social History Tobacco Use Types Packs/Day Years [...] 10:26 AM EDT Rohini Roblero RN * [place] Suicide Severity Rating Scale (Screener/Recent Self-Report) Question [...] on filedocumented in this encounter Care Teams Customer Service Representative Teacher Relationship Specialty Start Date End Date Kalyani Serrano CNP [address] [place] [phone] [email or web address] PCP - General Family Medicine 05/19/20 09/19/20 Cecily Jean MD [address] [place] [phone] [email or web address] PCP - General Internal Medicine 09/20/20 04/19/22 Lory Morales PA [address] [place] [address]. [place] [address] [email or web address] PCP - General Physician Creative Services Specialist 04/20/22 Eliezer Ndiaye MD Urology 12/09/19 documented as of this encounter Additional Source Comments The information contained in this document represents components of the legal health record. It is not the complete legal health record.[facility]
--- OUTSIDE RECORDS SUMMARY | 2025-01-22 08:12 | XMS_ITS | Clinical Summary ---
Author Organization [employer] Address [address] [place] [address] Care Team Providers Care Ethics Instructor Name Role Phone Joycelyn Vuong Unavailable Unavailable Allergies Active Allergy Reactions Criticality Noted Date Comments Lorazepam Medium 11/14/2019 Other reaction(s): Hallucinations (when in hospital and combined with pain meds) Medications acetaminophen (Tylenol) 325 MG tablet 2 tablets in the morning and 2 tablets at noon and 2 tablets in the evening and 2 tablets before bedtime. Active Blood Glucose Monitoring Suppl (FreeStyle Lite) w/Device kit 10/13/19 23 Active insulin NPH, Isophane, (NovoLIN N FlexPen) 100 UNIT/ML injection in the morning. 09/07/19 22 Active rosuvastatin (Crestor) 20 MG tablet Take 1 tablet (20 mg) by mouth in the morning. 90 tablet 1 10/20/19 23 Active losartan (Cozaar) 25 MG tablet Take 1 tablet (25 mg) by mouth in the morning. 90 tablet 1 10/20/19 23 Active aspirin 81 MG chewable tablet Chew and swallow 1 tablet by mouth in the morning 30 tablet 12/06/19 23 Active BD Pen Needle Yumiko U/F 32G X 4 MM misc USE 1 TO 2 needles AT bedtime directed 20 each 04/12/19 24 Active FREESTYLE LITE test stripIndications: Type 2 diabetes mellitus with diabetic neuropathy, with long-term current use of insulin (HCC) USE 1 STRIP TO CHECK GLUCOSE THREE TIMES DAILY 200 each 08/05/19 24 Active topiramate (Topamax) 25 MG tablet Take 1 tablet (25 mg) by mouth Once per day. 90 tablet 1 10/15/19 24 Active Continuous Glucose Superintendent [employer] (FreeStyle Jade 3 [place]) deviceIndications :Type 2 diabetes mellitus with diabetic neuropathy, with long-term current use of insulin (HCC) 1 Device continuously . 1 each 05/22/19 25 026 Active Continuous Glucose Sensor (FreeStyle Jade 3 Sensor) miscIndications:T ype 2 diabetes mellitus with diabetic neuropathy, with long-term current use of insulin (HCC) 1 Device every 14 (fourteen) days. 6 each 3 05/22/19 25 026 Active butalbital-acetam inophen-caffeine 50-325-40 MG tabletIndications :Chronic tension-type headache, not intractable TAKE 1 TABLET BY MOUTH EVERY 8 HOURS NEEDED FOR HEADACHE 30 tablet 08/15/19 25 Active LORazepam (Ativan) 0.5 MG tabletIndications :Anxiety due to invasive procedure Take 2 tablets 30 minutes prior to procedure. 2 tablet 08/29/19 25 Active hydrOXYzine HCl (Atarax) 25 MG tabletIndications :Anxiety due to invasive procedure Take 1 tablet (25 mg) by mouth if needed at bedtime for anxiety. 30 tablet 1 09/08/19 25 Active FLUoxetine (PROzac) 20 MG capsule Take 1 capsule (20 mg) by mouth Once per day. 30 capsule 1 10/16/19 25 Active metFORMIN (Glucophage) 1000 MG tabletIndications :Type 2 diabetes mellitus with hyperglycemia (HCC) TAKE 1 TABLET BY MOUTH IN THE MORNING AND 1 TABLET IN THE EVENING 180 tablet 01/19/20 25 Active metFORMIN (Glucophage) 1000 MG tabletIndications :Type 2 diabetes mellitus with hyperglycemia (HCC) TAKE 1 TABLET BY MOUTH IN THE MORNING AND 1 IN THE EVENING 180 tablet 06/25/19 25 025 Discontinued Active Problems Problem Noted Date Diagnosed Date Chronic tension-type headache, not intractable 0 10/15/2023 Overview (11/12/2023): Chronic headaches, daily. Has been taking fioricet daily. Reviewed risks of daily fioricet and recommended daily preventative medication instead. Started on topomax 09/2023 but did not tolerate it and had negative side effects. She declines other daily preventative medications. Declined referral to neurology. She would like to go back on fioricet. Again reviewed risks. I advised period off meds for a few weeks to r/o medication overuse headaches. Agree to prescribe #10 pills per month to take as needed Primary hypertension 07/16/2023 Overview (07/16/2023): Rx losartan, takes when she remembers. Stressed med compliance. Low salt diet and exercise Primary insomnia 07/16/2023 Overview (10/15/2023): PHQ9 13, but reports her symptoms are mainly from lack of sleep. Denies SI or depression. Takes melatonin and is able to fall asleep, but has trouble staying asleep. Gets about 5 hours per night. Was unable to afford doxepin. Acute lacunar infarction (CMS/HCC) 10/19/2022 Overview (10/15/2023): Recurrent CVAs. On aspirin and statin. Was seen by neuro and ophthalmology. Vision deficits resolved. Followed by Dr. Merida last seen 11/19/22 - declines follow up with him. Chronic obstructive pulmonary disease 10/19/2022 Overview (10/19/2022): Not using inhalers Hyperlipidemia 10/19/2022 Overview (07/16/2023): on statin, last lipid panel 06/2023, leg cramps improved on different statin Cholesterol, Total 100 - 199 mg/dL 209 High Triglycerides 0 - 149 mg/dL 127 106 R HDL Cholesterol >39 mg/dL 97 VLDL Cholesterol Jones 5 - 40 mg/dL 21 LDL Chol Calc ([facility]) 0 - 99 mg/dL 91 Non-HDL Cholesterol 0 - 129 mg/dL 112 Smoker 10/19/2022 Overview (04/12/2023): Smoking <1/2ppd. Encouraged to quit Type 2 diabetes mellitus with diabetic neuropath y 10/19/2022 Overview (10/15/2023): Taking metformin and NPH insulin 10-12 units BID. A1C 09/2023 8.0%, improved FBS has been under 200. Will increase NPH by 2 units if BS is not at goal Stressed importance of being complaint with meds and checking BS at home. Went over oil heaterman risks and possible complications of uncontrolled DM2. Reviewed over signs and sx of hypo/hyperglycemia and advised to call if she experiences these. Work on diet and exercise. Stressed importance of checking BS. Foot exam: declines foot exam Eye exam: 12/2022 Encounters Date Type Department Care Team Description 01/17/2025 Cindy Islas [facility] [address] [place] [address] [place], [place], BENCH WORKER Type 2 diabetes mellitus with hyperglycemia (HCC) from Last 3 Months Immunizations Immunization Administration Dates Next Due Td (adult), 5 Lf tetanus tox oid, preservative free, adsorbed 09/28/2013 Family History Medical History Relation Name Comments Heart disease Brother Lung cancer Father Diabetes Mother Pancreatic cancer Mother Relation Name Status Comments Brother Father Mother Social History Tobacco Use Types Packs/Day Years [...] not to disclose 2022 2:23 PM EDT Last Filed Vital Signs Vital Sign Reading Time Taken Comments Blood Pressure 118/70 10/15/2024 9:52 AM EDT Pulse 80 10/15/2024 9:52 AM EDT Temperature 36.6 C (97.8 F) 10/15/2024 9:52 AM EDT Respiratory Rate 16 10/15/2024 9:52 AM EDT Oxygen Saturation 99% 01/23/2021 10:15 AM EDT Inhaled Oxygen Concentration - - Weight 54.5 kg (120 lb 3.2 oz) 10/15/2024 9:52 A M EDT Height 166.4 cm (5' 5.5 ) 10/15/2024 9:52 AM EDT Body Mass Index 19.7 10/15/2024 9:52 AM EDT Plan of Treatment Health Maintenance Due Date Last Done Comments CT Colonography 1954 Colonoscopy 1954 FIT DNA/Cologuard 1954 FIT 1954 FOBT 1954 Sigmoidoscopy 1954 Diabetes: Foot Exam 1964 Eye Exam 1964 Diabetes: Urine Protein Screening 1973 Lipid Panel 07/11/2024 07/12/2023, 04/26, 09/16/2020, Additional history exists Diabetes: Hemoglobin A1C 11/14/2024 025, 05/18/2024, 10/15/2023, Additional history exists Dental Oral Exam 11/18/2024 05/20/2024 Dental Prophylaxis 11/18/2024 05/20/2024 COVID-19 Vaccine ( season) 2024 Influenza Vaccine (#1) 2024 Depression Monitoring 02/14/2025 08/14/2024, 024 Alcohol/Substance Use Screening 05/18/2025 05/18/2024 Colorectal Cancer Screening 05/18/2025 Postponed from 1954 (Patient Refused) DTaP/Tdap/Td Vaccines (1 - Tdap) 05/18/2025 09/28/2013 Postponed from 09/29/2013 (Patient Refused) Mammogram 05/18/2025 Postponed from 1994 (Patient Refused) Pneumococcal Vaccine: 50+ Years (1 of 2 - PCV) 05/18/2025 Postponed from 1973 (Patient Refused) RSV Patients and Patients Aged 60 years or older (1 - Risk 60-74 years 1-dose series) 05/18/2025 Postponed from 2014 (Patient Refused) Zoster Vaccines (1 of 2) 05/18/2025 Pos tponed from 2004 (Patient Refused) Dental X-Ray: Bitewings 05/21/2025 05/20/2024 SDOH Screening 08/14/2025 08/14/2024 Tobacco Screening 08/14/2025 08/14/2024 Dental X-Ray: Full Mouth 05/21/2027 05/20/2024 HIB Vaccines Aged Out No longer eligi [...] patient's age to complete this topic Hepatitis C Screening Discontinued IPV Vaccines Aged Out No longer eligi ble based on patient's age to complete this topic Meningococcal B Vaccine Aged Out No l onger eligible based on patient's age to complete this topic Meningococcal Vaccine Aged Out No donny jael eligible based on patient's age to complete this topic RSV under 20 months Aged Out No longe r eligible based on patient's age to complete this topic Rotavirus Vaccines Aged Out No longer eligible based on patient's age to complete this topic Procedures Procedure Name Priority Date/Time Associated Diagnosis Comments POCT GLYCOSYLATED HEMOGLOBIN (HGB A1C) Routine 08/14/2024 11:05 AM EDT Type 2 diabetes mellitus with diabetic neuropathy, unspecified whether group home insulin use ([facility]) Full PROPHYLAXIS - ADULT Routine 05/20/2024 11:00 AM EST INTRAORAL - COMPLETE SERIES OF RADIOGRAPHIC IMAGES Routine 05/20/2024 11:00 AM EST PERIODIC ORAL EVALUATION - ESTABLISHED PATIENT Routine 05/20/2024 11:00 AM EST LIPID PROFILE WITH NON-HDL CHOLESTEROL Routine 07/12/2023 10:29 AM EDT from Last 3 Months or Most Recently Relevant to Health Maintenance Results * (ABNORMAL) POCT glycosylated hemoglobin (Hgb A1c) (08/14/2024 11:05 AM EDT) Hemoglobin A1C 7.0(A) 4.0 - 6.0 % Blood Capillary blood specimen / Unknown 08/14/2024 11:05 AM EDT Steph Puente BENCH WORKER POINT OF CARE TEST ENTER/ EDIT ORDERABLES Final Result * (ABNORMAL) Lipid Profile With Non-HDL Cholesterol (07/12/2023 10:29 AM EDT) Cholesterol, Total 209(H) 100 - 199 mg/dL [facility] 1 Triglycerides 127 0 - 149 mg/dL [facility] 1 HDL Cholesterol 97 >39 mg/dL [facility] 1 VLDL Cholesterol Jones 21 5 - 40 mg/dL [facility] 1 LDL Chol Calc (NIH) 91 0 - 99 mg/dL [facility] 1 Non-HDL Cholesterol 112 0 - 129 mg/dL [facility] 1 07/12/2023 10:2 9 AM EDT 07/12/2023 Narrative [facility] 1 - 07/13/2023 6:05 AM EDT Performed at: 01 - [facility] [address] [id number] Gyro Compass Tester: Luda Holloway MD, Phone: [phone] us Lory Morales PA-C LAB BLOOD ORDERABLES Final Result [facility] 1 from Last 3 Months or Most Recently Relevant to Health Maintenance Insurance MEDICARE Care Teams Ethics Instructor Relationship Specialty Start Date End Date Joycelyn Vuong Health Navigator 06/19/24
--- OUTSIDE RECORDS SUMMARY | 2025-01-22 08:12 | XMS_ITS | Encounter Summary ---
Author Organization [facility] Address [address] [place] [phone] Phone Care Team Providers Care Religious Assistant Name Role Phone Eliezer Ndiaye MD Unavailable [phone] Amanda Kelly MD Primary Care Provider Kalyani Serrano CNP Primary Care Provider + Cecily Jean MD Primary Care Provider [phone] Lory Morales Primary Care Provider [phone] Encounter Details Date Type Department Care Team (Late st Contact Info) Description 05/17/2020 Procedure Pass [place] Admitting Dept - Virtual Department [address] [place] [address] Social History Tobacco Use Types Packs/Day Years [...] Date of Assessment Author No Risk Indicated 05/20/2020 11:08 AM Svetlana Camacho RN * [place] Suicide Severity Rating Scale (Screener/Recent Self-Report) Question Answer Date of Assessment Author 1. Wish to be (Past 1 Month) No 021 11:08 AM Svetlana Mcmanus RN 2. Non-Specific Active Suici harrison Thoughts (Past 1 Month) No 05/20/2020 11:08 AM Eugenio Mcmanus RN 6. Suicidal Behavior (Lifetime) No 11:08 AM Svetlana Mcmanus RN documented as of this encounter Plan of Treatment Not on file documented as of this encounter Visit Diagnoses Not on filedocumented in this encounter Additional Health Concerns Infection Onset Date Last Indicated Resolved Time CoV-Risk 05/20/2020 05/20/2020 05/30/2020 1:23 AM EST documented as of this encounter Care Teams Religious Assistant Relationship Specialty Start Date End Date Amanda Kelly MD [address] [place] [phone] [email or web address] PCP - General Family Medicine 03/24/20 05/18/20 Kalyani Serrano CNP [address] [place] [id number] [email or web address] PCP - General Family Medicine 05/19/20 09/19/20 Cecily Jean MD [address] [place] [address] [email or web address] PCP - General Internal Medicine 09/20/20 04/19/22 Lory Morales PA [address] [place] [address]. [place] [address] [email or web address] PCP - General Physician Filler Shredder Helper 04/20/22 Eliezer Ndiaye MD [phone] (work) [email or web address] Urology 12/09/19 documented as of this encounter Additional Source Comments The information contained in this document represents components of the legal health record. It is not the complete legal health record.[facility]
--- OUTSIDE RECORDS SUMMARY | 2025-01-22 08:13 | XMS_ITS | Encounter Summary ---
Author Organization [employer] Address [address] 7[address] [place] [address] Care Team Providers Care Delivery Driver Name Role Phone Lory Morales PA-C Primary Care Provider Unav ailable Joycelyn Vuong Unavailable Unavailable Inactive/Transferred Primary Care Provider Unava ilable Reason for Visit * Reason Comments Med Refill Encounter Details Date Type Department Care Team (Late st Contact Info) Description 09/07/2024 Refill [place] [facility] [address] [place] [address] Steph Puente FNP [address] [place], [place] [phone] Anxiety due to invasive procedure Social History Tobacco Use Types Packs/Day Years [...] as of this encounter Visit Diagnoses Diagnosis Anxiety due to invasive procedure documented in this encounter Additional Health Concerns Assessment Noted Time PHQ-9 Depression Total Score: 13 024 10:58 AM EDT documented as of this encounter Care Teams Delivery Driver Relationship Specialty Start Date End Date Lory Morales PA-C PCP - General Family Medicine 07/03/22 10/20/24 Inactive/Transferred PCP - General 10/21/24 10/21/24 Joycelyn Vuong Health Navigator 06/19/24 documented as of this encounter
--- OUTSIDE RECORDS SUMMARY | 2025-01-22 08:13 | XMS_ITS | Encounter Summary ---
Author Organization [facility] Address [address] [place] [address] [place] [address] Phone Care Team Providers Care Continuous Drier Operator Name Role Phone Eliezer Ndiaye MD Unavailable [phone] Lory Morales Primary Care Provider [phone] Encounter Details Date Type Department Care Team (Late st Contact Info) Description 05/29/2022 Procedure Pass [place] Admitting Dept - Virtual Department [address] [place] [address] Social History Tobacco Use Types Packs/Day Years Used Date Smoking Tobacco: Every Day Cigarettes 0.5 45 Smokeless Tobacco: Never Alcohol Use Standard Drinks/Week Comments Yes 3 (1 standard drink = 0.6 oz pur e alcohol) Comments No Sex and Gender Information Value [...] on filedocumented in this encounter Care Teams Continuous Drier Operator Relationship Specialty Start Date End Date Lory Morales PA [address] [place] [address]. [place] [address] [email or web address] PCP - General Physician Patient Safety Sitter 04/20/22 Eliezer Ndiaye MD [email or web address] Urology 12/09/19 documented as of this encounter Additional Source Comments The information contained in this document represents components of the legal health record. It is not the complete legal health record.[facility]
--- OUTSIDE RECORDS SUMMARY | 2025-01-22 08:13 | XMS_ITS | Encounter Summary ---
Author Organization [facility] [employer] Address [address] [facility] [address] [place] [address] Care Team Providers Care Medical Diagnostic Radiographer Name Role Phone Lory Morales PA-C Primary Care Provider Unav ailable Joycelyn Vuong Unavailable Unavailable Inactive/Transferred Primary Care Provider Unava ilable Reason for Visit * Reason Onset Date Comments Med Refill 02/14/2024 Encounter Details Date Type Department Care Team (Late st Contact Info) Description 02/14/2024 Telephone [place] [facility] [address] [place] [address] Steph Puente FNP [address] [place], [place] [id number] Med Refill Social History Tobacco Use Types Packs/Day Years [...] as of this encounter Functional Status * Over the past 2 weeks, how often have you been bothered by any of the following problems? Question Answer Date of Assessment Author Little interest or pleasure in doing things Not at all 08/14/2024 10:52 AM EDT Magno Vee C [place] Feeling down, depressed, or hopeless Not at all 08/14/2024 10:52 AM EDT aMgno Vee C MA Patient Health Questionnaire -2 Score 0 08/14/2024 10:52 AM EDT Magno Vee C MA documented as of this encounter Miscellaneous Notes * Telephone Encounter - July Fish - 02/14/2024 1:57 PM EST called today concerned about a recent prescription refilled for his . I called patient and she had no questions. KG consulted and we agreed that I would call patient back, offer any services she may need and confirmed that there is no consent form signed that will allow me to speak withher . When I was on the call for the second time, patient handed phone to her so that I could tell him that without consent from (in writing) that I can't share any of patient's health information with him. documented in this encounter Plan of Treatment Not on file documented as of this encounter Visit Diagnoses Not on filedocumented in this encounter Additional Health Concerns Assessment Noted Time PHQ-9 Depression Total Score: 13 024 10:58 AM EDT documented as of this encounter Care Teams Medical Diagnostic Radiographer Relationship Specialty Start Date End Date Lory Morales PA-C PCP - General Family Medicine 07/03/22 10/20/24 Inactive/Transferred PCP - General 10/21/24 10/21/24 Joycelyn Vuong Health Navigator 06/19/24 documented as of this encounter
--- OUTSIDE RECORDS SUMMARY | 2025-01-22 08:13 | XMS_ITS | Encounter Summary ---
Author Organization [facility] Address [address] [place] [address] Phone Care Team Providers Care Producer Name Role Phone Eliezer Ndiaye MD Unavailable [phone] Lory Morales Primary Care Provider [phone] Encounter Details Date Type Department Care Team (Late st Contact Info) Description 06/29/2022 Procedure Pass [facility], Ct Scan - [facility] [address] [place] [address] Social History Tobacco Use Types Packs/Day Years [...] Date of Assessment Author No Risk Indicated 06/29/2022 10:23 AM EDT Idania Drew RN * [place] Suicide Severity Rating Scale (Screener/Recent Self-Report) Question Answer Date of Assessment Author 1. Wish to be (Past 1 Month) No 06/29/2022 10:23 AM EDT Forand, Idania Ja govind, RN 2. Non-Specific Active Suicidal Thoughts (Past 1 Month) No 06/29/2022 10:23 AM EDT Idania Drew RN 6. Suicidal Behavior (Lifetime) No 06/29/2022 10:23 AM EDT Idania Drew RN documented as of this encounter Plan of Treatment Not on file documented as of this encounter Visit Diagnoses Not on filedocumented in this encounter Care Teams Producer Relationship Specialty Start Date End Date Lory Morales PA [address] [place] [address]. [place] [address] [email or web address] PCP - General Physician Hospital Laboratory Technician 04/20/22 Eliezer Ndiaye MD [email or web address] Urology 12/09/19 documented as of this encounter Additional Source Comments The information contained in this document represents components of the legal health record. It is not the complete legal health record.[facility]
--- OUTSIDE RECORDS SUMMARY | 2025-01-22 08:13 | XMS_ITS | Encounter Summary ---
Author Organization [facility] Address [address] [place] [address] Phone Care Team Providers Care Belt Buckle Maker Name Role Phone Eliezer Ndiaye MD Unavailable [phone] Aurora Trevino NP Primary Care Provider [phone] Amanda Kelly MD Primary Care Provider [phone] Kalyani Serrano CNP Primary Care Provider + Cecily Jean MD Primary Care Provider [phone] Lory Morales Primary Care Provider [phone] Encounter Details Date Type Department Care Team (Late st Contact Info) Description 12/09/2019 Procedure Pass [facility], Ct Scan - [address] [address] Social History Tobacco Use Types Packs/Day Years [...] documented as of this encounter Care Teams Belt Buckle Maker Relationship Specialty Start Date End Date Sallieronnell Aurora JOEY Ayoub [address] [place] [address] [email or web address] PCP - General Family Medicine 12/09/19 03/23/20 Amanda Kelly MD [address] [address] PCP - General Family Medicine 03/24/20 05/18/20 Kalyani Serrano CNP [address] [place] [address] [email or web address] PCP - General Family Medicine 05/19/20 09/19/20 Cecily Jean MD [address] [place] [address] rosa PCP - General Internal Medicine 09/20/20 04/19/22 Lory Morales PA [address] [place] [address]. [place] [address] [email or web address] PCP - General Physician Police Captain 04/20/22 Eliezer Ndiaye MD Urology 12/09/19 documented as of this encounter Additional Source Comments The information contained in this document represents components of the legal health record. It is not the complete legal health record.[facility]
--- OUTSIDE RECORDS SUMMARY | 2025-01-22 08:13 | XMS_ITS | Encounter Summary ---
Author Organization [facility] Address [address] [place] [address] Phone Care Team Providers Care Photographic Editor Name Role Phone Eliezer Ndiaye MD Unavailable [phone] Aurora Trevino NP Primary Care Provider [phone] Amanda Kelly MD Primary Care Provider Kalyani Serrano CNP Primary Care Provider + Cecily Jean MD Primary Care Provider [phone] Lory Morales Primary Care Provider [phone] Encounter Details Date Type Department Care Team (Late st Contact Info) Description 02/19/2020 Procedure Pass [place] Admitting Dept - Virtual Department [address] [place] [address] Social History Tobacco Use Types Packs/Day Years [...] documented as of this encounter Care Teams Photographic Editor Relationship Specialty Start Date End Date Aurora Trevino NP [address] [place] [address] [email or web address] PCP - General Family Medicine 12/09/19 03/23/20 Amanda Kelly MD [address] [address] PCP - General Family Medicine 03/24/20 05/18/20 Kalyani Serrano CNP [address] [place] [address] [email or web address] PCP - General Family Medicine 05/19/20 09/19/20 Cecily Jean MD [address] [place] [address] rosa PCP - General Internal Medicine 09/20/20 04/19/22 Lory Morales PA [address] [place] [address]. [place] [address] [email or web address] PCP - General Physician Division Sales Manager 04/20/22 Eliezer Ndiaye MD Urology 12/09/19 documented as of this encounter Additional Source Comments The information contained in this document represents components of the legal health record. It is not the complete legal health record.[facility]
--- OUTSIDE RECORDS SUMMARY | 2025-01-22 08:13 | XMS_ITS | Encounter Summary ---
Author Organization [facility] Address [address] [place] [address] Phone Care Team Providers Care Sap Basis Name Role Phone Eliezer Ndiaye MD Unavailable [phone] Aurora Trevino NP Primary Care Provider [phone] Amanda Kelly MD Primary Care Provider Kalyani Serrano CNP Primary Care Provider + Cecily Jean MD Primary Care Provider [phone] Lory Morales Primary Care Provider [phone] Encounter Details Date Type Department Care Team (Late st Contact Info) Description 12/09/2019 Procedure Pass [place] Admitting Dept - Virtual Department [address] [place] [address] Social History Tobacco Use Types Packs/Day Years [...] documented as of this encounter Care Teams Sap Basis Relationship Specialty Start Date End Date Aurora Trevino NP [address] [place] [address] [email or web address] PCP - General Family Medicine 12/09/19 03/23/20 Amanda Kelly MD [address] [address] PCP - General Family Medicine 03/24/20 05/18/20 Kalyani Serrano CNP [address] [place] [address] [email or web address] PCP - General Family Medicine 05/19/20 09/19/20 Cecily Jean MD [address] [place] [address] rosa PCP - General Internal Medicine 09/20/20 04/19/22 Lory Morales PA [address] [place] [address]. [place] [address] [email or web address] PCP - General Physician Sticker On 04/20/22 Eliezer Ndiaye MD Urology 12/09/19 documented as of this encounter Additional Source Comments The information contained in this document represents components of the legal health record. It is not the complete legal health record.[facility]
--- OUTSIDE RECORDS SUMMARY | 2025-01-22 08:13 | XMS_ITS | Encounter Summary ---
Author Organization [facility] Address [address] [place] [address] Phone Care Team Providers Care Roller Mill Tender Name Role Phone Eliezer Ndiaye MD Unavailable [phone] Cecily Jean MD Primary Care Provider [phone] Lory Morales Primary Care Provider [phone] Encounter Details Date Type Department Care Team (Late st Contact Info) Description 02/20/2022 Procedure Pass [facility], Ct Scan - [facility] [address] [place] [address] Social History Tobacco Use Types Packs/Day Years [...] Date of Assessment Author No Risk Indicated 02/20/2022 8:12 AM Lesley Talley, DEE * Perry Suicide Severity Rating Scale (Screener/Recent Self-Report) Question Answer Date of Assessment Author 1. Wish to be (Past 1 Month) No 022 8:12 AM Lesley Talley RN 2. Non-Specific Active Suici harrison Thoughts (Past 1 Month) No 02/20/2022 8:12 AM Lesley Talley RN 6. Suicidal Behavior (Lifetime) No 8:12 AM Lesley Talley RN documented as of this encounter Plan of Treatment Not on file documented as of this encounter Visit Diagnoses Not on filedocumented in this encounter Care Teams Roller Mill Tender Relationship Specialty Start Date End Date Cecily Jean MD [address] [place] [address] [email or web address] PCP - General Internal Medicine 09/20/20 04/19/22 Lory Morales PA [address] [place] [address]. [place] [address] [email or web address] PCP - General Physician Lumber Inspector 04/20/22 Eliezer Ndiaye MD Urology 12/09/19 documented as of this encounter Additional Source Comments The information contained in this document represents components of the legal health record. It is not the complete legal health record.[facility]
--- OUTSIDE RECORDS SUMMARY | 2025-01-22 08:13 | XMS_ITS | Encounter Summary ---
Author Organization [facility] Address [address] [place] [address] Phone Care Team Providers Care Lead Game Designer Name Role Phone Eliezer Ndiaye MD Unavailable [phone] Aurora Trevino NP Primary Care Provider [phone] Amanda Kelly MD Primary Care Provider Kalyani Serrano CNP Primary Care Provider + Cecily Jean MD Primary Care Provider [phone] Lory Morales Primary Care Provider [phone] Encounter Details Date Type Department Care Team (Latest Contact Info) Description 03/22/2020 Transcribe Orders Virtual Department [address] [place] [address] Daniel Guzman MD [facility] [place] [address] [email or web address] Calculus of kidney (Primary Dx) Social History [...] documented as of this encounter Results * US Kidneys (03/24/2020 9:24 AM EST) Anatomical Region Laterality Modality Abdomen, Kidney Ultrasound 03/24/2020 9:28 AM EST Impressions 03/24/2020 9:35 AM EST Pelvocaliectasis present on 02/17/2020 has resolved presumably due to passage of the left ureteral calculus. Small bilateral echogenic foci within the kidneys suspicious for non-obstructing small renal calculi. Narrative 03/24/2020 9:35 AM EST HISTORY: Urinary tract calculi, abnormal previous exam. COMPARISON: CT abdomen 02/17/2020, ultrasound kidneys 11/13/2019. FINDINGS: Right kidney: The kidney remains normal in size and echogenicity measuring 11.1 cm in the long axis similar the previous ultrasound. At least 2 echogenic foci are demonstrated within the kidney near the cortical medullary junctions, one in the interpolar region measuring 4 mm and the other also located in the interpolar region measuring 3 mm suspicious for calculi. No pelvocaliectasis. 9 mm x 7 mm x 6 mm round anechoic mass in the upper pole near the junction with the interpolar region, likely a small simple cyst. No pelvocaliectasis. No evidence of solid masses. No other significant changes. Left kidney: The kidney remains normal in size and echogenicity. It measures 11.3 cm in the long axis similar to the previous exam. At least 2 echogenic foci suspicious for calculi, one measuring 3 mm in the interpolar region and the other measuring 4 mm in the lower pole. The 4 mm echogenic focus is demonstrated on the prior ultrasound and unchanged. Pelvocaliectasis present on CT of 02/17/2020 has resolved. No evidence of solid masses. No other significant changes. Procedure Note Tavares Aaron MD - 03/24/2020 HISTORY: Urinary tract calculi, abnormal previous exam. COMPARISON: CT abdomen 02/17/2020, ultrasound kidneys 11/13/2019. FINDINGS: Right kidney: The kidney remains normal in size and echogenicitymeasuring 11.1 cm in the long axis similar the previous ultrasound. Atleast 2 echogenic foci are demonstrated within the kidney near thecortical medullary junctions, one in the interpolar region measuring 4 mmand the other also located in the interpolar region measuring 3 mmsuspicious for calculi. No pelvocaliectasis. 9 mm x 7 mm x 6 mm roundanechoic mass in the upper pole near the junction with the interpolarregion, likely a small simple cyst. No pelvocaliectasis. No evidence ofsolid masses. No other significant changes. Left kidney: The kidney remains normal in size and echogenicity. Itmeasures 11.3 cm in the long axis similar to the previous exam. At least 2echogenic foci suspicious for calculi, one measuring 3 mm in theinterpolar region and the other measuring 4 mm in the lower pole. The 4 mmechogenic focus is demonstrated on the prior ultrasound and unchanged.Pelvocaliectasis present on CT of 02/17/2020 has resolved. No evidence ofsolid masses. No other significant changes. IMPRESSION: Pelvocaliectasis present on 02/17/2020 has resolved presumably due topassage of the left ureteral calculus. Small bilateral echogenic fociwithin the kidneys suspicious for non-obstructing small renal calculi. Daniel Guzman MD [facility] Final Result documented in this encounter Visit Diagnoses Diagnosis Calculus of kidney- Primary Calculus of kidney documented in this encounter Additional Health Concerns Infection Onset Date Last Indicated Resolved Time CoV-Risk 05/20/2020 05/20/2020 05/30/2020 1:23 AM EST documented as of this encounter Care Teams Lead Game Designer Relationship Specialty Start Date End Date Aurora Trevino NP [address] [place] [address] [email or web address] PCP - General Family Medicine 12/09/19 03/23/20 Amanda Kelly MD [address] [place] [address] [email or web address] PCP - General Family Medicine 03/24/20 05/18/20 Kalyani Serrano CNP [address] [place] [address] [email or web address] PCP - General Family Medicine 05/19/20 09/19/20 Cecily Jean MD [address] [place] [address] [email or web address] PCP - General Internal Medicine 09/20/20 04/19/22 Lory Morales PA [address] [place] [address]. [place] [address] [email or web address] PCP - General Physician Petroleum Production Engineer 04/20/22 Eliezer Ndiaye MD [email or web address] Urology 12/09/19 documented as of this encounter Additional Source Comments The information contained in this document represents components of the legal health record. It is not the complete legal health record.[facility]
--- OUTSIDE RECORDS SUMMARY | 2025-01-22 08:13 | XMS_ITS | Encounter Summary ---
Author Organization [employer] Address [address] 7t [place] [address] Care Team Providers Care Contracts Representative Name Role Phone Lory Morales PA-C Primary Care Provider Unav ailable Joycelyn Vuong Unavailable Unavailable Inactive/Transferred Primary Care Provider Unava ilable Reason for Visit * Reason Comments Med Refill Encounter Details Date Type Department Care Team (Late st Contact Info) Description 10/11/2023 Refill [facility] [address] [place] [address] Lory Morales PA-C Social History Tobacco Use Types Packs/Day Years [...] housing situation today? I have phoebe liang 07/16/[address] you li ve. Do you have problems with any of the following? None of the above 07/16/2023 Food Insecurity Answer Date Recorded Within the past 12 months, y ou worried that your food would run out before you got money to buy more: Never True 07/16/2023 Within the past 12 months,th e food you bought just didn't last and you didn't have enough money to get more: Never True Transportation Answer Date Recorded In the past 12 months, has l ack of transportation kept you from medical appts, meetings, work or from getting things needed for daily living? No 07/16/2023 Utilities Answer Date Recorded In the past 12 months, has t he electric, gas, oil or water company threatened to shut off services in your home? No 07/16/2023 Depression Answer Date Recorded Patient Health Questionnaire-2 Score 3 07/16/2023 Comments Unknown Sex and Gender Information Value Date Recorded Sex Assigned at Female 10/17/2022 2:23 PM EDT Legal Sex Female 8:38 PM EDT Gender Identity Female 10/17/2022 2:23 PM EDT Sexual Orientation Choose not to disclose 2022 2:23 PM EDT documented as of this encounter Miscellaneous Notes * Telephone Encounter - ROBERT Yuen - 10/11/2023 3:28 PM EDT See te documented in this encounter Plan of Treatment Not on file documented as of this encounter Visit Diagnoses Not on filedocumented in this encounter Additional Health Concerns Assessment Noted Time PHQ-9 Depression Total Score: 13 024 10:58 AM EDT documented as of this encounter Care Teams Contracts Representative Relationship Specialty Start Date End Date Lory Morales PA-C PCP - General Family Medicine 07/03/22 10/20/24 Inactive/Transferred PCP - General 10/21/24 10/21/24 Joycelyn Vuong Health Navigator 06/19/24 documented as of this encounter
--- OUTSIDE RECORDS SUMMARY | 2025-01-22 08:13 | XMS_ITS | Encounter Summary ---
Author Organization [facility] Address [address] [place] [address] Phone Care Team Providers Care Laster Hand Name Role Phone Eliezer Ndiaye MD Unavailable [phone] Lory Morales Primary Care Provider [phone] Encounter Details Date Type Department Care Team (Latest Contact Info) Description 11/16/2022 Transcribe Orders Virtual Department [address] [place] [address] Lory Morales PA [address] [facility] [place] [address] [email or web address] Chronic left shoulder pain (Primary Dx) Social History Tobacco Use Types [...] as food, clothing, or medical care? No 08/17/2022 In the past 12 months have y ou been in a relationship with a person who hurts, threatens, or tries to control you? No 08/17/2022 Are you denied basic needs s uch as food, clothing, or medical care? No 08/17/2022 In the past 12 months have y ou been in a relationship with a person who hurts, threatens, or tries to control you? No 08/17/2022 Comments No Sex and Gender Information Value Date Recorded Sex Assigned at Female 01/19/2019 8:11 PM EDT Legal Sex Female 9:55 PM EDT Gender Identity Female 01/19/2019 8:11 PM EDT Sexual Orientation Straight 01/19/2019 8: 11 PM EDT documented as of this encounter Plan of Treatment Not on file documented as of this encounter Visit Diagnoses Diagnosis Chronic left shoulder pain- Primary Pain in joint, shoulder region documented in this encounter Care Teams Laster Hand Relationship Specialty Start Date End Date Lory Morales PA [address] [place] [address] [email or web address] PCP - General Physician Clinical Support Tech 04/20/22 Eliezer Ndiaye MD [email or web address] Urology 12/09/19 documented as of this encounter Additional Source Comments The information contained in this document represents components of the legal health record. It is not the complete legal health record.[facility]
--- OUTSIDE RECORDS SUMMARY | 2025-01-22 08:13 | XMS_ITS | Encounter Summary ---
Author Organization [facility] Address [address] [place] [address] [place] [address] Phone Care Team Providers Care Bearing Press Machine Operator Name Role Phone Eliezer Ndiaye MD Unavailable [phone] Cecily Jean MD Primary Care Provider [phone] Lory Morales Primary Care Provider [phone] Encounter Details Date Type Department Care Team (Late st Contact Info) Description 02/23/2022 Procedure Pass OR Admitting Dept - Virtual Department [address] [place] [address] Social History Tobacco Use Types Packs/Day Years [...] on filedocumented in this encounter Care Teams Bearing Press Machine Operator Relationship Specialty Start Date End Date Cecily Jean MD [address] [place] [address] [email or web address] PCP - General Internal Medicine 09/20/20 04/19/22 Lory Morales PA [address] [place] [address]. [place] [address] [email or web address] PCP - General Physician Hand Spring Former 04/20/22 Eliezer Ndiaye MD [email or web address] Urology 12/09/19 documented as of this encounter Additional Source Comments The information contained in this document represents components of the legal health record. It is not the complete legal health record.[facility]
--- OUTSIDE RECORDS SUMMARY | 2025-01-22 08:13 | XMS_ITS | Encounter Summary ---
Author Organization [employer] Address [address] [facility] 7[address] [place] [address] Care Team Providers Care Concrete Journeyman Name Role Phone Lory Morales PA-C Primary Care Provider Unav ailable Joycelyn Vuong Unavailable Unavailable Inactive/Transferred Primary Care Provider Unava ilable Reason for Visit * Reason Comments Med Refill Encounter Details Date Type Department Care Team (Late st Contact Info) Description 07/24/2024 Refill [facility] MEDICAL [address] [place] [address] Floridalma Fernández DO [address] [place] [address] Chronic tension-type headache, not intractable Social History Tobacco Use Types Packs/Day Years [...] encounter Miscellaneous Notes * Telephone Encounter - Louis Whitt - 07/24/2024 5:09 PM EDT Rx was sent today by provider to the pharmacy. documented in this encounter Plan of Treatment Not on file documented as of this encounter Visit Diagnoses Diagnosis Chronic tension-type headache, not intractable Chronic tension type headache documented in this encounter Additional Health Concerns Assessment Noted Time PHQ-9 Depression Total Score: 13 024 10:58 AM EDT documented as of this encounter Care Teams Concrete Journeyman Relationship Specialty Start Date End Date Lory Morales PA-C PCP - General Family Medicine 07/03/22 10/20/24 Inactive/Transferred PCP - General 10/21/24 10/21/24 Joycelyn Vuong Health Navigator 06/19/24 documented as of this encounter
--- OUTSIDE RECORDS SUMMARY | 2025-01-22 08:13 | XMS_ITS | Encounter Summary ---
Author Organization [facility] Address [address] [place] [address] Phone Care Team Providers Care J2Ee Architect Name Role Phone Eliezer Ndiaye MD Unavailable [phone] Cecily Jean MD Primary Care Provider [phone] Lory Morales Primary Care Provider [phone] Encounter Details Date Type Department Care Team (Latest Contact Info) Description 03/12/2022 Transcribe Orders Virtual Department [address] [place] [address] Placido Groves MD [address] [place] [address], [address] [place] [address] [email or web address] Calculus of kidney (Primary Dx); Cyst of kidney, acquired; Personal history of urinary (tract) infections Social History Tobacco Use Types Packs/Day Years [...] of this encounter Results * US Kidneys (04/20/2022 10:03 AM EST) Anatomical Region Laterality Modality Abdomen, Kidney Ultrasound 04/21/2022 1:26 PM EST Impressions 04/21/2022 1:32 PM EST 1.5 cm nonobstructing calculus at the lower pole of the right kidney. No hydronephrosis. No left-sided nephrolithiasis or hydronephrosis demonstrated Narrative 04/21/2022 1:32 PM EST US KIDNEYS History: History of renal calculi status post lithotripsy and right ureteral stent placement TECHNIQUE: Kidney Ultrasound. COMPARISON: CT abdomen pelvis 06/29/2021 Renal sonography 07/17/2021 FINDINGS: Right Kidney: Size: 11.7 cm Normal corticomedullary differentiation and cortical thickness. There is redemonstration of a 1.2 cm simple cyst at the upper pole. There is a 1.5 cm shadowing echogenic focus at the lower pole of the kidney in keeping with a calculus. No hydronephrosis. Left Kidney: Size: 10.4 cm Normal corticomedullary differentiation and cortical thickness. There is redemonstration of a 1.2 cm cyst at the upper pole. No stones or hydronephrosis. Bladder: The urinary bladder is physiologically distended. Procedure Note Alesia Crawford MD - 04/21/2022 US KIDNEYS History: History of renal calculi status post lithotripsy and rightureteral stent placement TECHNIQUE: Kidney Ultrasound. COMPARISON: CT abdomen pelvis 06/29/2021 Renal sonography 07/17/2021 FINDINGS: Right Kidney: Size: 11.7 cm Normal corticomedullary differentiation and cortical thickness. There isredemonstration of a 1.2 cm simple cyst at the upper pole. There is a 1.5cm shadowing echogenic focus at the lower pole of the kidney in keepingwith a calculus. No hydronephrosis. Left Kidney: Size: 10.4 cm Normal corticomedullary differentiation and cortical thickness. There isredemonstration of a 1.2 cm cyst at the upper pole. No stones orhydronephrosis. Bladder: The urinary bladder is physiologically distended. IMPRESSION: 1.5 cm nonobstructing calculus at the lower pole of the right kidney. Nohydronephrosis. No left-sided nephrolithiasis or hydronephrosis demonstrated Placido Groves MD [facility] Final Result documented in this encounter Visit Diagnoses Diagnosis Calculus of kidney- Primary Cyst of kidney, acquired Acquired cyst of kidney Personal history of urinary (tract) infections Calculus of kidney Cyst of kidney, acquired Acquired cyst of kidney Personal history of urinary (tract) infections documented in this encounter Care Teams J2Ee Architect Relationship Specialty Start Date End Date Cecily Jean MD [address] [place] [address] [email or web address] PCP - General Internal Medicine 09/20/20 04/19/22 Lory Morales PA [address] [place] [address]. [place] [address] [email or web address] PCP - General Physician Cafeteria Helper 04/20/22 Eliezer Ndiaye MD [email or web address] Urology 12/09/19 documented as of this encounter Additional Source Comments The information contained in this document represents components of the legal health record. It is not the complete legal health record.[facility]
--- OUTSIDE RECORDS SUMMARY | 2025-01-22 08:13 | XMS_ITS | Encounter Summary ---
Author Organization [facility] Address [address] [place] [address] Phone Care Team Providers Care Security Screener Name Role Phone Eliezer Ndiaye MD Unavailable [phone] Lory Morales Primary Care Provider [phone] Encounter Details Date Type Department Care Team (Late st Contact Info) Description 08/17/2022 Procedure Pass [facility], Ct Scan - [facility] [address] [place] [address] Social History Tobacco Use Types Packs/Day Years [...] Date of Assessment Author No Risk Indicated 08/17/2022 10:58 AM Vinh Rendon RN * [place] Suicide Severity Rating Scale (Screener/Recent Self-Report) Question Answer Date of Assessment Author 1. Wish to be (Past 1 Month) No 023 10:58 AM Vinh Rendon, DEE 2. Non-Specific Active Suici harrison Thoughts (Past 1 Month) No 08/17/2022 10:58 AM Nicolle Rendon RN 6. Suicidal Behavior (Lifetime) No 3 10:58 AM Vinh Rendon, DEE documented as of this encounter Plan of Treatment Not on file documented as of this encounter Visit Diagnoses Not on filedocumented in this encounter Care Teams Security Screener Relationship Specialty Start Date End Date Lory Morales PA [address] [place] [address] [email or web address] PCP - General Physician Board Writer 04/20/22 Eliezer Ndiaye MD [email or web address] Urology 12/09/19 documented as of this encounter Additional Source Comments The information contained in this document represents components of the legal health record. It is not the complete legal health record.[facility]
--- OUTSIDE RECORDS SUMMARY | 2025-01-22 08:13 | XMS_ITS | Encounter Summary ---
Author Organization [employer] Address [address] [facility] 7t [place] [address] Care Team Providers Care Crucible Furnace Tender Name Role Phone Lory Morales PA-C Primary Care Provider Unav ailable Joycelyn Vuong Unavailable Unavailable Inactive/Transferred Primary Care Provider Unava ilable Reason for Visit * Reason Comments Med Refill Encounter Details Date Type Department Care Team (Late st Contact Info) Description 09/27/2023 Refill [place] [facility] [address] [place] [address] Lory Morales PA-C Social History Tobacco Use [...] documented as of this encounter Care Teams Crucible Furnace Tender Relationship Specialty Start Date End Date Lory Morales PA-C PCP - General Family Medicine 07/03/22 10/20/24 Inactive/Transferred PCP - General 10/21/24 10/21/24 Joycelyn Vuong Health Navigator 06/19/24 documented as of this encounter
--- OUTSIDE RECORDS SUMMARY | 2025-01-22 08:13 | XMS_ITS | Encounter Summary ---
Author Organization [facility] Address [address] [facility] [address] [facility] [address] [place] [address] Phone Care Team Providers Care Abrasive Worker Name Role Phone Eliezer Ndiaye MD Unavailable [phone] Cecily Jean MD Primary Care Provider Lory Morales Primary Care Provider [phone] Encounter Details Date Type Department Care Team (Late st Contact Info) Description 02/28/2022 Procedure Pass [facility], Ct Scan - [address] [address] Social History Tobacco Use Types Packs/Day Years [...] Date of Assessment Author No Risk Indicated 02/28/2022 10:45 PM Kati Juares RN * [place] Suicide Severity Rating Scale (Screener/Recent Self-Report) Question Answer Date of Assessment Author 1. Wish to be (Past 1 Month) No 02/28/2022 10:45 PM Renato Smith RN 2. Non-Specific Active Suici harrison Thoughts (Past 1 Month) No 02/28/2022 10:45 PM Payton Smith RN 6. Suicidal Behavior (Lifetime) No 10:45 PM Kati Smith RN documented as of this encounter Plan of Treatment Not on file documented as of this encounter Visit Diagnoses Not on filedocumented in this encounter Care Teams Abrasive Worker Relationship Specialty Start Date End Date Cecily Jean MD [address] [place] [address] [email or web address] PCP - General Internal Medicine 09/20/20 04/19/22 Lory Morales PA [address] [place] [address]. [place] [address] [email or web address] PCP - General Physician Dethistler Operator 04/20/22 Eliezer Ndiaye MD [email or web address] Urology 12/09/19 documented as of this encounter Additional Source Comments The information contained in this document represents components of the legal health record. It is not the complete legal health record.[facility]
--- OUTSIDE RECORDS SUMMARY | 2025-01-22 08:13 | XMS_ITS | Encounter Summary ---
Author Organization [employer] Address [address] 7[address] [place] [address] Care Team Providers Care Linen Folder Name Role Phone Lory Morales PA-C Primary Care Provider Unav ailable Joycelyn Vuong Unavailable Unavailable Inactive/Transferred Primary Care Provider Unava ilable Reason for Visit * Reason Comments Med Refill Encounter Details Date Type Department Care Team (Late st Contact Info) Description 01/23/2024 Refill [place] [facility] [address] [place] [address] Steph Puente FNP [address] [place], [place] [id number] Chronic tension-type headache, not intractable Social History [...] encounter Miscellaneous Notes * Telephone Encounter - Magno Vee CMA - 01/23/2024 2:16 PM EDT Images from the original note were not included. This was sent successfully this morning. documented in this encounter Plan of Treatment Not on file documented as of this encounter Visit Diagnoses Diagnosis Chronic tension-type headache, not intractable Chronic tension type headache documented in this encounter Additional Health Concerns Assessment Noted Time PHQ-9 Depression Total Score: 13 024 10:58 AM EDT documented as of this encounter Care Teams Linen Folder Relationship Specialty Start Date End Date Lory Morales PA-C PCP - General Family Medicine 07/03/22 10/20/24 Inactive/Transferred PCP - General 10/21/24 10/21/24 Joycelyn Vuong Health Navigator 06/19/24 documented as of this encounter
--- OUTSIDE RECORDS SUMMARY | 2025-01-22 08:13 | XMS_ITS | Encounter Summary ---
Author Organization [facility] Address [address] [facility] [address] [place] [address] Phone Care Team Providers Care Disk Grinder Name Role Phone Eliezer Ndiaye MD Unavailable [phone] Cecily Jean MD Primary Care Provider [phone] Lory Morales Primary Care Provider [phone] Encounter Details Date Type Department Care Team (Latest Contact Info) Description 06/20/2021 Transcribe Orders Virtual Department [address] [place] [address] Selena Alvarez PA [address] [id number] [email or web address] Calculus of kidney (Primary Dx); Cyst of kidney, acquired Social History Tobacco Use Types Packs/Day Years [...] of this encounter Results * US Kidneys and Bladder (07/17/2021 8:35 AM EDT) Anatomical Region Laterality Modality Abdomen, Kidney Ultrasound 07/17/2021 9:06 AM EDT Impressions 07/17/2021 9:09 AM EDT 1.No hydronephrosis. 2.Bilateral nonobstructing renal calculi measuring up to 7 mm on the right and 4 mm on the left. Narrative 07/17/2021 9:09 AM EDT US KIDNEYS AND BLADDER TECHNIQUE: Kidney Ultrasound. COMPARISON: Abdominal CT dated 06/08/2021 FINDINGS: Right Kidney: Size: 10.5 cm No hydronephrosis. Multiple nonobstructive calculi measuring up to 7 mm. 1.6 cm cyst in the upper pole. Left Kidney: Size: 11 cm No hydronephrosis. Multiple nonobstructive calculi measuring up to 4 mm. 1 cm parapelvic cyst. Bladder: Normal. The bladder volume is 150 cc with postvoid residual volume of 15 cc (10%). Bilateral ureteral jets are seen. Procedure Note Kevin Manning MD - 07/17/2021 US KIDNEYS AND BLADDER TECHNIQUE: Kidney Ultrasound. COMPARISON: Abdominal CT dated 06/08/2021 FINDINGS: Right Kidney: Size: 10.5 cm No hydronephrosis. Multiple nonobstructive calculi measuring up to 7 mm. 1.6 cm cyst in the upper pole. Left Kidney: Size: 11 cm No hydronephrosis. Multiple nonobstructive calculi measuring up to 4 mm. 1 cm parapelvic cyst. Bladder: Normal. The bladder volume is 150 cc with postvoid residualvolume of 15 cc (10%). Bilateral ureteral jets are seen. IMPRESSION: 1.No hydronephrosis. 2.Bilateral nonobstructing renal calculi measuring up to 7 mm on the rightand 4 mm on the left. Selena MANDUJANO US RENAL Final Result documented in this encounter Visit Diagnoses Diagnosis Calculus of kidney- Primary Cyst of kidney, acquired Acquired cyst of kidney Calculus of kidney Cyst of kidney, acquired Acquired cyst of kidney documented in this encounter Care Teams Disk Grinder Relationship Specialty Start Date End Date Cecily Jean MD [address] [place] [address] [email or web address] PCP - General Internal Medicine 09/20/20 04/19/22 Lory Morales PA [address] [place] [address]. [place] [address] [email or web address] PCP - General Physician Industrial Equipment Mechanic 04/20/22 Eliezer Ndiaye MD [email or web address] Urology 12/09/19 documented as of this encounter Additional Source Comments The information contained in this document represents components of the legal health record. It is not the complete legal health record.[facility]
--- OUTSIDE RECORDS SUMMARY | 2025-01-22 08:13 | XMS_ITS | Encounter Summary ---
Author Organization [employer] Address [address] [facility] 7t [place] [address] Care Team Providers Care Cooking Chef Name Role Phone Lory Morales PA-C Primary Care Provider Unav ailable Joycelyn Vuong Unavailable Unavailable Inactive/Transferred Primary Care Provider Unava ilable Reason for Visit * Reason Comments Med Refill Encounter Details Date Type Department Care Team (Late st Contact Info) Description 11/11/2023 Refill [place] [facility] [address] [place] [address] Lory Morales PA-C Chronic tension-type headache, not intractable Social History [...] documented as of this encounter Care Teams Cooking Chef Relationship Specialty Start Date End Date Lory Morales PA-C PCP - General Family Medicine 07/03/22 10/20/24 Inactive/Transferred PCP - General 10/21/24 10/21/24 Joycelyn Vuong Health Navigator 06/19/24 documented as of this encounter
--- OUTSIDE RECORDS SUMMARY | 2025-01-22 08:13 | XMS_ITS | Encounter Summary ---
Author Organization [facility] Address [address] [place] [address] [place] [address] Phone Care Team Providers Care Laminating Machine Tender Name Role Phone Eliezer Ndiaye MD Unavailable [phone] Aurora Trevino NP Primary Care Provider [phone] Amanda Kelly MD Primary Care Provider Kalyani Serrano CNP Primary Care Provider + Cecily Jean MD Primary Care Provider [phone] Lory Morales Primary Care Provider [phone] Encounter Details Date Type Department Care Team (Latest Contact Info) Description 02/03/2020 Transcribe Orders Virtual Department 30 [place] [address] Placido Groves MD [address] [place] [address], [address] [place] [address] [email or web address] Calculus of ureter (Primary Dx); Calculus of kidney Social History Tobacco Use Types Packs/Day Years [...] Visit Diagnoses Diagnosis Calculus of ureter- Primary Calculus of kidney documented in this encounter Additional Health Concerns Infection Onset Date Last Indicated Resolved Time CoV-Risk 05/20/2020 05/20/2020 05/30/2020 1:23 AM EST documented as of this encounter Care Teams Laminating Machine Tender Relationship Specialty Start Date End Date Aurora Trevino NP [address] [place] [address] [email or web address] PCP - General Family Medicine 12/09/19 03/23/20 Amanda Kelly MD [address] [place] [address] [email or web address] PCP - General Family Medicine 03/24/20 05/18/20 Kalyani Serrano CNP [address] [place] [address] [email or web address] PCP - General Family Medicine 05/19/20 09/19/20 Cecily Jean MD [address] [place] [address] [email or web address] PCP - General Internal Medicine 09/20/20 04/19/22 Lory Morales PA [address] [place] [address] [email or web address] PCP - General Physician Pearl Glue Drier 04/20/22 Eliezer Ndiaye MD [email or web address] Urology 12/09/19 documented as of this encounter Additional Source Comments The information contained in this document represents components of the legal health record. It is not the complete legal health record.[facility]
--- OUTSIDE RECORDS SUMMARY | 2025-01-22 08:13 | XMS_ITS | Encounter Summary ---
Author Organization [facility] Address [address] [facility] [address] [place] [address] Phone Care Team Providers Care Environmental Engineering Assistant Name Role Phone Eliezer Ndiaye MD Unavailable [phone] Aurora Trevino NP Primary Care Provider [phone] Amanda Kelly MD Primary Care Provider [phone] Kalyani Serrano CNP Primary Care Provider + Cecily Jean MD Primary Care Provider [phone] Lory Morales Primary Care Provider [phone] Encounter Details Date Type Department Care Team (Late st Contact Info) Description 02/17/2020 Procedure Pass [facility], Ct Scan - [address] [address] Social History Tobacco Use Types Packs/Day Years [...] Date of Assessment Author No Risk Indicated 02/18/2020 12:28 AM Sergio Dobbs RN * [place] Suicide Severity Rating Scale (Screener/Recent Self-Report) Question Answer Date of Assessment Author 1. Wish to be (Past 1 Month) No 020 12:28 AM Padma Dobbs RN 2. Non-Specific Active Suici harrison Thoughts (Past 1 Month) No 02/18/2020 12:28 AM Padma Dobbs RN 6. Suicidal Behavior (Lifetime) No 0 12:28 AM Padma Dobbs RN documented as of this encounter Plan of Treatment Not on file documented as of this encounter Visit Diagnoses Not on filedocumented in this encounter Additional Health Concerns Infection Onset Date Last Indicated Resolved Time CoV-Risk 05/20/2020 05/20/2020 05/30/2020 1:23 AM EST documented as of this encounter Care Teams Environmental Engineering Assistant Relationship Specialty Start Date End Date Aurora Trevino NP [address] [place] [address] [email or web address] PCP - General Family Medicine 12/09/19 03/23/20 Amanda Kelly MD [address] [place] [address] PCP - General Family Medicine 03/24/20 05/18/20 Kalyani Serrano CNP [address] [place] [address] [email or web address] PCP - General Family Medicine 05/19/20 09/19/20 Cecily Jean MD [address] [place] [address] [email or web address] PCP - General Internal Medicine 09/20/20 04/19/22 Lory Morales PA [address] [place] [address] [email or web address] PCP - General Physician Sprinkling System Irrigator 04/20/22 Eliezer Ndiaye MD [email or web address] Urology 12/09/19 documented as of this encounter Additional Source Comments The information contained in this document represents components of the legal health record. It is not the complete legal health record.[facility]
--- OUTSIDE RECORDS SUMMARY | 2025-01-22 08:14 | XMS_ITS | Encounter Summary ---
Author Organization [facility] Address [address] [place] [address] Phone Care Team Providers Care Central Scheduler Name Role Phone Eliezer Ndiaye MD Unavailable [phone] Aurora Trevino NP Primary Care Provider [phone] Amanda Kelly MD Primary Care Provider Kalyani Serrano CNP Primary Care Provider + Cecily Jean MD Primary Care Provider [phone] Lory Morales Primary Care Provider [phone] Encounter Details Date Type Department Care Team (Late st Contact Info) Description 12/10/2019 Procedure Pass [place] Admitting Dept - Virtual Department [address] [place] [address] Social History Tobacco Use Types Packs/Day Years [...] documented as of this encounter Care Teams Central Scheduler Relationship Specialty Start Date End Date Aurora Trevino NP [address] [place] [address] [email or web address] PCP - General Family Medicine 12/09/19 03/23/20 Amanda Kelly MD [address] [address] PCP - General Family Medicine 03/24/20 05/18/20 Kalyani Serrano CNP [address] [place] [phone] [email or web address] PCP - General Family Medicine 05/19/20 09/19/20 Cecily Jean MD [address] [place] [address] rosa PCP - General Internal Medicine 09/20/20 04/19/22 Lory Morales PA [address] [place] [address]. [place] [address] [email or web address] PCP - General Physician Tax Services Specialist 04/20/22 Eliezer Ndiaye MD Urology 12/09/19 documented as of this encounter Additional Source Comments The information contained in this document represents components of the legal health record. It is not the complete legal health record.[facility]
== END 2025-01-22 08:45 | disposition home or self-care (01) ==
LOC: HO.HMCHD 08:06
PROVIDERS: PCP Physician Assistant; Visit Provider Physician Assistant
DX: F19.10 Other psychoactive substance abuse, uncomplicated (principal); E11.9 Type 2 diabetes mellitus without complications; F10.288 Alcohol dependence with other alcohol-induced disorder; F17.200 Nicotine dependence, unspecified, uncomplicated; Z09 Encounter for follow-up examination after completed treatment for conditions other than malignant neoplasm

== ENCOUNTER 2025-01-22 08:06 | Outpatient (REF) | payer MEDICARE, SELFPAY ==
--- OUTSIDE RECORDS SUMMARY | 2025-01-22 09:50 | XMS_ITS | Clinical Summary ---
Author Organization [employer] [facility] Address [address] [place] [address] Care Team Providers Care Senior Merchandiser Name Role Phone Unavailable Primary Care Provider [...] Breast Cancer Screening 1955 Colorectal Cancer Screening: Colonoscopy 1954 Diabetes: Annual Foot Exam 1964 Diabetes: Annual Retina Eye Exam 1964 Pneumococcal Vaccine: 50+ Years (1 of 2 - PCV) 1973 RSV Immunization Adult Patients (1 - Risk 50-74 years 1-dose series) 2004 Zoster Vaccines (1 of 2) 2004 Falls Risk Assessment 02/20/2022 Hepatitis C Screening 02/20/2022 Lung Cancer Screening (Low Dose CT) 02/20/2022 Osteoporosis Screening (Bone Density Screening) 02/20/2022 Social Influencers of Health Screening 02/20/2022 Diabetes: Annual GFR (Glomerular Filtration Rate) 03/03/2023 03/03/2022, 06/09/2021, 02/18/2020, Additional history exists DTaP,Tdap,and Td Vaccines (2 - Td or Tdap) 09/29/2023 09/28/2013 Depression Screening 03/25/2024 COVID-19 Vaccine ( - season) 2024 Influenza Vaccine (#1) 2024 Diabetes: Annual Urine Albumin-Creatinine Ratio (uACR) 01/18/2025 Hypertension/CHF/CAD Annual BMP Blood Test 01/18/2025 03/03/2022, 06/09/2021, 02/18/2020, Additional history exists Diabetes: Blood Sugar Control Test (HGBA1C) 02/14/2025 08/14/2024 Cholesterol Screening (Lipid Panel) 07/11/2028 07/12/2023 HIB Vaccines Aged Out No longer eligi [...] to complete this topic RSV Immunization Patients Under 20 months Aged Out No longer eligible based on patient's age to complete this topic Varicella Vaccines Aged Out No longer eligible based on patient's age to complete this topic
[2025-01-22 10:28] LABS: Anion Gap 15 (12-20); Blood Urea Nitrogen 17 mg/dL (9-16); Calcium 9.7 mg/dL (8.4-10.2); Carbon Dioxide 29 mmol/L (22-29); Chloride 103 mmol/L (96-108); Cholesterol 229 mg/dL (<200); Estimated Glomerular Filt Rate 60; HDL Cholesterol 59 mg/dL (>40); Potassium 4.5 mmol/L (3.3-5.1); Sodium 142 mmol/L (135-145); Triglycerides 88 mg/dL (<150)
== END 2025-01-22 08:07 | disposition home or self-care (01) ==
LOC: HO.LAB 08:06
PROVIDERS: PCP Physician Assistant; Visit Provider Physician Assistant
DX: E11.9 Type 2 diabetes mellitus without complications (principal); F19.10 Other psychoactive substance abuse, uncomplicated; F17.210 Nicotine dependence, cigarettes, uncomplicated; F10.288 Alcohol dependence with other alcohol-induced disorder; Z79.4 Long term (current) use of insulin; Z86.73 Personal history of transient ischemic attack (TIA), and cerebral infarction without residual deficits; Z09 Encounter for follow-up examination after completed treatment for conditions other than malignant neoplasm
CPT/HCPCS: 36415; 80048; 80061; 83036; 99202

== ENCOUNTER 2025-02-24 11:03 | Outpatient (AMB) | payer MEDICARE, SELFPAY ==
--- NOTE | 2025-02-24 11:14 | A.OFFVIS_ITS ---
Intake Vital Signs 02/24/25 11:17 Height 5 ft 3.5 in Weight 52.787 kg BMI 20.3 BP 136/84 Blood Pressure Location Rt brachial Position Sitting Respiration 16 Pulse 109 H Pulse Source Pulse Oximeter Temp 97.1 F Temp Source Temporal Artery Scan Pulse Oximetry (%) 96 Oxygen Delivery Method Room Air Intake Visit Reasons: Wellness appt - Medicare - see comments New Client Banking Services Clerk Required: No Accompanied by: Spouse Allergies promethazine (From Phenergan) Allergy (Mild, Verified 02/24/25 11:18) DEEP SLEEP Medication List - Last Reconciled 02/24/25 by JEN Pérez folic acid 1 mg PO DAILY insulin NPH isoph U-100 human (Novolin N FlexPen) 20 units (0.2 mL) subcut BID melatonin 10 mg PO .QHS metformin 1,000 mg PO BID multivitamin 1 tab PO DAILY quetiapine 50 mg PO BEDTIME quetiapine (Seroquel) 25 mg PO DAILY PRN thiamine HCl (vitamin B1) 100 mg PO DAILY Fall Risk Assessment Fall risk assessment: 2 + Falls in past year Date Fall Risk Assessed: 02/24/25 HPI HPI Comments History of Present Illness Details 69-year-old female with history of alcoh ol use disorder with binge drinking, polysubstance abuse, insulin-dependent type 2 diabetes, CVA, nephrolithiasis, tobacco dependence presenting to the office today for hospital discharge/rehab follow-up. She was admitted to [facility] on 10/24/2024 by her family requesting detox. She was found to be hypoglycemic which improved with glucose and D5. She had been found by her unresponsive though she has no memory of this. She also has history of excessive use of Fioricet and hydroxyzine accompanied by alcohol but day of arrival, she was not arousable. Lowest glucose reading was 19. Mild patient was intoxicated, the ED provider recommended a section 35 as she was adamantly opposed to detox. She was admitted on phenobarbital per protocol and monitored on CIWA. Unfortunately, the patient pulled her IV out and stated she was going home. Given she was alert and oriented, she left against medical advice. Family ultimately did obtain section 35 and patient was admitted to the [facility] in [place] and was discharged on 01/19 2 home. She states that in the past, she also used inhaled drugs such as cocaine and heroin. States that since her discharge, she has not consumed any alcohol or use any illicit substances. She is considering Suboxone and Vivitrol though has not sought out any addiction recovery centers. She is also not attended any support groups but states she is interested in AA. She states prior to admission to recovery Center, she had been drinking about 2-3 glasses of wine but more recently, had increased her intake. Today she states that she has occasionally depressed but overall feels well. She does report daytime fatigue. No SI/HI. Type 2 diabetes-6.6%. On 10 units of Novolin twice daily as well as metformin 1000 mg twice daily. History of CVA-not on aspirin or statin Tobacco dependence-continue smoking about 8 cigarettes per day. Concerns: None Health maintenance: Due for mammogram Due for DEXA scan Due for colonoscopy ROS: see hpi EXAM: Constitutional - Awake and Alert, No apparent distress Eyes - PERRL Cardiovascular - S1S2, RRR, No edema Respiratory - Normal lung expansion, Normal respiratory effort, No respiratory distress, CTA bilaterally Extremities - no calf tenderness bilaterally, no swelling Skin - Warm/Dry Neurological - Alert & oriented x3 Psychological - Appropriate affect physical- 25 dec taking seroquel- assuming she was taking 1 per day took 7 one day, 4 day prescribed 1/day taking more to sleep. feels like she has lost so much sleep. still waking up at night. increased cigarettes- 9-12 . half per week buys packs of 4. 15 per day. no drinking falling- 02/13 curb? brief loc - ?200MG SEROQUEL. needs lock box [facility] Medical History (Updated 02/24/25 @ 11:45 by JEN Pérez) Hypoglycemia Alcohol dependence Type 2 diabetes mellitus Alcohol abuse Edentulous CVA (cerebral vascular accident) Bilateral nephrolithiasis Hiatal hernia Tobacco dependence Social History Household Members: Unknown / Unable to assess Housing: Unknown / Unable to assess Do you presently have visiting nurse or other home services: No Alcohol intake: current Alcohol intake frequency: 0-2 drinks per day Alcohol type: wine Patient Tobacco Use Status: Tobacco use Unknown Tobacco use type: Cigarette Cigarettes Per Day: 8 service: No Questionnaire Thrive Questionnaire Date Thrive assessed: 11/14/24 Physical Exam Vital Signs: Last Vital Signs Temp 97.1 F 02/24/25 11:17 Pulse 109 H 02/24/25 11:17 Resp 16 02/24/25 11:17 BP 136/84 02/24/25 11:17 Pulse Ox 96 02/24/25 11:17 Oxygen Delivery Method Room Air 02/24/25 11:17 BMI result Body Mass Index 20.3 Assessment & Plan Assessment & Plan Orders: Referrals Psychiatry Outpatient Consultation Service E51.2 - Wernicke's encephalopathy Neurology Referral E51.2 - Wernicke's encephalopathy Visiting Nurse Association/Hospice Referral R41.9 - Unspecified symptoms and signs involving cognitive functions and awareness, R53.1 - Weakness, W19.XXXA - Unspecified fall, initial encounter, Z91.148 - Patient's other noncompliance with medication regimen for other reason Medications: New quetiapine 50 mg PO BEDTIME 90 tabs 1RF quetiapine (Seroquel) 25 mg PO DAILY PRN 90 tabs 0RF anxiety/agitation Patient Instructions: [email or web address] Quality Reporting (2019) Fall Risk Screening ([facility]) Last assessed Fall Risk: 02/24/25 Fall risk assessment: 2 + Falls in past year Coding
[2025-02-24 11:17] VITALS: BP 136/84; PULSE 109; RESP 16; TEMP 36.2; O2SAT 96; BMI 20.3
--- OUTSIDE RECORDS SUMMARY | 2025-02-24 13:08 | XMS_ITS | Encounter Summary ---
Author Organization [employer] Address [address] [facility] [address] [place] [address] Care Team Providers Care Warehouse Operations Associate Name Role Phone Lory Morales PA-C Primary Care Provider Unav ailable Joycelyn Vuong Unavailable Unavailable Inactive/Transferred Primary Care Provider Unava ilable Reason for Visit * Reason Comments Med Refill Encounter Details Date Type Department Care Team (Late st Contact Info) Description 12/14/2022 Refill [facility] [address] [place] [address] Steph Puente FNP [address] [place], [place] [id number] Social History Tobacco Use Types Packs/Day Years [...] on filedocumented in this encounter Care Teams Warehouse Operations Associate Relationship Specialty Start Date End Date Lory Morales PA-C PCP - General Family Medicine 07/03/22 10/20/24 Inactive/Transferred PCP - General 10/21/24 10/21/24 Joycelyn Vuong Health Navigator 06/19/24 documented as of this encounter
--- OUTSIDE RECORDS SUMMARY | 2025-02-24 13:08 | XMS_ITS | Clinical Summary ---
Author Organization [facility] Address [address] [place] [address] Care Team Providers Care Marketing Instructor Name Role Phone Unavailable Primary Care Provider [...] Depression Screening 03/25/2024 COVID-19 Vaccine ( - 2024- season) 2024 Influenza Vaccine (#1) 2024 Diabetes: [...]
--- OUTSIDE RECORDS SUMMARY | 2025-02-24 13:08 | XMS_ITS | Encounter Summary ---
Author Organization [facility] Address [address] [facility] [address] [place] [address] Phone Care Team Providers Care Research Worker Encyclopedia Name Role Phone Eliezer Ndiaye MD Unavailable [phone] Cecily Jean MD Primary Care Provider [phone] Lory Morales Primary Care Provider [phone] Encounter Details Date Type Department Care Team (Late st Contact Info) Description 05/30/2021 Procedure Pass [place] Admitting Dept - Virtual Department [address] [place] [address] Social History Tobacco Use Types Packs/Day Years [...] 05/30/2021 1:00 AM Daphney Salmon RN * [place] Suicide Severity Rating Scale (Screener/Recent Self-Report) Question [...] on filedocumented in this encounter Care Teams Research Worker Encyclopedia Relationship Specialty Start Date End Date Cecily Jean MD [address] [place] [address] [email or web address] PCP - General Internal Medicine 09/20/20 04/19/22 Lory Morales PA [address] [place] [address]. [place] [address] [email or web address] PCP - General Physician Senior Cytotechnologist 04/20/22 Eliezer Ndiaye MD [email or web address] Urology 12/09/19 documented as of this encounter Additional Source Comments The information contained in this document represents components of the legal health record. It is not the complete legal health record.[facility]
--- OUTSIDE RECORDS SUMMARY | 2025-02-24 13:08 | XMS_ITS | Encounter Summary ---
Author Organization [facility] Address [address] [facility] [address] [place] [address] Phone Care Team Providers Care Crew Scheduler Name Role Phone Abrahan Angelo COMPUTER SYSTEMS TECHNICIAN Primary Care Provide r Eliezer Ndiaye MD Unavailable [phone] Aurora Trevino COMPUTER SYSTEMS TECHNICIAN Primary Care Provider [phone] Amanda Kelly MD Primary Care Provider Kalyani Serrano CNP Primary Care Provider + Cecily Jean MD Primary Care Provider [phone] Lory Morales Primary Care Provider [phone] Encounter Details Date Type Department Care Team (Late st Contact Info) Description 11/20/2019 Procedure Pass [facility], Ct Scan - [facility] [address] [place] [address] Social History Tobacco Use Types Packs/Day Years [...] documented as of this encounter Care Teams Crew Scheduler Relationship Specialty Start Date End Date Abrahan Angelo NP PCP - General 03/05/19 12/08/19 Aurora Trevino NP [address] [place] [address] [email or web address] PCP - General Family Medicine 12/09/19 03/23/20 Amanda Kelly MD [address] [place] [address] [email or web address] PCP - General Family Medicine 03/24/20 05/18/20 Kalyani Serrano CNP [address] [place] [address] [email or web address] PCP - General Family Medicine 05/19/20 09/19/20 Cecily Jean MD [address] [place] [address] [email or web address] PCP - General Internal Medicine 09/20/20 04/19/22 Lory Morales PA [address] [facility] [place] [address] [email or web address] PCP - General Physician Hall Tender 04/20/22 Eliezer Ndiaye MD [email or web address] Urology 12/09/19 documented as of this encounter Additional Source Comments The information contained in this document represents components of the legal health record. It is not the complete legal health record.[facility]
--- OUTSIDE RECORDS SUMMARY | 2025-02-24 13:08 | XMS_ITS | Encounter Summary ---
Author Organization [facility] Address [address] [facility] [address] [place] [address] Phone Care Team Providers Care Sports Lawyer Name Role Phone Abrahan Angelo SOAKER MEAT Primary Care Provide r Eliezer Ndiaye MD Unavailable [phone] Aurora Trevino SOAKER MEAT Primary Care Provider [phone] Amanda Kelly MD Primary Care Provider Kalyani Serrano CNP Primary Care Provider + Cecily Jean MD Primary Care Provider Lory Morales Primary Care Provider [phone] Encounter Details Date Type Department Care Team (Late st Contact Info) Description 11/09/2019 Procedure Pass [facility], Ct Scan - [facility] [address] [place] [address] Social History Tobacco Use Types Packs/Day Years [...] documented as of this encounter Care Teams Sports Lawyer Relationship Specialty Start Date End Date Abrahan Angelo NP PCP - General 03/05/19 12/08/19 Aurora Trevino NP [address] [place] [address] [email or web address] PCP - General Family Medicine 12/09/19 03/23/20 Amanda Kelly MD [address] [place] [address] [email or web address] PCP - General Family Medicine 03/24/20 05/18/20 Kalyani Serrano CNP [address] [place] [address] [email or web address] PCP - General Family Medicine 05/19/20 09/19/20 Cecily Jean MD [address] [place] [address] [email or web address] PCP - General Internal Medicine 09/20/20 04/19/22 Lory Morales PA [address] [facility] [place] [address] PCP - General Physician Administrative Intern 04/20/22 Eliezer Ndiaye MD [email or web address] Urology 12/09/19 documented as of this encounter Additional Source Comments The information contained in this document represents components of the legal health record. It is not the complete legal health record.[facility]
--- OUTSIDE RECORDS SUMMARY | 2025-02-24 13:08 | XMS_ITS | Encounter Summary ---
Author Organization [facility] Address [address] [place] [address] [address] [place] [address] Phone Care Team Providers Care Science Technician Name Role Phone Kalyani Serrano CNP Primary Care Provider + Amanda Kelly MD Primary Care Provider Abrahan Angelo RECOVERY COLLECTOR Primary Care Provide r Eliezer Ndiaye MD Unavailable [phone] Aurora Trevino RECOVERY COLLECTOR Primary Care Provider [phone] Amanda Kelly MD Primary Care Provider Kalyani Serrano CNP Primary Care Provider + Cecily Jean MD Primary Care Provider Lory Morales Primary Care Provider Encounter Details Date Type Department Care Team (Latest Contact Info) Description 01/20/2019 Transcribe Orders [facility] Specimen Processing [address] [place] [address] Placido Groves MD [address] [facility], [address] [place], [place] [id number] [email or web address] Kidney stone (Primary Dx) Social History Tobacco [...] Test component not applicable or not reported. [facility] [address] SOURCE Not provided [facility]PATH [address] Interpretation SEE NOTE [facility] Comment: (NOTE) 90% Calcium oxalate monohydrate 10% Calcium oxalate dihydrate Other (Ureter, Bilateral) 01/20/2019 3:00 PM EDT 01/20/2019 4:19 PM EDT us Placido Groves MD BODY FLUIDS AND STOOLS ORDERAB LES Final Result [facility] [address] [place] [address] documented in this encounter Visit Diagnoses Diagnosis Kidney stone- Primary Calculus of kidney documented in this encounter Additional Health Concerns Infection Onset Date Last Indicated Resolved Time CoV-Risk 11/20/2019 11/20/2019 11/21/2019 9:43 AM EDT CoV-Risk 05/20/2020 05/20/2020 05/30/2020 1:23 AM EST documented as of this encounter Care Teams Science Technician Relationship Specialty Start Date End Date Kalyani Serrano CNP [address] [place] [address] [email or web address] PCP - General 01/10/17 03/02/19 Amanda Kelly MD [address] [place] [address] [email or web address] PCP - General Family Medicine 03/03/19 03/04/19 Abrahan Angelo NP [address] [place] [address] PCP - General 03/05/19 12/08/19 Aurora Trevino NP [address] [place] [address] PCP - General Family Medicine 12/09/19 03/23/20 Amanda Kelly MD [address] [place] [address] [email or web address] PCP - General Family Medicine 03/24/20 05/18/20 Kalyani Serrano CNP [address] [place] [address] [email or web address] PCP - General Family Medicine 05/19/20 09/19/20 Cecily Jean MD [address] [place] [address] [email or web address] PCP - General Internal Medicine 09/20/20 04/19/22 Lory Morales PA [address] [place] [address] [email or web address] PCP - General Physician Straight Line Edger 04/20/22 Eliezer Ndiaye MD [address] [place] [address] Urology 12/09/19 documented as of this encounter Additional Source Comments The information contained in this document represents components of the legal health record. It is not the complete legal health record.[facility]
--- OUTSIDE RECORDS SUMMARY | 2025-02-24 13:08 | XMS_ITS | Encounter Summary ---
Author Organization [facility] Address [address] [place] [address] [place] [address] Phone Care Team Providers Care Housetrailer Servicer Name Role Phone Kalyani Serrano CNP Primary Care Provider + Amanda Kelly MD Primary Care Provider [phone] Abrahan Angelo DATA VIRTUALIZATION CONSULTANT Primary Care Provide r Eliezer Ndiaye MD Unavailable [phone] Aurora Trevino DATA VIRTUALIZATION CONSULTANT Primary Care Provider [phone] Amanda Kelly MD Primary Care Provider Kalyani Serrano CNP Primary Care Provider + Cecily Jean MD Primary Care Provider [phone] Lory Morales Primary Care Provider [phone] Encounter Details Date Type Department Care Team (Late st Contact Info) Description 03/23/2017 Ancillary Orders [facility], X-Ray - [address] [address] Kalyani Serrano CNP [address] [place] [address] [email or web address] Cough Social History Tobacco Use Types Packs/Day [...] evidence of acute cardiopulmonary disease. POS - [id number] Narrative 03/23/2017 11:57 AM EST HISTORY: Cough [...] no evidence of acutecardiopulmonary disease. POS - [id number] Kalyani Serrano KENO WRITER IMG XR CHEST Final Re sult documented in this encounter Visit Diagnoses Diagnosis Cough Cough documented in this encounter Additional Health Concerns Infection Onset Date Last Indicated Resolved Time CoV-Risk 11/20/2019 11/20/2019 11/21/2019 9:43 AM EDT CoV-Risk 05/20/2020 05/20/2020 05/30/2020 1:23 AM EST documented as of this encounter Care Teams Housetrailer Servicer Relationship Specialty Start Date End Date Kalyani Serrano CNP [address] [place] [address] [email or web address] [email or web address] PCP - General 01/10/17 03/02/19 Amanda Kelly MD [address] [facility] [address] [place] [address] [email or web address] PCP - General Family Medicine 03/03/19 03/04/19 Abrahan Angelo, JOEY [address] [facility] [address] [place] [address] PCP - General 03/05/19 12/08/19 Aurora Trevino, JOEY [address] [place] [address] [email or web address] PCP - General Family Medicine 12/09/19 03/23/20 Amanda Kelly MD [address] [address] [email or web address] PCP - General Family Medicine 03/24/20 05/18/20 Kalyani Serrano CNP [address] [place] [address] [email or web address] PCP - General Family Medicine 05/19/20 09/19/20 Cecily Jean MD [address] [place] [address] [email or web address] PCP - General Internal Medicine 09/20/20 04/19/22 Lory Morales PA [address] [place] [address]. [place] [address] [email or web address] PCP - General Physician Silk Washing Machine Operator 04/20/22 Eliezer Ndiaye MD [address] [place] [address] [email or web address] Urology 12/09/19 documented as of this encounter Additional Source Comments The information contained in this document represents components of the legal health record. It is not the complete legal health record.[facility]
--- OUTSIDE RECORDS SUMMARY | 2025-02-24 13:08 | XMS_ITS | Encounter Summary ---
Author Organization [facility] Address [address] [facility] [address] [place] [address] Phone Care Team Providers Care Wellness Ambassador Name Role Phone Eliezer Ndiaye MD Unavailable [phone] Kalyani eSrrano CNP Primary Care Provider + Cecily Jean MD Primary Care Provider [phone] Lory Morales Primary Care Provider [phone] Encounter Details Date Type Department Care Team (Late st Contact Info) Description 09/16/2020 Procedure Pass Non-Invasive Cardiology [address] [place] [address] Social History Tobacco Use Types Packs/Day Years [...] on filedocumented in this encounter Care Teams Wellness Ambassador Relationship Specialty Start Date End Date Kalyani Serrano CNP [address] [place] [address] [email or web address] [email or web address] PCP - General Family Medicine 05/19/20 09/19/20 Cecily Jean MD [address] [place] [address] [email or web address] PCP - General Internal Medicine 09/20/20 04/19/22 Lory Morales PA [address] [place] [address]. [place] [address] [email or web address] PCP - General Physician Placement Director 04/20/22 Eliezer Ndiaye MD [email or web address] Urology 12/09/19 documented as of this encounter Additional Source Comments The information contained in this document represents components of the legal health record. It is not the complete legal health record.[facility]
--- OUTSIDE RECORDS SUMMARY | 2025-02-24 13:08 | XMS_ITS | Encounter Summary ---
Author Organization [facility] Address [address] [facility] [address] [place] [address] Phone Care Team Providers Care Storeroom Attendant Name Role Phone Abrahan Angelo DRUGLESS PHYSICIAN Primary Care Provide r Eliezer Ndiaye MD Unavailable [phone] Aurora Trevino DRUGLESS PHYSICIAN Primary Care Provider [phone] Amanda Kelly MD Primary Care Provider Kalyani Serrano CNP Primary Care Provider + Cecily Jean MD Primary Care Provider Lory Morales Primary Care Provider [phone] Encounter Details Date Type Department Care Team (Late st Contact Info) Description 11/24/2019 Procedure Pass [place] Admitting Dept - Virtual Department [address] [place] [address] Social History Tobacco Use Types Packs/Day Years [...] documented as of this encounter Care Teams Storeroom Attendant Relationship Specialty Start Date End Date Abrahan Angelo NP PCP - General 03/05/19 12/08/19 Aurora Trevino NP [address] [place] [address] [email or web address] PCP - General Family Medicine 12/09/19 03/23/20 Amanda Kelly MD [address] [place] [address] [email or web address] PCP - General Family Medicine 03/24/20 05/18/20 Kalyani Serrano CNP [address] [place] [address] [email or web address] PCP - General Family Medicine 05/19/20 09/19/20 Cecily Jean MD [address] [place] [address] [email or web address] PCP - General Internal Medicine 09/20/20 04/19/22 Lory Morales PA [address] [place] [address] [email or web address] PCP - General Physician Cover Machine Operator 04/20/22 Eliezer Ndiaye MD [email or web address] Urology 12/09/19 documented as of this encounter Additional Source Comments The information contained in this document represents components of the legal health record. It is not the complete legal health record.[facility]
--- OUTSIDE RECORDS SUMMARY | 2025-02-24 13:08 | XMS_ITS | Encounter Summary ---
Author Organization [facility] Address [address] [address] Phone Care Team Providers Care Oracle Forms Developer Name Role Phone Kalyani Serrano CNP Primary Care Provider + Amanda Kelly MD Primary Care Provider Abrahan Angelo BREAKFAST AND ROOM ATTENDANT Primary Care Provide r Eliezer Ndiaye MD Unavailable [phone] Aurora Trevino BREAKFAST AND ROOM ATTENDANT Primary Care Provider [phone] Amanda Kelly MD Primary Care Provider Kalyani Serrano CNP Primary Care Provider + Cecily Jean MD Primary Care Provider Lory Morales Primary Care Provider Encounter Details Date Type Department Care Team (Late st Contact Info) Description 10/12/2017 Procedure Pass [facility], Ct Scan - [facility] 30 [place] [address] Social History Tobacco Use Types Packs/Day Years [...] documented as of this encounter Care Teams Oracle Forms Developer Relationship Specialty Start Date End Date Kalyani Serrano CNP [address] [place] [address] [email or web address] PCP - General 01/10/17 03/02/19 Amanda Kelly MD [address] [place] [address] PCP - General Family Medicine 03/03/19 03/04/19 Abrahan Angelo, JOEY [address] [place] [address] PCP - General 03/05/19 12/08/19 Aurora Trevino, JOEY [address] [place] [address] [email or web address] PCP - General Family Medicine 12/09/19 03/23/20 Amanda Kelly MD [address] [address] PCP - General Family Medicine 03/24/20 05/18/20 Kalyani Serrano CNP [address] [place] [address] maria [email or web address] PCP - General Family Medicine 05/19/20 09/19/20 Cecily Jean MD 73 [place] [address] [email or web address] PCP - General Internal Medicine 09/20/20 04/19/22 Lory Morales PA 73 [facility] [place] [address] [email or web address] PCP - General Physician Quality Control Checker 04/20/22 Eliezer Ndiaye MD [address] [place] [address] [email or web address] Urology 12/09/19 documented as of this encounter Additional Source Comments The information contained in this document represents components of the legal health record. It is not the complete legal health record.[facility]
--- OUTSIDE RECORDS SUMMARY | 2025-02-24 13:08 | XMS_ITS | Encounter Summary ---
Author Organization [facility] Address [address] [place] [address] [place] [address] Phone Care Team Providers Care Butting Saw Operator Name Role Phone Eliezer Ndiaye MD Unavailable [phone] Cecily Jean MD Primary Care Provider Lory Morales Primary Care Provider [phone] Encounter Details Date Type Department Care Team (Late st Contact Info) Description 05/22/2021 Procedure Pass [place] Admitting Dept - Virtual Department 30 [place] [address] Social History Tobacco Use Types Packs/Day Years [...] on filedocumented in this encounter Care Teams Butting Saw Operator Relationship Specialty Start Date End Date Cecily Jean MD 73 [place] [address] [email or web address] PCP - General Internal Medicine 09/20/20 04/19/22 Lory Morales PA [address] [place] [address]. [place] [address] [email or web address] PCP - General Physician Marble Polisher Hand 04/20/22 Eliezer Ndiaye MD [email or web address] Urology 12/09/19 documented as of this encounter Additional Source Comments The information contained in this document represents components of the legal health record. It is not the complete legal health record.[facility]
--- OUTSIDE RECORDS SUMMARY | 2025-02-24 13:08 | XMS_ITS | Encounter Summary ---
Author Organization [facility] Address 399 [facility] [address] [place] [address] Phone Care Team Providers Care Yacht Rigger Name Role Phone Eliezer Ndiaye MD Unavailable [phone] Kalyani Serrano CNP Primary Care Provider + Cecily Jean MD Primary Care Provider [phone] Lory Morales Primary Care Provider [phone] Encounter Details Date Type Department Care Team (Late st Contact Info) Description 09/16/2020 Procedure Pass [facility] 30 [place] [address] Social History Tobacco Use Types Packs/Day Years [...] on filedocumented in this encounter Care Teams Yacht Rigger Relationship Specialty Start Date End Date Kalyani Serrano CNP [address] [place] [address] maria [email or web address] PCP - General Family Medicine 05/19/20 09/19/20 Cecily Jean MD [address] [place] [address] [email or web address] PCP - General Internal Medicine 09/20/20 04/19/22 Lory Morales PA [address] [place] [address]. [place] [address] [email or web address] PCP - General Physician Vehicle Body Maker 04/20/22 Eliezer Ndiaye MD [email or web address] Urology 12/09/19 documented as of this encounter Additional Source Comments The information contained in this document represents components of the legal health record. It is not the complete legal health record.[facility]
--- OUTSIDE RECORDS SUMMARY | 2025-02-24 13:08 | XMS_ITS | Encounter Summary ---
Author Organization [facility] Address [address] [place] [address] Phone Care Team Providers Care Amusement Park Entertainer Name Role Phone Kalyani Serrano CNP Primary Care Provider + Amanda Kelly MD Primary Care Provider Abrahan Angelo HOTEL FRONT DESK AGENT Primary Care Provide r Eliezer Ndiaye MD Unavailable [phone] Aurora Trevino HOTEL FRONT DESK AGENT Primary Care Provider [phone] Amanda Kelly MD Primary Care Provider [phone] Kalyani Serrano CNP Primary Care Provider + Cecily Jean MD Primary Care Provider Lory Morales Primary Care Provider [phone] Encounter Details Date Type Department Care Team (Late st Contact Info) Description 01/24/2019 Procedure Pass [place] Admitting Dept - Virtual Department 30 [place], [place] [id number] Social History Tobacco Use Types Packs/Day Years [...] documented as of this encounter Care Teams Amusement Park Entertainer Relationship Specialty Start Date End Date Kalyani Serrano CNP [address] [place] [address] maria [email or web address] PCP - General 01/10/17 03/02/19 Amanda Kelly MD [address] [place] [address] PCP - General Family Medicine 03/03/19 03/04/19 Abrahan Angelo, JOEY [address] [place] [address] PCP - General 03/05/19 12/08/19 Aurora Trevino, JOEY [address] [place] [address] [email or web address] PCP - General Family Medicine 12/09/19 03/23/20 Amanda Kelly MD [address] [address] PCP - General Family Medicine 03/24/20 05/18/20 Kalyani Serrano CNP [address] [place] [address] maria [email or web address] PCP - General Family Medicine 05/19/20 09/19/20 Cecily Jean MD 73 [place] [address] [email or web address] PCP - General Internal Medicine 09/20/20 04/19/22 Lory Morales PA 73 [facility] [place] [address] [email or web address] PCP - General Physician Color Developer 04/20/22 Eliezer Ndiaye MD [address] [place] [address] [email or web address] Urology 12/09/19 documented as of this encounter Additional Source Comments The information contained in this document represents components of the legal health record. It is not the complete legal health record.[facility]
--- OUTSIDE RECORDS SUMMARY | 2025-02-24 13:08 | XMS_ITS | Encounter Summary ---
Author Organization [facility] Address [address] [place] [address] [place] [address] Phone Care Team Providers Care Food And Beverage Assistant Name Role Phone Kalyani Serrano CNP Primary Care Provider + Amanda Kelly MD Primary Care Provider Abrahan Angelo MEDICAL DELIVERY TECHNICIAN Primary Care Provide r Eliezer Ndiaye MD Unavailable [phone] Aurora Trevino MEDICAL DELIVERY TECHNICIAN Primary Care Provider [phone] Amanda Kelly MD Primary Care Provider Kalyani Serrano CNP Primary Care Provider + Cecily Jean MD Primary Care Provider Lory Morales Primary Care Provider [phone] Encounter Details Date Type Department Care Team (Latest Contact Info) Description 02/05/2019 Transcribe Orders Virtual Department 30 [place] [address] Placido Groves MD [facility], [address] [place], [place] [phone] [email or web address] Calculus of ureter (Primary Dx) Social History [...] documented as of this encounter Care Teams Food And Beverage Assistant Relationship Specialty Start Date End Date Kalyani Serrano CNP [address] [place] [address] maria [email or web address] PCP - General 01/10/17 03/02/19 Amanda Kelly MD [address] [place] [address] [email or web address] PCP - General Family Medicine 03/03/19 03/04/19 Abrahan Angelo NP [address] [place] [address] PCP - General 03/05/19 12/08/19 Aurora Trevino NP [address] [place] [address] [email or web address] PCP - General Family Medicine 12/09/19 03/23/20 Amanda Kelly MD [address] [address] PCP - General Family Medicine 03/24/20 05/18/20 Kalyani Serrano CNP [address] [place] [address] [email or web address] [email or web address] PCP - General Family Medicine 05/19/20 09/19/20 Cecily Jean MD [address] [place] [address] [email or web address] PCP - General Internal Medicine 09/20/20 04/19/22 Lory Morales PA [address] [place] [address]. [place] [address] [email or web address] PCP - General Physician Bookmaker Map 04/20/22 Eliezer Ndiaye MD [address] [address] [email or web address] Urology 12/09/19 documented as of this encounter Additional Source Comments The information contained in this document represents components of the legal health record. It is not the complete legal health record.[facility]
--- OUTSIDE RECORDS SUMMARY | 2025-02-24 13:08 | XMS_ITS | Encounter Summary ---
Author Organization [facility] Address [address] [place] [address] [address] [place] [address] Phone Care Team Providers Care Developer Evangelist Name Role Phone Kalyani Serrano CNP Primary Care Provider + Amanda Kelly MD Primary Care Provider Abrahan Angelo LOGISTICS DIRECTOR Primary Care Provide r Eliezer Ndiaye MD Unavailable [phone] Aurora Trevino LOGISTICS DIRECTOR Primary Care Provider [phone] Amanda Kelly MD Primary Care Provider [phone] Kalyani Serrano CNP Primary Care Provider + Cecily Jean MD Primary Care Provider Lory Morales Primary Care Provider Encounter Details Date Type Department Care Team (Late st Contact Info) Description 01/23/2019 Ancillary Orders [facility], X-Ray - [facility] 30 [place] [address] Placido Groves MD [address] [facility], [address] [place], [place] [phone] [email or web address] Unspecified renal colic; Calculus of ureter Social [...] documented as of this encounter Care Teams Developer Evangelist Relationship Specialty Start Date End Date Kalyani Serrano CNP [address] [place] [address] maria [email or web address] PCP - General 01/10/17 03/02/19 Amanda Kelly MD [address] [place] [address] PCP - General Family Medicine 03/03/19 03/04/19 Abrahan Angelo, JOEY [address] [place] [address] PCP - General 03/05/19 12/08/19 Aurora Trevino NP 73 [place] [address] [email or web address] PCP - General Family Medicine 12/09/19 03/23/20 Amanda Kelly MD [address] [place] [address] PCP - General Family Medicine 03/24/20 05/18/20 Kalyani Serrano CNP [address] [place] [address] [email or web address] PCP - General Family Medicine 05/19/20 09/19/20 Cecily Jean MD [address] [place] [address] [email or web address] PCP - General Internal Medicine 09/20/20 04/19/22 Lory Morales PA [address] [place] [address] [email or web address] PCP - General Physician Treasury Director 04/20/22 Eliezer Ndiaye MD [address] [place] [address] [email or web address] Urology 12/09/19 documented as of this encounter Additional Source Comments The information contained in this document represents components of the legal health record. It is not the complete legal health record.[facility]
--- OUTSIDE RECORDS SUMMARY | 2025-02-24 13:08 | XMS_ITS | Encounter Summary ---
Author Organization [facility] Address 399 [facility] [address] [place] [address] Phone Care Team Providers Care Public Relations Writer Name Role Phone Abrahan Angelo APPLIANCE LINE ASSEMBLER Primary Care Provide r Eliezer Ndiaye MD Unavailable [phone] Aurora Trevino APPLIANCE LINE ASSEMBLER Primary Care Provider [phone] Amanda Kelly MD Primary Care Provider [phone] Kalyani Serrano CNP Primary Care Provider + Cecily Jean MD Primary Care Provider Lory Morales Primary Care Provider [phone] Encounter Details Date Type Department Care Team (Late st Contact Info) Description 11/11/2019 Procedure Pass OR Admitting Dept - Virtual Department 30 [place] [address] Social History Tobacco Use Types Packs/Day Years [...] documented as of this encounter Care Teams Public Relations Writer Relationship Specialty Start Date End Date Abrahan Angelo NP PCP - General 03/05/19 12/08/19 Aurora Trevino NP 73 [place] [address] [email or web address] PCP - General Family Medicine 12/09/19 03/23/20 Amanda Kelly MD [address] [place] [address] [email or web address] PCP - General Family Medicine 03/24/20 05/18/20 Kalyani Serrano CNP [address] [place] [address] [email or web address] [email or web address] PCP - General Family Medicine 05/19/20 09/19/20 Cecily Jean MD 73 [place] [address] [email or web address] PCP - General Internal Medicine 09/20/20 04/19/22 Lory Morales PA 73 [facility] [place] [address] [email or web address] PCP - General Physician Nuclear Station Operator 04/20/22 Eliezer Ndiaye MD [email or web address] Urology 12/09/19 documented as of this encounter Additional Source Comments The information contained in this document represents components of the legal health record. It is not the complete legal health record.[facility]
--- OUTSIDE RECORDS SUMMARY | 2025-02-24 13:08 | XMS_ITS | Encounter Summary ---
Author Organization [facility] Address [address] [place] [address] Phone Care Team Providers Care Safety Patrol Officer Name Role Phone Kalyani Serrano CNP Primary Care Provider + Amanda Kelly MD Primary Care Provider [phone] Abrahan Angelo CHISELER HEAD Primary Care Provide r Eliezer Ndiaye MD Unavailable [phone] Aurora Trevino CHISELER HEAD Primary Care Provider [phone] Amanda Kelly MD Primary Care Provider Kalyani Serrano CNP Primary Care Provider + Cecily Jean MD Primary Care Provider [phone] Lory Morales Primary Care Provider Encounter Details Date Type Department Care Team (Late st Contact Info) Description 10/12/2017 Procedure Pass [place] Admitting Dept - Virtual Department 30 [place], [place] [id number] Social History Tobacco Use Types Packs/Day Years [...] documented as of this encounter Care Teams Safety Patrol Officer Relationship Specialty Start Date End Date Kalyani Serrano CNP [address] [place] [address] maria [email or web address] PCP - General 01/10/17 03/02/19 Amanda Kelly MD [address] [place] [address] PCP - General Family Medicine 03/03/19 03/04/19 Abrahan Angelo, JOEY [address] [place] [address] PCP - General 03/05/19 12/08/19 Aurora Trevino, JOEY [address] [place] [address] [email or web address] PCP - General Family Medicine 12/09/19 03/23/20 Amanda Kelly MD [address] [address] PCP - General Family Medicine 03/24/20 05/18/20 Kalyani Serrano CNP [address] [place] [address] [email or web address] PCP - General Family Medicine 05/19/20 09/19/20 Cecily Jean MD 73 [place] [address] [email or web address] PCP - General Internal Medicine 09/20/20 04/19/22 Lory Morales PA 73 [facility] [place] [address] [email or web address] PCP - General Physician Polygraph Technician 04/20/22 Eliezer Ndiaye MD [address] [place] [address] [email or web address] Urology 12/09/19 documented as of this encounter Additional Source Comments The information contained in this document represents components of the legal health record. It is not the complete legal health record.[facility]
--- OUTSIDE RECORDS SUMMARY | 2025-02-24 13:08 | XMS_ITS | Encounter Summary ---
Author Organization [facility] Address 399 [facility] [address] [place] [address] Phone Care Team Providers Care Junior Automation Engineer Name Role Phone Eliezer Ndiaye MD Unavailable [phone] Cecily Jean MD Primary Care Provider [phone] Lory Morales Primary Care Provider [phone] Encounter Details Date Type Department Care Team (Late st Contact Info) Description 05/19/2021 Procedure Pass [facility], Ct Scan - [address] [address] Social History Tobacco Use Types Packs/Day Years [...] 05/19/2021 4:01 AM Dennis Armenta, RN * Dukes Suicide Severity Rating Scale (Screener/Recent Self-Report) Question [...] on filedocumented in this encounter Care Teams Junior Automation Engineer Relationship Specialty Start Date End Date Cecily Jean MD [address] [place] [address] [email or web address] PCP - General Internal Medicine 09/20/20 04/19/22 Lory Morales PA [address] [place] [address]. [place] [address] [email or web address] PCP - General Physician Supervisor Bottle Machines 04/20/22 Eliezer Ndiaye MD [email or web address] Urology 12/09/19 documented as of this encounter Additional Source Comments The information contained in this document represents components of the legal health record. It is not the complete legal health record.[facility]
--- OUTSIDE RECORDS SUMMARY | 2025-02-24 13:08 | XMS_ITS | Encounter Summary ---
Author Organization [facility] Address [address] [place] [address] [place] [address] Phone Care Team Providers Care Sba Underwriter Name Role Phone Kalyani Serrano CNP Primary Care Provider + Amanda Kelly MD Primary Care Provider Abrahan Angelo ROADING ENGINEER Primary Care Provide r Eliezer Ndiaye MD Unavailable [phone] Aurora Trevino ROADING ENGINEER Primary Care Provider [phone] Amanda Kelly MD Primary Care Provider Kalyani Serrano CNP Primary Care Provider + Cecily Jean MD Primary Care Provider [phone] Lory Morales Primary Care Provider Encounter Details Date Type Department Care Team (Late st Contact Info) Description 11/14/2017 Ancillary Orders Virtual Department 30 [place] [address] Eliezer Ndiaye MD [facility], [address] [place], [place] [phone] [email or web address] Calculus of ureter Social History Tobacco Use [...] documented as of this encounter Care Teams Sba Underwriter Relationship Specialty Start Date End Date Kalyani Serrnao CNP [address] [place] [address] maria [email or web address] PCP - General 01/10/17 03/02/19 Amanda Kelly MD [address] [place] [address] [email or web address] PCP - General Family Medicine 03/03/19 03/04/19 Abrahan Angelo NP [address] [place] [address] PCP - General 03/05/19 12/08/19 Aurora Trevino NP [address] [place] [address] [email or web address] PCP - General Family Medicine 12/09/19 03/23/20 Amanda Kelly MD 15 [facility] [address] [place] [address] PCP - General Family Medicine 03/24/20 05/18/20 Kalyani Serrano CNP [address] [place] [address] [email or web address] PCP - General Family Medicine 05/19/20 09/19/20 Cecily Jean MD [address] [place] [address] [email or web address] PCP - General Internal Medicine 09/20/20 04/19/22 Lory Morales PA [address] [place] [address]. [place] [address] [email or web address] PCP - General Physician Sucker Machine Operator 04/20/22 Eliezer Ndiaye MD [address] [place] [address] 201 [place] [address] [email or web address] Urology 12/09/19 documented as of this encounter Additional Source Comments The information contained in this document represents components of the legal health record. It is not the complete legal health record.[facility]
--- OUTSIDE RECORDS SUMMARY | 2025-02-24 13:08 | XMS_ITS | Encounter Summary ---
Author Organization [facility] Address [address] [facility] [address] [place] [address] Phone Care Team Providers Care Rec Therapist Name Role Phone Eliezer Ndiaye MD Unavailable [phone] Cecily Jean MD Primary Care Provider [phone] Lory Morales Primary Care Provider [phone] Encounter Details Date Type Department Care Team (Late st Contact Info) Description 06/08/2021 Procedure Pass [facility], Ct Scan - [address] [address] Social History Tobacco Use Types Packs/Day Years [...] 4:34 PM EDT Effie Wayne CNP * [place] Suicide Severity Rating Scale (Screener/Recent Self-Report) Question Answer Date of Assessment Author 1. Wish to be (Past 1 Month) No 06/08/2021 4:34 PM EDT Effie Wayne Harris ffy, EBD SPECIAL EDUCATION TEACHER 2. Non-Specific Active Suicidal Thoughts (Past 1 Month) No 06/08/2021 4:34 PM EDT Tone Kandyratna Iglesias ffy, EBD SPECIAL EDUCATION TEACHER 6. Suicidal Behavior (Lifetime) No 06/08/2021 4:34 PM EDT Effie Wayne Harris ffy, EBD SPECIAL EDUCATION TEACHER documented as of this encounter Plan of Treatment Not on file documented as of this encounter Visit Diagnoses Not on filedocumented in this encounter Care Teams Rec Therapist Relationship Specialty Start Date End Date Cecily Jean MD [address] [place] [address] [email or web address] PCP - General Internal Medicine 09/20/20 04/19/22 Lory Morales PA [address] [place] [address]. [place] [address] [email or web address] PCP - General Physician Entry Level Drafter 04/20/22 Eliezer Ndiaye MD [email or web address] Urology 12/09/19 documented as of this encounter Additional Source Comments The information contained in this document represents components of the legal health record. It is not the complete legal health record.[facility]
--- OUTSIDE RECORDS SUMMARY | 2025-02-24 13:08 | XMS_ITS | Encounter Summary ---
Author Organization [facility] Address [address] [place] [address] [place] [address] Phone Care Team Providers Care Death Clearance Coordinator Name Role Phone Eliezer Ndiaye MD Unavailable [phone] Cecily Jean MD Primary Care Provider [phone] Lory Morales Primary Care Provider [phone] Encounter Details Date Type Department Care Team (Late st Contact Info) Description 05/20/2021 Procedure Pass [place] Admitting Dept - Virtual Department [address] [place] [address] Social History Tobacco Use Types Packs/Day Years [...] on filedocumented in this encounter Care Teams Death Clearance Coordinator Relationship Specialty Start Date End Date Cecily Jean MD [address] [place] [address] [email or web address] PCP - General Internal Medicine 09/20/20 04/19/22 Lory Morales PA [address] [place] [address]. [place] [address] [email or web address] PCP - General Physician Tile Layer Helper 04/20/22 Eliezer Ndiaye MD [email or web address] Urology 12/09/19 documented as of this encounter Additional Source Comments The information contained in this document represents components of the legal health record. It is not the complete legal health record.[facility]
--- OUTSIDE RECORDS SUMMARY | 2025-02-24 13:08 | XMS_ITS | Encounter Summary ---
Author Organization [facility] Address [address] [facility] [address] [place] [address] Phone Care Team Providers Care Project Manager Interior Design Name Role Phone Eliezer Ndiaye MD Unavailable [phone] Cecily Jean MD Primary Care Provider [phone] Lory Morales Primary Care Provider [phone] Encounter Details Date Type Department Care Team (Late st Contact Info) Description 06/06/2021 Procedure Pass [place] Admitting Dept - Virtual Department [address] [place] [address] Social History Tobacco Use Types Packs/Day Years [...] 4:34 PM EDT Effie Wayne CNP * [place] Suicide Severity Rating Scale (Screener/Recent Self-Report) Question Answer Date of Assessment Author 1. Wish to be (Past 1 Month) No 06/08/2021 4:34 PM EDT Tone Kandyratna Mckeony, WRAP CHECKER 2. Non-Specific Active Suicidal Thoughts (Past 1 Month) No 06/08/2021 4:34 PM EDT Canon Kandyratna Mckeony, WRAP CHECKER 6. Suicidal Behavior (Lifetime) No 06/08/2021 4:34 PM EDT ArcadiaKandy mcginnisratna Iglesias ffy, WRAP CHECKER documented as of this encounter Plan of Treatment Not on file documented as of this encounter Visit Diagnoses Not on filedocumented in this encounter Care Teams Project Manager Interior Design Relationship Specialty Start Date End Date Cecily Jean MD [address] [place] [address] [email or web address] PCP - General Internal Medicine 09/20/20 04/19/22 Lory Morales PA [address] [place] [address]. [place] [address] [email or web address] PCP - General Physician Load Dropper 04/20/22 Eliezer Ndiaye MD [email or web address] Urology 12/09/19 documented as of this encounter Additional Source Comments The information contained in this document represents components of the legal health record. It is not the complete legal health record.[facility]
--- OUTSIDE RECORDS SUMMARY | 2025-02-24 13:09 | XMS_ITS | Encounter Summary ---
Author Organization [facility] Address [address] [place] [address] Phone Care Team Providers Care Business Administrator Name Role Phone Eliezer Ndiaye MD Unavailable Amanda Kelly MD Primary Care Provider Kalyani Serrano CNP Primary Care Provider + Cecily Jean MD Primary Care Provider Lory Morales Primary Care Provider Encounter Details Date Type Department Care Team (Late st Contact Info) Description 05/16/2020 Procedure Pass [facility], Ct Scan - [address] [address] Social History Tobacco Use Types Packs/Day Years [...] 05/16/2020 8:14 PM Win Thurston, DEE * [place] Suicide Severity Rating Scale (Screener/Recent Self-Report) Question [...] documented as of this encounter Care Teams Business Administrator Relationship Specialty Start Date End Date Amanda Kelly MD [address] [place] [address] [email or web address] PCP - General Family Medicine 03/24/20 05/18/20 Kalyani Serrano CNP [address] [place] [address] [email or web address] PCP - General Family Medicine 05/19/20 09/19/20 Cecily Jean MD [address] [place] [address] [email or web address] PCP - General Internal Medicine 09/20/20 04/19/22 Lory Morales PA [address] [place] [address] [email or web address] PCP - General Physician Skydiving Instructor 04/20/22 Eliezer Ndiaye MD [email or web address] Urology 12/09/19 documented as of this encounter Additional Source Comments The information contained in this document represents components of the legal health record. It is not the complete legal health record.[facility]
--- OUTSIDE RECORDS SUMMARY | 2025-02-24 13:09 | XMS_ITS | Encounter Summary ---
Author Organization [facility] Address [address] [place] [address] Phone Care Team Providers Care Hand Funnel Coater Name Role Phone Eliezer Ndiaye MD Unavailable [phone] Kalyani Serrano CNP Primary Care Provider + Cecily Jean MD Primary Care Provider [phone] Lory Morales Primary Care Provider [phone] Encounter Details Date Type Department Care Team (Latest Contact Info) Description 06/30/2020 Transcribe Orders Virtual Department [address] [place] [address] Placido Groves MD [address] [place] [address], [address] [address] [email or web address] Calculus of kidney (Primary Dx) Social History [...] Primary documented in this encounter Care Teams Hand Funnel Coater Relationship Specialty Start Date End Date Kalyani Serrano CNP [address] [place] [address] [email or web address] PCP - General Family Medicine 05/19/20 09/19/20 Cecily Jean MD [address] [place] [address] [email or web address] PCP - General Internal Medicine 09/20/20 04/19/22 Lory Morales PA [address] [place] [address] [email or web address] PCP - General Physician Automobile Mechanic Supervisor 04/20/22 Eliezer Ndiaye MD [email or web address] Urology 12/09/19 documented as of this encounter Additional Source Comments The information contained in this document represents components of the legal health record. It is not the complete legal health record.[facility]
--- OUTSIDE RECORDS SUMMARY | 2025-02-24 13:09 | XMS_ITS | Encounter Summary ---
Author Organization [facility] Address [address] [facility] [address] [facility] [address] [place] [address] Phone Care Team Providers Care Kindergarten Assistant Name Role Phone Eliezer Ndiaye MD Unavailable [phone] Kalyani Serrano CNP Primary Care Provider + Cecily Jean MD Primary Care Provider [phone] Lory Morales Primary Care Provider Encounter Details Date Type Department Care Team (Late st Contact Info) Description 09/14/2020 Procedure Pass [facility], [address] [address] Social History Tobacco Use Types Packs/Day Years [...] 10:26 AM EDT Rohini Roblero RN * [place] Suicide Severity Rating Scale (Screener/Recent Self-Report) Question [...] on filedocumented in this encounter Care Teams Kindergarten Assistant Relationship Specialty Start Date End Date Kalyani Serrano CNP [address] [place] [address] [email or web address] PCP - General Family Medicine 05/19/20 09/19/20 Cecily Jean MD [address] [place] [address] [email or web address] PCP - General Internal Medicine 09/20/20 04/19/22 Lory Morales PA [address] [place] [address]. [place] [address] [email or web address] PCP - General Physician Rapid Extractor Operator 04/20/22 Eliezer Ndiaye MD Urology 12/09/19 documented as of this encounter Additional Source Comments The information contained in this document represents components of the legal health record. It is not the complete legal health record.[facility]
--- OUTSIDE RECORDS SUMMARY | 2025-02-24 13:09 | XMS_ITS | Clinical Summary ---
Author Organization [employer] Address [address] [place] [address] Care Team Providers Care Order Taker Name Role Phone Joycelyn Vuong Unavailable Unavailable [...] Glucose Monitoring Suppl (FreeStyle Lite) w/Device kit 3 Active insulin NPH, Isophane, (NovoLIN N FlexPen) 100 UNIT/ML injection in the morning. 2 Active rosuvastatin (Crestor) 20 MG tablet Take 1 tablet (20 mg) by mouth in the morning. 90 tablet 1 3 Active losartan (Cozaar) 25 MG tablet Take 1 tablet (25 mg) by mouth in the morning. 90 tablet 1 3 Active aspirin 81 MG chewable tablet Chew and swallow 1 tablet by mouth in the morning 30 tablet 3 Active BD Pen Needle Yumiko U/F 32G X 4 MM misc USE 1 TO 2 needles AT bedtime directed 20 each 4 Active FREESTYLE LITE test stripIndications:T ype 2 diabetes mellitus with diabetic neuropathy, with long-term current use of insulin (HCC) USE 1 STRIP TO CHECK GLUCOSE THREE TIMES DAILY 200 each 4 Active topiramate (Topamax) 25 MG tablet Take 1 tablet (25 mg) by mouth Once per day. 90 tablet 1 4 Active Continuous Glucose Mobile Developer (FreeStyle Jade 3 [place]) deviceIndications: Type 2 diabetes mellitus with diabetic neuropathy, with long-term current use of insulin (HCC) 1 Device continuously. 1 each 5 05/22/19 26 Active Continuous Glucose Sensor (FreeStyle Jade 3 Sensor) miscIndications:Ty pe 2 diabetes mellitus with diabetic neuropathy, with long-term current use of insulin (HCC) 1 Device every 14 (fourteen) days. 6 each 3 5 05/22/19 26 Active butalbital-acetami nophen-caffeine 50-325-40 MG tabletIndications: Chronic tension-type headache, not intractable TAKE 1 TABLET BY MOUTH EVERY 8 HOURS NEEDED FOR HEADACHE 30 tablet 5 Active LORazepam (Ativan) 0.5 MG tabletIndications: Anxiety due to invasive procedure Take 2 tablets 30 minutes prior to procedure. 2 tablet 5 Active hydrOXYzine HCl (Atarax) 25 MG tabletIndications: Anxiety due to invasive procedure Take 1 tablet (25 mg) by mouth if needed at bedtime for anxiety. 30 tablet 1 5 Active FLUoxetine (PROzac) 20 MG capsule Take 1 capsule (20 mg) by mouth Once per day. 30 capsule 1 5 Active metFORMIN (Glucophage) 1000 MG tabletIndications: Type 2 diabetes mellitus with hyperglycemia (HCC) TAKE 1 TABLET BY MOUTH IN THE MORNING AND 1 TABLET IN THE EVENING 180 tablet 5 Active Active Problems Problem Noted Date Diagnosed [...] - 40 mg/dL 21 LDL Chol Calc ([facility]) 0 - 99 mg/dL 91 Non-HDL Cholesterol [...] and checking BS at home. Went over terminal operations manager risks and possible complications of uncontrolled DM2. Reviewed over signs and sx of hypo/hyperglycemia and advised to call if she experiences these. Work on diet and exercise. Stressed importance of checking BS. Foot exam: declines foot exam Eye exam: 12/2022 Encounters Date Type Department Care Team Description 01/17/2025 Cindy Islsa [facility] [address] [place] [address] [place], [place], [facility] Type 2 diabetes mellitus with hyperglycemia (HCC) [...] 05/20/2024 Dental Prophylaxis 11/18/2024 05/20/2024 COVID-19 Vaccine (1 - season) 2024 Influenza Vaccine (#1) 2024 Depression [...] 60 years or older (1 - Risk 50-74 years 1-dose series) 05/18/2025 Postponed from 2004 (Patient Refused) Zoster Vaccines (1 of 2) [...] diabetes mellitus with diabetic neuropathy, unspecified whether care home insulin use ([facility]) Full PROPHYLAXIS - ADULT Routine 05/20/2024 11:00 [...] Unknown 08/14/2024 11:05 AM EDT Steph Puente HISTOLOGY TECHNOLOGIST POINT OF CARE TEST ENTER/ EDIT ORDERABLES [...] AM EDT Performed at: 01 - [facility] [address] [id number] Vial Gauger: Luda Holloway MD, Phone: [phone] Lory Morales PA-C LAB BLOOD ORDERABLES Final Result [facility] 1 from Last 3 Months or Most Recently Relevant to Health Maintenance Insurance MEDICARE Care Teams Order Taker Relationship Specialty Start Date End Date Joycelyn Vuong [facility] Navigator 06/19/24
--- OUTSIDE RECORDS SUMMARY | 2025-02-24 13:09 | XMS_ITS | Encounter Summary ---
Author Organization [facility] Address [address] [place] [address] Phone Care Team Providers Care Machinist Outside Name Role Phone Eliezer Ndiaye MD Unavailable [phone] Kalyani Serrano CNP Primary Care Provider + Cecily Jean MD Primary Care Provider oLry Morales Primary Care Provider [phone] Encounter Details Date Type Department Care Team (Late st Contact Info) Description 09/14/2020 Procedure Pass [facility], [address] [address] Social History Tobacco Use Types Packs/Day Years [...] 10:26 AM EDT Rohini Roblero RN * [place] Suicide Severity Rating Scale (Screener/Recent Self-Report) Question [...] on filedocumented in this encounter Care Teams Machinist Outside Relationship Specialty Start Date End Date Kalyani Serrano CNP [address] [place] [address] [email or web address] [email or web address] PCP - General Family Medicine 05/19/20 09/19/20 Cecily Jean MD [address] [place] [address] [email or web address] PCP - General Internal Medicine 09/20/20 04/19/22 Lory Morales PA [address] [place] [address]. [place] [address] [email or web address] PCP - General Physician Skewer Up 04/20/22 Eliezer Ndiaye MD Urology 12/09/19 documented as of this encounter Additional Source Comments The information contained in this document represents components of the legal health record. It is not the complete legal health record.[facility]
--- OUTSIDE RECORDS SUMMARY | 2025-02-24 13:09 | XMS_ITS | Encounter Summary ---
Author Organization [facility] Address [address] [place] [address] Phone Care Team Providers Care Syrup Filterer Name Role Phone Kalyani Serrano CNP Primary Care Provider + Amanda Kelly MD Primary Care Provider Abrahan Angelo FINISHING WIRE SAWYER Primary Care Provide r Eliezer Ndiaye MD Unavailable [phone] Aurora Trevino FINISHING WIRE SAWYER Primary Care Provider [phone] Amanda Kelly MD Primary Care Provider Kalyani Serrano CNP Primary Care Provider + Cecily Jean MD Primary Care Provider [phone] Lory Morales Primary Care Provider [phone] Encounter Details Date Type Department Care Team (Late st Contact Info) Description 10/30/2017 Procedure Pass [place] Admitting Dept - Virtual Department [address] [place], [place] [phone] Social History Tobacco Use Types Packs/Day Years [...] documented as of this encounter Care Teams Syrup Filterer Relationship Specialty Start Date End Date Kalyani Serrano CNP [address] [place] [address] maria [email or web address] PCP - General 01/10/17 03/02/19 Amanda Kelly MD [address] [place] [address] PCP - General Family Medicine 03/03/19 03/04/19 Abrahan Angelo, JOEY [address] [place] [address] PCP - General 03/05/19 12/08/19 Aurora Trevino, JOEY [address] [place] [address] [email or web address] PCP - General Family Medicine 12/09/19 03/23/20 Amanda Kelly MD [address] [address] PCP - General Family Medicine 03/24/20 05/18/20 Kalyani Serrano CNP [address] [place] [address] [email or web address] [email or web address] PCP - General Family Medicine 05/19/20 09/19/20 Cecily Jean MD [address] [place] [address] [email or web address] PCP - General Internal Medicine 09/20/20 04/19/22 Lory Morales PA [address] [facility] [place] [address] [email or web address] PCP - General Physician Tool Or Die Drawing Checker 04/20/22 Eliezer Ndiaye MD [address] [place] [address] [email or web address] Urology 12/09/19 documented as of this encounter Additional Source Comments The information contained in this document represents components of the legal health record. It is not the complete legal health record.[facility]
--- OUTSIDE RECORDS SUMMARY | 2025-02-24 13:09 | XMS_ITS | Encounter Summary ---
Author Organization [employer] Address [address] [place] [address] Care Team Providers Care Hose Wrapper Name Role Phone Lory Morales PA-C Primary Care Provider Joycelyn Sprague Unavailable Unavailable Inactive/Transferred Primary Care Provider Unava ilreginald Encounter Details Date Type Department Care Team (Late st Contact Info) Description 10/20/2024 Orders Only [facility] [address] [place], [place] [id number] Pcp, Roshan Unassigned Social History Tobacco Use [...] documented as of this encounter Care Teams Hose Wrapper Relationship Specialty Start Date End Date Lory Morales PA-C PCP - General Family Medicine 07/03/22 10/20/24 Inactive/Transferred PCP - General 10/21/24 10/21/24 Joycelyn Vuong Health Navigator 06/19/24 documented as of this encounter
--- OUTSIDE RECORDS SUMMARY | 2025-02-24 13:09 | XMS_ITS | Encounter Summary ---
Author Organization [facility] Address [address] [facility] [address] [address] [place] [address] Phone Care Team Providers Care Social Work Manager Name Role Phone Eliezer Ndiaye MD Unavailable [phone] Amanda Kelly MD Primary Care Provider Kalyani Serrano CNP Primary Care Provider + Cecily Jean MD Primary Care Provider Lory Morales Primary Care Provider [phone] Encounter Details Date Type Department Care Team (Late st Contact Info) Description 05/17/2020 Procedure Pass [place] Admitting Dept - Virtual Department [address] [place] [address] Social History Tobacco Use Types Packs/Day Years [...] 05/20/2020 11:08 AM Svetlana Camacho RN * [place] Suicide Severity Rating Scale (Screener/Recent Self-Report) Question [...] documented as of this encounter Care Teams Social Work Manager Relationship Specialty Start Date End Date Amanda Kelly MD [address] [place] [address] [email or web address] PCP - General Family Medicine 03/24/20 05/18/20 Kalyani Serrano CNP [address] [place] [address] [email or web address] PCP - General Family Medicine 05/19/20 09/19/20 Cecily Jean MD [address] [place] [address] [email or web address] PCP - General Internal Medicine 09/20/20 04/19/22 Lory Morales PA [address] [place] [address]. [place] [address] [email or web address] PCP - General Physician Trim And Burr Operator 04/20/22 Eliezer Ndiaye MD [phone] (work) [email or web address] Urology 12/09/19 documented as of this encounter Additional Source Comments The information contained in this document represents components of the legal health record. It is not the complete legal health record.[facility]
--- OUTSIDE RECORDS SUMMARY | 2025-02-24 13:09 | XMS_ITS | Encounter Summary ---
Author Organization [facility] Address [address] [address] [place] [address] Phone Care Team Providers Care Propellant Charge Loader Name Role Phone Eliezer Ndiaye MD Unavailable [phone] Kalyani Serrano CNP Primary Care Provider + Cecily Jean MD Primary Care Provider Lory Morales Primary Care Provider [phone] Encounter Details Date Type Department Care Team (Late st Contact Info) Description 09/14/2020 Procedure Pass [facility], Ct Scan - [address] [address] Social History Tobacco Use Types Packs/Day Years [...] 10:26 AM EDT Rohini Roblero RN * [place] Suicide Severity Rating Scale (Screener/Recent Self-Report) Question [...] on filedocumented in this encounter Care Teams Propellant Charge Loader Relationship Specialty Start Date End Date Kalyani Serrano CNP [address] [place] [address] [email or web address] [email or web address] PCP - General Family Medicine 05/19/20 09/19/20 Cecily Jean MD [address] [place] [address] [email or web address] PCP - General Internal Medicine 09/20/20 04/19/22 Lory Morales PA [address] [place] [address]. [place] [address] [email or web address] PCP - General Physician Rental Counter Clerk 04/20/22 Eliezer Ndiaye MD Urology 12/09/19 documented as of this encounter Additional Source Comments The information contained in this document represents components of the legal health record. It is not the complete legal health record.[facility]
--- OUTSIDE RECORDS SUMMARY | 2025-02-24 13:09 | XMS_ITS | Encounter Summary ---
Author Organization [facility] Address [address] [place] [address] [place] [address] Phone Care Team Providers Care Devil Dog Name Role Phone Kalyani Serrano CNP Primary Care Provider + Amanda Kelly MD Primary Care Provider [phone] Abrahan Angelo BODY FINISHER Primary Care Provide r Eliezer Ndiaye MD Unavailable [phone] Aurora Trevino BODY FINISHER Primary Care Provider [phone] Amanda Kelly MD Primary Care Provider [phone] Kalyani Serrano CNP Primary Care Provider + Cecily Jean MD Primary Care Provider Lory Morales Primary Care Provider [phone] Encounter Details Date Type Department Care Team (Latest Contact Info) Description 10/30/2017 Transcribe Orders [facility] Specimen Processing 30 [place] [address] Eliezer Ndiaye MD [facility], [address] [place], [place] [id number] [email or web address] Left ureteral stone (Primary Dx) Social [...] 1ST CONSTITUENT 100% Calcium oxalate dihydrate [facility] IRLANDA MOREJON/PATH SUPERIOR KRUSE Comment: (NOTE) ADDITIONAL INFORMATION This test was developed and its performance characteristics determined by [facility] in a manner consistent with CLIA requirements. This test has not been cleared or approved by the U.S. Food and Drug Administration. 2ND CONSTITUENT Test component not applicable or not reported. RENEE BOJORQUEZT IRLANDA MOREJON/MELVA MONTALVO DR 3RD CONSTITUENT Test component not applicable or not reported. [facility] JEAN-PIERRE/MELVA SHANE, MAJOR Test component not applicable or not reported. [facility] IRLANDA MOREJON/MELVA SHANE, MINOR Test component not applicable or not reported. [facility] IRLANDA MOREJON/MELVA ROBLEDO, MAJOR Test component not applicable or not reported. [facility] MED/PATH SUPERIOR DR ROBLEDO, MINOR Test component not applicable or not reported. [facility] MED/PATH SUPERIOR KRUSE COMMENT Test component not applicable or not reported. [facility] JEAN-PIERRE/PATH SUPERIOR KRUSE Other (Left Kidney) 10/30/2017 9:08 AM EDT 10/30/2017 11:03 AM EDT us Eliezer Ndiaye MD BODY FLUIDS AND STOOLS ORDERABL ES Final Result [facility] MED/PATH [address]PER[address] KRUSE [address] [place] [address] documented in this encounter Visit Diagnoses Diagnosis Left ureteral stone- Primary documented in this encounter Additional Health Concerns Infection Onset Date Last Indicated Resolved Time CoV-Risk 11/20/2019 11/20/2019 11/21/2019 9:4 3 AM EDT CoV-Risk 05/20/2020 05/20/2020 05/30/2020 1:23 AM EST documented as of this encounter Care Teams Devil Dog Relationship Specialty Start Date End Date Kalyani Serrano CNP [address] [place] [address] [email or web address] PCP - General 01/10/17 03/02/19 Amanda Kelly MD [address] [address] [email or web address] PCP - General Family Medicine 03/03/19 03/04/19 Abrahan Angelo, JOEY [address] [address] PCP - General 03/05/19 12/08/19 Aurora Trevino, JOEY [address] [place] [address] [email or web address] PCP - General Family Medicine 12/09/19 03/23/20 Amanda Kelly MD [address] [address] PCP - General Family Medicine 03/24/20 05/18/20 Kalyani Serrano CNP [address] [place] [address] [email or web address] PCP - General Family Medicine 05/19/20 09/19/20 Cecily Jean MD [address] [place] [address] [email or web address] PCP - General Internal Medicine 09/20/20 04/19/22 Lory Morales PA 73 [facility] [place] [address] [email or web address] PCP - General Physician Paint Roller Assembler 04/20/22 Eliezer Ndiaye MD [address] [place] [address] [email or web address] Urology 12/09/19 documented as of this encounter Additional Source Comments The information contained in this document represents components of the legal health record. It is not the complete legal health record.[facility]
--- OUTSIDE RECORDS SUMMARY | 2025-02-24 13:09 | XMS_ITS | Clinical Summary ---
Author Organization [facility] Address [address] [place] [address] Phone Care Team Providers Care Production Machine Operator Name Role Phone Eliezer Ndiaye MD Unavailable [phone] Lory Morales Primary Care Provider [phone] Allergies Active Allergy Reactions Criticality Noted Date [...] at which point she was seen at [facility] where she was started on Flomax and antibiotics and based on a reassuring CT that showed no hydronephrosis and only two 3 mm stones in the right ureter she was discharged home. 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 COLORIST -Permissive hypertension -Improve glucose control Chronic midline [...] this topic Medical Devices Implanted Type Area [employer] Skills Device Identifier Shelf Expiration Date Model / Serial / Lot Stent Variable 6fr 22-30 - [id number] Implanted:Qty: 1 on 10/12/2017 by Placido Groves MD at [facility] Left: Ureter [employer] 06/12/2020 [id number] 60 / / [id number] Stent Variable 4.8 22-30cm - [id number] Implanted:Qty: 1 on 10/30/2017 by Eliezer Ndiaye MD at [facility] [employer] 05/15/2020 [id number] 50 / / [id number] Stent Ureteral 6fr 22 To 30cm Stretch Coated Chelsey - [id number] Implanted:Qty: 1 on 01/20/2019 by Placido Groves MD at [facility] Left: Ureter [employer] 10/13/2021 [id number] 60 / [id number] 60 / [id number] Stent Ureteral 6fr 22 To 30cm Stretch Coated Chelsey - [id number] Implanted:Qty: 1 on 01/24/2019 by Daniel Guzman MD at [facility] [employer] 09/11/2021 [id number] 60 / / [id number] Stent Ureteral 6fr 22 To 30cm Stretch Coated Chelsey - [id number] Implanted:Qty: 1 on 11/11/2019 by Placido Groves MD at [facility] [employer] 06/01/2022 [id number] 60 / / [id number] Stent Ureteral 6fr 22 To 30cm Stretch Coated Chelsey - [id number] Implanted:Qty: 1 on 11/24/2019 by Eliezer Ndiaye MD at [facility] Left: Ureter [employer] 05/28/2022 [id number] 60 / / [id number] Stent Ureteral 6fr 22 To 30cm Stretch Coated Chelsey - [id number] Implanted:Qty: 1 on 12/10/2019 by Daniel Guzman MD at [facility] Left: Ureter [employer] 05/28/2022 [id number] 60 / / [id number] Stent Ureteral 7frx22 To 30cm Double Pigtail Suture Stretch Vl Positioner - [id number] Implanted:Qty: 1 on 02/19/2020 by Daniel Guzman MD at [facility] Left: Ureter [employer] 01/26/2021 [id number] 70 / / [id number] Stent Ureteral 6fr 22 To 30cm Stretch Coated Chelsey - [id number] Implanted:Qty: 1 on 05/17/2020 by Placido Groves MD at [facility] Left: Ureter [employer] 01/03/2023 [id number] 60 / / [id number] Stent Ureteral 6fr 22 To 30cm Stretch Coated Chelsey - [id number] Implanted:Qty: 1 on 05/20/2021 by Liseth Dennis MD at [facility] Left: Ureter [employer] 09/23/2023 [id number] 60 / / [id number] Stent Ureteral 6fr 22 To 30cm Stretch Coated Chelsey - [id number] Implanted:Qty: 1 on 05/22/2021 by Placido Groves MD at [facility] [employer] 11/28/2023 [id number] 60 / / [id number] Stent Ureteral 6fr 22 To 30cm Stretch Coated Chelsey - [id number] Implanted:Qty: 1 on 05/30/2021 by Placido Groves MD at [facility] Left: Ureter [employer] 09/23/2023 [id number] 60 / / [id number] Stent Ureteral 6fr 22 To 30cm Stretch Coated Chelsey - [id number] Implanted:Qty: 1 on 02/23/2022 by Daniel Guzman MD at [facility] Right: Ureter [employer] [id number] 12/05/2024 [id number] 60 / / [id number] Stent Ureteral 6fr 22 To 30cm Stretch Coated Chelsey - [id number] Implanted:Qty: 1 on 05/29/2022 by Placido Groves MD at [facility] Right: Ureter [employer] 12/26/2024 [id number] 60 / / [id number] Procedures Procedure Name Priority Date/Time Associated Diagnosis Comments BASIC METABOLIC PANEL (BMP) STAT 10/08/2024 9:54 AM EDT HEMOGLOBIN A1C Routine 03/01/2022 6:30 AM EST from Last 3 Months or Most Recently Relevant to Health Maintenance Results * (ABNORMAL) Basic metabolic panel (10/08/2024 9:54 AM EDT) SODIUM 136 133 - 146 mmol/L [facility] CHLORIDE 101 96 - 108 mmol/L [facility] POTASSIUM 4.3 3.3 - 5.1 mmol/L [facility] CO2 23 21 - 35 mmol/L [facility] BUN 18 6 - 19 mg/dL [facility] CREATININE 0.80 0.5 - 1.5 mg/dL [facility] GLUCOSE 245(H) 70 - 99 mg/dL [facility] CALCIUM 9.8 8.4 - 10.3 mg/dL [facility] EGFR 80 >59 mL/min/1.7 3m2 [facility] Comment:Estimated glomerular filtration rate calculated using the CKD-EPI refit equation. ANION GAP 16 10 - 20 mmol/L [facility] Blood 10/08/2024 9:54 AM EDT 10/08/2024 9:59 AM EDT us Keith Garcia MD LAB BLOOD BKR NADIR DÍAZ Final Result Performing Organization Address City/[facility]/ZIP Co de Phone Number [address] [address] * (ABNORMAL) Hemoglobin A1c (03/01/2022 6:30 AM EST) HEMOGLOBIN A1C 7.9(H) 4.3 - 5.8 % [facility] Blood 03/01/2022 6:30 AM EST 03/01/2022 7:18 AM EST us Jolie Crabtree DO LAB BLOOD BKR ORDERABLES Maya l Result Performing Organization Address [facility]/ZIP Co de Phone Number [address] [address] from Last 3 Months or Most Recently [...] Advance Directives For more information, please contact: [phone] (9AM - 5PM [facility], Saturday-Saturday) Documents on File Type Date Recorded Patient Ore Fielder Expl anation Healthcare Proxy 09/19/2020 2:57 PM [...] Agents on File Name Relationship Healthcare Agent [facility] Mahsa Morrison Spouse .Primary Health Care Agent (Proxy form on file) Care Teams Production Machine Operator Relationship Specialty Start Date End Date Lory [place]ales PA [address] [place] [address]. [place] [address] [email or web address] PCP - General Physician Kids Club Attendant 04/20/22 Eliezer Ndiaye MD Urology 12/09/19 Additional Source Comments The information contained in this document represents components of the legal health record. It is not the complete legal health record.[facility]
--- OUTSIDE RECORDS SUMMARY | 2025-02-24 13:09 | XMS_ITS | Encounter Summary ---
Author Organization [facility] Address [address] [place] [address] Phone Care Team Providers Care Tailor Men'S Ready To Wear Name Role Phone Eliezer Ndiaye MD Unavailable [phone] Kalyani Serrano CNP Primary Care Provider + Cecily Jean MD Primary Care Provider [phone] Lory Morales Primary Care Provider [phone] Encounter Details Date Type Department Care Team (Late st Contact Info) Description 09/14/2020 Procedure Pass [facility], Ct Scan - [address] [address] Social History Tobacco Use Types Packs/Day Years [...] 10:26 AM EDT Rohini Roblero RN * [place] Suicide Severity Rating Scale (Screener/Recent Self-Report) Question Answer Date of Assessment Author 1. Wish to be (Past 1 Month) No 021 10:26 AM EDT Rohini Roblero, DEE 2. Non-Specific Active Suici harrison Thoughts (Past 1 Month) No 09/14/2020 10:26 AM ELVIET Terri Roblero RN 6. Suicidal Behavior (Lifetime) No 10:26 AM EDT Rohini oRblero, DEE documented as of this encounter Plan of Treatment Not on file documented as of this encounter Visit Diagnoses Not on filedocumented in this encounter Care Teams Tailor Men'S Ready To Wear Relationship Specialty Start Date End Date Kalyani Serrano CNP [address] [place] [address] maria [email or web address] PCP - General Family Medicine 05/19/20 09/19/20 Cecily Jean MD [address] [place] [address] [email or web address] PCP - General Internal Medicine 09/20/20 04/19/22 Lory Morales PA [address] [place] [address]. [place] [address] [email or web address] PCP - General Physician Commissary Clerk 04/20/22 Eliezer Ndiaye MD Urology 12/09/19 documented as of this encounter Additional Source Comments The information contained in this document represents components of the legal health record. It is not the complete legal health record.[facility]
--- OUTSIDE RECORDS SUMMARY | 2025-02-24 13:10 | XMS_ITS | Encounter Summary ---
Author Organization [facility] Address [address] [place] [address] [place] [address] Phone Care Team Providers Care Floodplain Manager Name Role Phone Eliezer Ndiaye MD Unavailable [phone] Cecily Jean MD Primary Care Provider [phone] Lory Morlaes Primary Care Provider [phone] Encounter Details Date Type Department Care Team (Late st Contact Info) Description 02/23/2022 Procedure Pass [place] Admitting Dept - Virtual Department 30 [place] [address] Social History Tobacco Use Types Packs/Day Years [...] on filedocumented in this encounter Care Teams Floodplain Manager Relationship Specialty Start Date End Date Cecily Jean MD [address] [place] [address] [email or web address] PCP - General Internal Medicine 09/20/20 04/19/22 Lory Morales PA [address] [place] [address]. [place] [address] [email or web address] PCP - General Physician Yard Clerk 04/20/22 Eliezer Ndiaye MD [email or web address] Urology 12/09/19 documented as of this encounter Additional Source Comments The information contained in this document represents components of the legal health record. It is not the complete legal health record.[facility]
--- OUTSIDE RECORDS SUMMARY | 2025-02-24 13:10 | XMS_ITS | Encounter Summary ---
Author Organization [employer] Address [address] [facility] 7t [place] [address] Care Team Providers Care Webmethods Architect Name Role Phone Lory [place] PA-C Primary Care Provider Unav ailable Joycelyn Vuong Unavailable Unavailable Inactive/Transferred Primary Care Provider Unava ilable Reason for Visit * Reason Comments Med Refill Encounter Details Date Type Department Care Team (Late st Contact Info) Description 10/11/2023 Refill [facility] MED[facility] [address] [place] [address] Lory Morales PA-C Social History Tobacco Use [...] encounter Miscellaneous Notes * Telephone Encounter - RBOERT Yuen - 10/11/2023 3:28 PM EDT See te documented in this encounter Plan of Treatment Not on file documented as of this encounter Visit Diagnoses Not on filedocumented in this encounter Additional Health Concerns Assessment Noted Time PHQ-9 Depression Total Score: 13 024 10:58 AM EDT documented as of this encounter Care Teams Webmethods Architect Relationship Specialty Start Date End Date Lory [place] PA-C PCP - General Family Medicine 07/03/22 10/20/24 Inactive/Transferred PCP - General 10/21/24 10/21/24 Joycelyn Vuong Health Navigator 06/19/24 documented as of this encounter
--- OUTSIDE RECORDS SUMMARY | 2025-02-24 13:10 | XMS_ITS | Encounter Summary ---
Author Organization [employer] Address [address] 7t [place] [address] Care Team Providers Care Finishing Range Feeder Name Role Phone Lory [place] PA-C Primary Care Provider Unav ailable Joycelyn Vuong Unavailable Unavailable Inactive/Transferred Primary Care Provider Unava ilable Reason for Visit * Reason Comments Med Refill Encounter Details Date Type Department Care Team (Late st Contact Info) Description 09/27/2023 Refill [place] [facility] MEDICAL [address] [place] [address] Lory Morales PA-C Social History Tobacco Use [...] documented as of this encounter Care Teams Finishing Range Feeder Relationship Specialty Start Date End Date Lory [place] PA-C PCP - General Family Medicine 07/03/22 10/20/24 Inactive/Transferred PCP - General 10/21/24 10/21/24 Joycelyn Vuong Health Navigator 06/19/24 documented as of this encounter
--- OUTSIDE RECORDS SUMMARY | 2025-02-24 13:10 | XMS_ITS | Encounter Summary ---
Author Organization [facility] Address [address] [place] [address] Phone Care Team Providers Care Financial Aid Coordinator Name Role Phone Eliezer Ndiaye MD Unavailable [phone] Lory Morales Primary Care Provider [phone] Encounter Details Date Type Department Care Team (Late st Contact Info) Description 08/17/2022 Procedure Pass [facility], Ct Scan - [facility] [address] [place] [address] Social History Tobacco Use Types Packs/Day Years [...] 08/17/2022 10:58 AM Vinh Rendon RN * [place] Suicide Severity Rating Scale (Screener/Recent Self-Report) Question [...] on filedocumented in this encounter Care Teams Financial Aid Coordinator Relationship Specialty Start Date End Date Lory [place]laes PA [address] [place] [address] [email or web address] PCP - General Physician Booking Police Officer 04/20/22 Eliezer Ndiaye MD [email or web address] Urology 12/09/19 documented as of this encounter Additional Source Comments The information contained in this document represents components of the legal health record. It is not the complete legal health record.[facility]
--- OUTSIDE RECORDS SUMMARY | 2025-02-24 13:10 | XMS_ITS | Encounter Summary ---
Author Organization [facility] Address [address] [facility] [address] [place] [address] Phone Care Team Providers Care Picker / Packer Name Role Phone Eliezer Ndiaye MD Unavailable [phone] Cecily Jean MD Primary Care Provider [phone] Lory Morales Primary Care Provider [phone] Encounter Details Date Type Department Care Team (Latest Contact Info) Description 06/20/2021 Transcribe Orders Virtual Department 30 [place] [address] Selena Alvarez PA [address] [id number] [email or web address] Calculus of kidney (Primary Dx); Cyst of [...] kidney documented in this encounter Care Teams Picker / Packer Relationship Specialty Start Date End Date Cecily Jean MD [address] [place] [address] [email or web address] PCP - General Internal Medicine 09/20/20 04/19/22 Lory Morales PA [address] [place] [address]. [place] [address] [email or web address] PCP - General Physician Cash Checker 04/20/22 Eliezer Ndiaye MD [email or web address] Urology 12/09/19 documented as of this encounter Additional Source Comments The information contained in this document represents components of the legal health record. It is not the complete legal health record.[facility]
--- OUTSIDE RECORDS SUMMARY | 2025-02-24 13:10 | XMS_ITS | Encounter Summary ---
Author Organization [facility] Address [address] [place] [address] [place] [address] Phone Care Team Providers Care Postal Service Window Clerk Name Role Phone Eliezer Ndiaye MD Unavailable [phone] Aurora Trevino NP Primary Care Provider [phone] Amanda Kelly MD Primary Care Provider Kalyani Serrano CNP Primary Care Provider + Cecily Jean MD Primary Care Provider Lory Morales Primary Care Provider [phone] Encounter Details Date Type Department Care Team (Latest Contact Info) Description 02/03/2020 Transcribe Orders Virtual Department [address] [place] [address] Placido Groves MD [address] [place] [address], [address] [place] [address] [email or web address] Calculus of ureter (Primary [...] documented as of this encounter Care Teams Postal Service Window Clerk Relationship Specialty Start Date End Date Aurora Trevino NP [address] [place] [address] [email or web address] PCP - General Family Medicine 12/09/19 03/23/20 Amanda Kelly MD [address] [place] [address] [email or web address] PCP - General Family Medicine 03/24/20 05/18/20 Kalyani Serrano CNP [address] [place] [address] [email or web address] PCP - General Family Medicine 05/19/20 09/19/20 Cecily Jean MD [address] [place] [address] [email or web address] PCP - General Internal Medicine 09/20/20 04/19/22 Lory Morales PA [address] [place] [address] [email or web address] PCP - General Physician Raw Finish Mill Operator 04/20/22 Eliezer Ndiaye MD [email or web address] Urology 12/09/19 documented as of this encounter Additional Source Comments The information contained in this document represents components of the legal health record. It is not the complete legal health record.[facility]
--- OUTSIDE RECORDS SUMMARY | 2025-02-24 13:10 | XMS_ITS | Encounter Summary ---
Author Organization [employer] Address [address] [facility] 7t [place] [address] Care Team Providers Care Gallery Director Name Role Phone Lory Morales PA-C Primary Care Provider Unav ailable Joycelyn Vuong Unavailable Unavailable Inactive/Transferred Primary Care Provider Unava ilable Reason for Visit * Reason Comments Med Refill Encounter Details Date Type Department Care Team (Late st Contact Info) Description 09/07/2024 Refill [place] [facility] MED[facility] [address] [place] [address] Steph Puente FNP [address] [place], [place] [phone] Anxiety due to invasive procedure Social History [...] documented as of this encounter Care Teams Gallery Director Relationship Specialty Start Date End Date Lory Morales PA-C PCP - General Family Medicine 07/03/22 10/20/24 Inactive/Transferred PCP - General 10/21/24 10/21/24 Joycelyn Vuong Health Navigator 06/19/24 documented as of this encounter
--- OUTSIDE RECORDS SUMMARY | 2025-02-24 13:10 | XMS_ITS | Encounter Summary ---
Author Organization [facility] Address [address] [place] [address] Phone Care Team Providers Care Loom Changer Name Role Phone Eliezer Ndiaye MD Unavailable [phone] Kalyani Serrano CNP Primary Care Provider + Cecily Jean MD Primary Care Provider [phone] Lory Morales Primary Care Provider [phone] Encounter Details Date Type Department Care Team (Late st Contact Info) Description 09/14/2020 Procedure Pass [facility] [address] [place] [address] Social History Tobacco Use Types Packs/Day Years [...] 10:26 AM EDT Rohini Roblero RN * [place] Suicide Severity Rating Scale (Screener/Recent Self-Report) Question [...] on filedocumented in this encounter Care Teams Loom Changer Relationship Specialty Start Date End Date Kalynai Serrano CNP [address] [place] [address] [email or web address] PCP - General Family Medicine 05/19/20 09/19/20 Cecily Jean MD [address] [place] [address] [email or web address] PCP - General Internal Medicine 09/20/20 04/19/22 Lory Morales PA [address] [place] [address]. [place] [address] [email or web address] PCP - General Physician Parts Analyst 04/20/22 Eliezer Ndiaye MD [email or web address] Urology 12/09/19 documented as of this encounter Additional Source Comments The information contained in this document represents components of the legal health record. It is not the complete legal health record.[facility]
--- OUTSIDE RECORDS SUMMARY | 2025-02-24 13:10 | XMS_ITS | Encounter Summary ---
Author Organization [employer] Address [address] [facility] 7t [place] [address] Care Team Providers Care Shell Sorter Name Role Phone Lory Morales PA-C Primary Care Provider Unav ailable Joycelyn Vuong Unavailable Unavailable Inactive/Transferred Primary Care Provider Unava ilable Reason for Visit * Reason Comments Med Refill Encounter Details Date Type Department Care Team (Late st Contact Info) Description 07/24/2024 Refill Roshan [facility] 73 [place] [address] Floridalma Fernández DO 73 [place], [place] [id number] Chronic tension-type headache, not intractable Social History [...] documented as of this encounter Care Teams Shell Sorter Relationship Specialty Start Date End Date Lory Morales PA-C PCP - General Family Medicine 07/03/22 10/20/24 Inactive/Transferred PCP - General 10/21/24 10/21/24 Joycelyn Vuong Health Navigator 06/19/24 documented as of this encounter
--- OUTSIDE RECORDS SUMMARY | 2025-02-24 13:10 | XMS_ITS | Encounter Summary ---
Author Organization [facility] Address [address] [place] [address] Phone Care Team Providers Care Manifold Builder Name Role Phone Eliezer Ndiaye MD Unavailable [phone] Aurora Trevino NP Primary Care Provider [phone] Amanda Kelly MD Primary Care Provider Kalyani Serrano CNP Primary Care Provider + Cecily Jean MD Primary Care Provider [phone] Lory Morales Primary Care Provider [phone] Encounter Details Date Type Department Care Team (Late st Contact Info) Description 12/10/2019 Procedure Pass OR Admitting Dept - Virtual Department 30 [place] [address] Social History Tobacco Use Types Packs/Day Years [...] documented as of this encounter Care Teams Manifold Builder Relationship Specialty Start Date End Date Aurora Trevino NP 73 [place] [address] [email or web address] PCP - General Family Medicine 12/09/19 03/23/20 Amanda Kelly MD [address] [address] PCP - General Family Medicine 03/24/20 05/18/20 Kalyani Serrano CNP [address] [place] [address] [email or web address] PCP - General Family Medicine 05/19/20 09/19/20 Cecily Jean MD 73 [place] [address] rosa PCP - General Internal Medicine 09/20/20 04/19/22 Lory Morales PA [address] [place] [address] [address] [email or web address] PCP - General Physician Video Game Programmer 04/20/22 Eliezer Ndiaye MD Urology 12/09/19 documented as of this encounter Additional Source Comments The information contained in this document represents components of the legal health record. It is not the complete legal health record.[facility]
--- OUTSIDE RECORDS SUMMARY | 2025-02-24 13:10 | XMS_ITS | Encounter Summary ---
Author Organization [facility] Address [address] [facility] [address] [place] [address] Phone Care Team Providers Care Casing Wringer Operator Name Role Phone Eliezer Ndiaye MD Unavailable [phone] Lory Morales Primary Care Provider [phone] Encounter Details Date Type Department Care Team (Latest Contact Info) Description 11/16/2022 Transcribe Orders Virtual Department 30 [place] [address] Lory Morales PA [address] [facility] [place] [address] [email or web address] Chronic left shoulder pain (Primary Dx) [...] region documented in this encounter Care Teams Casing Wringer Operator Relationship Specialty Start Date End Date Lory Morales PA [address] [place] [address] [email or web address] PCP - General Physician Service Counter Cashier 04/20/22 Eliezer Ndiaye MD [email or web address] Urology 12/09/19 documented as of this encounter Additional Source Comments The information contained in this document represents components of the legal health record. It is not the complete legal health record.[facility]
--- OUTSIDE RECORDS SUMMARY | 2025-02-24 13:10 | XMS_ITS | Encounter Summary ---
Author Organization [facility] Address [address] [place] [address] Phone Care Team Providers Care Drafter Geophysical Name Role Phone Eliezer Ndiaye MD Unavailable [phone] Aurora Trevino NP Primary Care Provider [phone] Amanda Kelly MD Primary Care Provider Kalyani Serrano CNP Primary Care Provider + Cecily Jean MD Primary Care Provider [phone] Lory Morales Primary Care Provider [phone] Encounter Details Date Type Department Care Team (Latest Contact Info) Description 03/22/2020 Transcribe Orders Virtual Department 30 [place] [address] Daniel Guzman MD [facility] [facility], [address] [place] [address] [email or web address] Calculus of kidney (Primary Dx) Social History [...] non-obstructing small renal calculi. Daniel Guzman MD [facility] RE[facility] Final Result documented in this encounter Visit Diagnoses Diagnosis Calculus of kidney- Primary Calculus of kidney documented in this encounter Additional Health Concerns Infection Onset Date Last Indicated Resolved Time CoV-Risk 05/20/2020 05/20/2020 05/30/2020 1:23 AM EST documented as of this encounter Care Teams Drafter Geophysical Relationship Specialty Start Date End Date Aurora Trevino NP [address] [place] [address] [email or web address] PCP - General Family Medicine 12/09/19 03/23/20 Amanda Kelly MD [address] [place] [address] [email or web address] PCP - General Family Medicine 03/24/20 05/18/20 Kalyani Serrano CNP [address] [place] [address] [email or web address] PCP - General Family Medicine 05/19/20 09/19/20 Cecily Jean MD [address] [place] [address] [email or web address] PCP - General Internal Medicine 09/20/20 04/19/22 Lory Morales PA [address] [place] [address]. [place] [address] [email or web address] PCP - General Physician Cco 04/20/22 Eliezer Ndiaye MD [email or web address] Urology 12/09/19 documented as of this encounter Additional Source Comments The information contained in this document represents components of the legal health record. It is not the complete legal health record.[facility]
--- OUTSIDE RECORDS SUMMARY | 2025-02-24 13:10 | XMS_ITS | Encounter Summary ---
Author Organization [facility] Address [address] [place] [address] [place] [address] Phone Care Team Providers Care Manager Primary Care Name Role Phone Eliezer Ndiaye MD Unavailable [phone] Lory Morales Primary Care Provider [phone] Encounter Details Date Type Department Care Team (Late st Contact Info) Description 05/29/2022 Procedure Pass OR Admitting Dept - Virtual Department 30 [place] [address] Social History Tobacco Use Types Packs/Day Years [...] on filedocumented in this encounter Care Teams Manager Primary Care Relationship Specialty Start Date End Date Lory Morales PA [address] [place] [address]. [place] [address] [email or web address] PCP - General Physician Printer'S Assistant 04/20/22 Eliezer Ndiaye MD [email or web address] Urology 12/09/19 documented as of this encounter Additional Source Comments The information contained in this document represents components of the legal health record. It is not the complete legal health record.[facility]
--- OUTSIDE RECORDS SUMMARY | 2025-02-24 13:10 | XMS_ITS | Encounter Summary ---
Author Organization [facility] Address [address] [facility] [address] [place] [address] Phone Care Team Providers Care Bulb Packer Name Role Phone Eliezer Ndiaye MD Unavailable [phone] Aurora Trevino NP Primary Care Provider [phone] Amanda Kelly MD Primary Care Provider [phone] Kalyani Serrano CNP Primary Care Provider + Cecily Jean MD Primary Care Provider [phone] Lory Morales Primary Care Provider [phone] Encounter Details Date Type Department Care Team (Late st Contact Info) Description 02/17/[address] [facility], Ct Scan - [address] [address] Social History Tobacco Use Types Packs/Day Years [...] 02/18/2020 12:28 AM Sergio Dobbs RN * [place] Suicide Severity Rating Scale (Screener/Recent Self-Report) Question [...] documented as of this encounter Care Teams Bulb Packer Relationship Specialty Start Date End Date Aurora Trevino NP 73 [place] [address] [email or web address] PCP - General Family Medicine 12/09/19 03/23/20 Amanda Kelly MD [address] [place] [address] PCP - General Family Medicine 03/24/20 05/18/20 Kalyani Serrano CNP [address] [place] [address] maria [email or web address] PCP - General Family Medicine 05/19/20 09/19/20 Cecily Jean MD 73 [place] [address] [email or web address] PCP - General Internal Medicine 09/20/20 04/19/22 Lory Morales PA [address] [place] [address] [email or web address] PCP - General Physician Exploration Driller 04/20/22 Eliezer Ndiaye MD [email or web address] Urology 12/09/19 documented as of this encounter Additional Source Comments The information contained in this document represents components of the legal health record. It is not the complete legal health record.[facility]
--- OUTSIDE RECORDS SUMMARY | 2025-02-24 13:10 | XMS_ITS | Encounter Summary ---
Author Organization [facility] Address [address] [place] [address] Phone Care Team Providers Care Customer Accounts Advisor Name Role Phone Eliezer Ndiaye MD Unavailable [phone] Aurora Trevino NP Primary Care Provider [phone] Amanda Kelly MD Primary Care Provider Kalyani Serrano CNP Primary Care Provider + Cecily Jean MD Primary Care Provider [phone] Lory Morales Primary Care Provider Encounter Details Date Type Department Care Team (Late st Contact Info) Description 02/19/2020 Procedure Pass [place] Admitting Dept - Virtual Department 30 [place] [address] Social History Tobacco Use Types Packs/Day Years [...] documented as of this encounter Care Teams Customer Accounts Advisor Relationship Specialty Start Date End Date Aurora Trevino NP 73 [place] [address] [email or web address] PCP - General Family Medicine 12/09/19 03/23/20 Amanda Kelly MD [address] [address] PCP - General Family Medicine 03/24/20 05/18/20 Kalyani Serrano CNP [address] [place] [address] maria [email or web address] PCP - General Family Medicine 05/19/20 09/19/20 Cecily Jean MD 73 [place] [address] rosa PCP - General Internal Medicine 09/20/20 04/19/22 Lory Morales PA [address] [place] [address]. [place] [address] [email or web address] PCP - General Physician Consumer Loan Underwriter 04/20/22 Eliezer Ndiaye MD Urology 12/09/19 documented as of this encounter Additional Source Comments The information contained in this document represents components of the legal health record. It is not the complete legal health record.[facility]
--- OUTSIDE RECORDS SUMMARY | 2025-02-24 13:10 | XMS_ITS | Encounter Summary ---
Author Organization [facility] Address [address] [facility] [address] [place] [address] Phone Care Team Providers Care Fire Equipment Inspector Name Role Phone Eliezre Ndiaye MD Unavailable [phone] Aurora Trevino NP Primary Care Provider [phone] Amanda Kelly MD Primary Care Provider Kalyani Serrano CNP Primary Care Provider + Cecily Jean MD Primary Care Provider [phone] Lory Morales Primary Care Provider [phone] Encounter Details Date Type Department Care Team (Late st Contact Info) Description 12/09/2019 Procedure Pass [facility], Ct Scan - [address] [address] Social History Tobacco Use Types Packs/Day Years [...] documented as of this encounter Care Teams Fire Equipment Inspector Relationship Specialty Start Date End Date Sallieronnell Aurora JOEY Ayoub [address] [place] [address] [email or web address] PCP - General Family Medicine 12/09/19 03/23/20 Amanda Kelly MD [address] [address] PCP - General Family Medicine 03/24/20 05/18/20 Kalyani Serrano CNP [address] [place] [address] maria [email or web address] PCP - General Family Medicine 05/19/20 09/19/20 Cecily Jean MD 73 [place] [address] rosa PCP - General Internal Medicine 09/20/20 04/19/22 Lory Morales PA [address] [place] [address]. [place] [address] [email or web address] PCP - General Physician Shank Burnisher 04/20/22 Eliezer Ndiaye MD Urology 12/09/19 documented as of this encounter Additional Source Comments The information contained in this document represents components of the legal health record. It is not the complete legal health record.[facility]
--- OUTSIDE RECORDS SUMMARY | 2025-02-24 13:10 | XMS_ITS | Encounter Summary ---
Author Organization [employer] Address [address] [facility] 7t [place] [address] Care Team Providers Care Career Coach Name Role Phone Lory Morales PA-C Primary Care Provider Unav ailable Joycelyn Vuong Unavailable Unavailable Inactive/Transferred Primary Care Provider Unava ilable Reason for Visit * Reason Comments Med Refill Encounter Details Date Type Department Care Team (Late st Contact Info) Description 11/11/2023 Refill [place] [facility] 73 [place] [address] Lory Morales PA-C Chronic tension-type headache, not [...] documented as of this encounter Care Teams Career Coach Relationship Specialty Start Date End Date Lory Morales PA-C PCP - General Family Medicine 07/03/22 10/20/24 Inactive/Transferred PCP - General 10/21/24 10/21/24 Joycelyn Vuong Health Navigator 06/19/24 documented as of this encounter
--- OUTSIDE RECORDS SUMMARY | 2025-02-24 13:10 | XMS_ITS | Encounter Summary ---
Author Organization [employer] Address [address] [facility] [address] 7t [place] [address] Care Team Providers Care Site Supervisor Name Role Phone Lory Morales PA-C Primary Care Provider Unav ailable Joycelyn Vuong Unavailable Unavailable Inactive/Transferred Primary Care Provider Unava ilable Reason for Visit * Reason Comments Med Refill Encounter Details Date Type Department Care Team (Late st Contact Info) Description 01/23/2024 Refill [facility] 73 [place] [address] Steph Puente FNP 58 [place], [place] [id number] Chronic tension-type headache, not intractable Social History [...] documented as of this encounter Care Teams Site Supervisor Relationship Specialty Start Date End Date Lory Morales PA-C PCP - General Family Medicine 07/03/22 10/20/24 Inactive/Transferred PCP - General 10/21/24 10/21/24 Joycelyn Vuong Health Navigator 06/19/24 documented as of this encounter
--- OUTSIDE RECORDS SUMMARY | 2025-02-24 13:10 | XMS_ITS | Encounter Summary ---
Author Organization [facility] Address [address] [place] [address] Phone Care Team Providers Care Drop Count Associate Name Role Phone Eliezer Ndiaye MD Unavailable [phone] Aurora Trevino NP Primary Care Provider [phone] Amanda Kelly MD Primary Care Provider [phone] Kalyani Serrano CNP Primary Care Provider + Cecily Jean MD Primary Care Provider oLry Morales Primary Care Provider [phone] Encounter Details Date Type Department Care Team (Late st Contact Info) Description 12/09/2019 Procedure Pass OR Admitting Dept - Virtual Department 30 [place] [address] Social History Tobacco Use Types Packs/Day Years [...] documented as of this encounter Care Teams Drop Count Associate Relationship Specialty Start Date End Date Aurora Trevino NP 73 [place] [address] [email or web address] PCP - General Family Medicine 12/09/19 03/23/20 Amanda Kelly MD [address] [address] PCP - General Family Medicine 03/24/20 05/18/20 Kalyani Serrano CNP [address] [place] [address] maria [email or web address] PCP - General Family Medicine 05/19/20 09/19/20 eCcily Jean MD 73 [place] [address] rosa PCP - General Internal Medicine 09/20/20 04/19/22 Lory Morales PA [address] [place] [address]. [place] [address] [email or web address] PCP - General Physician Tankman 04/20/22 Eliezer Ndiaye MD Urology 12/09/19 documented as of this encounter Additional Source Comments The information contained in this document represents components of the legal health record. It is not the complete legal health record.[facility]
--- OUTSIDE RECORDS SUMMARY | 2025-02-24 13:10 | XMS_ITS | Encounter Summary ---
Author Organization [facility] Address [address] [facility] [address] [place] [address] Phone Care Team Providers Care Lease Analyst Name Role Phone Eliezer Ndiaye MD Unavailable [phone] Lory Morales Primary Care Provider [phone] Encounter Details Date Type Department Care Team (Late st Contact Info) Description 06/29/2022 Procedure Pass [facility], Ct Scan - [place] 30 [place] [address] Social History Tobacco Use Types Packs/Day Years [...] 10:23 AM EDT Idania Drew RN * [place] Suicide Severity Rating Scale (Screener/Recent Self-Report) Question [...] on filedocumented in this encounter Care Teams Lease Analyst Relationship Specialty Start Date End Date Lory Morales PA [address] [place] [address]. [place] [address] [email or web address] PCP - General Physician Bridge Maintenance Worker 04/20/22 Eliezer Ndiaye MD [email or web address] Urology 12/09/19 documented as of this encounter Additional Source Comments The information contained in this document represents components of the legal health record. It is not the complete legal health record.[facility]
--- OUTSIDE RECORDS SUMMARY | 2025-02-24 13:10 | XMS_ITS | Encounter Summary ---
Author Organization [facility] Address [address] [place] [address] Phone Care Team Providers Care Complaint Investigations Officer Name Role Phone Eliezer Ndiaye MD Unavailable [phone] Cecily Jean MD Primary Care Provider [phone] Lory Morales Primary Care Provider [phone] Encounter Details Date Type Department Care Team (Latest Contact Info) Description 03/12/2022 Transcribe Orders Virtual Department 30 [place] [address] Placido Groves MD [address] [place] [address], [address] [place] [address] [email or web address] Calculus of kidney (Primary Dx); Cyst of [...] nephrolithiasis or hydronephrosis demonstrated Placido Groves MD [facility] RENAL Final Result documented in this encounter Visit Diagnoses Diagnosis Calculus of kidney- Primary Cyst of kidney, acquired Acquired cyst of kidney Personal history of urinary (tract) infections Calculus of kidney Cyst of kidney, acquired Acquired cyst of kidney Personal history of urinary (tract) infections documented in this encounter Care Teams Complaint Investigations Officer Relationship Specialty Start Date End Date Cecily Jean MD [address] [place] [address] [email or web address] PCP - General Internal Medicine 09/20/20 04/19/22 Lory Morales PA [address] [place] [address]. [place] [address] [email or web address] PCP - General Physician Dining Chair Seat Cushion Trimmer 04/20/22 Eliezer Ndiaye MD [email or web address] Urology 12/09/19 documented as of this encounter Additional Source Comments The information contained in this document represents components of the legal health record. It is not the complete legal health record.[facility]
--- OUTSIDE RECORDS SUMMARY | 2025-02-24 13:10 | XMS_ITS | Encounter Summary ---
Author Organization [facility] Address [address] [facility] [address] [place] [address] Phone Care Team Providers Care Cabinet And Trim Installer Name Role Phone Eliezer Ndiaye MD Unavailable Cecily Jean MD Primary Care Provider [phone] Lory Morales Primary Care Provider [phone] Encounter Details Date Type Department Care Team (Late st Contact Info) Description 02/20/2022 Procedure Pass [facility], Ct Scan - [address] [address] Social History Tobacco Use Types Packs/Day Years [...] 02/20/2022 8:12 AM Lesley Talley, DEE * [place] Suicide Severity Rating Scale (Screener/Recent Self-Report) Question [...] on filedocumented in this encounter Care Teams Cabinet And Trim Installer Relationship Specialty Start Date End Date Cecily Jean MD [address] [place] [address] [email or web address] PCP - General Internal Medicine 09/20/20 04/19/22 Lory Morales PA [address] [place] [address]. [place] [address] [email or web address] PCP - General Physician Home Based Assistant 04/20/22 Eliezer Ndiaye MD Urology 12/09/19 documented as of this encounter Additional Source Comments The information contained in this document represents components of the legal health record. It is not the complete legal health record.[facility]
--- OUTSIDE RECORDS SUMMARY | 2025-02-24 13:10 | XMS_ITS | Encounter Summary ---
Author Organization [facility] Address [address] [facility] [address] [place] [address] Phone Care Team Providers Care Pattern Marker Name Role Phone Eliezer Ndiaye MD Unavailable [phone] Cecily Jean MD Primary Care Provider [phone] Lory Morales Primary Care Provider [phone] Encounter Details Date Type Department Care Team (Late st Contact Info) Description 02/28/2022 Procedure Pass [facility], Ct Scan - [address] [address] Social History Tobacco Use Types Packs/Day Years [...] 02/28/2022 10:45 PM Kati Juares RN * [place] Suicide Severity Rating Scale (Screener/Recent Self-Report) Question [...] on filedocumented in this encounter Care Teams Pattern Marker Relationship Specialty Start Date End Date Cecily Jean MD [address] [place] [address] [email or web address] PCP - General Internal Medicine 09/20/20 04/19/22 Lory Morales PA [address] [place] [address]. [place] [address] [email or web address] PCP - General Physician Head Operator Sulfide 04/20/22 Eliezer Ndiaye MD [email or web address] Urology 12/09/19 documented as of this encounter Additional Source Comments The information contained in this document represents components of the legal health record. It is not the complete legal health record.[facility]
--- NOTE | 2025-02-27 21:57 | MHC.PC.OV ---
Vital Signs 02/24/25 11:17 Height 5 ft 3.5 in Weight 52.787 kg BMI 20.3 BP 136/84 Blood Pressure Location Rt brachial Position Sitting Respiration 16 Pulse 109 H Pulse Source Pulse Oximeter Temp 97.1 F Temp Source Temporal Artery Scan Pulse Oximetry (%) 96 Oxygen Delivery Method Room Air Intake Visit Reasons: Wellness appt - Medicare - see comments Allergies promethazine (From Phenergan) Allergy (Mild, Verified 02/24/25 11:18) DEEP SLEEP Medication List - Last Reconciled 02/24/25 by JEN Pérez folic acid 1 mg PO DAILY insulin NPH isoph U-100 human (Novolin N FlexPen) 20 units (0.2 mL) subcut BID melatonin 10 mg PO .QHS metformin 1,000 mg PO BID multivitamin 1 tab PO DAILY quetiapine 50 mg PO BEDTIME quetiapine (Seroquel) 25 mg PO DAILY PRN thiamine HCl (vitamin B1) 100 mg PO DAILY Tobacco use date assessed: 01/22/25 Dental Screening Dental Screen Date: 01/22/25 HPI HPI Comments History of Present Illness Details 69-year-old female with history of alcohol use disorder with binge drinking, polysubstance abuse, insulin-dependent type 2 diabetes, CVA, nephrolithiasis, tobacco dependence presenting to the office today for follow up. Accompanied by her History of alcohol use disorder/polysubstance abuse- Has been sober since discharged from rehab. However, not functioing well. Was given prescription of seroquel to help with sleep at 50mg nightly. However, has been taking between 4-7 tabs daily. Takes these then sleeps for hours during the day per her . Consuming caffeine- about 2-3 cups daily. She has been eating, but not always the most healthy and small portions. assisting with care. Has lock box but has not been using. No psychiatrist or counselor Wernicke's encephalopathy- occasional disorientation. On folic acid and thiamine. No neurologist MDD- seroquel. no si/hi. Type 2 diabetes-10.0% On 20 units of Novolin twice daily as well as metformin 1000 mg twice daily. History of CVA-not on aspirin or statin Tobacco dependence-continue smoking about ?4-8 cigarettes per day. Concerns: Seroquel use Fall on curb- ?mechanical with sedating medication in system Health maintenance: Due for mammogram Due for DEXA scan Due for colonoscopy ROS: see hpi EXAM: Constitutional - Awake and Alert, No apparent distress Eyes - PERRL Cardiovascular - S1S2, RRR, No edema Respiratory - Normal lung expansion, Normal respiratory effort, No respiratory distress, CTA bilaterally Extremities - no calf tenderness bilaterally, no swelling Skin - Warm/Dry Neurological - Alert & oriented x3 Psychological - Appropriate affect [facility] Medical History (Updated 02/27/25 @ 22:08 by JEN Pérez) Hypoglycemia Alcohol dependence Type 2 diabetes mellitus Alcohol abuse Edentulous CVA (cerebral vascular accident) Bilateral nephrolithiasis Hiatal hernia Tobacco dependence Social History Household Members: Unknown / Unable to assess Housing: Unknown / Unable to assess Do you presently have visiting nurse or other home services: No Alcohol intake: current Alcohol intake frequency: 0-2 drinks per day Alcohol type: wine Patient Tobacco Use Status: Tobacco use Unknown Tobacco use type: Cigarette Cigarettes Per Day: 8 service: No Questionnaire PHQ-9 Over the last 2 weeks, how often have you been bothered by any of the following problems? 1. Little interest or pleasure in doing things: more than half the days 2. Feeling down, depressed, or hopeless: more than half the days 3. Trouble falling or staying asleep, or sleeping too much: several days 4. Feeling tired or having little energy: more than half the days 5. Poor appetite or overeating: several days 6. Feeling bad about yourself - or that you are a failure or have let yourself or your family down: more than half the days 7. Trouble concentrating on things, such as reading the newspaper or watching television: more than half the days 8. Moving or speaking so slowly that other people could have noticed. Or the opposite - being so fidgety or restless that you have been moving around a lot more than usual: not at all 9. Thoughts that you would be better off or of hurting yourself in some way: several days Total score: 13 Depression Screening Interpretation: Positive Depression Screening Follow-up: New Medication prescribed and Follow-up Visit Requested Depression Screening Done: Yes 27411 - PHQ-9 Billing: Yes Source: Developed by Drs. Oziel De Oliveira, Iris Hoffman, Mario Olivera and colleagues, with an educational eva from [employer]. Thrive Questionnaire Date Thrive assessed: 11/14/24 I am a: Patient What is your living situation today?: I have a steady place to live Within the past 12 months, did the food you bought not last and you didn't have the money to get more?: Never true Within the past 12 months, did you worry whether your food would run out before you got money to buy more?: Never true Do you have trouble paying for medicines?: No Do you have trouble getting transportation to medical appointments?: No Do you have trouble paying your heating and electricity bill?: No Do you have trouble taking care of your child, family member or friend?: No Do you have trouble with day-to-day activities such as bathing, preparing meals, shopping, managing finances, etc.?: No Are you currently unemployed and looking for a job?: No Are you interested in more education?: No Please select the resources that you would like help with: None THRIVE Score: 0 FABIO-7 AMB Questionnaire FABIO-7 Feeling nervous, anxious, or on edge: 0 = Not at all Not being able to stop or control worryin = Several days Worrying too much about different things: 1 = Several days Trouble relaxin = Not at all Being so restless that it is hard to sit still: 0 = Not at all Becoming easily annoyed or irritable: 1 = Several days Feeling afraid as if something awful might happen: 0 = Not at all Total FABIO-7 score (0-4 normal; 5-9 mild; 10-14 moderate; 15-21 severe): 3 Source: Developed by Drs. Oziel De Oliveira, Iris Hoffman, Mario Olivera and colleagues, with an educational eva from [employer]. FABIO-7 Assessment Billing FABIO-7 Assessment Tool: FABIO-7 Assessment 17831 Physical exam (Primary Care) Vital Signs: Last Vital Signs Temp 97.1 F 02/24/25 11:17 Pulse 109 H 02/24/25 11:17 Resp 16 02/24/25 11:17 BP 136/84 02/24/25 11:17 Pulse Ox 96 02/24/25 11:17 Oxygen Delivery Method Room Air 02/24/25 11:17 BMI result Body Mass Index 20.3 Tobacco/Smoking Status: Tobacco use Status Tobacco use date assessed 01/22/25 01/22/25 07:28 Patient Tobacco Use Status Tobacco use Unknown 01/22/25 07:28 Tobacco use type Cigarette 01/22/25 07:28 Depression Screening Interpretation: Positive Depression Screening Follow-up: New Medication prescribed and Follow-up Visit Requested Thrive Assessment: Date of Thrive Assessment Date Thrive assessed 11/14/24 01/22/25 07:28 Coding Level of Care Code Est Pt Level 4 (84390) Complex visit Add On G2211 Diagnoses Wernicke's encephalopathy E51.2 Tobacco dependence F17.200 Type 2 diabetes mellitus E11.9 Medication noncompliance due to cognitive impairment R41.9; Z91.148 MDD (major depressive disorder) F32.9 Additional Codes FABIO-7 Assessment Billing - FABIO-7 Assessment Tool: FABIO-7 Assessment 04270 ([id number]) PHQ-9 - 43312 - PHQ-9 Billing: Yes ([id number]) Assessment & Plan Assessment & Plan (1) Wernicke's encephalopathy: Code(s): E51.2 - Wernicke's encephalopathy Category: Medical Plan: Continue folic acid and thiamine. Referred to psychiatry and neurology (2) Tobacco dependence: Code(s): F17.200 - Nicotine dependence, unspecified, uncomplicated Category: Medical Plan: Counseled on cessation (3) Type 2 diabetes mellitus: Code(s): E11.9 - Type 2 diabetes mellitus without complications Category: Medical Plan: Uncontrolled. Continue current remedies for now. Had been without these for some time but has resumed (4) Medication noncompliance due to cognitive impairment: Code(s): R41.9 - Unspecified symptoms and signs involving cognitive functions and awareness; Z91.148 - Patient's other noncompliance with medication regimen for other reason Category: Medical Plan: Recommend lockbox. Discussed with both patient and her . Taking about 200mg seroquel instead of prescribed 50mg nightly (5) MDD (major depressive disorder): Code(s): F32.9 - Major depressive disorder, single episode, unspecified Category: Medical Plan: PHQ-9 12. Overusing seroquel. Counseled. Will add 25mg seroquel during the day as needed for agitation. COntinue 50mg nightly. Psychiatry referral placed. Recommend counseling for both parties. Plan Follow up in 1 month. [facility] referral placed due to medication noncompliance and PT with fall Orders: Referrals Psychiatry Outpatient Consultation Service E51.2 - Wernicke's encephalopathy Neurology Referral E51.2 - Wernicke's encephalopathy [facility] Referral R41.9 - Unspecified symptoms and signs involving cognitive functions and awareness, R53.1 - Weakness, W19.XXXA - Unspecified fall, initial encounter, Z91.148 - Patient's other noncompliance with medication regimen for other reason Medications: New quetiapine 50 mg PO BEDTIME 90 tabs 1RF quetiapine (Seroquel) 25 mg PO DAILY PRN 90 tabs 0RF anxiety/agitation
== END 2025-02-24 12:10 | disposition home or self-care (01) ==
LOC: HO.HMCHD 11:03
PROVIDERS: PCP Physician Assistant; Visit Provider Physician Assistant
DX: E51.2 Wernicke's encephalopathy (principal); F17.200 Nicotine dependence, unspecified, uncomplicated; E11.9 Type 2 diabetes mellitus without complications; R41.9 Unspecified symptoms and signs involving cognitive functions and awareness; Z91.148 Patient's other noncompliance with medication regimen for other reason; F32.9 Major depressive disorder, single episode, unspecified

== ENCOUNTER → 2025-02-24 11:03 | Outpatient (BNVA) | payer MEDICARE, SELFPAY | PROVIDERS: PCP Physician Assistant; Visit Provider Physician Assistant | DX: F19.10 Other psychoactive substance abuse, uncomplicated (principal); F10.288 Alcohol dependence with other alcohol-induced disorder; F10.282 Alcohol dependence with alcohol-induced sleep disorder; E51.2 Wernicke's encephalopathy; E11.65 Type 2 diabetes mellitus with hyperglycemia; F32.9 Major depressive disorder, single episode, unspecified; R41.9 Unspecified symptoms and signs involving cognitive functions and awareness; R45.1 Restlessness and agitation; Z13.31 Encounter for screening for depression; Z13.39 Encounter for screening examination for other mental health and behavioral disorders; Z86.73 Personal history of transient ischemic attack (TIA), and cerebral infarction without residual deficits; Z79.899 Other long term (current) drug therapy; Z91.148 Patient's other noncompliance with medication regimen for other reason; Z79.4 Long term (current) use of insulin; Z91.81 History of falling; Z71.6 Tobacco abuse counseling; Z09 Encounter for follow-up examination after completed treatment for conditions other than malignant neoplasm | CPT/HCPCS: 96127; 99212 ==